=== PATIENT | female | born 1930 | race Hispanic/Latino ===

== ENCOUNTER 2017-04-24 22:47 | Inpatient (IN) | payer MEDICARE, MEDICAID ==
[2017-04-24 22:48] VITALS: BMI 14.1
--- NOTE | 2017-04-24 23:14 | ED PDOC ---
Arrival/HPI - General Chief Complaint: Abnormal Labs Time Seen by Provider: 04/24/17 23:08 Historian: Jail - History of Present Illness Narrative History of Present Illness (Text): 04/24/17 23:14 Mary Beth Hu is an 87 year old female, whose past medical history includes influenza, hypertension, COPD, C.diff, colitis, atrial fibrillation, hypothyroidism, and atrial fibrillation, who presents to the Emergency department [facility]work today. Patient noted to have a low hemoglobin of 7.8 and hematocrit of 24. Limited HPI and ROS secondary to patient's acuity of condition. Symptom Onset: Gradual Symptom Course: Unchanged Activities at Onset: Light Context: Home (penitentiary) Past Medical History - Provider Review Nursing Documentation Reviewed: Yes - Infectious Disease Hx of Infectious Diseases: C.diff - Tetanus Immunization Tetanus Immunization: Unknown - Cardiac Hx Cardiac Disorders: (hx c dif) Hx Hypertension: Yes - Pulmonary Hx Chronic Obstructive Pulmonary Disease (COPD): Yes Hx Pneumonia: Yes (bacterial tx in [facility] over 10 yrs ago) Other/Comment: lung infection - Neurological HX Cerebrovascular Accident: Yes Hx Dementia: Yes Hx Parkinson's Disease: Yes - Endocrine/Metabolic Hx Hypothyroidism: Yes - Musculoskeletal/Rheumatological Hx Falls: No - Genitourinary/Gynecological Hx Incontinence: Yes - Psychiatric Hx Depression: No Hx Emotional Abuse: No Hx Physical Abuse: No Hx Schizophrenia: (hears voices) Hx Substance Use: No - Past Surgical History Past Surgical History: Unable to Obtain - Surgical History Hx Hysterectomy: Yes - Suicidal Assessment Feels Threatened In Home Enviroment: No Family/Social History - Physician Review Nursing Documentation Reviewed: Yes Family/Social History: Unknown Family HX Smoking Status: Former Smoker Hx Alcohol Use: No Hx Substance Use: No Hx Substance Use Treatment: No Allergies/Home Meds Allergies/Adverse Reactions: Allergies No Known Allergies Allergy (Verified 10/24/12 08:19) Home Medications: Home Meds Medication Instructions Recorded Confirmed Acetaminophen [Tylenol] 650 mg PO PRN 10/24/12 10/24/12 Carbidopa/Levodopa [Carbidopa and 1 tab PO TID 10/24/12 10/24/12 Levodopa 25 mg-100 mg] Milk Of Mag 30 Ml PRN 10/24/12 10/24/12 Mirtazapine [Remeron] 15 mg PO HS 10/24/12 10/24/12 Omeprazole [Omeprazole D/R] 20 mg PO DAILY 10/24/12 10/24/12 Risperidone 0.25 mg PO HS 10/24/12 10/24/12 Simvastatin 20 mg PO DAILY 10/24/12 10/24/12 Review of Systems - Review of Systems Systems not reviewed;Unavailable: Acuity of Condition Hemo/Lymphatic: Other (+abnormal labs) Physical Exam Vital Signs Reviewed: Yes Vital Signs Temp Pulse Resp BP Pulse Ox 04/25/17 02:11 64 18 110/66 95 04/25/17 01:36 63 20 100/52 L 100 04/25/17 01:15 67 18 101/29 L 100 04/25/17 01:00 64 18 82/41 L 100 04/25/17 00:40 65 20 87/36 L 100 04/25/17 00:06 65 18 95/31 L 99 04/24/17 23:30 98.0 F 63 18 95/32 L 98 Temperature: Afebrile Blood Pressure: Normal Pulse: Regular Respiratory Rate: Normal Appearance: Positive for: Well-Appearing, Non-Toxic, Comfortable Pain Distress: None Mental Status: Positive for: other (Awake, alert, non-communicative) - Systems Exam Head: Present: Atraumatic, Normocephalic Pupils: Present: PERRL Extroacular Muscles: Present: EOMI Conjunctiva: Present: Other (Pale conjunctiva) Mouth: Present: Moist Mucous Membranes Neck: Present: Normal Range of Motion Respiratory/Chest: Present: Clear to Auscultation Cardiovascular: Present: Regular Rate and Rhythm, Normal S1, S2. No: Murmurs Abdomen: Present: Normal Bowel Sounds. No: Tenderness, Distention, Peritoneal Signs Rectal: Present: Other (Guaiac negative) Upper Extremity: Present: Normal Inspection. No: Cyanosis, Edema Lower Extremity: Present: Normal Inspection. No: Edema Neurological: Present: CN II-XII Intact, Motor Func Grossly Intact, Normal Sensory Function, Normal Cerebellar Funct, Other (Awake, non-communicative) Skin: Present: Warm, Dry, Normal Color. No: Rashes Psychiatric: Present: Alert Medical Decision Making ED Course and Treatment: 04/24/17 23:14 Impression: 87 year old female [facility] for [facility] hemoglobin/hematocrit. Plan: -- EKG -- Chest X-ray -- Labs, blood type and screen -- IV fluids -- Protonix -- Reassess and disposition Progress Notes: Reviewed EKG, NSR at [address]-segment elevations or depressions, no T- wave inversions, normal intervals. 04/25/17 01:40 Chest X-ray reviewed, shows no acute processes. 04/25/17 02:[address] Vazquez, who is aware and agrees with plan. Accepts pt in to her service. Pt will go to [facility] observation for anemia. Requests pt be transfused 2 units of blood. Also requests Dr. Berry on consult. - Lab Interpretations Lab Results: 04/25/17 00:25 04/25/17 00:25 Lab Results 04/25/17 00:25: Blood Type Pending, Antibody Screen Pending, BBK History Checked Patient has bt 04/25/17 00:25: WBC 5.3, RBC 2.72 L, Hgb 8.0 L, Hct 25.5 L, MCV 93.8, MCH 29.4, MCHC 31.4, RDW 14.7 H, Plt Count 227, MPV 10.4 04/25/17 00:25: Sodium 141, Potassium 4.1, Chloride 109 H, Carbon Dioxide 28, Anion Gap 8 L, BUN 20, Creatinine 0.8, Est GFR ( Amer) > 60, Est GFR (Non -Af Amer) > 60, Random Glucose 88, Calcium 8.5, Total Bilirubin 0.4, AST 16, ALT 13, Alkaline Phosphatase 55, Total Protein 6.2, Albumin 2.7 L, Globulin 3.5 , Albumin/Globulin Ratio 0.8 L 04/25/17 00:25: PT 13.7 H, INR 1.20 H, APTT 31.1 I have reviewed the lab results: Yes - RAD Interpretation Radiology Orders: 04/24/17 23:59 CHEST PORTABLE [RAD] Stat Vehicle Detailer: ED Physician - EKG Interpretation Interpreted by ED Physician: Yes Type: 12 lead EKG - Medication Orders Current Medication Orders: Sodium Chloride (Sodium Chloride 0.9%) 1,000 mls @ 100 mls/hr IV .Q10H DIANE Last Admin: 04/25/17 00:29 Dose: Discontinued Medications Sodium Chloride (Sodium Chloride 0.9%) 500 mls @ 500 mls/hr IV .Q1H STA Stop: 04/25/17 01:24 Last Admin: 04/25/17 00:30 Dose: 500 mls/hr eMAR Start Stop Document 04/25/17 00:30 YP (Rec: 04/25/17 00:30 YP [id number]) Intravenous Solution Start Date 04/25/17 Start Time 00:30 End Date 04/25/17 End time 01:00 Total Infusion Time 30 Pantoprazole Sodium (Protonix Inj) 40 mg IVP ONCE STA Stop: 04/25/17 00:01 Last Admin: 04/25/17 00:29 Dose: 40 mg IVP Administration Document 04/25/17 00:29 YP (Rec: 04/25/17 00:29 YP [id number]) Charges for Administration # of IVP Administrations 1 - Scribe Statement The provider has reviewed the documentation as recorded by the Amada Coleman Provider Scribe Attestation: All medical record entries made by the Scribmackenzie were at my direction and personally dictated by me. I have reviewed the chart and agree that the record accurately reflects my personal performance of the history, physical exam, medical decision making, and the department course for this patient. I have also personally directed, reviewed, and agree with the discharge instructions and disposition. Disposition/Present on Arrival - Present on Arrival Any Indicators Present on Arrival: No History of DVT/PE: No History of Uncontrolled Diabetes: No Urinary Catheter: No History of Decub. Ulcer: No History Surgical Site Infection Following: None - Disposition Have Diagnosis and Disposition been Completed?: Yes Diagnosis: Anemia Disposition: HOSPITALIZED Disposition Time: 02:37 Patient Problems: Current Active Problems Problem Status Onset Anemia Acute Condition: STABLE
[2017-04-25] MEDS ORDERED: Sodium Chloride 0.9% 1,000 ML IV SCH
[2017-04-25] MEDS ORDERED: Sodium Chloride 0.9% 500 ML IV STA (00:25)
[2017-04-25 00:52] LABS: ALBUMIN 2.7 g/dL (3.0-4.8); ALT/SGPT 13 U/L (7-56); AST/SGOT 16 U/L (14-36); BLOOD UREA NITROGEN 20 mg/dL (7-21); CALCIUM 8.5 mg/dL (8.4-10.5); GFR AFRICAN-AMERICAN > 60; GFR NON-AFRICAN AMERICAN > 60
[2017-04-25 00:53] LABS: ALB/GLOB RATIO 0.8 (1.1-1.8); MEAN CELL VOLUME 93.8 fl (80.0-105.0); MEAN CORPUSCULAR HEMOGLOBIN 29.4 pg (25.0-35.0); MEAN CORPUSCULAR HGB CONC 31.4 g/dl (31.0-37.0); MEAN PLATELET VOLUME 10.4 fl (7.0-11.0); RBC 2.72 10^6/uL (3.5-6.1); RED CELL DISTRIBUTION WIDTH 14.7 % (11.5-14.5); WHITE BLOOD COUNT 5.3 10^3/ul (4.5-11.0)
[2017-04-25 01:03] LABS: INR 1.2 (0.93-1.08); PARTIAL THROMBOPLASTIN TIME 31.1 Seconds (25.1-36.5); PROTHROMBIN TIME 13.7 SECONDS (9.4-12.5)
[2017-04-25] MEDS ORDERED: Albuterol-Ipratrop 3 mg / 0.5 (3 ml) UD IH PRN (08:32)
[2017-04-25] MEDS ORDERED: Magnesium Hydroxide Susp 30 ml UD PO PRN (08:32)
--- NOTE | 2017-04-25 08:50 | RAD ---
HISTORY: medical clearance COMPARISON: 11/02/2012 FINDINGS: LUNGS: There is a minimal density in the right lung which follows the contour of the major fissure. This could represent pleural scarring. There is no focal consolidation PLEURA: No significant pleural effusion identified, no pneumothorax apparent. CARDIOVASCULAR: Normal. OSSEOUS STRUCTURES: No significant abnormalities. VISUALIZED UPPER ABDOMEN: Normal. OTHER FINDINGS: None. IMPRESSION: There is a minimal density in the right lung which follows the contour of the major fissure. This could represent pleural scarring. There is no focal consolidation
[2017-04-25] MEDS ORDERED: Fluticasone-Salmeterol 500-50mcg Diskus IH SCH (10:00)
[2017-04-25] MEDS ORDERED: Albuterol HFA 90 mcg/actuation (8 g) IH SCH (10:00)
[2017-04-25 10:16] LABS: ALT/SGPT 15 U/L (7-56); AST/SGOT 20 U/L (14-36); BILIRUBIN,DIRECT 0.4 mg/dL (0.0-0.4); HDL CHOLESTEROL 29 mg/dL (29-60)
[2017-04-25 10:20] LABS: LDL CHOLESTEROL 31 mg/dL (0-129)
[2017-04-25 10:28] LABS: IRON 26 ug/dL (45-180)
[2017-04-25 10:38] LABS: TOTAL IRON BINDING CAPACITY 189 ug/dL (265-497)
[2017-04-25 10:41] LABS: % IRON SATURATION 14 % (20-55)
[2017-04-25 11:09] LABS: ALBUMIN 2.7 g/dL (3.0-4.8)
[2017-04-25 11:11] LABS: ALB/GLOB RATIO 0.8 (1.1-1.8)
[2017-04-25] MEDS: Divalproex 125 mg EC Sprinkle Cap PO SCH ×2 (12:23→18:07)
[2017-04-25] MEDS: Calcium-Vit D 250 mg-125 Units Tab UD PO SCH (12:24)
[2017-04-25] MEDS: Digoxin 125 mcg (0.125 mg) Tab PO SCH (12:27)
[2017-04-25] MEDS: Multivitamin With Minerals Tab PO SCH (12:28)
[2017-04-25] MEDS: Carbidopa/Levodopa 25/100 CR PO SCH ×3 (12:28→18:08)
[2017-04-25] MEDS: Potassium Chloride 20 mEq ER Tab PO SCH (12:28)
[2017-04-25] MEDS: Arformoterol 15 mcg/2 ml Inh Sol IH SCH ×2 (14:37→19:51)
[2017-04-25] MEDS: Budesonide 0.5 mg/2 ml Inhal Susp UD IH SCH ×2 (14:37→19:52)
[2017-04-25 17:32] LABS: FOLATE > 20.0 ng/mL
--- NOTE | 2017-04-25 20:15 | CON ---
DATE: REQUESTING PHYSICIAN: Emily Vazqeuz MD This consult is for Dr. Berry, Dr. Carlisle is covering. REASON FOR CONSULTATION: I have been asked to see this 87-year-old female who is transferred from the [facility] for routine blood work which showed the patient to be anemic with a hemoglobin of 7.8. The patient is a poor historian. She denies any abdominal pain, rectal bleeding, melena, nausea, vomiting, or hematemesis. She has a history of hypertension, influenza, COPD, atrial fibrillation, hypothyroidism, and pseudomembranous colitis. PAST MEDICAL HISTORY: Again is as above. She has a history of COPD, influenza, hypertension, atrial fibrillation, hypothyroidism, pseudomembranous colitis, CVA, dementia, Parkinson's disease. SOCIAL HISTORY: She is domiciled at a [facility]. She denies cigarette smoking or alcohol use. FAMILY HISTORY: Noncontributory. REVIEW OF SYSTEMS: A 14-point review of systems is notable for weakness. She denies rectal bleeding, melena, abdominal pain, nausea, vomiting, hematemesis. MEDICATIONS AT HOME: Include Brovana, Claritin, Depakote Sprinkles 125 mg b.i.d., DuoNeb 3 mL inhaled every 6 hours as needed, potassium chloride, Lanoxin 0.125 mg daily, Lipitor 10 mg daily, Lopressor 12.5 mg p.o. b.i.d., Os-Anil D, pantoprazole 40 mg once a day, budesonide 1 mg q.12 hours, Remeron 15 mg at bedtime, Risperdal 0.5 mg p.o. b.i.d., Sinemet one t.i.d., Singulair 10 mg p.o. at bedtime, multivitamins. PHYSICAL EXAMINATION: GENERAL: Elderly, cachectic female lying in bed, appearing comfortable. VITAL SIGNS: Reveal temperature of 98, blood pressure 92/29, heart rate 58. HEENT: Reveals bilateral temporal wasting. Conjunctivae are pale. Sclerae are white. NECK: Supple. CHEST: Reveals lungs to be clear. HEART: Reveals an irregular rate. ABDOMEN: Soft, nontender. EXTREMITIES: Show no edema. LABORATORY DATA: Reveals hemoglobin , white blood cell count 5.3. Coags reveal PT 13.7, INR 1.2. Laboratory data reveals BUN 20, creatinine 0.8. IMPRESSION: An 87-year-old female with anemia, this is probably chronic. There is no evidence of overt gastrointestinal bleeding. RECOMMENDATIONS: 1. Check iron studies. 2. Check stool guaiacs. 3. The patient is to be transfused 2 units of packed red blood cells. 4. Consider endoscopy if the patient is agreeable. Mati Carlisle MD
[2017-04-25] MEDS: Insulin Reg-LOW-Coverage SC SCH (22:43)
[2017-04-25] MEDS: MethylPREDNISolone 40 mg Vial IVP SCH (22:45)
--- NOTE | 2017-04-26 03:40 | HP ---
CHIEF COMPLAINT: Coughing, shortness of breath, wheezing, and low hemoglobin. HISTORY OF PRESENT ILLNESS: Ms. Mary Beth Hu is an 87-year-old female with past medical history of hypertension, COPD, clostridium difficile toxin colitis, atrial fibrillation, hypothyroidism and asthma, came to the Emergency Room from [facility] for low hemoglobin, coughing, shortness of breath, and wheezing. The patient noted to have a low hemoglobin of 7.8, and hematocrit of 24. The patient has advanced dementia, is not giving any history or review of system, but I know this patient from [facility]. No fever and no chills. The patient is very poor historian. PAST MEDICAL HISTORY: Clostridium difficile toxin colitis, history of congestive heart failure, hypertension, COPD, history of pneumonia, CVA, dementia, Parkinson's disease, hypothyroidism, urinary incontinence, and hysterectomy. FAMILY HISTORY: Father and mother noncontributory. HABITS: No smoking, no drugs, and no ethanol. ALLERGIES: THE PATIENT IS NOT ALLERGIC WITH ANY MEDICATIONS. HOME MEDICATIONS: Tylenol, carbidopa/levodopa, Remeron, omeprazole, risperidone, and simvastatin. REVIEW OF SYSTEMS: The patient seen and examined at the bedside in her room. She is having her lunch, but still coughing, shortness of breath, and wheezing. No fever and no chills. No headache or dizziness. No swelling of the leg. She is not able to give review of system. PHYSICAL EXAMINATION: VITAL SIGNS: Temperature of 98.0, pulse of 63, respiratory rate of 18, and blood pressure of 35/32. HEENT: Head normocephalic and atraumatic. Eyes: PERRLA. Extraocular muscles are intact. Conjunctivae are clear. Nose is patent. Mucous membranes are moist. NECK: Supple. No carotid bruits. No JVD or thyromegaly. CHEST: Bilaterally symmetrical. HEART: S1 and S2 positive. LUNGS: Positive wheezing bilaterally. ABDOMEN: Soft. Bowel sounds present. No organomegaly. EXTREMITIES: No edema. No cyanosis. NEUROLOGIC: The patient is awake and alert. Moving all 4 extremities. Following simple commands. Cranial nerves II through XII are grossly intact. LABORATORY DATA: White blood cell count is 5.3, hemoglobin is 8.0, hematocrit is 25.5, and platelets are 27. Sodium is 141, potassium is 4.1, BUN is 20, creatinine is 0.8, and glucose is 88. ASSESSMENT AND PLAN: Ms. Mary Beth Hu is an 87-year-old lady with anemia, hyperchloremia, anemia is acute on chronic, exacerbation of chronic obstructive pulmonary disease, history of hypertension, history of clostridium difficile toxin colitis, atrial fibrillation, and hypothyroidism. Readmitted the patient, doing a 2 units of packed red blood cells. Gastrointestinal consult called to rule out gastrointestinal cause of anemia. Hematology consult called. Pulmonary consult call. Put the patient on DuoNeb. Continue home medications. Repeat laboratories. We will follow up. Emily Vazquez MD
[2017-04-26 07:45] LABS: MEAN CELL VOLUME 91.5 fl (80.0-105.0); MEAN CORPUSCULAR HEMOGLOBIN 29.5 pg (25.0-35.0); MEAN CORPUSCULAR HGB CONC 32.2 g/dl (31.0-37.0); RBC 3.9 10^6/uL (3.5-6.1); WHITE BLOOD COUNT 7.7 10^3/ul (4.5-11.0)
[2017-04-26 07:47] LABS: HEMOGLOBIN 11.5 g/dL (12.0-16.0)
[2017-04-26] MEDS: Arformoterol 15 mcg/2 ml Inh Sol IH SCH ×2 (07:50→20:05)
[2017-04-26] MEDS: Budesonide 0.5 mg/2 ml Inhal Susp UD IH SCH ×2 (07:50→20:05)
[2017-04-26 08:02] LABS: BLOOD UREA NITROGEN 25 mg/dL (7-21); CALCIUM 8.6 mg/dL (8.4-10.5); GFR AFRICAN-AMERICAN > 60; GFR NON-AFRICAN AMERICAN 53
[2017-04-26] MEDS: Insulin Reg-LOW-Coverage SC SCH ×4 (08:04→21:53)
--- NOTE | 2017-04-26 10:06 | CON ---
DATE: 04/26/2017 REQUESTING PHYSICIAN: Emily Vazquez MD REASON FOR CONSULTATION: Severe anemia. HISTORY OF PRESENT ILLNESS: The patient is an 87-year-old female [facility] who was transferred to the hospital because of the low hemoglobin of 7.8. She has history of atrial fibrillation, hypothyroidism, and COPD. Denies any chest pain. No shortness of breath. She could not tell about the bleeding per rectum or dark colored stools. PAST MEDICAL HISTORY: Hypertension, atrial fibrillation, recurrent pneumonia, and advanced dementia. PAST SURGICAL HISTORY: Hysterectomy. FAMILY HISTORY: Noncontributory. PERSONAL HISTORY: Former smoker. No history of alcohol abuse. SOCIAL HISTORY: Res[facility]. ALLERGIES: NO KNOWN DRUG ALLERGIES. MEDICATIONS: Home medication Tylenol 650 mg p.r.n., levodopa and carbidopa, omeprazole 20 mg daily, Remeron 50 mg p.o. at bedtime, and simvastatin 20 mg daily. REVIEW OF SYSTEMS: As per HPI. A 12-point review of systems reviewed and negative. PHYSICAL EXAMINATION GENERAL: Comfortable in bed, in no acute distress. VITAL SIGNS: Temperature 98, heart rate 63 per minute, respiratory rate 18 per minute, blood pressure 110/60, and pulse oxygen 95% on room air. HEENT: Pallor positive. NECK: No lymphadenopathy. CHEST: Air entry present equal and bilateral. No added sounds. CARDIOVASCULAR: S1 and S2 normal. No murmur. No gallop. ABDOMEN: Soft and nontender. No hepatosplenomegaly. EXTREMITIES: No edema. LAN ADMINISTRATOR: Alert and oriented x3. No sensory motor deficits. LABORATORY DATA: Chest x-ray no infiltrate. Labs white count 5.3, hemoglobin 8, hematocrit 25.5, and platelet 227. Sodium 141, potassium 4.1, BUN 20, creatinine 0.8, glucose 88, INR 1.2. Iron 26, iron saturation 14%, B12 580, folate more than 20, and TSH 0.122. ASSESSMENT: 1. Severe anemia. 2. Possibility of occult gastrointestinal bleed. 3. Severe iron deficiency. 4. History of chronic obstructive pulmonary disease. 5. History of Clostridium difficile colitis. 6. History of atrial fibrillation. 7. Hypothyroidism. PLAN: She received 2 units of blood transfusion. We will order the stool occult blood. She has severe iron deficiency. B12 folate levels are normal. We will consider IV iron during hospitalization. She can resume oral iron back in [facility]. GI consultation requested, input awaited. Hemoglobin has improved to 11.5 after blood transfusion. We will continue to follow during hospitalization. Thank you Dr. Vazquez for allowing us to participate in Ms. Hu's care. Joyce Kahn MD
--- NOTE | 2017-04-26 10:16 | CARD ---
APPROVED REPORT EKG Measurement Heart [id number] <Conclusion> Normal sinus rhythm Normal ECG
[2017-04-26] MEDS: MethylPREDNISolone 40 mg Vial IVP SCH ×2 (10:37→21:56)
[2017-04-26] MEDS: Pantoprazole 40 mg EC Tab PO SCH (10:38)
[2017-04-26] MEDS: Calcium-Vit D 250 mg-125 Units Tab UD PO SCH (10:38)
[2017-04-26] MEDS: Potassium Chloride 20 mEq ER Tab PO SCH (10:38)
[2017-04-26] MEDS: Digoxin 125 mcg (0.125 mg) Tab PO SCH (10:38)
[2017-04-26] MEDS: Multivitamin With Minerals Tab PO SCH (10:41)
[2017-04-26] MEDS: Carbidopa/Levodopa 25/100 CR PO SCH ×3 (10:41→18:17)
[2017-04-26] MEDS: Divalproex 125 mg EC Sprinkle Cap PO SCH ×2 (10:41→18:16)
--- NOTE | 2017-04-26 16:58 | CP.PCM.PN ---
Subjective - Date & Time of Evaluation Date of Evaluation: 04/26/17 Time of Evaluation: 10:00 - Subjective Subjective: Seen and examined at the bedside earlier today, chart reviewed. H&H status post 2 units of packed RBC. Denies nausea, vomiting or abdominal pain no acute overnight events reported or overt GI bleed. Objective - Vital Signs/Intake and Output Vital Signs (last 24 hours): Temp Pulse Resp BP Pulse Ox 97.5 F L 54 L 20 105/51 L 98 04/26/17 08:00 04/26/17 08:00 04/26/17 08:00 04/26/17 08:00 04/26/17 08:00 Intake and Output: 04/26/17 04/26/17 06:59 18:59 Intake Total 855 Balance 855 - Medications Medications: Current Medications Acetaminophen (Tylenol 325mg Tab) 650 mg PO Q4H PRN PRN Reason: Pain, Mild (1-3) Albuterol/Ipratropium (Duoneb 3 Mg/0.5 Mg (3 Ml) Ud) 3 ml IH Q6H PRN PRN Reason: Shortness of Breath Arformoterol Tartrate (Brovana) 15 mcg IH [id number] [facility] Last Admin: 04/26/17 07:50 Dose: 15 mcg Atorvastatin Calcium (Lipitor) 10 mg PO DAILY [facility] Last Admin: 04/26/17 10:38 Dose: 10 mg Budesonide (Pulmicort Respules) 1 mg IH [id number] [facility] Last Admin: 04/26/17 07:50 Dose: 1 mg Calcium/Vitamin D (Oscal-D 250 Mg-125 Units Tab) 1 tab PO DAILY [facility] Last Admin: 04/26/17 10:38 Dose: 1 tab Carbidopa/Levodopa (Sinemet Cr) 1 tab PO TID [facility] Last Admin: 04/26/17 14:59 Dose: 1 tab Digoxin (Lanoxin) 0.125 mg PO DAILY [facility] Last Admin: 04/26/17 10:38 Dose: 0.125 mg Divalproex Sodium (Depakote Sprinkles) 125 mg PO BID [facility] Last Admin: 04/26/17 10:41 Dose: 125 mg Sodium Chloride (Sodium Chloride 0.9%) 1,000 mls @ 100 mls/hr IV .Q10H [facility] Last Admin: 04/25/17 00:29 Dose: Not Given Iron Sucrose 200 mg/ Sodium (Chloride) 110 mls @ 110 mls/hr IVPB ONCE ONE Stop: 04/27/17 10:16 Insulin Human Regular (Humulin R Low) 0 units SC ACHS [facility] PRN Reason: Protocol Last Admin: 04/26/17 16:22 Dose: Not Given Loratadine (Claritin) 10 mg PO DAILY [facility] Last Admin: 04/26/17 10:39 Dose: 10 mg Magnesium Hydroxide (Milk Of Magnesia) 30 ml PO HS PRN PRN Reason: Constipation Methylprednisolone (Solu-Medrol) 40 mg IVP Q12 [facility] Last Admin: 04/26/17 10:37 Dose: 40 mg Metoprolol Tartrate (Lopressor) 12.5 mg PO BID [facility] Last Admin: 04/26/17 10:39 Dose: 12.5 mg Mirtazapine (Remeron) 15 mg PO HS [facility] Last Admin: 04/25/17 22:46 Dose: 15 mg Montelukast Sodium (Singulair) 10 mg PO HS [facility] Last Admin: 04/25/17 22:46 Dose: 10 mg Multivitamins/Minerals (Therapeutic-M Tab) 1 tab PO DAILY [facility] Last Admin: 04/26/17 10:41 Dose: 1 tab Pantoprazole Sodium (Protonix Ec Tab) 40 mg PO DAILY [facility] Last Admin: 04/26/17 10:38 Dose: 40 mg Potassium Chloride (K-Dur 20 Meq Er Tab) 20 meq PO DAILY [facility] Last Admin: 04/26/17 10:38 Dose: 20 meq Risperidone (Risperdal Tab) 0.5 mg PO BID [facility] PRN Reason: Protocol Last Admin: 04/26/17 10:38 Dose: 0.5 mg - Labs Labs: 04/26/17 06:45 04/26/17 06:45 PT 13.7 SECONDS (9.4-12.5) H 04/25/17 00:25 INR 1.20 (0.93-1.08) H 04/25/17 00:25 APTT 31.1 Seconds (25.1-36.5) 04/25/17 00:25 - Constitutional Appears: No Acute Distress - Head Exam Head Exam: NORMOCEPHALIC - Eye Exam Eye Exam: Normal appearance. absent: Scleral icterus - ENT Exam ENT Exam: Mucous Membranes Moist - Neck Exam Neck Exam: Normal Inspection - Respiratory Exam Respiratory Exam: NORMAL BREATHING PATTERN. absent: Respiratory Distress - Cardiovascular Exam Cardiovascular Exam: +S1, +S2 - GI/Abdominal Exam GI & Abdominal Exam: Soft, Normal Bowel Sounds. absent: Guarding, Tenderness, Organomegaly, Rebound - Extremities Exam Extremities Exam: absent: Calf Tenderness, Pedal Edema - Neurological Exam Neurological Exam: Alert, Awake, Oriented x3 - Skin Skin Exam: Dry, Warm Assessment and Plan - Assessment and Plan (Free Text) Assessment: Assessment: anemia status post 2 units of packed RBC History of COPD Hypertension Atrial fibrillation History of Parkinson's disease Plan: Diet as tolerated Asael H&H Nothing by mouth post midnight for EGD on 04/27/27 Continue GI prophylaxis Spoke to patient's daughter who is her POA, Khadijah Hu,number obtained from chart , consents obtained for procedure and anesthesia, risk and benefits explained, agree for procedure, all questions answered. Case discussed w/ Dr. Carlisle covering Dr. Berry.
--- NOTE | 2017-04-27 06:09 | PN ---
DATE: 04/26/2017 SUBJECTIVE: The patient is 87-year-old female. The patient was seen and examined on 04/26/2017, looking comfortable. Still coughing with wheezing. No nausea, vomiting or diarrhea. No hematuria or hematochezia. No swelling of the leg. Patient is a very poor historian. No evidence of rectal bleeding or dark colored stool. PHYSICAL EXAMINATION: VITAL SIGNS: Temperature 98, heart rate 93, respiratory rate 18, blood pressure 110/60, pulse oximetry 95% on room air. HEENT: Head normocephalic, atraumatic. Eyes: PERRLA. Extraocular muscles are intact. Conjunctivae clear. Nose patent. Mucous membranes are moist. NECK: Supple. No carotid bruits, JVD or thyromegaly. CHEST: Bilaterally symmetrical. HEART: S1 and S2 positive. LUNGS: Wheezing especially at the bases, expiratory. ABDOMEN: Soft. Bowel sounds present. No organomegaly. EXTREMITIES: No edema. No cyanosis. NEUROLOGIC: The patient is awake and alert. Follows simple commands. LABORATORY DATA: White blood cell is 5.3, hemoglobin 8, hematocrit 25.5, platelets 227. Sodium 141, potassium 4.1, BUN 20, creatinine 0.8, glucose 88. INR 1.2, iron 2.6, and B12 of 580. ASSESSMENT AND PLAN: Ms. Mary Beth Hu came with severe symptomatic anemia, possibility of occult gastrointestinal bleeding, GI is on the case, severe iron deficiency, history of chronic obstructive pulmonary disease, history of Clostridium difficile colitis, history of atrial fibrillation and hypothyroidism. Reviewed Dr. Kahn, small brake form operator's note. Patient received 2 units of packed red blood cells. Stool guaiac test ordered iron deficiency. B12 and folic acid levels are normal. Will get IV iron infusion during hospitalization. She can resume oral iron back in the retirement. GI consultation requested, input is awaiting. Hemoglobin improved to 11.5 after transfusion. Continue present treatment, repeat labs, gastrointestinal and deep venous thrombosis prophylaxis. We will follow. Emily Vazquez MD [place]
--- NOTE | 2017-04-27 07:01 | CON ---
DATE: 04/26/2017 PULMONARY CONSULTATION REFERRING PHYSICIAN: Emily Vazquez MD REASON FOR CONSULTATION: Cough and shortness of breath. HISTORY OF PRESENT ILLNESS: This is an 87-year-old female with past medical history significant for heart failure, hypertension, chronic lung disease, history of pneumonia, dementia, history of stroke, hypothyroid, and recurrent UTI, brought in because of cough and shortness of breath. She is a resident of [facility] [place] because of cough and shortness of breath and found to have anemia. Apparently, her hemoglobin was 7.8. Presently, lying in the bed, feels better, still has cough and shortness of breath. No nausea. No vomiting. No diarrhea. No leg pain. No leg swelling. PAST MEDICAL HISTORY: As per history of present illness. ALLERGIES: NONE KNOWN. SOCIAL HISTORY: Stop smoking many years ago. Denied any alcohol use. FAMILY HISTORY: No significant cardiopulmonary disease reported. MEDICATIONS: She is on Brovana inhale twice a day, Claritin 10 mg daily, Depakote 125 mg twice a day, DuoNeb q.6 hours p.r.n., insulin coverage, iron sucrose 200 mg daily, potassium 20 mEq daily, digoxin 0.125 mg daily, Lipitor 10 mg daily, metoprolol tartrate 12.5 mg twice a day, milk of magnesia 30 mL at bedtime, calcium/vitamin D one tab daily, Protonix 40 mg daily, Pulmicort inhale twice a day, Remeron 15 mg at bedtime, Risperdal 0.5 mg twice a day, Sinemet (carbidopa/levodopa) 1 tab three times a day, Singulair 10 mg daily, IV fluid normal saline 100 mL per hour, Solu-Medrol 40 mg q.12 hours, multivitamins daily, and Tylenol p.r.n. basis. REVIEW OF SYSTEMS: No headache. No rhinitis. Has cough. No sputum production. No nausea. No dysuria. No leg pain or leg swelling. PHYSICAL EXAMINATION: VITAL SIGNS: Temperature is 98, heart rate is 63, respiratory rate is 20, blood pressure is 102/87, and pulse ox is 97% on nasal cannula. HEENT: Moist mucous membrane. Small oral cavity. NECK: Supple. No JVD. LUNGS: Reveal mild cough and shortness of breath. Has scattered rhonchi. HEART: S1, S2. ABDOMEN: Soft and nontender. No organomegaly. EXTREMITIES: No edema. NEUROLOGIC: Awake, alert, and follows simple commands. LABORATORY DATA: Shows hemoglobin 11.5, hematocrit is 35.7, WBC 7.7, and platelet is 244. INR 1.20 and PTT is 31. Sodium 141,potassium 4.7, chloride 111, bicarbonate 23, BUN 25, creatinine 1.0, and glucose 138. Calcium is 8.6. Iron is 26. TSH is 1.2. Hemoglobin A1c 5.5. Vitamin B12 is 580. Folate is greater than 20. Digoxin level 1.3, is 22. Had a chest x-ray done on admission shows minimal density in the right lung, which follows contour of the major fissure. This could be representing pleural scarring or fluid. IMPRESSION AND PLAN: Chronic obstructive lung disease, history of heart failure, anemia, hypertension, history of Clostridium difficile colitis, atrial fibrillation, hypothyroid, status post blood transfusion. The patient was seen by Hematology, also seen by GI. Pulmonary point of view, continue to inhale bronchodilator, keep head at 45 degree. We will need followup x-rays, ProBNP, and procalcitonin in the morning. Gastric prophylaxis and sequential compression devices to lower extremities. Erika Reed MD
[2017-04-27] MEDS: Budesonide 0.5 mg/2 ml Inhal Susp UD IH SCH ×2 (07:46→21:38)
[2017-04-27] MEDS: Arformoterol 15 mcg/2 ml Inh Sol IH SCH ×2 (07:46→21:36)
[2017-04-27] MEDS: Insulin Reg-LOW-Coverage SC SCH ×4 (08:17→21:59)
--- NOTE | 2017-04-27 09:03 | PN ---
ADDENDUM DATE: 04/26/2017 I have personally examined this patient. I have reviewed her laboratory data. I agree with Vanita hill' assessment and recommendations. The patient's hemoglobin has increased to 11.5 g after blood transfusion. She will undergo an upper endoscopy in the morning for an evaluation of anemia. Mati Carlisle MD
[2017-04-27] MEDS: Potassium Chloride 20 mEq ER Tab PO SCH (09:39)
[2017-04-27] MEDS: Divalproex 125 mg EC Sprinkle Cap PO SCH ×2 (09:39→17:20)
[2017-04-27] MEDS: MethylPREDNISolone 40 mg Vial IVP SCH ×2 (09:39→22:25)
[2017-04-27] MEDS: Calcium-Vit D 250 mg-125 Units Tab UD PO SCH (09:39)
[2017-04-27] MEDS: Pantoprazole 40 mg EC Tab PO SCH (09:39)
[2017-04-27] MEDS: Multivitamin With Minerals Tab PO SCH (09:40)
[2017-04-27] MEDS: Carbidopa/Levodopa 25/100 CR PO SCH ×3 (09:40→17:20)
[2017-04-27] MEDS ORDERED: Propofol 10 mg/ml Inj (20 ML) ONE (11:40)
[2017-04-27] MEDS: Digoxin 125 mcg (0.125 mg) Tab PO SCH (13:30)
[2017-04-27] MEDS: Sodium Chloride 0.9% 1,000 ML IV SCH ×2 (17:28→22:25)
--- NOTE | 2017-04-27 20:45 | PN ---
DATE: 04/27/2017 PULMONARY PROGRESS NOTE REFERRING PHYSICIAN: Emily Vazquez MD SUBJECTIVE: She is lying in the bed, comfortable, mild cough. No nausea. No vomiting. No diarrhea. No leg pain. No leg swelling. OBJECTIVE: GENERAL: In no acute distress. VITAL SIGNS: Temperature is 98, heart rate is 69, respiratory rate is 18, blood pressure is 124/52, pulse oximetry is 100% on 3 L nasal cannula. HEENT: Small oral cavity. Crowded airway. NECK: Supple. No JVD. LUNGS: Have a scattered rhonchi, fair airflow. HEART: S1 and S2. ABDOMEN: Soft, nontender. No organomegaly. EXTREMITIES: No edema. NEUROLOGIC: Awake, alert, follows simple commands. MEDICATIONS: She is on Brovana inhale twice a day, Claritin 10 mg daily, Depakote 125 mg twice a day, DuoNeb q.6 hours, insulin coverage, potassium 20 mEq daily, digoxin 0.125 mg daily, Lipitor 10 mg daily, metoprolol tartrate 12.5 mg twice a day, milk of magnesia p.r.n. basis, vitamin D one tab daily, Protonix 40 mg daily, Pulmicort inhale twice a day, Remeron 15 mg at bedtime, Risperdal 0.5 mg twice a day, Sinemet CR 1 tablet three times a day, Singulair 10 mg daily, IV fluids normal saline at 100 mL per hour, Solu-Medrol 40 mg q.12 hours, multivitamins daily, and Tylenol on a p.r.n. basis. LABORATORY DATA: Shows blood sugar 171. Endoscopy done which shows hiatal hernia, that was unremarkable. IMPRESSION AND PLAN: Chronic obstructive lung disease, heart failure, anemia, hypertension, history of Clostridium difficile colitis, atrial fibrillation, hypothyroid, status post blood transfusion. Pulmonary point of view, she is doing okay, keep head at 45 degrees, bronchodilator, aspiration precaution, gastric prophylaxis and sequential compression devices to lower extremities. Gastrointestinal followup for blood loss. Thank you and we will follow with you. Erika Reed MD
--- NOTE | 2017-04-27 23:03 | CP.PCM.PN ---
<Kasia Bell - Last Filed: 04/28/17 00:44> Subjective - Date & Time of Evaluation Date of Evaluation: 04/27/17 Time of Evaluation: 18:00 - Subjective Subjective: 87 yr female from [facility] w/ history of influenza, hypertension, COPD, C.diff, colitis, atrial fibrillation, seizure disorder, advanced dementia, parkinsons, schizophrenia and hypothyroidism. Pt found to have anemia in routine bloodwork. Anemia improved. Hemoglobin from 8 now 11.5. Baseline is confused. Pt is a poor historian. Objective - Vital Signs/Intake and Output Vital Signs (last 24 hours): Temp Pulse Resp BP Pulse Ox 97.7 F 69 17 93/48 L 100 04/27/17 12:29 04/27/17 12:29 04/27/17 12:29 04/27/17 17:20 04/27/17 12:29 Intake and Output: 04/27/17 04/28/17 18:59 06:59 Intake Total 360 Balance 360 - Medications Medications: Current Medications Acetaminophen (Tylenol 325mg Tab) 650 mg PO Q4H PRN PRN Reason: Pain, Mild (1-3) Albuterol/Ipratropium (Duoneb 3 Mg/0.5 Mg (3 Ml) Ud) 3 ml IH Q6H PRN PRN Reason: Shortness of Breath Arformoterol Tartrate (Brovana) 15 mcg IH [id number] [facility] Last Admin: 04/27/17 21:36 Dose: 15 mcg Atorvastatin Calcium (Lipitor) 10 mg PO DAILY [facility] Last Admin: 04/27/17 09:39 Dose: Not Given Budesonide (Pulmicort Respules) 1 mg IH [id number] [facility] Last Admin: 04/27/17 21:38 Dose: 1 mg Calcium/Vitamin D (Oscal-D 250 Mg-125 Units Tab) 1 tab PO DAILY [facility] Last Admin: 04/27/17 09:39 Dose: Not Given Carbidopa/Levodopa (Sinemet Cr) 1 tab PO TID [facility] Last Admin: 04/27/17 17:20 Dose: 1 tab Digoxin (Lanoxin) 0.125 mg PO DAILY [facility] Last Admin: 04/27/17 13:30 Dose: 0.125 mg Divalproex Sodium (Depakote Sprinkles) 125 mg PO BID [facility] Last Admin: 04/27/17 17:20 Dose: 125 mg Sodium Chloride (Sodium Chloride 0.9%) 1,000 mls @ 100 mls/hr IV .Q10H [facility] Last Admin: 04/27/17 22:25 Dose: Not Given Insulin Human Regular (Humulin R Low) 0 units SC ACHS [facility] PRN Reason: Protocol Last Admin: 04/27/17 21:59 Dose: Not Given Loratadine (Claritin) 10 mg PO DAILY [facility] Last Admin: 04/27/17 09:39 Dose: Not Given Magnesium Hydroxide (Milk Of Magnesia) 30 ml PO HS PRN PRN Reason: Constipation Methylprednisolone (Solu-Medrol) 40 mg IVP Q12 [facility] Last Admin: 04/27/17 22:25 Dose: 40 mg Metoprolol Tartrate (Lopressor) 12.5 mg PO BID [facility] Last Admin: 04/27/17 17:20 Dose: Not Given Mirtazapine (Remeron) 15 mg PO HS [facility] Last Admin: 04/27/17 22:25 Dose: 15 mg Montelukast Sodium (Singulair) 10 mg PO HS [facility] Last Admin: 04/27/17 22:25 Dose: 10 mg Multivitamins/Minerals (Therapeutic-M Tab) 1 tab PO DAILY [facility] Last Admin: 04/27/17 09:40 Dose: Not Given Pantoprazole Sodium (Protonix Ec Tab) 40 mg PO DAILY [facility] Last Admin: 04/27/17 09:39 Dose: Not Given Potassium Chloride (K-Dur 20 Meq Er Tab) 20 meq PO DAILY [facility] Last Admin: 04/27/17 09:39 Dose: Not Given Risperidone (Risperdal Tab) 0.5 mg PO BID [facility] PRN Reason: Protocol Last Admin: 04/27/17 17:20 Dose: 0.5 mg - Labs Labs: 04/26/17 06:45 04/26/17 06:45 PT 13.7 SECONDS (9.4-12.5) H 04/25/17 00:25 INR 1.20 (0.93-1.08) H 04/25/17 00:25 APTT 31.1 Seconds (25.1-36.5) 04/25/17 00:25 - Constitutional Appears: Confused, Chronically Ill - Head Exam Head Exam: ATRAUMATIC, NORMAL INSPECTION, NORMOCEPHALIC - Eye Exam Eye Exam: EOMI, Normal appearance, PERRL Pupil Exam: NORMAL ACCOMODATION, PERRL - ENT Exam ENT Exam: Mucous Membranes Moist, Normal Exam - Neck Exam Neck Exam: Full ROM, Normal Inspection. absent: Lymphadenopathy - Respiratory Exam Respiratory Exam: Clear to Ausculation Bilateral, Wheezes, NORMAL BREATHING PATTERN - Cardiovascular Exam Cardiovascular Exam: REGULAR RHYTHM, +S1, +S2. absent: Murmur - GI/Abdominal Exam GI & Abdominal Exam: Soft, Normal Bowel Sounds. absent: Tenderness - Extremities Exam Extremities Exam: Full ROM, Normal Capillary Refill, Normal Inspection. absent : Joint Swelling, Pedal Edema - Back Exam Back Exam: NORMAL INSPECTION - Neurological Exam Neurological Exam: Alert, Awake - Psychiatric Exam Psychiatric exam: Normal Affect, Normal Mood - Skin Skin Exam: Dry, Intact, Pallor, Warm Assessment and Plan (1) Iron deficiency Status: Acute (2) COPD (chronic obstructive pulmonary disease) Status: Acute (3) Hyperglycemia Status: Acute (4) Anemia Status: Acute - Assessment and Plan (Free Text) Plan: s/p 2 units of PRBC. IV venofer. Labs ordered. VTE/GI prophlyaxis. Consults: GI - Dr. Carlisle - upper endoscopy to evaluate anemia [employer] - Dr. Reed - continue bronchodilator [employer] - Dr. Kahn - can resume oral iron back in long term Reviewed: CXR = minimal density in the R lung, could represent pleural scarring, no focal consolidation ECG = NSR <Emily Vazquez - Last Filed: 04/28/17 13:09> Objective - Vital Signs/Intake and Output Vital Signs (last 24 hours): Temp Pulse Resp BP Pulse Ox 97.9 F 74 18 95/43 L 98 04/28/17 07:00 04/28/17 09:46 04/28/17 07:00 04/28/17 09:46 04/28/17 07:00 Intake and Output: 04/28/17 04/28/17 06:59 18:59 Intake Total 360 Balance 360 - Medications Medications: Current Medications Acetaminophen (Tylenol 325mg Tab) 650 mg PO Q4H PRN PRN Reason: Pain, Mild (1-3) Albuterol/Ipratropium (Duoneb 3 Mg/0.5 Mg (3 Ml) Ud) 3 ml IH Q6H PRN PRN Reason: Shortness of Breath Arformoterol Tartrate (Brovana) 15 mcg IH [id number] [facility] Last Admin: 04/28/17 07:57 Dose: 15 mcg Atorvastatin Calcium (Lipitor) 10 mg PO DAILY [facility] Last Admin: 04/28/17 09:46 Dose: 10 mg Budesonide (Pulmicort Respules) 1 mg IH [id number] [facility] Last Admin: 04/28/17 07:57 Dose: 1 mg Calcium/Vitamin D (Oscal-D 250 Mg-125 Units Tab) 1 tab PO DAILY [facility] Last Admin: 04/28/17 09:45 Dose: 1 tab Carbidopa/Levodopa (Sinemet Cr) 1 tab PO TID [facility] Last Admin: 04/28/17 09:45 Dose: 1 tab Digoxin (Lanoxin) 0.125 mg PO DAILY [facility] Last Admin: 04/28/17 09:46 Dose: 0.125 mg Divalproex Sodium (Depakote Sprinkles) 125 mg PO BID [facility] Last Admin: 04/28/17 09:45 Dose: 125 mg Sodium Chloride (Sodium Chloride 0.9%) 1,000 mls @ 100 mls/hr IV .Q10H [facility] Last Admin: 04/27/17 22:25 Dose: Not Given Insulin Human Regular (Humulin R Low) 0 units SC ACHS [facility] PRN Reason: Protocol Last Admin: 04/28/17 12:30 Dose: Not Given Loratadine (Claritin) 10 mg PO DAILY [facility] Last Admin: 04/28/17 09:46 Dose: 10 mg Magnesium Hydroxide (Milk Of Magnesia) 30 ml PO HS PRN PRN Reason: Constipation Methylprednisolone (Solu-Medrol) 40 mg IVP Q12 [facility] Last Admin: 04/28/17 09:46 Dose: 40 mg Metoprolol Tartrate (Lopressor) 12.5 mg PO BID [facility] Last Admin: 04/28/17 09:46 Dose: Not Given Mirtazapine (Remeron) 15 mg PO HS [facility] Last Admin: 04/27/17 22:25 Dose: 15 mg Montelukast Sodium (Singulair) 10 mg PO HS [facility] Last Admin: 04/27/17 22:25 Dose: 10 mg Multivitamins/Minerals (Therapeutic-M Tab) 1 tab PO DAILY [facility] Last Admin: 04/28/17 09:45 Dose: 1 tab Pantoprazole Sodium (Protonix Ec Tab) 40 mg PO DAILY [facility] Last Admin: 04/28/17 09:45 Dose: 40 mg Potassium Chloride (K-Dur 20 Meq Er Tab) 20 meq PO DAILY [facility] Last Admin: 04/28/17 09:44 Dose: 20 meq Risperidone (Risperdal Tab) 0.5 mg PO BID [facility] PRN Reason: Protocol Last Admin: 04/28/17 09:45 Dose: 0.5 mg - Labs Labs: 04/28/17 07:00 04/28/17 07:00 PT 13.7 SECONDS (9.4-12.5) H 04/25/17 00:25 INR 1.20 (0.93-1.08) H 04/25/17 00:25 APTT 31.1 Seconds (25.1-36.5) 04/25/17 00:25 Assessment and Plan - Assessment and Plan (Free Text) Plan: 87 yr female from [facility] w/ history of influenza, hypertension, COPD, C.diff, colitis, atrial fibrillation, seizure disorder, advanced dementia, parkinsons, schizophrenia and hypothyroidism. Pt found to have anemia in routine bloodwork. Anemia improved. Hemoglobin from 8 now 11.5. Baseline is confused. Pt is a poor historian. agreed all above , chart , labs and meds noted , fe is low , will cont. fe .will f/u
[2017-04-28 07:53] LABS: HEMOGLOBIN 11.3 g/dL (12.0-16.0); MEAN CELL VOLUME 91.9 fl (80.0-105.0); MEAN CORPUSCULAR HEMOGLOBIN 29.4 pg (25.0-35.0); RBC 3.84 10^6/uL (3.5-6.1); RED CELL DISTRIBUTION WIDTH 15.6 % (11.5-14.5); WHITE BLOOD COUNT 10.9 10^3/ul (4.5-11.0)
[2017-04-28] MEDS: Arformoterol 15 mcg/2 ml Inh Sol IH SCH (07:57)
[2017-04-28] MEDS: Budesonide 0.5 mg/2 ml Inhal Susp UD IH SCH (07:57)
[2017-04-28] MEDS: Insulin Reg-LOW-Coverage SC SCH ×4 (08:12→22:09)
[2017-04-28 08:16] LABS: ALB/GLOB RATIO 0.8 (1.1-1.8); ALBUMIN 2.6 g/dL (3.0-4.8); ALT/SGPT 11 U/L (7-56); AST/SGOT 15 U/L (14-36); BLOOD UREA NITROGEN 25 mg/dL (7-21); CALCIUM 8.2 mg/dL (8.4-10.5); GFR AFRICAN-AMERICAN > 60; GFR NON-AFRICAN AMERICAN 59
[2017-04-28] MEDS: Potassium Chloride 20 mEq ER Tab PO SCH (09:44)
[2017-04-28] MEDS: Divalproex 125 mg EC Sprinkle Cap PO SCH ×2 (09:45→17:42)
[2017-04-28] MEDS: Calcium-Vit D 250 mg-125 Units Tab UD PO SCH (09:45)
[2017-04-28] MEDS: Carbidopa/Levodopa 25/100 CR PO SCH ×3 (09:45→17:44)
[2017-04-28] MEDS: Multivitamin With Minerals Tab PO SCH (09:45)
[2017-04-28] MEDS: Pantoprazole 40 mg EC Tab PO SCH (09:45)
[2017-04-28] MEDS: Digoxin 125 mcg (0.125 mg) Tab PO SCH (09:46)
[2017-04-28] MEDS: MethylPREDNISolone 40 mg Vial IVP SCH ×2 (09:46→21:51)
[2017-04-28] MEDS ORDERED: Barium Sulfate Susp 2.1% w/v, 2.0% w/w 450 mL Bottle PO ONE (11:54)
[2017-04-28] MEDS: Sodium Chloride 0.9% 1,000 ML IV SCH (13:20)
--- NOTE | 2017-04-28 13:26 | CP.PCM.PN ---
Subjective - Date & Time of Evaluation Date of Evaluation: 04/28/17 Time of Evaluation: 11:00 - Subjective Subjective: Seen and examined at the bedside earlier today, chart reviewed. Patient had endoscopy yesterday found to have gastric polyp and moderate hiatal hernia. No acute overnight events reported. Patient denies nausea, vomiting, tolerating oral intake. No new complaints. Objective - Vital Signs/Intake and Output Vital Signs (last 24 hours): Temp Pulse Resp BP Pulse Ox 97.9 F 74 18 95/43 L 98 04/28/17 07:00 04/28/17 09:46 04/28/17 07:00 04/28/17 09:46 04/28/17 07:00 Intake and Output: 04/28/17 04/28/17 06:59 18:59 Intake Total 360 Balance 360 - Medications Medications: Current Medications Acetaminophen (Tylenol 325mg Tab) 650 mg PO Q4H PRN PRN Reason: Pain, Mild (1-3) Albuterol/Ipratropium (Duoneb 3 Mg/0.5 Mg (3 Ml) Ud) 3 ml IH Q6H PRN PRN Reason: Shortness of Breath Arformoterol Tartrate (Brovana) 15 mcg IH [id number] [facility] Last Admin: 04/28/17 07:57 Dose: 15 mcg Atorvastatin Calcium (Lipitor) 10 mg PO DAILY [facility] Last Admin: 04/28/17 09:46 Dose: 10 mg Budesonide (Pulmicort Respules) 1 mg IH [id number] [facility] Last Admin: 04/28/17 07:57 Dose: 1 mg Calcium/Vitamin D (Oscal-D 250 Mg-125 Units Tab) 1 tab PO DAILY [facility] Last Admin: 04/28/17 09:45 Dose: 1 tab Carbidopa/Levodopa (Sinemet Cr) 1 tab PO TID [facility] Last Admin: 04/28/17 09:45 Dose: 1 tab Digoxin (Lanoxin) 0.125 mg PO DAILY [facility] Last Admin: 04/28/17 09:46 Dose: 0.125 mg Divalproex Sodium (Depakote Sprinkles) 125 mg PO BID [facility] Last Admin: 04/28/17 09:45 Dose: 125 mg Sodium Chloride (Sodium Chloride 0.9%) 1,000 mls @ 100 mls/hr IV .Q10H [facility] Last Admin: 04/27/17 22:25 Dose: Not Given Insulin Human Regular (Humulin R Low) 0 units SC ACHS [facility] PRN Reason: Protocol Last Admin: 04/28/17 12:30 Dose: Not Given Loratadine (Claritin) 10 mg PO DAILY [facility] Last Admin: 04/28/17 09:46 Dose: 10 mg Magnesium Hydroxide (Milk Of Magnesia) 30 ml PO HS PRN PRN Reason: Constipation Methylprednisolone (Solu-Medrol) 40 mg IVP Q12 [facility] Last Admin: 04/28/17 09:46 Dose: 40 mg Metoprolol Tartrate (Lopressor) 12.5 mg PO BID [facility] Last Admin: 04/28/17 09:46 Dose: Not Given Mirtazapine (Remeron) 15 mg PO HS [facility] Last Admin: 04/27/17 22:25 Dose: 15 mg Montelukast Sodium (Singulair) 10 mg PO HS [facility] Last Admin: 04/27/17 22:25 Dose: 10 mg Multivitamins/Minerals (Therapeutic-M Tab) 1 tab PO DAILY [facility] Last Admin: 04/28/17 09:45 Dose: 1 tab Pantoprazole Sodium (Protonix Ec Tab) 40 mg PO DAILY [facility] Last Admin: 04/28/17 09:45 Dose: 40 mg Potassium Chloride (K-Dur 20 Meq Er Tab) 20 meq PO DAILY [facility] Last Admin: 04/28/17 09:44 Dose: 20 meq Risperidone (Risperdal Tab) 0.5 mg PO BID [facility] PRN Reason: Protocol Last Admin: 04/28/17 09:45 Dose: 0.5 mg - Labs Labs: 04/28/17 07:00 04/28/17 07:00 PT 13.7 SECONDS (9.4-12.5) H 04/25/17 00:25 INR 1.20 (0.93-1.08) H 04/25/17 00:25 APTT 31.1 Seconds (25.1-36.5) 04/25/17 00:25 - Constitutional Appears: No Acute Distress - Eye Exam Eye Exam: Normal appearance. absent: Scleral icterus - ENT Exam ENT Exam: Mucous Membranes Moist - Respiratory Exam Respiratory Exam: NORMAL BREATHING PATTERN. absent: Respiratory Distress - Cardiovascular Exam Cardiovascular Exam: +S1, +S2 - Extremities Exam Extremities Exam: absent: Calf Tenderness, Pedal Edema - Neurological Exam Neurological Exam: Alert, Awake, Oriented x3 - Skin Skin Exam: Dry, Warm Assessment and Plan - Assessment and Plan (Free Text) Assessment: Assessment: Status post EGD found to have gastric polyp and moderate hiatal hernia Anemia status post 2 units of packed RBC History of CBD stone with biliary stent History of COPD Hypertension Atrial fibrillation History of Parkinson's disease Plan: Diet as tolerated Follow-up biopsies Asael H&H diet as tolerated Request for CT scan of abdomen and pelvis with only oral contrast for anemia Continue GI prophylaxis Case discussed w/ Dr. Carlisle covering Dr. Berry.
--- NOTE | 2017-04-28 19:07 | CT ---
PROCEDURE: CT Abdomen and Pelvis without intravenous contrast HISTORY: anemia COMPARISON: None. TECHNIQUE: Without contrast.. Contrast Dose: 0 Radiation dose: Total exam DLP = 245.68 mGy-cm. This CT exam was performed using one or more of the following dose reduction techniques: Automated exposure control, adjustment of the mA and/or kV according to patient size, and/or use of iterative reconstruction technique. FINDINGS: LOWER THORAX: Right lower lobe subsegmental atelectasis. Small bilateral pleural effusion, right greater than left. Trace pericardial effusion. Coronary arterial calcification. Mild cardiomegaly. LIVER: Normal size and contour. No mass. Intrahepatic biliary gas in the left lobe and common hepatic duct. No intrahepatic biliary dilatation seen. GALLBLADDER AND BILE DUCTS: Gallbladder not identified. Common bile duct distended to approximately 13 mm diameter. Biliary stent seen within the common bile duct extending through intrapancreatic portion of the common duct into the 2nd duodenum. PANCREAS: Unremarkable. No gross lesion or ductal dilatation. SPLEEN: Unremarkable. ADRENALS: Unremarkable. No mass. KIDNEYS AND URETERS: Moderate renal atrophy bilaterally. No mass, calculus or hydronephrosis. VASCULATURE: Inferior vena caval filter. No evidence of abdominal aortic aneurysm. BOWEL: Extensive retained feces. Possible fecal impaction in the rectum. No evidence of bowel obstruction. APPENDIX: Not identified PERITONEUM: Trace ascites LYMPH NODES: Unremarkable. No enlarged lymph nodes. BLADDER: Nondistended REPRODUCTIVE: Uterus not identified. Possible prior hysterectomy. BONES: Thoracolumbar levoscoliosis. OTHER FINDINGS: Generalized anasarca IMPRESSION: Retained feces. Possible rectal fecal impaction. Right lower lobe subsegmental atelectasis and small bilateral pleural effusion. Cardiomegaly. Trace pericardial effusion. Biliary stent with intrahepatic biliary gas. Renal atrophy. Inferior vena caval filter. Generalized anasarca. Trace ascites.
--- NOTE | 2017-04-28 19:43 | PN ---
DATE: 04/28/2017 PULMONARY PROGRESS NOTE REFERRING PHYSICIAN: Emily Vazquez MD SUBJECTIVE: She is lying in the bed, head at 45 degrees, feels better, still has some cough. No nausea. No vomiting. No diarrhea. No leg pain. No leg swelling. OBJECTIVE: GENERAL: In no acute distress. VITAL SIGNS: Temperature is 98, heart rate is 71, respiratory rate is 18, blood pressure is 105/46, pulse oximetry is 98% on nasal cannula. HEENT: Moist mucous membrane. Small oral cavity. NECK: Supple. No JVD. LUNGS: Have a scattered rhonchi. HEART: S1 and S2. ABDOMEN: Soft, nontender. No organomegaly. EXTREMITIES: There is no edema. NEUROLOGIC: Awake, alert, follows simple commands. MEDICATIONS: She is on Brovana 50 mcg inhale twice a day, Claritin 10 mg daily, Depakote 125 mg twice a day, DuoNeb q. 6 hours p.r.n., insulin coverage, potassium 20 mEq daily, digoxin 0.125 mg daily, Lipitor 10 mg daily, metoprolol tartrate 12.5 mg twice a day, milk of magnesia 30 mL p.o. at bedtime p.r.n., vitamin D one tab daily, Protonix 40 mg daily, Pulmicort inhale twice a day, Remeron 15 mg at bedtime, Risperdal 0.5 mg twice a day, Sinemet 1 tablet three times a day, Singulair 10 mg daily, IV fluids normal saline 100 mL per hour, Solu-Medrol 40 mg q. 12 hours, multivitamins daily, and Tylenol on a p.r.n. basis. LABORATORY DATA: Shows hemoglobin 11.3, hematocrit 35.3, WBC 10.9, platelet is 221. Sodium 138, potassium 4.3, chloride 110, bicarbonate 22, BUN 25, creatinine 0.9, glucose 116, calcium is 8.2, total bili 0.4, AST 15, ALT 11, alk phos is 59, albumin is 2.6. IMPRESSION AND PLAN: Chronic obstructive lung disease, heart failure, anemia, hypertension, history of Clostridium difficile colitis in the past, atrial fibrillation, hypothyroid, status post blood transfusion. Pulmonary point of view, doing okay, keep head at 45 degrees, IV and inhaled bronchodilator, aspiration precaution, gastric prophylaxis and sequential compression devices to lower extremities. Follow up labs in the morning. Discontinue IV fluids. Thank you and we will follow with you. Erika Reed MD
--- NOTE | 2017-04-28 20:40 | PN ---
DATE: This is an addendum to a progress note performed by Vanita Washington APN. I have personally examined this patient and reviewed her laboratory data. Patient's hemoglobin remained stable 11.3. She denies any overt GI bleeding. She is to have a CT scan of the abdomen and pelvis to complete the workup for anemia. Her long-term prognosis is guarded. Mati Carlisle MD
[2017-04-29 00:27] VITALS: RESP 18
--- NOTE | 2017-04-29 04:43 | PN ---
DATE: SUBJECTIVE: The patient is an 87-year-old female. The patient was seen and examined on the bedside, looking comfortable, complaining about lower abdominal pain. No nausea or vomiting. No swelling of the leg. No chest pain. No palpitation. No fever. No chills. PHYSICAL EXAMINATION: VITAL SIGNS: Temperature 98, heart rate 71, respiratory rate 18, blood pressure 105/46, and pulse oximetry 98% on nasal cannula. HEENT: Head is normocephalic, atraumatic. Eyes: PERRLA. Extraocular muscles are intact. Conjunctivae clear. Nose patent. Mucous membranes are moist. NECK: Supple. No carotid bruits, JVD, or thyromegaly. CHEST: Bilaterally symmetrical. HEART: S1 and S2 positive. LUNGS: Clear to auscultation. ABDOMEN: Soft. Bowel sounds present. No organomegaly. EXTREMITIES: No edema. No cyanosis. NEUROLOGIC: The patient is awake and alert. Moving all 4 extremities. No focal deficits. MEDICATIONS: Brovana, Claritin, Depakote,DuoNeb, insulin, potassium,digoxin, Lipitor, metoprolol, milk of magnesium, vitamin D, Protonix, Pulmicort, Remeron, risperidone, Sinemet, Singulair, Solu-Medrol, multivitamin, and Tylenol. LABORATORY DATA: Hemoglobin 11.3, hematocrit 35.3, white blood count 10.9, and platelets 221. Sodium 138, potassium 4.3, BUN 25, creatinine 0.9, calcium 8.2, AST 15, and ALT 11. ASSESSMENT AND PLAN: Ms. Mary Beth Hu has chronic obstructive lung disease, congestive heart failure, anemia, hypertension, history of Clostridium difficile colitis in the past, atrial fibrillation, hypothyroidism, and status post blood transfusion. Aspiration precautions. Gastric prophylaxis. Partial compression device with the lower extremities. Dr. Reed already discontinued the IV fluid. The patient went for a CAT scan of abdomen and pelvis, has routine deficit of possible rectal fecal impaction, right lower lobe subsequently atelectasis, small bilateral pleural effusion, cardiomegaly, trace pericardial effusion, and biliary stent with intrahepatic biliary gas, renal atrophy, inferior vena cava filter, generalized anasarca, trace ascites. GI is on the case. Pulmonary is on the case. Meanwhile continue present treatment. Repeat labs. We will follow up. Emily Vazquez MD
[2017-04-29] MEDS: Budesonide 0.5 mg/2 ml Inhal Susp UD IH SCH (07:34)
[2017-04-29] MEDS: Arformoterol 15 mcg/2 ml Inh Sol IH SCH (07:34)
[2017-04-29 08:15] VITALS: TEMP 97.6; O2SAT 96
[2017-04-29] MEDS: Insulin Reg-LOW-Coverage SC SCH ×2 (08:30→12:27)
[2017-04-29] MEDS: Calcium-Vit D 250 mg-125 Units Tab UD PO SCH (10:01)
[2017-04-29] MEDS: Multivitamin With Minerals Tab PO SCH (10:01)
[2017-04-29] MEDS: MethylPREDNISolone 40 mg Vial IVP SCH (10:01)
[2017-04-29] MEDS: Divalproex 125 mg EC Sprinkle Cap PO SCH ×2 (10:02→17:30)
[2017-04-29] MEDS: Carbidopa/Levodopa 25/100 CR PO SCH ×3 (10:02→17:28)
[2017-04-29] MEDS: Pantoprazole 40 mg EC Tab PO SCH (10:02)
[2017-04-29] MEDS: Potassium Chloride 20 mEq ER Tab PO SCH (10:02)
[2017-04-29] MEDS: Digoxin 125 mcg (0.125 mg) Tab PO SCH (10:03)
[2017-04-29 10:10] VITALS: PULSE 65
--- NOTE | 2017-04-29 11:09 | CP.PCM.PN ---
Subjective - Date & Time of Evaluation Date of Evaluation: 04/29/17 Time of Evaluation: 10:30 - Subjective Subjective: Seen and examined at the bedside this morning, chart reviewed. Patient went for endoscopy yesterday found to have gastric polyp with hiatal hernia. Patient has history of ERCP in the past for CBD stone, CPD stent noted. Patient sent for CT scan of abdomen and pelvis for anemia and is noted to have severe constipation, trace ascites and the CBD stent is noted, CBD measuring 13 mm. See [facility] for full report. Patient is tolerating oral intake, denies nausea or vomiting or abdominal pain. Spoke to nursing staff and patient is reported to be having BMs. Objective - Vital Signs/Intake and Output Vital Signs (last 24 hours): Temp Pulse Resp BP Pulse Ox 97.6 F 65 18 98/55 L 96 04/29/17 08:14 04/29/17 08:14 04/29/17 08:14 04/29/17 10:03 04/29/17 08:14 Intake and Output: 04/29/17 04/29/17 06:59 18:59 Intake Total 300 240 Output Total 2 Balance 298 240 - Medications Medications: Current Medications Acetaminophen (Tylenol 325mg Tab) 650 mg PO Q4H PRN PRN Reason: Pain, Mild (1-3) Albuterol/Ipratropium (Duoneb 3 Mg/0.5 Mg (3 Ml) Ud) 3 ml IH Q6H PRN PRN Reason: Shortness of Breath Arformoterol Tartrate (Brovana) 15 mcg IH [id number] COUNTS INCLUDE 234 BEDS AT THE [facility] Last Admin: 04/29/17 07:34 Dose: 15 mcg Atorvastatin Calcium (Lipitor) 10 mg PO DAILY COUNTS INCLUDE 234 BEDS AT THE [facility] Last Admin: 04/29/17 10:01 Dose: 10 mg Budesonide (Pulmicort Respules) 1 mg IH [id number] COUNTS INCLUDE 234 BEDS AT THE [facility] Last Admin: 04/29/17 07:34 Dose: 1 mg Calcium/Vitamin D (Oscal-D 250 Mg-125 Units Tab) 1 tab PO DAILY COUNTS INCLUDE 234 BEDS AT THE [facility] Last Admin: 04/29/17 10:01 Dose: 1 tab Carbidopa/Levodopa (Sinemet Cr) 1 tab PO TID COUNTS INCLUDE 234 BEDS AT THE [facility] Last Admin: 04/29/17 10:02 Dose: 1 tab Digoxin (Lanoxin) 0.125 mg PO DAILY COUNTS INCLUDE 234 BEDS AT THE [facility] Last Admin: 04/29/17 10:03 Dose: 0.125 mg Divalproex Sodium (Depakote Sprinkles) 125 mg PO BID COUNTS INCLUDE 234 BEDS AT THE [facility] Last Admin: 04/29/17 10:02 Dose: 125 mg Insulin Human Regular (Humulin R Low) 0 units SC ACHS COUNTS INCLUDE 234 BEDS AT THE [facility] PRN Reason: Protocol Last Admin: 04/29/17 08:30 Dose: Not Given Loratadine (Claritin) 10 mg PO DAILY COUNTS INCLUDE 234 BEDS AT THE [facility] Last Admin: 04/29/17 10:04 Dose: 10 mg Magnesium Hydroxide (Milk Of Magnesia) 30 ml PO HS PRN PRN Reason: Constipation Methylprednisolone (Solu-Medrol) 40 mg IVP Q12 COUNTS INCLUDE 234 BEDS AT THE [facility] Last Admin: 04/29/17 10:01 Dose: 40 mg Metoprolol Tartrate (Lopressor) 12.5 mg PO BID COUNTS INCLUDE 234 BEDS AT THE [facility] Last Admin: 04/29/17 10:03 Dose: Not Given Mirtazapine (Remeron) 15 mg PO HS COUNTS INCLUDE 234 BEDS AT THE [facility] Last Admin: 04/28/17 21:51 Dose: 15 mg Montelukast Sodium (Singulair) 10 mg PO [facility] Last Admin: 04/28/17 21:51 Dose: 10 mg Multivitamins/Minerals (Therapeutic-M Tab) 1 tab PO DAILY COUNTS INCLUDE 234 BEDS AT THE [facility] Last Admin: 04/29/17 10:01 Dose: 1 tab Pantoprazole Sodium (Protonix Ec Tab) 40 mg PO DAILY COUNTS INCLUDE 234 BEDS AT THE [facility] Last Admin: 04/29/17 10:02 Dose: 40 mg Potassium Chloride (K-Dur 20 Meq Er Tab) 20 meq PO DAILY COUNTS INCLUDE 234 BEDS AT THE [facility] Last Admin: 04/29/17 10:02 Dose: 20 meq Risperidone (Risperdal Tab) 0.5 mg PO BID COUNTS INCLUDE 234 BEDS AT THE [facility] PRN Reason: Protocol Last Admin: 04/29/17 10:01 Dose: 0.5 mg - Labs Labs: 04/28/17 07:00 04/28/17 07:00 PT 13.7 SECONDS (9.4-12.5) H 04/25/17 00:25 INR 1.20 (0.93-1.08) H 04/25/17 00:25 APTT 31.1 Seconds (25.1-36.5) 04/25/17 00:25 - Constitutional Appears: No Acute Distress - Eye Exam Eye Exam: Normal appearance. absent: Scleral icterus - ENT Exam ENT Exam: Mucous Membranes Moist - Respiratory Exam Respiratory Exam: NORMAL BREATHING PATTERN. absent: Respiratory Distress - Cardiovascular Exam Cardiovascular Exam: +S1, +S2 - GI/Abdominal Exam GI & Abdominal Exam: Soft, Normal Bowel Sounds. absent: Guarding, Tenderness, Organomegaly, Rebound - Extremities Exam Extremities Exam: absent: Calf Tenderness, Pedal Edema - Neurological Exam Neurological Exam: Alert, Awake - Skin Skin Exam: Dry, Warm Assessment and Plan - Assessment and Plan (Free Text) Assessment: Assessment: Consitpation Status post EGD found to have gastric polyp and moderate hiatal hernia Anemia status post 2 units of packed RBC History of CBD stone with biliary stent History of COPD Hypertension Atrial fibrillation History of Parkinson's disease Plan: Diet as tolerated Follow-up biopsies Asael H&H give 1/2 bottle of magnesium citrate and start Miralax Continue GI prophylaxis Spoke to patient's daughter Khadijah Hu [phone], discuss results of endoscopy and CAT scan, daughter does not recall patient having ERCP with stone removal and stent, discuss in detail the patient will need a reevaluation of biliary stent either for removal/replacement. Consider tertiary facility if family agree. LFT stable. Case discussed w/ Dr. Carlisle covering Dr. Berry.
[2017-04-29] MEDS ORDERED: Magnesium Citrate Oral SOL (300 ml) PO ONE (11:10)
[2017-04-29 17:32] VITALS: BP 132/67; PULSE 73
[2017-04-29] MEDS ORDERED: POLYETHYLENE GLYCOL 3350 17 GM/Dose PACKET PO SCH (18:00)
--- NOTE | 2017-04-30 01:51 | PN ---
PULMONARY PROGRESS NOTE DATE: 04/29/2017 REFERRING PHYSICIAN: Emily Vazquez MD. SUBJECTIVE: She is lying in the bed and feels better. Decreased cough. No nausea. No vomiting, diarrhea, leg pain, or leg swelling. OBJECTIVE: GENERAL: In no acute distress. VITAL SIGNS: Temperature is 98, heart rate is 65, respiratory rate is 18, blood pressure is 132/67, and pulse ox is 96% on room air. HEENT: Moist mucous membranes. Small oral cavity. NECK: Supple. No JVD. LUNGS: Has a scattered rhonchi. HEART: S1 and S2. ABDOMEN: Soft and nontender. No organomegaly. EXTREMITIES: No edema. NEUROLOGIC: Awake, alert, and follows simple commands. MEDICATIONS: Reviewed and noted. No new change in medications since yesterday. LABORATORY DATA: Reviewed. Blood sugar this morning was 127. Microbiology; no data is available. IMPRESSION AND PLAN: Chronic obstructive lung disease, heart failure, anemia, hypertension, history of Clostridium difficile colitis in the past, atrial fibrillation, hypothyroid, and had a blood transfusion. CT of the abdomen and pelvis was done, which shows some constipation, atelectasis of the right lower lobe area with a small pleural effusion, and has inferior vena cava filter. Pulmonary point of view, she is doing okay, keep head at 45 degrees, incentive spirometry, aspiration precaution, and she is being follow by Gastroenterology. Erika Reed MD
--- NOTE | 2017-04-30 01:54 | PN ---
DATE: This is an addendum to a progress note performed by Vanita Washington APN. I have personally examined this patient and reviewed her laboratory data. Patient denies any abdominal pain, rectal bleeding or melena. Her CBC is stable in the 9 g range. She is to be discharged home today with outpatient follow up. Mati Carlisle MD
== END 2017-04-29 20:17 | DRG 812 ==
LOC: ED 22:47 → ERH 04-25 02:34 → 5RSO 04-25 06:29 → OBSVTOIN 04-25 17:06
PROVIDERS: ADMIT Internal Medicine; ATTEND Internal Medicine
PROC: 30233N1 Transfusion of Nonautologous Red Blood Cells into Peripheral Vein, Percutaneous Approach (ICD-10-PCS; 2017-04-25)
PROC: 0DB68ZZ Excision of Stomach, Via Natural or Artificial Opening Endoscopic (ICD-10-PCS; principal; 2017-04-27 11:30)
DX: D64.9 Anemia, unspecified (principal); J90 Pleural effusion, not elsewhere classified; E87.8 Other disorders of electrolyte and fluid balance, not elsewhere classified; F20.9 Schizophrenia, unspecified; G20 Parkinson's disease; I11.0 Hypertensive heart disease with heart failure; I48.91 Unspecified atrial fibrillation; G40.909 Epilepsy, unspecified, not intractable, without status epilepticus; I50.9 Heart failure, unspecified; J44.1 Chronic obstructive pulmonary disease with (acute) exacerbation; E03.9 Hypothyroidism, unspecified; J98.11 Atelectasis; E61.1 Iron deficiency; F03.90 Unspecified dementia, unspecified severity, without behavioral disturbance, psychotic disturbance, mood disturbance, and anxiety; K31.7 Polyp of stomach and duodenum; K44.9 Diaphragmatic hernia without obstruction or gangrene; K59.00 Constipation, unspecified; Z79.899 Other long term (current) drug therapy; Z86.19 Personal history of other infectious and parasitic diseases; Z86.73 Personal history of transient ischemic attack (TIA), and cerebral infarction without residual deficits; Z87.01 Personal history of pneumonia (recurrent); Z87.440 Personal history of urinary (tract) infections; Z87.891 Personal history of nicotine dependence; Z90.710 Acquired absence of both cervix and uterus; R73.9 Hyperglycemia, unspecified; I51.7 Cardiomegaly; N26.1 Atrophy of kidney (terminal)

== ENCOUNTER 2017-05-02 08:52 | Inpatient (IN) | payer MEDICAID, MEDICARE ==
--- NOTE | 2017-05-02 08:58 | ED PDOC ---
Arrival/HPI - General Time Seen by Provider: 05/02/17 08:54 Historian: EMS - History of Present Illness Narrative History of Present Illness (Text): 87 y/o F NHR c PMHx HTN, dementia, COPD BIBEMS unresponsive. This morning at 8am , patient was noticed by custodial staff to be unresponsive. EMS found patient at SpO2 70s on NRB, intubated en route with ketamine/[place]. Full HPI/ROS unobtainable due to patient's clinical condition. Time/Duration: Prior to Arrival Symptom Onset: Sudden Symptom Course: Unchanged Activities at Onset: Rest Past Medical History - Provider Review Nursing Documentation Reviewed: Yes - Infectious Disease Hx of Infectious Diseases: C.diff - Tetanus Immunization Tetanus Immunization: Unknown - Cardiac Hx Cardiac Disorders: Yes Hx Angina: No Hx Cardiac Arrhythmia: Yes Hx Circulatory Problems: No Hx Congestive Heart Failure: No Hx Heart Murmur: No Hx Heart Transplant: No Hx Hypertension: Yes Hx Internal Defibrillator: No Hx Mitral Valve Prolapse: No Hx Pacemaker: No Hx Peripheral Edema: No Hx Peripheral Vascular Disease: No - Pulmonary Hx Respiratory Disorders: Yes Hx Chronic Obstructive Pulmonary Disease (COPD): Yes Hx Emphysema: No Hx Pneumonia: Yes Hx Respiratory Aspiration: No Hx Respiratory Tract Infection: No Hx Sleep Apnea: No Hx Tuberculosis: No - Neurological Hx Neurological Disorder: Yes Hx Alzheimer's Disease: No HX Cerebrovascular Accident: Yes Hx Dementia: Yes Hx Dizziness: No Hx Meningitis: No Hx Migraine: No Hx Parkinson's Disease: No Hx Seizures: No Hx Transient Ischemic Attacks (TIA): No - HEENT Hx HEENT Disorder: No Hx Blind: No Hx Cataracts: No Hx Deafness: No Hx Difficulty Chewing: No Hx Epistaxis: No Hx Glaucoma: No Hx Macular Degeneration: No - Renal Hx Renal Disorder: No Hx Dialysis: No Hx Kidney Stones: No Hx Neurogenic Bladder: No Hx Pyelonephritis: No Hx Renal Cancer: No Hx Renal Failure: No - Endocrine/Metabolic Hx Endocrine Disorders: Yes Hx Adrenal Cancer: No Hx Diabetes Insipidus: No Hx Diabetes Mellitus Type 1: No Hx Diabetes Mellitus Type 2: No Hx Hyperthyroidism: No Hx Hypothyroidism: No Hx Systemic Lupus Erythematosus: No - Hematological/Oncological Hx Blood Transfusions: Yes Hx Blood Transfusion Reaction: No - Integumentary Hx Dermatological Disorder: No Hx Basal Cell Carcinoma: No Hx Eczema: No Hx Melanoma: No Hx Psoriasis: No Hx Squamous Cell Carcinoma: No - Musculoskeletal/Rheumatological Hx Musculoskeletal Disorders: Yes Hx Arthritis: Yes Hx Back Pain: Yes Hx Degenerative Joint Disease: No Hx Falls: No Hx Fractures: No Hx Gout: No Hx Herniated Disk: No Hx Myasthenia Gravis: No Hx Osteoarthritis: No Hx Osteomyelitis: No Hx Osteoporosis: No Hx Rhabdomyolysis: No Hx Spinal Stenosis: No Hx Unsteady Gait: No - Gastrointestinal Hx Gastrointestinal Disorders: No Hx Colostomy: No Hx Crohn's Disease: No Hx Diverticulitis: No Hx Gall Bladder Disease: No Hx Gastroesophageal Reflux: No Hx Gastrointestinal Ulcer: No Hx Ileostomy: No Hx Liver Failure: No Hx Pancreatitis: No HX Swallowing Problems: No - Genitourinary/Gynecological Hx Genitourinary Disorders: Yes Hx Incontinence: Yes Hx Prostate Problems: No Hx Sexually Transmitted Diseases: No Hx Urinary Tract Infection: No - Psychiatric Hx Psychophysiologic Disorder: Yes Hx Anxiety: No Hx Bipolar Disorder: No Hx Depression: No Hx Emotional Abuse: No Hx Hallucinations: Yes Hx Panic Disorder: No Hx Paranoia: No Hx Post Traumatic Stress Disorder: No Hx Psychosis: No Hx Physical Abuse: No Hx Schizophrenia: No Hx Sexual Abuse: No Hx Substance Use: No - Past Surgical History Past Surgical History: Unable to Obtain - Surgical History Hx Amputation: No Hx Appendectomy: No Hx Cardiac Catheterization: No Hx Cholecystectomy: No Hx Coronary Stent: No Hx Gastric Bypass Surgery: No Hx Hysterectomy: Yes Hx Inguinal Hernia Repair: No Hx Joint Replacement: No Hx Kidney Transplant: No Hx Liver Transplant: No Hx Mastectomy: No Hx Musculoskeletal Surgery: No Hx Open Heart Surgery: No Hx Orthopedic Surgery: No Hx Splenectomy: No Hx Valve Replacement: No - Anesthesia Hx Anesthesia Reactions: No Hx Malignant Hyperthermia: No - Suicidal Assessment Feels Threatened In Home Enviroment: No Family/Social History - Physician Review Nursing Documentation Reviewed: Yes Family/Social History: Unknown Family HX Smoking Status: Former Smoker Hx Alcohol Use: No Hx Substance Use: No Hx Substance Use Treatment: No Allergies/Home Meds Allergies/Adverse Reactions: Allergies No Known Allergies Allergy (Verified 10/24/12 08:19) Home Medications: Home Meds Medication Instructions Recorded Confirmed Acetaminophen [Tylenol 325mg tab] 650 mg PO Q4H PRN 04/25/17 05/02/17 Albuterol/Ipratropium [Duoneb 3 1 ea IH Q6H PRN 04/25/17 05/02/17 MG/3 Ml-0.5 MG/3 Ml 3 Ml] Atorvastatin [Lipitor] 10 mg PO DAILY 04/25/17 05/02/17 Carbidopa/Levodopa [Sinemet Cr 1 each PO TID 04/25/17 05/02/17 25-100 Tablet] Cetirizine HCl [Zyrtec Allergy] 10 mg PO DAILY 04/25/17 05/02/17 Digoxin [Lanoxin] 0.125 mg PO DAILY 04/25/17 05/02/17 Divalproex [Depakote DR TAB] 125 mg PO BID 04/25/17 05/02/17 Metoprolol Tartrate [Lopressor] 12.5 mg PO BID 04/25/17 05/02/17 Mirtazapine [Remeron] 15 mg PO HS 04/25/17 05/02/17 Montelukast [Singulair] 10 mg PO HS 04/25/17 05/02/17 Multivitamin/Ferrous Sulfate 1 tab PO DAILY 04/25/17 05/02/17 [One-Daily [id number] Tab] Risperidone [Risperdal] 0.5 mg PO BID 04/25/17 05/02/17 Arformoterol [Brovana] 1 irma IH Q12 05/02/17 05/02/17 Budesonide [Pulmicort Respules] 1 mg IH Q12 05/02/17 05/02/17 Calcium/ Vit D 1 tab PO DAILY 05/02/17 05/02/17 Pantoprazole Sodium [Protonix] 40 mg PO DAILY 05/02/17 05/02/17 Prednisone [Deltasone] 10 mg PO BID 05/02/17 05/02/17 Review of Systems - Review of Systems Systems not reviewed;Unavailable: Intubated Physical Exam - Physical Exam Narrative Physical Exam (Text): Gen: Thin, elderly female, intubated. Head: Atraumatic Eyes: Constricted pupils ENT: Intubated Neck: No stepoff Chest: No pacemaker CV: Femoral pulse palpable Resp: Bilateral breath sounds with bagging Abd: Soft Extremities: No swelling. Skin: No rash Neuro: Intubated, unresponsive. Vital Signs Temp Pulse Resp BP Pulse Ox 05/02/17 11:01 112 H 16 92/54 L 100 05/02/17 10:02 123 H 16 104/45 L 100 05/02/17 09:00 99.8 F H 98 H 16 81/45 L 100 Medical Decision Making ED Course and Treatment: 05/02/17 09:34 Progress Notes: EKG EKG Afib, rate 126 bpm, Diffuse ST depressions, no ST elevations. IMPRESSION: Endotracheal tube resides within the right mainstem bronchus and should be withdrawn approximately 5 cm. Multifocal patchy and nodular opacities bilaterally, right greater than left. Prominent interstitial markings may be chronic. Right hilar prominence. Line placement discussed with Dr. Chery on 05/02/17 at 929 a.m. ET tube withdrawn 5 cm. Repeat CXR shows ETT in satisfactory position. Trop 0.09. Dr. Vazquez accepts admission to her service. Dr. Gilman accepts patient to ICU. - Lab Interpretations Lab Results: 05/02/17 09:00 05/02/17 09:00 Lab Results 05/02/17 09:30: Influenza Typ A,B (EIA) Negative for flu a/b 05/02/17 09:25: pCO2 53 H, pO2 68.0 L, HCO3 21.2, ABG pH 7.21 L, ABG Total CO2 22.8, ABG O2 Saturation 92.4 L, ABG Base Excess -7.1 L, ABG Potassium 2.5 L*, Glucose 116 H, Lactate 1.1, Mechanical Rate 16, FiO2 100.0, Tidal Volume 400, Sodium 143.0, Chloride 118.0 H, Arterial Blood Potassium 2.5 L* 05/02/17 09:20: Urine Color Yellow, Urine Appearance Clear, Urine pH 6.0, Ur Specific [place] 1.025, Urine Protein 100 H, Urine Glucose (UA) Negative, Urine Ketones Trace H, Urine Blood Trace-lysed H, Urine Nitrate Negative, Urine Bilirubin Small H, Urine Urobilinogen 4.0 H, Ur Leukocyte Esterase Negative, Urine RBC 5 - 10, Urine WBC 1 - 3, Ur Epithelial Cells 4 - 5, Amorphous Sediment Moderate, Urine Bacteria Many, Urine Other Uyeast 05/02/17 09:00: Sodium 145, Potassium 3.2 L, Chloride 112 H, Carbon Dioxide 21, Anion Gap 15, BUN 27 H, Creatinine 0.7, Est GFR ( Amer) > 60, Est GFR ( Non-Af Amer) > 60, Random Glucose 131 H, Calcium 8.0 L, Total Bilirubin 1.9 H, AST 22, ALT 19, Alkaline Phosphatase 63, Total Creatine Kinase < 20 L, Troponin I 0.09, NT-Pro-B Natriuret Pep 5280 H, Total Protein 5.7 L, Albumin 2.5 L, Globulin 3.2, Albumin/Globulin Ratio 0.8 L, Lipase < 10 L 05/02/17 09:00: PT 15.9 H, INR 1.37 H, APTT 30.1 05/02/17 09:00: WBC 10.1, RBC 3.58, Hgb 10.5 L, Hct 33.9 L, MCV 94.7, MCH 29.3, MCHC 31.0, RDW 16.0 H, Plt Count 168, MPV 11.9 H, Gran % 88.2 H, Lymph % (Auto) 3.0 L, [place] % (Auto) 8.7 H, Eos % (Auto) 0.0 L, Baso % (Auto) 0.1, Gran # 8.92 H , Lymph # 0.3 L, [place] # 0.9 H, Eos # 0.0, Baso # 0.01, Neutrophils % (Manual) 90 H, Lymphocytes % (Manual) 6 L, Monocytes % (Manual) 4, Platelet Evaluation Normal, Hypochromasia 1+, Anisocytosis (manual) 1+ - RAD Interpretation Radiology Orders: 05/02/17 09:00 CHEST PORTABLE [RAD] Stat 05/02/17 09:52 CHEST PORTABLE [RAD] Stat 05/02/17 11:04 HEAD W/O CONTRAST [CT] Stat - Medication Orders Current Medication Orders: Vancomycin HCl (Vancomycin 1gm) 1 gm in 250 mls @ 167 mls/hr IVPB STAT STA PRN Reason: Protocol Stop: 05/02/17 11:45 Discontinued Medications Sodium Chloride (Sodium Chloride 0.9%) 1,000 mls @ 999 mls/hr IV .Q1H1M STA Stop: 05/02/17 10:27 Last Admin: 05/02/17 09:41 Dose: 999 mls/hr eMAR Start Stop Document 05/02/17 09:41 EWO (Rec: 05/02/17 09:41 EWO [id number]) Intravenous Solution Start Date 05/02/17 Start Time 09:00 End Date 05/02/17 End time 10:00 Total Infusion Time 60 Cefepime HCl (Maxipime 1gm) 1 gm in 100 mls @ 100 mls/hr IVPB STAT STA PRN Reason: Protocol Stop: 05/02/17 11:15 Last Admin: 05/02/17 10:48 Dose: 100 mls/hr eMAR Start Stop Document 05/02/17 10:48 EWO (Rec: 05/02/17 10:49 EWO [id number]) Intravenous Solution Start Date 05/02/17 Start Time 10:48 End Date 05/02/17 End time 11:48 Total Infusion Time 60 - Scribe Statement The provider has reviewed the documentation as recorded by the Amada Sykes Provider Scribe Attestation: All medical record entries made by the Scribe were at my direction and personally dictated by me. I have reviewed the chart and agree that the record accurately reflects my personal performance of the history, physical exam, medical decision making, and the department course for this patient. I have also personally directed, reviewed, and agree with the discharge instructions and disposition. Disposition/Present on Arrival - Present on Arrival Any Indicators Present on Arrival: No History of DVT/PE: No History of Uncontrolled Diabetes: No Urinary Catheter: No History Surgical Site Infection Following: None - Disposition Have Diagnosis and Disposition been Completed?: Yes Diagnosis: Acute respiratory failure with hypoxia, Pneumonia, Acute electrocardiogram changes Disposition: HOSPITALIZED Disposition Time: 11:28 Patient Plan: ICU Condition: CRITICAL
[2017-05-02] MEDS ORDERED: Sodium Chloride 0.9% 1,000 ML IV STA (09:27)
[2017-05-02 09:29] LABS: ARTERIAL BLOOD GAS HCO3 21.2 mmol/L (21-28); ARTERIAL BLOOD GAS O2 SAT 92.4 % (95-98); ARTERIAL BLOOD GAS PCO2 53 mm/Hg (35-45); ARTERIAL BLOOD GAS TCO2 22.8 mmol.L (22-28)
[2017-05-02 09:31] LABS: ALB/GLOB RATIO 0.8 (1.1-1.8); ALBUMIN 2.5 g/dL (3.0-4.8); ALT/SGPT 19 U/L (7-56); AST/SGOT 22 U/L (14-36); BLOOD UREA NITROGEN 27 mg/dL (7-21); GFR AFRICAN-AMERICAN > 60; GFR NON-AFRICAN AMERICAN > 60; LIPASE < 10 U/L (23-300)
--- NOTE | 2017-05-02 09:31 | RAD ---
HISTORY: intubated COMPARISON: Chest x-ray performed 04/25/17 TECHNIQUE: Chest, one view. FINDINGS: Endotracheal tube resides within the right mainstem bronchus and should be withdrawn approximately 5 cm. LUNGS: Multifocal patchy and nodular opacities bilaterally, right greater than left. Prominent interstitial markings may be chronic. Right hilar prominence. PLEURA: No significant pleural effusion identified. No definite pneumothorax . CARDIOVASCULAR: Borderline cardiomegaly. OSSEOUS STRUCTURES: Degenerative changes. Osseous demineralization. VISUALIZED UPPER ABDOMEN: Unremarkable. OTHER FINDINGS: None. IMPRESSION: Endotracheal tube resides within the right mainstem bronchus and should be withdrawn approximately 5 cm. Multifocal patchy and nodular opacities bilaterally, right greater than left. Prominent interstitial markings may be chronic. Right hilar prominence. Line placement discussed with Dr. Chery on 05/02/17 at 929 a.m.
[2017-05-02 09:32] LABS: ARTERIAL BLOOD GAS PH 7.21 (7.35-7.45)
[2017-05-02 09:34] LABS: BASO # 0.01 K/mm3 (0.0-2.0); BASO % 0.1 % (0.0-3.0); GRAN # 8.92 (1.4-6.5); GRAN % 88.2 % (50.0-68.0); HEMOGLOBIN 10.5 g/dL (12.0-16.0); LYMPH # 0.3 (1.2-3.4); MEAN CELL VOLUME 94.7 fl (80.0-105.0); MEAN CORPUSCULAR HEMOGLOBIN 29.3 pg (25.0-35.0); MEAN PLATELET VOLUME 11.9 fl (7.0-11.0); MONO # 0.9 (0.1-0.6); MONO % 8.7 % (1.0-6.0); PLATELET COUNT 168 10^3/uL (120.0-450.0); RBC 3.58 10^6/uL (3.5-6.1); WHITE BLOOD COUNT 10.1 10^3/ul (4.5-11.0)
[2017-05-02 09:35] LABS: URINE BILIRUBIN SMALL (NEGATIVE); URINE BLOOD TRACE-LYSED (NEGATIVE); URINE GLUCOSE (UA) NEGATIVE (NEGATIVE); URINE LEUKOCYTE ESTERASE NEGATIVE Leu/uL (NEGATIVE); URINE NITRATE NEGATIVE (NEGATIVE); URINE PROTEIN 100 mg/dL (<30 mg/dL)
[2017-05-02 09:36] LABS: URINE COLOR YELLOW (YELLOW)
[2017-05-02 09:36] LABS: B-TYPE NATRIURETIC PEPTIDE 5280 pg/mL (0-450); TROPONIN I 0.09 ng/mL
[2017-05-02 09:37] LABS: URINE APPEARANCE CLEAR (CLEAR)
[2017-05-02] MEDS ORDERED: Cefepime 1gm in NS 100ml 1 GM/100 ML BAG IVPB STA (10:16)
[2017-05-02] MEDS ORDERED: Vancomycin 1gm in NS 250ml 1 GM/250 ML BAG IVPB STA (10:16)
[2017-05-02 10:19] LABS: INR 1.37 (0.93-1.08); PROTHROMBIN TIME 15.9 SECONDS (9.4-12.5)
[2017-05-02 10:20] LABS: PARTIAL THROMBOPLASTIN TIME 30.1 Seconds (25.1-36.5)
--- NOTE | 2017-05-02 10:37 | RAD ---
HISTORY: ETT adjustment COMPARISON: Chest x-ray performed 05/02/17 at 9:06 a.m.. TECHNIQUE: Chest, one view. FINDINGS: Examination limited by patient obliquity. Endotracheal tube terminates approximately 1.6 cm above the bentley. LUNGS: Multifocal patchy and nodular opacities bilaterally, right greater than left. Prominent interstitial markings may be chronic. Right hilar prominence. PLEURA: No significant pleural effusion identified. No definite pneumothorax . CARDIOVASCULAR: Borderline cardiomegaly. OSSEOUS STRUCTURES: Degenerative changes. VISUALIZED UPPER ABDOMEN: Unremarkable. OTHER FINDINGS: Stent noted in the right upper quadrant. IMPRESSION: Endotracheal tube terminates approximately 1.6 cm above the bentley. Remainder of findings as above.
[2017-05-02 10:38] LABS: URINE AMORPHOUS SEDIMENT MODERATE; URINE BACTERIA MANY (NEG)
[2017-05-02 11:09] LABS: NEUTROPHIL 90 % (50.0-70.0)
[2017-05-02 11:10] LABS: ANISOCYTOSIS 1+; HYPOCHROMIA 1+; LYMPHOCYTE 6 % (22.0-35.0); MONOCYTE 4 % (1.0-6.0); PLATELET ESTIMATE NORMAL (NORMAL)
[2017-05-02 11:34] LABS: BARBITURATES, UR NEGATIVE (NEGATIVE); BENZODIAZEPINES, UR NEGATIVE (NEGATIVE); OPIATES, UR NEGATIVE (NEGATIVE); PHENCYCLIDINE, UR NEGATIVE (NEGATIVE)
--- NOTE | 2017-05-02 12:30 | CT ---
PROCEDURE: CT HEAD WITHOUT CONTRAST. HISTORY: unresponsive COMPARISON: None available. TECHNIQUE: Axial computed tomography images were obtained through the head/brain without intravenous contrast. Radiation dose: Total exam DLP = 615.65 mGy-cm. This CT exam was performed using one or more of the following dose reduction techniques: Automated exposure control, adjustment of the mA and/or kV according to patient size, and/or use of iterative reconstruction technique. FINDINGS: HEMORRHAGE: No intracranial hemorrhage. BRAIN: No mass effect or edema. Intracranial atherosclerosis. Scattered periventricular and subcortical white matter hypodensities, which are nonspecific, but often seen with chronic microvascular ischemic disease. Please note that MRI with diffusion imaging is more sensitive in the detection of acute ischemic event. VENTRICLES: No hydrocephalus. CALVARIUM: Unremarkable. PARANASAL SINUSES: Unremarkable as visualized. No significant inflammatory changes. MASTOID AIR CELLS: Unremarkable as visualized. No inflammatory changes. OTHER FINDINGS: Partial opacification bilateral external auditory canals, likely cerumen. IMPRESSION: Generalized atrophy. Moderate nonspecific white matter changes. Please note that MRI with diffusion imaging is more sensitive in the detection of acute ischemic event.
[2017-05-02] MEDS ORDERED: Propofol 10 mg/ml 500 MG/50 ML VIAL IV PRN (13:26)
[2017-05-02] MEDS: Sodium Chloride 0.9% 100 ML IV SCH ×2 (13:42→17:54)
[2017-05-02] MEDS: Azithromycin 250 MG in Sodium Chloride 0.9% 250 ML IVPB SCH (13:44)
[2017-05-02] MEDS: Propofol 10 mg/ml 1,000 MG/100 ML VIAL IV PRN (13:48)
[2017-05-02] MEDS ORDERED: Carbidopa/Levodopa 25/100 CR PO SCH (14:00)
--- NOTE | 2017-05-02 14:56 | CP.PCM.CON ---
History of Present Illness - History of Present Illness History of Present Illness: CRITICAL CARE CONSULT NOTE HPI Patient is 87yo female with PMHx of parkinsons, Dementia, COPD, ASthma, HTN, brought in by EMS for hypoxia. As per the ER staff patient was noted to be altered in resp distress, hypoxic O2 sat 70% on room air, intubated in the field , brought to the ER. In the ER intubated, off sedation,, no response to verbal painful stimuli, CT head negative. Currently intubated, off sedation. History limited to the ER staff and family. PMHx as above PSHx as above Allergies NKDA Meds as per EMR ROS as above FHx NC Review of Systems - Review of Systems Review of Systems: as per HPI Past Patient History - Infectious Disease Hx of Infectious Diseases: C.diff - Tetanus Immunizations Tetanus Immunization: Unknown - Past Social History Smoking Status: Former Smoker - CARDIAC Hx Cardiac Disorders: Yes Hx Angina: No Hx Cardia Arrhythmia: Yes Hx Circulatory Problems: No Hx Congestive Heart Failure: No Hx Heart Murmur: No Hx Heart Transplant: No Hx Hypertension: Yes Hx Internal Defibrillator: No Hx Mitral Valve Prolapse: No Hx Pacemaker: No Hx Peripheral Edema: No Hx Peripheral Vascular Disease: No - PULMONARY Hx Respiratory Disorders: Yes Hx Chronic Obstructive Pulmonary Disease (COPD): Yes Hx Emphysema: No Hx Pneumonia: Yes Hx Respiratory Aspiration: No Hx Respiratory Tract Infection: No Hx Sleep Apnea: No Hx Tuberculosis: No - NEUROLOGICAL Hx Neurological Disorder: Yes Hx Alzheimer's Disease: No HX Cerebrovascular Accident: Yes Hx Dementia: Yes Hx Dizziness: No Hx Meningitis: No Hx Migraine: No Hx Parkinson's Disease: No Hx Seizures: No Hx Transient Ischemic Attacks (TIA): No - HEENT Hx HEENT Problems: No Hx Blind: No Hx Cataracts: No Hx Deafness: No Hx Difficulty Chewing: No Hx Epistaxis: No Hx Glaucoma: No Hx Macular Degeneration: No - RENAL Hx Chronic Kidney Disease: No Hx Dialysis: No Hx Kidney Stones: No Hx Neurogenic Bladder: No Hx Pyelonephritis: No Hx Renal (Kidney) Cancer: No Hx Renal Failure: No - ENDOCRINE/METABOLIC Hx Endocrine Disorders: Yes Hx Adrenal Cancer: No Hx Diabetes Insipidus: No Hx Diabetes Mellitus Type 1: No Hx Diabetes Mellitus Type 2: No Hx Hyperthyroidism: No Hx Hypothyroidism: No Hx Systemic Lupus Erythematosus: No - HEMATOLOGICAL/ONCOLOGICAL Hx Blood Transfusions: Yes Hx Blood Transfusion Reaction: No - INTEGUMENTARY Hx Dermatological Problems: No Hx Basil Cell: No Hx Eczema: No Hx Melanoma: No Hx Psoriasis: No Hx Squamous Cell: No - MUSCULOSKELETAL/RHEUMATOLOGICAL Hx Musculoskeletal Disorders: Yes Hx Arthritis: Yes Hx Back Pain: Yes Hx Degenerative Joint Disease: No Hx Falls: No Hx Fractures: No Hx Gout: No Hx Herniated Disk: No Hx Myasthenia Gravis: No Hx Osteoarthritis: No Hx Osteomyelitis: No Hx Osteoporosis: No Hx Rhabdomyolysis: No Hx Spinal Stenosis: No Hx Unsteady Gait: No - GASTROINTESTINAL Hx Gastrointestinal Disorders: No Hx Colostomy: No Hx Crohn's Disease: No Hx Diverticulitis: No Hx Gall Bladder Disease: No Hx Gastroesophageal Reflux: No Hx Ileostomy: No Hx Liver Failure: No Hx Pancreatitis: No HX Swallowing Problems: No - GENITOURINARY/GYNECOLOGICAL Hx Genitourinary Disorders: Yes Hx Incontinence: Yes Hx Sexually Transmitted Disorders: No Hx Urinary Tract Infection: No - PSYCHIATRIC Hx Psychophysiologic Disorder: Yes Hx Anxiety: No Hx Bipolar Disorder: No Hx Depression: No Hx Emotional Abuse: No Hx Hallucinations: Yes Hx Panic Symptoms: No Hx Paranoia: No Hx Post Traumatic Stress Disorder: No Hx Psychosis: No Hx Physical Abuse: No Hx Schizophrenia: No Hx Sexual Abuse: No Hx Substance Use: No - SURGICAL HISTORY Hx Amputation: No Hx Appendectomy: No Hx Cardiac Catheterization: No Hx Cholecystectomy: No Hx Coronary Stent: No Hx Gastric Bypass Surgery: No Hx Hysterectomy: Yes Hx Joint Replacement: No Hx Kidney Transplant: No Hx Liver Transplant: No Hx Mastectomy: No Hx Musculoskeletal Surgery: No Hx Open Heart Surgery: No Hx Orthopedic Surgery: No Hx Splenectomy: No Hx Valve Replacement: No - ANESTHESIA Hx Anesthesia Reactions: No Hx Malignant Hyperthermia: No Meds Allergies/Adverse Reactions: Allergies Allergy/AdvReac Type Severity Reaction Status Date / Time No Known Allergies Allergy Verified 10/24/12 08:19 - Medications Medications: Current Medications Carbidopa/Levodopa (Sinemet Cr) 1 tab PO TID [facility] Digoxin (Lanoxin) 0.125 mg PO DAILY [facility] Divalproex Sodium (Depakote Sprinkles) 125 mg PO BID [facility] PRN Reason: Protocol Cefepime HCl (Maxipime 1gm) 1 gm in 100 mls @ 100 mls/hr IVPB Q12 [facility] PRN Reason: Protocol Vancomycin HCl (Vancomycin 1gm) 1 gm in 250 mls @ 167 mls/hr IVPB DAILY [facility] PRN Reason: Protocol Azithromycin 250 mg/ Sodium (Chloride) 250 mls @ 167 mls/hr IVPB DAILY [facility] PRN Reason: Protocol Last Admin: 05/02/17 13:44 Dose: 167 mls/hr Famotidine (Pepcid 20mg/50ml Premix) 20 mg in 50 mls @ 100 mls/hr IV Q12 [facility] Sodium Chloride (Sodium Chloride 0.9%) 100 mls @ 75 mls/hr IV .Q1H20M [facility] Last Admin: 05/02/17 13:42 Dose: 75 mls/hr Propofol (Diprivan) 1,000 mg in 100 mls @ 1.2 mls/hr IV .Q24H PRN; Protocol; 5 MCG/KG/MIN PRN Reason: TITRATE PER MD ORDER Last Admin: 05/02/17 13:48 Dose: 5 mcg/kg/min, 1.2 mls/hr Methylprednisolone (Solu-Medrol) 40 mg IVP Q8 [facility] Risperidone (Risperdal Tab) 0.5 mg PO BID [facility] PRN Reason: Protocol Physical Exam - Constitutional Appears: No Acute Distress, Cachectic, Chronically Ill - ENT Exam ENT Exam: Mucous Membranes Moist - Neck Exam Neck exam: Positive for: Full Rom - Respiratory Exam Respiratory Exam: NORMAL BREATHING PATTERN Additional comments: decreased breath sounds at the bases - Cardiovascular Exam Cardiovascular Exam: REGULAR RHYTHM, +S1, +S2 - GI/Abdominal Exam GI & Abdominal Exam: Normal Bowel Sounds, Soft - Extremities Exam Extremities exam: Positive for: normal inspection Results - Vital Signs Recent Vital Signs: Last Vital Signs Temp 99.8 F H 05/02/17 09:00 Pulse 106 H 05/02/17 13:20 Resp 16 05/02/17 11:27 BP 87/41 L 05/02/17 13:00 Pulse Ox 95 05/02/17 13:20 - Labs Result Diagrams: 05/02/17 09:00 05/02/17 09:00 - Imaging and Cardiology Chest x-ray Status: Image reviewed by me, Report reviewed by me Assessment & Plan - Assessment and Plan (Free Text) Assessment: 87yo female a/w hypoxic resp failure, PNA Hypoxic Resp Failure PNA AMS Dementia Parkinsons COPD Recomend: - cont with ventilatory support, low tidal vol ventilation, goal Plateau<30, daily CPAP trials - obtain repeat ABG - cont with SoluMedrol 40mg Q8h IV - broad spectrum antibitiocs, Cefepime, Vanco, Azithro - freeman culture, sputum culture, check Urine Legionella, Strep - flu negative - obtain ID eval - check procal - IVF hydration, lactate 1.1 - hold BP meds - cont with Sienemet - cont with Digoxin - ECHO - FS control - GI ppx -DVT ppx Patient daughter/HCP, states that the patient would not have wanted respiratory or CPR, patient to be DNR, palliative care consult placed, will discuss further treatment and goals of care with pallaitive care present tomorrow. DNR Poor Prognosis
[2017-05-02 16:13] VITALS: BMI 17.2
--- NOTE | 2017-05-02 17:28 | RAD ---
Portable chest x-ray Indication: NG tube placement Comparison: Chest x-ray performed earlier the same day. Findings: Nasogastric tube extends expected location of the stomach. Endotracheal tube terminates approximately 4.2 cm above the bentley. Right upper quadrant stent. Cardiomegaly. Multifocal patchy and nodular opacities bilaterally, right greater than left. Prominent interstitial markings may be chronic. Right hilar prominence. Degenerative changes of the spine. Osseous demineralization. Impression: Nasogastric tube extends expected location of the stomach. Additional findings as above.
[2017-05-02] MEDS: Divalproex 125 mg EC Sprinkle Cap PO SCH (17:37)
[2017-05-02] MEDS: Digoxin 125 mcg (0.125 mg) Tab PO SCH (17:38)
[2017-05-02] MEDS: Carbidopa/Levodopa 25/100 CR PO SCH ×2 (17:39)
[2017-05-02] MEDS: MethylPREDNISolone 40 mg Vial IVP SCH ×2 (17:40→22:01)
[2017-05-02] MEDS ORDERED: DIVALPROEX 125 MG PO SCH ×3 (18:00)
[2017-05-02] MEDS: Cefepime 1gm in NS 100ml 1 GM/100 ML BAG IVPB SCH (21:25)
[2017-05-02] MEDS: Famotidine 20mg/50ml 20 MG/50 ML BAG IV SCH (22:00)
[2017-05-02] MEDS ORDERED: Famotidine 20mg/50ml 50 ML IV SCH (22:00)
[2017-05-03] MEDS: MethylPREDNISolone 40 mg Vial IVP SCH ×3 (05:35→21:31)
[2017-05-03 06:39] LABS: ARTERIAL BLOOD GAS HEMOGLOBIN 10.1 g/dL (11.7-17.4); ARTERIAL BLOOD GAS O2 CAPACITY 14.3 mL/dl (16-24); ARTERIAL BLOOD GAS O2 CONTENT 14.3 ML/dl (15-23); ARTERIAL BLOOD GAS O2 SAT 100.1 % (95-98); ARTERIAL BLOOD GAS PCO2 21 mm/Hg (35-45); ARTERIAL BLOOD GAS PH 7.27 (7.35-7.45); ARTERIAL BLOOD GAS TCO2 10.2 mmol.L (22-28)
[2017-05-03 07:04] LABS: ARTERIAL BLOOD GAS HCO3 9.6 mmol/L (21-28)
[2017-05-03] MEDS: Propofol 10 mg/ml 1,000 MG/100 ML VIAL IV PRN (07:07)
[2017-05-03 07:43] LABS: BASO # 0.01 K/mm3 (0.0-2.0); BASO % 0.1 % (0.0-3.0); GRAN # 10.93 (1.4-6.5); GRAN % 92.1 % (50.0-68.0); HEMOGLOBIN 10.5 g/dL (12.0-16.0); LYMPH # 0.2 (1.2-3.4); LYMPH % 1.7 % (22.0-35.0); MEAN CELL VOLUME 94.5 fl (80.0-105.0); MEAN CORPUSCULAR HEMOGLOBIN 28.8 pg (25.0-35.0); MEAN CORPUSCULAR HGB CONC 30.4 g/dl (31.0-37.0); MEAN PLATELET VOLUME 11.3 fl (7.0-11.0); MONO # 0.7 (0.1-0.6); MONO % 6.1 % (1.0-6.0); PLATELET COUNT 130 10^3/uL (120.0-450.0); RBC 3.65 10^6/uL (3.5-6.1); RED CELL DISTRIBUTION WIDTH 16.5 % (11.5-14.5); WHITE BLOOD COUNT 11.9 10^3/ul (4.5-11.0)
[2017-05-03 08:21] LABS: ALB/GLOB RATIO 0.8 (1.1-1.8); ALBUMIN 2.5 g/dL (3.0-4.8); ALT/SGPT 28 U/L (7-56); AST/SGOT 24 U/L (14-36); BLOOD UREA NITROGEN 28 mg/dL (7-21); CALCIUM 8.3 mg/dL (8.4-10.5); GFR AFRICAN-AMERICAN > 60; GFR NON-AFRICAN AMERICAN 59
[2017-05-03] MEDS ORDERED: Dextrose 50% SYRINGE Inj (50 ml) ONE (08:25)
[2017-05-03] MEDS ORDERED: Dextrose 50% SYRINGE Inj (50 ml) IVP ONE (08:34)
[2017-05-03 08:54] LABS: LYMPHOCYTE 4 % (22.0-35.0); MONOCYTE 1 % (1.0-6.0); NEUTROPHIL 56 % (50.0-70.0); PLATELET ESTIMATE NORMAL (NORMAL)
[2017-05-03 09:12] LABS: BAND 39 % (0-2)
--- NOTE | 2017-05-03 09:13 | CARD ---
APPROVED REPORT EKG Measurement Heart [id number] <Conclusion> Atrial fibrillation with rapid ventricular response Marked ST abnormality, possible anteroseptal subendocardial injury These findings are new since ECG 04/24/17
[2017-05-03] MEDS: Divalproex 125 mg EC Sprinkle Cap PO SCH ×2 (09:31→18:22)
[2017-05-03] MEDS: Cefepime 1gm in NS 100ml 1 GM/100 ML BAG IVPB SCH ×2 (09:32→22:32)
[2017-05-03] MEDS: Azithromycin 250 MG in Sodium Chloride 0.9% 250 ML IVPB SCH (09:33)
[2017-05-03] MEDS: Vancomycin 1gm in NS 250ml 1 GM/250 ML BAG IVPB SCH (09:36)
[2017-05-03] MEDS: Digoxin 125 mcg (0.125 mg) Tab PO SCH (09:37)
[2017-05-03] MEDS: Famotidine 20mg/50ml 20 MG/50 ML BAG IV SCH ×2 (09:46→21:31)
--- NOTE | 2017-05-03 09:51 | CP.PCM.CON ---
History of Present Illness - History of Present Illness History of Present Illness: Consult requested by Reason: Goals of care 87 year old female with history of who was was found unresponsive at [place]. EMS called, SPO2 70%> intubated in field. Chest x ray showed multi focal nodular opacities R>L, prominent interstitial markings, right hilar prominence.Incidental degenerative changes of spine. Head CT showed non specific white matter changes. [id number]. EKG shows new anterior septal wall changes. PMHx: Dementia, schizophrenia, COPD, C Diff, pneumonia, constipation, cardiomegaly, biliary stent, hypothyroidism, anemia,DVT,multiple decubitis ulcers. Social History: Former smoker, no alcohol or drug misuse. Resident of [facility]. Advance Care Planning: Her daughter Khadijah ([phone]) is health care surrogate Review of Systems: As per HPI, intubated/sedated unable to obtain Past Patient History - Infectious Disease Hx of Infectious Diseases: C.diff - Tetanus Immunizations Tetanus Immunization: Unknown - Past Social History Smoking Status: Former Smoker - CARDIAC Hx Cardiac Disorders: Yes Hx Angina: No Hx Cardia Arrhythmia: Yes Hx Circulatory Problems: No Hx Congestive Heart Failure: No Hx Heart Murmur: No Hx Heart Transplant: No Hx Hypertension: Yes Hx Internal Defibrillator: No Hx Mitral Valve Prolapse: No Hx Pacemaker: No Hx Peripheral Edema: No Hx Peripheral Vascular Disease: No - PULMONARY Hx Respiratory Disorders: Yes Hx Chronic Obstructive Pulmonary Disease (COPD): Yes Hx Emphysema: No Hx Pneumonia: Yes Hx Respiratory Aspiration: No Hx Respiratory Tract Infection: No Hx Sleep Apnea: No Hx Tuberculosis: No - NEUROLOGICAL Hx Neurological Disorder: Yes Hx Alzheimer's Disease: No HX Cerebrovascular Accident: Yes Hx Dementia: Yes Hx Dizziness: No Hx Meningitis: No Hx Migraine: No Hx Parkinson's Disease: No Hx Seizures: No Hx Transient Ischemic Attacks (TIA): No - HEENT Hx HEENT Problems: No Hx Blind: No Hx Cataracts: No Hx Deafness: No Hx Difficulty Chewing: No Hx Epistaxis: No Hx Glaucoma: No Hx Macular Degeneration: No - RENAL Hx Chronic Kidney Disease: No Hx Dialysis: No Hx Kidney Stones: No Hx Neurogenic Bladder: No Hx Pyelonephritis: No Hx Renal (Kidney) Cancer: No Hx Renal Failure: No - ENDOCRINE/METABOLIC Hx Endocrine Disorders: Yes Hx Adrenal Cancer: No Hx Diabetes Insipidus: No Hx Diabetes Mellitus Type 1: No Hx Diabetes Mellitus Type 2: No Hx Hyperthyroidism: No Hx Hypothyroidism: No Hx Systemic Lupus Erythematosus: No - HEMATOLOGICAL/ONCOLOGICAL Hx Blood Disorders: No Hx AIDS: No Hx Anemia: Yes Hx Cancer: No Hx Chemotherapy: No Hx Cirrhosis: No Hx Hepatitis A: No Hx Hepatitis B: No Hx Hepatitis C: No Hx Human Immunodeficiency Virus (HIV): No Hx Metastesis: No Hx Shingles: No Hx Unexplained Bleeding: No - INTEGUMENTARY Hx Dermatological Problems: No Hx Basil Cell: No Hx Eczema: No Hx Melanoma: No Hx Psoriasis: No Hx Squamous Cell: No - MUSCULOSKELETAL/RHEUMATOLOGICAL Hx Falls: No - GASTROINTESTINAL Hx Gastrointestinal Disorders: No Hx Colostomy: No Hx Crohn's Disease: No Hx Diverticulitis: No Hx Gall Bladder Disease: No Hx Gastroesophageal Reflux: No Hx Ileostomy: No Hx Liver Failure: No Hx Pancreatitis: No HX Swallowing Problems: No - GENITOURINARY/GYNECOLOGICAL Hx Genitourinary Disorders: Yes Hx Incontinence: Yes Hx Sexually Transmitted Disorders: No Hx Urinary Tract Infection: No - PSYCHIATRIC Hx Psychophysiologic Disorder: Yes Hx Anxiety: No Hx Bipolar Disorder: No Hx Depression: No Hx Emotional Abuse: No Hx Hallucinations: Yes Hx Panic Symptoms: No Hx Paranoia: No Hx Post Traumatic Stress Disorder: No Hx Psychosis: No Hx Physical Abuse: No Hx Schizophrenia: No Hx Sexual Abuse: No - SURGICAL HISTORY Hx Amputation: No Hx Appendectomy: No Hx Cardiac Catheterization: No Hx Cholecystectomy: No Hx Coronary Stent: No Hx Gastric Bypass Surgery: No Hx Hysterectomy: Yes Hx Joint Replacement: No Hx Kidney Transplant: No Hx Liver Transplant: No Hx Mastectomy: No Hx Musculoskeletal Surgery: No Hx Open Heart Surgery: No Hx Orthopedic Surgery: No Hx Splenectomy: No Hx Valve Replacement: No - ANESTHESIA Hx Anesthesia Reactions: No Hx Malignant Hyperthermia: No Meds Allergies/Adverse Reactions: Allergies Allergy/AdvReac Type Severity Reaction Status Date / Time No Known Allergies Allergy Verified 10/24/12 08:19 - Medications Medications: Current Medications Carbidopa/Levodopa (Sinemet Cr) 1 tab PO TID [facility] Last Admin: 05/02/17 17:39 Dose: 1 tab Digoxin (Lanoxin) 0.125 mg PO DAILY [facility] Last Admin: 05/03/17 09:37 Dose: 0.125 mg Divalproex Sodium (Depakote Sprinkles) 125 mg PO BID [facility] PRN Reason: Protocol Last Admin: 05/03/17 09:31 Dose: Not Given Cefepime HCl (Maxipime 1gm) 1 gm in 100 mls @ 100 mls/hr IVPB Q12 [facility] PRN Reason: Protocol Last Admin: 05/03/17 09:32 Dose: 100 mls/hr Vancomycin HCl (Vancomycin 1gm) 1 gm in 250 mls @ 167 mls/hr IVPB DAILY [facility] PRN Reason: Protocol Last Admin: 05/03/17 09:36 Dose: 167 mls/hr Azithromycin 250 mg/ Sodium (Chloride) 250 mls @ 167 mls/hr IVPB DAILY [facility] PRN Reason: Protocol Last Admin: 05/03/17 09:33 Dose: 167 mls/hr Famotidine (Pepcid 20mg/50ml Premix) 20 mg in 50 mls @ 100 mls/hr IV Q12 [facility] Last Admin: 05/02/17 22:00 Dose: 100 mls/hr Propofol (Diprivan) 1,000 mg in 100 mls @ 1.2 mls/hr IV .Q24H PRN; Protocol; 5 MCG/KG/MIN PRN Reason: TITRATE PER MD ORDER Last Admin: 05/03/17 07:07 Dose: 5 mcg/kg/min, 1.2 mls/hr Sodium Bicarbonate 75 meq/ (Sodium Chloride) 1,075 mls @ 75 mls/hr IV .[id number] [facility] Last Admin: 05/03/17 09:38 Dose: 75 mls/hr Methylprednisolone (Solu-Medrol) 40 mg IVP Q8 [facility] Last Admin: 05/03/17 05:35 Dose: 40 mg Risperidone (Risperdal Tab) 0.5 mg PO BID [facility] PRN Reason: Protocol Last Admin: 05/02/17 17:38 Dose: 0.5 mg Physical Exam - Constitutional Appears: Cachectic, Chronically Ill - Head Exam Head Exam: NORMOCEPHALIC - Eye Exam Eye Exam: Normal appearance - ENT Exam ENT Exam: Mucous Membranes Moist - Neck Exam Neck exam: Positive for: Normal Inspection - Respiratory Exam Respiratory Exam: Decreased Breath Sounds, Rhonchi - Cardiovascular Exam Cardiovascular Exam: Tachycardia, +S1, +S2 - GI/Abdominal Exam GI & Abdominal Exam: Diminished Bowel Sounds, Soft - Extremities Exam Extremities exam: Positive for: pedal edema - Back Exam Back exam: NORMAL INSPECTION - Neurological Exam Neurological exam: Alert - Skin Skin Exam: Dry, Pallor Additional comments: decubiti of sacrum, both heels and shins - Additional Findings Additional findings: Palliative performance scale rating 20% Results - Vital Signs Recent Vital Signs: Last Vital Signs Temp 100.3 F H 05/03/17 00:00 Pulse 105 H 05/03/17 06:00 Resp 34 H 05/03/17 03:40 BP 91/40 L 05/03/17 03:00 Pulse Ox 95 05/03/17 03:50 - Labs Result Diagrams: 05/03/17 07:00 05/03/17 07:00 Labs: Laboratory Results - last 24 hr 05/03/17 05/03/17 05/03/17 06:30 07:00 07:00 WBC 11.9 H RBC 3.65 Hgb 10.5 L Hct 34.5 L MCV 94.5 MCH 28.8 MCHC 30.4 L RDW 16.5 H Plt Count 130 MPV 11.3 H Gran % 92.1 H Lymph % (Auto) 1.7 L Knox % (Auto) 6.1 H Eos % (Auto) 0.0 L Baso % (Auto) 0.1 Gran # 10.93 H Lymph # 0.2 L Knox # 0.7 H Eos # 0.0 Baso # 0.01 Neutrophils % (Manual) 56 Band Neutrophils % 39 H* Lymphocytes % (Manual) 4 L Monocytes % (Manual) 1 Platelet Evaluation Normal pCO2 21 L pO2 175.0 H HCO3 9.6 L* ABG pH 7.27 L ABG Total CO2 10.2 L ABG O2 Saturation 100.1 H ABG O2 Content 14.3 L ABG Base Excess -15.5 L ABG Hemoglobin 10.1 L ABG Carboxyhemoglobin 1.5 POC ABG HHb (Measured) -0.1 L ABG Methemoglobin 1.0 ABG O2 Capacity 14.3 L Hgb O2 Saturation 97.6 FiO2 100.0 Sodium 148 Potassium 3.2 L Chloride 119 H Carbon Dioxide 11 L Anion Gap 21 H BUN 28 H Creatinine 0.9 Est GFR ( Amer) > 60 Est GFR (Non-Af Amer) 59 Random Glucose 48 L* D Calcium 8.3 L Total Bilirubin 1.6 H AST 24 ALT 28 Alkaline Phosphatase 68 Total Protein 5.8 Albumin 2.5 L Globulin 3.3 Albumin/Globulin Ratio 0.8 L Assessment & Plan - Assessment and Plan (Free Text) Assessment: 87 year old female with history of Parkinson's disease,DVT,dementia, schizophrenia, anemia, CKD who is admitted with sepsis,respiratory failure anterior septal wall changes on EKG. Patient opens eyes when spoke to Does not appear to be in distress I met with patients daughter and sons. Per family,the patient has 8 children. Her daughter Khadijah Hu is her health care surrogate. Khadijah states her mother has been ill for may years and has auditory hallucinations in the form of voices. Goals of care discussed. Khadijah affirms that he mother is DNR. Explained that her progress will be closely monitored with goal being to extubate in the near future. Family made aware that if progress changes another discussion will ensue regarding options for care. Khadijah states that her mother would not want to be kept alive on machines nor would she want feeding tube. Reassured that other options would be discussed if necessary in the future.Family is appreciative of palliative input. Time spent with family providing palliative support in establishing goals of care, 40 minutes Plan: Palliative support in establishing goals of care
--- NOTE | 2017-05-03 09:54 | RAD ---
HISTORY: intubated COMPARISON: 05/02/2017 FINDINGS: LUNGS: No significant change in perihilar infiltrates and vascular congestion. Endotracheal and nasogastric tubes unchanged PLEURA: No significant pleural effusion identified, no pneumothorax apparent. CARDIOVASCULAR: Normal. OSSEOUS STRUCTURES: No significant abnormalities. VISUALIZED UPPER ABDOMEN: Normal. OTHER FINDINGS: None. IMPRESSION: No significant change in perihilar infiltrates and vascular congestion. Endotracheal and nasogastric tubes unchanged
[2017-05-03] MEDS: Carbidopa/Levodopa 25/100 CR PO SCH ×3 (10:00→18:23)
--- NOTE | 2017-05-03 10:31 | CP.CCUPN ---
<Gonsalo Molina - Last Filed: 05/03/17 10:32> CCU Subjective - Physician Review Subjective (Free Text): Patient seen and examined at bedside. Intubated PRVC- 60 5 16 400. on propofol drip. opens eyes spontaneously, follows simple verbal commands. unable to obtain complete ROS due to pt being intubated. CCU Objective - Vital Signs / Intake & Output Intake and Output (Last 8hrs): Intake & Output 05/02/17 05/03/17 05/03/17 22:59 06:59 14:59 Intake Total 929 Output Total 225 Balance 704 Weight 88 lb Intake: IV 929 Left Forearm 825 Right Forearm 4 Output: Urine 225 Urethral (Guaman) 225 Other: Voiding Method Indwelling Catheter # Bowel Movements 0 - Physical Exam Physical Exam Limitations: Positive for: Other (night time hallucination) Head: Positive for: Atraumatic, Normocephalic Neck: Negative for: JVD Respiratory/Chest: Positive for: Clear to Auscultation, Good Air Exchange, Other (intubated PRVC 60 5 16 400). Negative for: Accessory Muscle Use Cardiovascular: Positive for: Normal S1, S2. Negative for: Tachycardic, Bradycardic Abdomen: Negative for: Tenderness, Distention, Peritoneal Signs Lower Extremity: Positive for: Other (multiple pressure ulcers) Psychiatric: Positive for: Alert, Agitated - Medications Active Medications: Active Medications Generic Name Dose Route Start Last Admin Trade Name Freq PRN Reason Stop Dose Admin Carbidopa/Levodopa 1 tab 05/02/17 14:00 05/02/17 17:39 Sinemet Cr PO 1 tab TID DIANE Administration Digoxin 0.125 mg 05/02/17 13:45 05/03/17 09:37 Lanoxin PO 0.125 mg DAILY DIANE Administration Divalproex Sodium 125 mg 05/02/17 18:00 05/03/17 09:31 Depakote Sprinkles PO Not Given BID DIANE Protocol Cefepime HCl 1 gm in 100 mls @ 100 mls/hr 05/02/17 22:00 05/03/17 09:32 Maxipime 1gm IVPB 100 mls/hr Q12 DIANE Administration Protocol Vancomycin HCl 1 gm in 250 mls @ 167 mls/hr 05/03/17 10:00 05/03/17 09:36 Vancomycin 1gm IVPB 167 mls/hr DAILY DIANE Administration Protocol Azithromycin 250 mg/ Sodium 250 mls @ 167 mls/hr 05/02/17 12:30 05/03/17 09: 33 Chloride IVPB 167 mls/hr DAILY DIANE Administration Protocol Famotidine 20 mg in 50 mls @ 100 mls/hr 05/02/17 22:00 05/03/17 09:46 Pepcid 20mg/50ml Premix IV 100 mls/hr Q12 DIANE Administration Propofol 1,000 mg in 100 mls @ 1.2 mls/hr 05/02/17 13:39 05/03/17 07:07 Diprivan IV 5 mcg/kg/min .Q24H PRN 1.2 mls/hr TITRATE PER MD ORDER Administration Protocol 5 MCG/KG/MIN Sodium Bicarbonate 75 meq/ 1,075 mls @ 75 mls/hr 05/03/17 08:36 05/03/17 09: 38 Sodium Chloride IV 75 mls/hr .[id number] DIANE Administration Methylprednisolone 40 mg 05/02/17 14:00 05/03/17 05:35 Solu-Medrol IVP 40 mg Q8 DIANE Administration Risperidone 0.5 mg 05/02/17 18:00 05/03/17 09:45 Risperdal Tab PO 0.5 mg BID DIANE Administration Protocol - Patient Studies Lab Studies: Microbiology Studies 05/02/17 17:30 Gram Stain - Final Trachasp Lab Studies 05/03/17 05/03/17 05/03/17 Range/Units 07:00 07:00 06:30 WBC 11.9 H (4.5-11.0) 10^3/ul RBC 3.65 (3.5-6.1) 10^6/uL Hgb 10.5 L (12.0-16.0) g/dL Hct 34.5 L (36.0-48.0) % MCV 94.5 (80.0-105.0) fl MCH 28.8 (25.0-35.0) pg MCHC 30.4 L (31.0-37.0) g/dl RDW 16.5 H (11.5-14.5) % Plt Count 130 (120.0-450.0) 10^3/uL MPV 11.3 H (7.0-11.0) fl Gran % 92.1 H (50.0-68.0) % Lymph % (Auto) 1.7 L (22.0-35.0) % [place] % (Auto) 6.1 H (1.0-6.0) % Eos % (Auto) 0.0 L (1.5-5.0) % Baso % (Auto) 0.1 (0.0-3.0) % Gran # 10.93 H (1.4-6.5) Lymph # 0.2 L (1.2-3.4) [place] # 0.7 H (0.1-0.6) Eos # 0.0 (0.0-0.7) Baso # 0.01 (0.0-2.0) K/mm3 Neutrophils % (Manual) 56 (50.0-70.0) % Band Neutrophils % 39 H* (0-2) % Lymphocytes % (Manual) 4 L (22.0-35.0) % Monocytes % (Manual) 1 (1.0-6.0) % Platelet Evaluation Normal (NORMAL) pCO2 21 L (35-45) mm/Hg pO2 175.0 H (80-100) mm/Hg HCO3 9.6 L* (21-28) mmol/L ABG pH 7.27 L (7.35-7.45) ABG Total CO2 10.2 L (22-28) mmol.L ABG O2 Saturation 100.1 H (95-98) % ABG O2 Content 14.3 L (15-23) ML/dl ABG Base Excess -15.5 L (-2.0-3.0) mmol/L ABG Hemoglobin 10.1 L (11.7-17.4) g/dL ABG Carboxyhemoglobin 1.5 (0.5-1.5) % POC ABG HHb (Measured) -0.1 L (0-5) % ABG Methemoglobin 1.0 (0.0-3.0) % ABG O2 Capacity 14.3 L (16-24) mL/dl Hgb O2 Saturation 97.6 (95.0-98.0) % FiO2 100.0 % Sodium 148 (132-148) mmol/L Potassium 3.2 L (3.6-5.0) mmol/L Chloride 119 H (98-107) mmol/L Carbon Dioxide 11 L (21-33) mmol/L Anion Gap 21 H (10-20) BUN 28 H (7-21) mg/dL Creatinine 0.9 (0.7-1.2) mg/dl Est GFR ( Amer) > 60 Est GFR (Non-Af Amer) 59 Random Glucose 48 L* D (70-110) mg/dL Calcium 8.3 L (8.4-10.5) mg/dL Total Bilirubin 1.6 H (0.2-1.3) mg/dL AST 24 (14-36) U/L ALT 28 (7-56) U/L Alkaline Phosphatase 68 (38-126) U/L Total Protein 5.8 (5.8-8.3) g/dL Albumin 2.5 L (3.0-4.8) g/dL Globulin 3.3 gm/dL Albumin/Globulin Ratio 0.8 L (1.1-1.8) Laboratory Results - last 24 hr 05/03/17 05/03/17 05/03/17 06:30 07:00 07:00 WBC 11.9 H RBC 3.65 Hgb 10.5 L Hct 34.5 L MCV 94.5 MCH 28.8 MCHC 30.4 L RDW 16.5 H Plt Count 130 MPV 11.3 H Gran % 92.1 H Lymph % (Auto) 1.7 L [place] % (Auto) 6.1 H Eos % (Auto) 0.0 L Baso % (Auto) 0.1 Gran # 10.93 H Lymph # 0.2 L [place] # 0.7 H Eos # 0.0 Baso # 0.01 Neutrophils % (Manual) 56 Band Neutrophils % 39 H* Lymphocytes % (Manual) 4 L Monocytes % (Manual) 1 Platelet Evaluation Normal pCO2 21 L pO2 175.0 H HCO3 9.6 L* ABG pH 7.27 L ABG Total CO2 10.2 L ABG O2 Saturation 100.1 H ABG O2 Content 14.3 L ABG Base Excess -15.5 L ABG Hemoglobin 10.1 L ABG Carboxyhemoglobin 1.5 POC ABG HHb (Measured) -0.1 L ABG Methemoglobin 1.0 ABG O2 Capacity 14.3 L Hgb O2 Saturation 97.6 FiO2 100.0 Sodium 148 Potassium 3.2 L Chloride 119 H Carbon Dioxide 11 L Anion Gap 21 H BUN 28 H Creatinine 0.9 Est GFR ( Amer) > 60 Est GFR (Non-Af Amer) 59 Random Glucose 48 L* D Calcium 8.3 L Total Bilirubin 1.6 H AST 24 ALT 28 Alkaline Phosphatase 68 Total Protein 5.8 Albumin 2.5 L Globulin 3.3 Albumin/Globulin Ratio 0.8 L Assessment/Plan - Assessment and Plan (Free Text) Assessment: 87F hx of psycosis and schizophrenia, parkinsons, COPD w/ hypoxic resp failure, PNA, AMS, intubated on sedation PRVC 60 5 16 400 Daughter HCP states DNR. Palliative care consulted and will discuss treatment goals Plan: Neuro: awake and opens eyes. On propofol Cardio: Continue to monitor vitals MAP > 65 Pul: intuabted PRVC keep SaO2 > 92% Solu-medrol ABG in AM GI: ppx- pepcid NPO Renal/electrolytes: replete bicarb in fluid- 75meq replete K and lytes PRN Endo: 1amp Dextrose given in AM keep pt euglycemic, euvolemic ID: c/s ID- Dr. Elizabeth; all recs appreciated currently on Zithromax and Vanc Discussed w/ Dr. Harley critical care attending Gonsalo Molina PGY1 <Ki Harley - Last Filed: 05/03/17 11:13> CCU Objective - Vital Signs / Intake & Output Intake and Output (Last 8hrs): Intake & Output 05/02/17 05/03/17 05/03/17 22:59 06:59 14:59 Intake Total 929 Output Total 225 Balance 704 Weight 88 lb Intake: IV 929 Left Forearm 825 Right Forearm 4 Output: Urine 225 Urethral ([place]aman) 225 Other: Voiding Method Indwelling Catheter # Bowel Movements 0 - Medications Active Medications: Active Medications Generic Name Dose Route Start Last Admin Trade Name Freq PRN Reason Stop Dose Admin Carbidopa/Levodopa 1 tab 05/02/17 14:00 05/02/17 17:39 Sinemet Cr PO 1 tab TID DIANE Administration Digoxin 0.125 mg 05/02/17 13:45 05/03/17 09:37 Lanoxin PO 0.125 mg DAILY DIANE Administration Divalproex Sodium 125 mg 05/02/17 18:00 05/03/17 09:31 Depakote Sprinkles PO Not Given BID DIANE Protocol Cefepime HCl 1 gm in 100 mls @ 100 mls/hr 05/02/17 22:00 05/03/17 09:32 Maxipime 1gm IVPB 100 mls/hr Q12 DIANE Administration Protocol Vancomycin HCl 1 gm in 250 mls @ 167 mls/hr 05/03/17 10:00 05/03/17 09:36 Vancomycin 1gm IVPB 167 mls/hr DAILY DIANE Administration Protocol Azithromycin 250 mg/ Sodium 250 mls @ 167 mls/hr 05/02/17 12:30 05/03/17 09: 33 Chloride IVPB 167 mls/hr DAILY DIANE Administration Protocol Famotidine 20 mg in 50 mls @ 100 mls/hr 05/02/17 22:00 05/03/17 09:46 Pepcid 20mg/50ml Premix IV 100 mls/hr Q12 DIANE Administration Propofol 1,000 mg in 100 mls @ 1.2 mls/hr 05/02/17 13:39 05/03/17 07:07 Diprivan IV 5 mcg/kg/min .Q24H PRN 1.2 mls/hr TITRATE PER MD ORDER Administration Protocol 5 MCG/KG/MIN Sodium Bicarbonate 75 meq/ 1,075 mls @ 75 mls/hr 05/03/17 08:36 05/03/17 09: 38 Sodium Chloride IV 75 mls/hr .[id number] DIANE Administration Methylprednisolone 40 mg 05/02/17 14:00 05/03/17 05:35 Solu-Medrol IVP 40 mg Q8 DIANE Administration Risperidone 0.5 mg 05/02/17 18:00 05/03/17 09:45 Risperdal Tab PO 0.5 mg BID DIANE Administration Protocol - Patient Studies Lab Studies: Microbiology Studies 05/02/17 17:30 Gram Stain - Final Trachasp Lab Studies 05/03/17 05/03/17 05/03/17 Range/Units 07:00 07:00 06:30 WBC 11.9 H (4.5-11.0) 10^3/ul RBC 3.65 (3.5-6.1) 10^6/uL Hgb 10.5 L (12.0-16.0) g/dL Hct 34.5 L (36.0-48.0) % MCV 94.5 (80.0-105.0) fl MCH 28.8 (25.0-35.0) pg MCHC 30.4 L (31.0-37.0) g/dl RDW 16.5 H (11.5-14.5) % Plt Count 130 (120.0-450.0) 10^3/uL MPV 11.3 H (7.0-11.0) fl Gran % 92.1 H (50.0-68.0) % Lymph % (Auto) 1.7 L (22.0-35.0) % [place] % (Auto) 6.1 H (1.0-6.0) % Eos % (Auto) 0.0 L (1.5-5.0) % Baso % (Auto) 0.1 (0.0-3.0) % Gran # 10.93 H (1.4-6.5) Lymph # 0.2 L (1.2-3.4) [place] # 0.7 H (0.1-0.6) Eos # 0.0 (0.0-0.7) Baso # 0.01 (0.0-2.0) K/mm3 Neutrophils % (Manual) 56 (50.0-70.0) % Band Neutrophils % 39 H* (0-2) % Lymphocytes % (Manual) 4 L (22.0-35.0) % Monocytes % (Manual) 1 (1.0-6.0) % Platelet Evaluation Normal (NORMAL) pCO2 21 L (35-45) mm/Hg pO2 175.0 H (80-100) mm/Hg HCO3 9.6 L* (21-28) mmol/L ABG pH 7.27 L (7.35-7.45) ABG Total CO2 10.2 L (22-28) mmol.L ABG O2 Saturation 100.1 H (95-98) % ABG O2 Content 14.3 L (15-23) ML/dl ABG Base Excess -15.5 L (-2.0-3.0) mmol/L ABG Hemoglobin 10.1 L (11.7-17.4) g/dL ABG Carboxyhemoglobin 1.5 (0.5-1.5) % POC ABG HHb (Measured) -0.1 L (0-5) % ABG Methemoglobin 1.0 (0.0-3.0) % ABG O2 Capacity 14.3 L (16-24) mL/dl Hgb O2 Saturation 97.6 (95.0-98.0) % FiO2 100.0 % Sodium 148 (132-148) mmol/L Potassium 3.2 L (3.6-5.0) mmol/L Chloride 119 H (98-107) mmol/L Carbon Dioxide 11 L (21-33) mmol/L Anion Gap 21 H (10-20) BUN 28 H (7-21) mg/dL Creatinine 0.9 (0.7-1.2) mg/dl Est GFR ( Amer) > 60 Est GFR (Non-Af Amer) 59 Random Glucose 48 L* D (70-110) mg/dL Calcium 8.3 L (8.4-10.5) mg/dL Total Bilirubin 1.6 H (0.2-1.3) mg/dL AST 24 (14-36) U/L ALT 28 (7-56) U/L Alkaline Phosphatase 68 (38-126) U/L Total Protein 5.8 (5.8-8.3) g/dL Albumin 2.5 L (3.0-4.8) g/dL Globulin 3.3 gm/dL Albumin/Globulin Ratio 0.8 L (1.1-1.8) Laboratory Results - last 24 hr 05/03/17 05/03/17 05/03/17 06:30 07:00 07:00 WBC 11.9 H RBC 3.65 Hgb 10.5 L Hct 34.5 L MCV 94.5 MCH 28.8 MCHC 30.4 L RDW 16.5 H Plt Count 130 MPV 11.3 H Gran % 92.1 H Lymph % (Auto) 1.7 L [place] % (Auto) 6.1 H Eos % (Auto) 0.0 L Baso % (Auto) 0.1 Gran # 10.93 H Lymph # 0.2 L [place] # 0.7 H Eos # 0.0 Baso # 0.01 Neutrophils % (Manual) 56 Band Neutrophils % 39 H* Lymphocytes % (Manual) 4 L Monocytes % (Manual) 1 Platelet Evaluation Normal pCO2 21 L pO2 175.0 H HCO3 9.6 L* ABG pH 7.27 L ABG Total CO2 10.2 L ABG O2 Saturation 100.1 H ABG O2 Content 14.3 L ABG Base Excess -15.5 L ABG Hemoglobin 10.1 L ABG Carboxyhemoglobin 1.5 POC ABG HHb (Measured) -0.1 L ABG Methemoglobin 1.0 ABG O2 Capacity 14.3 L Hgb O2 Saturation 97.6 FiO2 100.0 Sodium 148 Potassium 3.2 L Chloride 119 H Carbon Dioxide 11 L Anion Gap 21 H BUN 28 H Creatinine 0.9 Est GFR ( Amer) > 60 Est GFR (Non-Af Amer) 59 Random Glucose 48 L* D Calcium 8.3 L Total Bilirubin 1.6 H AST 24 ALT 28 Alkaline Phosphatase 68 Total Protein 5.8 Albumin 2.5 L Globulin 3.3 Albumin/Globulin Ratio 0.8 L Assessment/Plan - Assessment and Plan (Free Text) Plan: Pt seen and examined, on rounds with resident, agree with note, with following additions/exceptions: 87yo female a/w hypoxic resp failure, PNA. Currently intubated, sedated, coming down FiO2. Afebrile, HD stable, comfortable in NAD. Hypoxic Resp Failure PNA AMS Dementia Parkinsons COPD Recomend: - cont with ventilatory support, low tidal vol ventilation, goal Plateau<30, daily CPAP trials - SoluMedrol 40mg Q8h IV - Antibitiocs, Cefepime, Vanco, Azithro - freeman culture, sputum culture, check Urine Legionella, Strep - obtain ID eval - check procal - IVF hydration, switch to 1/2NS with 75meq Bicarb - hold BP meds - Sienemet - check Digoxin level - ECHO - FS control - GI ppx - DVT ppx - Palliative care consult DNR Poor Prognosis
--- NOTE | 2017-05-03 10:44 | HP ---
CHIEF COMPLAINT: Respiratory failure. HISTORY OF PRESENT ILLNESS: Ms. Mayte Clinton is an 87-year-old female with past medical history of hypertension, dementia, COPD, history of asthma, last found unresponsive at a.m. The patient was noticed by the group home staff to be unresponsive. EMS found the patient had SpO2 in 70s, NRB intubated in routine with Ketamine - JOSE LUIS full. Actually, the patient was admitted a couple of days ago in the hospital, but discharged back to group home with antibiotics and was feeling fine. Even in the group home, was getting antibiotics. Now this happened that the patient became unresponsive, we do not have any witness of what happened at that moment. PAST MEDICAL HISTORY: Hypertension, dementia, COPD, history of C. difficile toxin colitis, history of cardiac arrhythmias, hypertension, COPD, pneumonia, cerebrovascular accident, arthritis, back pain, history of incontinence, schizophrenia, history of hallucination, and bipolar. FAMILY HISTORY: Father and mother noncontributory. HABITS: Former smoker. Now not smoking. No drugs. No ethanol. ALLERGIES: THE PATIENT IS NOT ALLERGIC WITH ANY MEDICATIONS. HOME MEDICATIONS: Tylenol, DuoNeb, Lipitor, Sinemet, Zyrtec, digoxin, Depakote, Lopressor, Remeron, Singulair, Risperdal, Brovana, Pulmicort, vitamin D, Protonix, and prednisone. REVIEW OF SYSTEMS: The patient was seen and examined in the unit, intubated. Opening eyes on command, is not able to give review of systems. No fever. No chills. No nausea, vomiting, or diarrhea. No hematuria or hematochezia. No swelling of the leg. PHYSICAL EXAMINATION: VITAL SIGNS: Temperature 99.8, pulse 98, respiratory rate 16, blood pressure 81/45, and pulse oximetry of 100%. HEENT: Head is normocephalic and atraumatic. Eyes: PERRLA. Extraocular muscles are intact. Conjunctivae are clear. Nose is patent. Mucous membranes are moist. The patient is intubated. NECK: Supple. No carotid bruits. No thyromegaly. CHEST: Bilaterally symmetrical. HEART: S1 and S2 positive. LUNGS: Positive wheezing bilaterally. ABDOMEN: Soft. Bowel sound present. No organomegaly. EXTREMITIES: No edema. No cyanosis. NEUROLOGICAL: The patient is intubated. Cannot do complete neurological examination. LABORATORY DATA: White blood cell 10.1, hemoglobin 10.5, hematocrit is 33.9, and platelets 168,000. Sodium 145, potassium 3.2, BUN 27, creatinine 0.7, and glucose 131. ASSESSMENT AND PLAN: Ms. Mayte Clinton is an 87-year-old lady with anemia, hypokalemia, hyperglycemia, has a history of asthma, chronic obstructive pulmonary disease, hypercholesteremia, Parkinson's disease, seasonal allergy, coronary artery disease, schizophrenia, osteoporosis, has respiratory failure, intubated, getting vancomycin and cefepime, has pneumonia. Admitted in the Intensive Care Unit with acute respiratory failure with hypoxia, acute electrocardiogram changes. Discussion done with the patient's nursing staff, gastrointestinal and deep vein thrombosis prophylaxes, repeat labs. We will follow. Emily Vazquez MD
--- NOTE | 2017-05-03 12:34 | CP.PCM.PN ---
<Kasia Bell - Last Filed: 05/03/17 14:35> Subjective - Date & Time of Evaluation Date of Evaluation: 05/03/17 Time of Evaluation: 11:00 - Subjective Subjective: 87 yr female from [facility] w/ history of influenza, severe anemia, hypertension, COPD, C.diff, colitis, atrial fibrillation, seizure disorder, advanced dementia, parkinsons, CVA, bipolar, schizophrenia and hypothyroidism. Pt found unresponsive in nursin home and intubated on the field. Pt surrounded by family in CCU. Of her 8 children: 2 sons, 1 daughter, and gandson at bedside. Pt is alert and able to follow simple commands. Baseline is confused. Pt is a poor historian. Objective - Vital Signs/Intake and Output Vital Signs (last 24 hours): Temp Pulse Resp BP Pulse Ox 100.3 F H 105 H 34 H 91/40 L 95 05/03/17 00:00 05/03/17 06:00 05/03/17 03:40 05/03/17 03:00 05/03/17 03:50 Intake and Output: 05/03/17 05/03/17 06:59 18:59 Intake Total 929 Output Total 225 Balance 704 - Medications Medications: Current Medications Carbidopa/Levodopa (Sinemet Cr) 1 tab PO TID [facility] Last Admin: 05/02/17 17:39 Dose: 1 tab Digoxin (Lanoxin) 0.125 mg PO DAILY DIANE Last Admin: 05/03/17 09:37 Dose: 0.125 mg Divalproex Sodium (Depakote Sprinkles) 125 mg PO BID DIANE PRN Reason: Protocol Last Admin: 05/03/17 09:31 Dose: Not Given Cefepime HCl (Maxipime 1gm) 1 gm in 100 mls @ 100 mls/hr IVPB Q12 DIANE PRN Reason: Protocol Last Admin: 05/03/17 09:32 Dose: 100 mls/hr Vancomycin HCl (Vancomycin 1gm) 1 gm in 250 mls @ 167 mls/hr IVPB DAILY DIANE PRN Reason: Protocol Last Admin: 05/03/17 09:36 Dose: 167 mls/hr Azithromycin 250 mg/ Sodium (Chloride) 250 mls @ 167 mls/hr IVPB DAILY DIANE PRN Reason: Protocol Last Admin: 05/03/17 09:33 Dose: 167 mls/hr Famotidine (Pepcid 20mg/50ml Premix) 20 mg in 50 mls @ 100 mls/hr IV Q12 [facility] Last Admin: 05/03/17 09:46 Dose: 100 mls/hr Propofol (Diprivan) 1,000 mg in 100 mls @ 1.2 mls/hr IV .Q24H PRN; Protocol; 5 MCG/KG/MIN PRN Reason: TITRATE PER MD ORDER Last Admin: 05/03/17 07:07 Dose: 5 mcg/kg/min, 1.2 mls/hr Sodium Bicarbonate 75 meq/ (Sodium Chloride) 1,075 mls @ 75 mls/hr IV .[id number] [facility] Last Admin: 05/03/17 09:38 Dose: 75 mls/hr Methylprednisolone (Solu-Medrol) 40 mg IVP Q8 [facility] Last Admin: 05/03/17 05:35 Dose: 40 mg Risperidone (Risperdal Tab) 0.5 mg PO BID [facility] PRN Reason: Protocol Last Admin: 05/03/17 09:45 Dose: 0.5 mg - Labs Labs: 05/03/17 07:00 05/03/17 07:00 PT 15.9 SECONDS (9.4-12.5) H 05/02/17 09:00 INR 1.37 (0.93-1.08) H 05/02/17 09:00 APTT 30.1 Seconds (25.1-36.5) 05/02/17 09:00 - Constitutional Appears: Confused, Chronically Ill - Head Exam Head Exam: ATRAUMATIC, NORMAL INSPECTION, NORMOCEPHALIC - Eye Exam Eye Exam: EOMI, Normal appearance, PERRL Pupil Exam: NORMAL ACCOMODATION, PERRL - ENT Exam ENT Exam: Mucous Membranes Moist, Normal Exam - Neck Exam Neck Exam: Full ROM, Normal Inspection. absent: Lymphadenopathy - Respiratory Exam Respiratory Exam: Clear to Ausculation Bilateral, NORMAL BREATHING PATTERN - Cardiovascular Exam Cardiovascular Exam: Tachycardia, +S1, +S2. absent: Murmur - GI/Abdominal Exam GI & Abdominal Exam: Soft, Normal Bowel Sounds. absent: Tenderness - Exam Additional comments: braxton catheter, clear yellow urine. - Neurological Exam Neurological Exam: Alert, Awake - Psychiatric Exam Psychiatric exam: Normal Affect, Normal Mood - Skin Skin Exam: Dry, Intact, Normal Color, Warm Assessment and Plan (1) Acute electrocardiogram changes Status: Acute (2) Acute respiratory failure with hypoxia Status: Acute (3) Pneumonia Status: Acute (4) Anemia Status: Acute (5) COPD (chronic obstructive pulmonary disease) Status: Acute (6) Iron deficiency Status: Acute (7) Hypokalemia Status: Acute - Assessment and Plan (Free Text) Plan: IV Potassium. Labs ordered. IV cefepime, vanco, & azithromycin. IV solumedryl. Suptum & blood culture pending. Intubation/extubation orders per CCU team. Labs ordered. VTE/GI prophylaxis. Consults: Screen And Cyclone Repairer - Dr. Reed Palliative Care - INDIVIDUAL PENSION ADVISER. [place] ID - Dr. Elizabeth Reviewed: CT head = generalized atrophy, nonspecific white matter changes CXR = no significant chage in perihilar infiltarate and vascular congestion, ET and NG tubes unchanged ECG = Afib w/ RVR, ST abn, possible anteroseptal subandocardial injury, new since 04/24/17 ECG <Emily Vazquez - Last Filed: 05/03/17 20:19> Objective - Vital Signs/Intake and Output Vital Signs (last 24 hours): Temp Pulse Resp BP Pulse Ox 99.0 F 102 H 30 H 105/51 L 96 05/03/17 14:50 05/03/17 18:00 05/03/17 14:50 05/03/17 14:00 05/03/17 14:50 Intake and Output: 05/03/17 05/04/17 18:59 06:59 Intake Total 2489 Output Total 505 Balance 1984 - Medications Medications: Current Medications Carbidopa/Levodopa (Sinemet Cr) 1 tab PO TID [facility] Last Admin: 05/03/17 18:23 Dose: 1 tab Digoxin (Lanoxin) 0.125 mg PO DAILY [facility] Last Admin: 05/03/17 09:37 Dose: 0.125 mg Divalproex Sodium (Depakote Sprinkles) 125 mg PO BID DIANE PRN Reason: Protocol Last Admin: 05/03/17 18:22 Dose: 125 mg Cefepime HCl (Maxipime 1gm) 1 gm in 100 mls @ 100 mls/hr IVPB Q12 [facility]ANE PRN Reason: Protocol Last Admin: 05/03/17 09:32 Dose: 100 mls/hr Vancomycin HCl (Vancomycin 1gm) 1 gm in 250 mls @ 167 mls/hr IVPB DAILY [facility]ANE PRN Reason: Protocol Last Admin: 05/03/17 09:36 Dose: 167 mls/hr Azithromycin 250 mg/ Sodium (Chloride) 250 mls @ 167 mls/hr IVPB DAILY DIANE PRN Reason: Protocol Last Admin: 05/03/17 09:33 Dose: 167 mls/hr Famotidine (Pepcid 20mg/50ml Premix) 20 mg in 50 mls @ 100 mls/hr IV Q12 [facility] Last Admin: 05/03/17 09:46 Dose: 100 mls/hr Propofol (Diprivan) 1,000 mg in 100 mls @ 1.2 mls/hr IV .Q24H PRN; Protocol; 5 MCG/KG/MIN PRN Reason: TITRATE PER MD ORDER Last Admin: 05/03/17 07:07 Dose: 5 mcg/kg/min, 1.2 mls/hr Sodium Bicarbonate 75 meq/ (Sodium Chloride) 1,075 mls @ 75 mls/hr IV .[id number] [facility] Last Admin: 05/03/17 09:38 Dose: 75 mls/hr Methylprednisolone (Solu-Medrol) 40 mg IVP Q8 [facility] Last Admin: 05/03/17 14:40 Dose: 40 mg Risperidone (Risperdal Tab) 0.5 mg PO BID [facility] PRN Reason: Protocol Last Admin: 05/03/17 18:23 Dose: 0.5 mg - Labs Labs: 05/03/17 07:00 05/03/17 07:00 PT 15.9 SECONDS (9.4-12.5) H 05/02/17 09:00 INR 1.37 (0.93-1.08) H 05/02/17 09:00 APTT 30.1 Seconds (25.1-36.5) 05/02/17 09:00 Assessment and Plan - Assessment and Plan (Free Text) Plan: 87 yr female from [facility] w/ history of influenza, severe anemia, hypertension, COPD, C.diff, colitis, atrial fibrillation, seizure disorder, advanced dementia, parkinsons, CVA, bipolar, schizophrenia and hypothyroidism. Pt found unresponsive in [facility] and intubated on the field. Pt surrounded by family in CCU. Of her 8 children: 2 sons, 1 daughter, and gandson at bedside. Pt is alert and able to follow simple commands. Baseline is confused. Pt is a poor historian.agreed all above , chart ,labs and meds noted ,seen and examined at bed side , will cont, same treatment
--- NOTE | 2017-05-03 17:18 | CP.PCM.PCO ---
Physician Communication Note - Physician Communication Note Physician Communication Note: chart reviewed. full consult to follow.
--- NOTE | 2017-05-03 20:11 | CP.PCM.CON ---
History of Present Illness - History of Present Illness History of Present Illness: Infectious Disease Consultation: May 03, 2017 87 yo female found in the field in respiratory distress and required intubation in the field. She was desaturating to 70% on room air in the field. She remains poorly responsive and remains intubated and ventilated. Unable to gain more history other than information in the chart. She was recently [place] [facility] [place] for anemia and gastric polyps. PMHx: Hypertension, Gastric Polyps, Cholelithiasis, Atrial Fibrillation, Advanced Dementia, History of Pneumonia, Psychosis, Schizophrenia, Parkinson's, COPD PSHx: Hysterectomy Allergies: NKDA Social Hx: Resident of senior living Former tobacco use NO EtOH or illicit drug use Active Medications Carbidopa/Levodopa (Sinemet Cr) 1 tab PO TID [facility] Last Admin: 05/03/17 18:23 Dose: 1 tab Digoxin (Lanoxin) 0.125 mg PO DAILY [facility] Last Admin: 05/03/17 09:37 Dose: 0.125 mg Divalproex Sodium (Depakote Sprinkles) 125 mg PO BID [facility] PRN Reason: Protocol Last Admin: 05/03/17 18:22 Dose: 125 mg Cefepime HCl (Maxipime 1gm) 1 gm in 100 mls @ 100 mls/hr IVPB Q12 [facility] PRN Reason: Protocol Last Admin: 05/03/17 09:32 Dose: 100 mls/hr Vancomycin HCl (Vancomycin 1gm) 1 gm in 250 mls @ 167 mls/hr IVPB DAILY [facility] PRN Reason: Protocol Last Admin: 05/03/17 09:36 Dose: 167 mls/hr Azithromycin 250 mg/ Sodium (Chloride) 250 mls @ 167 mls/hr IVPB DAILY [facility] PRN Reason: Protocol Last Admin: 05/03/17 09:33 Dose: 167 mls/hr Famotidine (Pepcid 20mg/50ml Premix) 20 mg in 50 mls @ 100 mls/hr IV Q12 [facility] Last Admin: 05/03/17 09:46 Dose: 100 mls/hr Propofol (Diprivan) 1,000 mg in 100 mls @ 1.2 mls/hr IV .Q24H PRN; Protocol; 5 MCG/KG/MIN PRN Reason: TITRATE PER MD ORDER Last Admin: 05/03/17 07:07 Dose: 5 mcg/kg/min, 1.2 mls/hr Sodium Bicarbonate 75 meq/ (Sodium Chloride) 1,075 mls @ 75 mls/hr IV .[id number] [facility] Last Admin: 05/03/17 09:38 Dose: 75 mls/hr Methylprednisolone (Solu-Medrol) 40 mg IVP Q8 [facility] Last Admin: 05/03/17 14:40 Dose: 40 mg Risperidone (Risperdal Tab) 0.5 mg PO BID [facility] PRN Reason: Protocol Last Admin: 05/03/17 18:23 Dose: 0.5 mg Family Hx: Unable to obtain. ROS: Unable to obtain Past Patient History - Infectious Disease Hx of Infectious Diseases: C.diff - Tetanus Immunizations Tetanus Immunization: Unknown - Past Social History Smoking Status: Former Smoker - CARDIAC Hx Cardiac Disorders: Yes Hx Angina: No Hx Cardia Arrhythmia: Yes Hx Circulatory Problems: No Hx Congestive Heart Failure: No Hx Heart Murmur: No Hx Heart Transplant: No Hx Hypertension: Yes Hx Internal Defibrillator: No Hx Mitral Valve Prolapse: No Hx Pacemaker: No Hx Peripheral Edema: No Hx Peripheral Vascular Disease: No - PULMONARY Hx Respiratory Disorders: Yes Hx Chronic Obstructive Pulmonary Disease (COPD): Yes Hx Emphysema: No Hx Pneumonia: Yes Hx Respiratory Aspiration: No Hx Respiratory Tract Infection: No Hx Sleep Apnea: No Hx Tuberculosis: No - NEUROLOGICAL Hx Neurological Disorder: Yes Hx Alzheimer's Disease: No HX Cerebrovascular Accident: Yes Hx Dementia: Yes Hx Dizziness: No Hx Meningitis: No Hx Migraine: No Hx Parkinson's Disease: No Hx Seizures: No Hx Transient Ischemic Attacks (TIA): No - HEENT Hx HEENT Problems: No Hx Blind: No Hx Cataracts: No Hx Deafness: No Hx Difficulty Chewing: No Hx Epistaxis: No Hx Glaucoma: No Hx Macular Degeneration: No - RENAL Hx Chronic Kidney Disease: No Hx Dialysis: No Hx Kidney Stones: No Hx Neurogenic Bladder: No Hx Pyelonephritis: No Hx Renal (Kidney) Cancer: No Hx Renal Failure: No - ENDOCRINE/METABOLIC Hx Endocrine Disorders: Yes Hx Adrenal Cancer: No Hx Diabetes Insipidus: No Hx Diabetes Mellitus Type 1: No Hx Diabetes Mellitus Type 2: No Hx Hyperthyroidism: No Hx Hypothyroidism: No Hx Systemic Lupus Erythematosus: No - HEMATOLOGICAL/ONCOLOGICAL Hx Blood Disorders: No Hx AIDS: No Hx Anemia: Yes Hx Cancer: No Hx Chemotherapy: No Hx Cirrhosis: No Hx Hepatitis A: No Hx Hepatitis B: No Hx Hepatitis C: No Hx Human Immunodeficiency Virus (HIV): No Hx Metastesis: No Hx Shingles: No Hx Unexplained Bleeding: No - INTEGUMENTARY Hx Dermatological Problems: No Hx Basil Cell: No Hx Eczema: No Hx Melanoma: No Hx Psoriasis: No Hx Squamous Cell: No - MUSCULOSKELETAL/RHEUMATOLOGICAL Hx Falls: No - GASTROINTESTINAL Hx Gastrointestinal Disorders: No Hx Colostomy: No Hx Crohn's Disease: No Hx Diverticulitis: No Hx Gall Bladder Disease: No Hx Gastroesophageal Reflux: No Hx Ileostomy: No Hx Liver Failure: No Hx Pancreatitis: No HX Swallowing Problems: No - GENITOURINARY/GYNECOLOGICAL Hx Genitourinary Disorders: Yes Hx Incontinence: Yes Hx Sexually Transmitted Disorders: No Hx Urinary Tract Infection: No - PSYCHIATRIC Hx Psychophysiologic Disorder: Yes Hx Anxiety: No Hx Bipolar Disorder: No Hx Depression: No Hx Emotional Abuse: No Hx Hallucinations: Yes Hx Panic Symptoms: No Hx Paranoia: No Hx Post Traumatic Stress Disorder: No Hx Psychosis: No Hx Physical Abuse: No Hx Schizophrenia: No Hx Sexual Abuse: No - SURGICAL HISTORY Hx Amputation: No Hx Appendectomy: No Hx Cardiac Catheterization: No Hx Cholecystectomy: No Hx Coronary Stent: No Hx Gastric Bypass Surgery: No Hx Hysterectomy: Yes Hx Joint Replacement: No Hx Kidney Transplant: No Hx Liver Transplant: No Hx Mastectomy: No Hx Musculoskeletal Surgery: No Hx Open Heart Surgery: No Hx Orthopedic Surgery: No Hx Splenectomy: No Hx Valve Replacement: No - ANESTHESIA Hx Anesthesia Reactions: No Hx Malignant Hyperthermia: No Meds Allergies/Adverse Reactions: Allergies Allergy/AdvReac Type Severity Reaction Status Date / Time No Known Allergies Allergy Verified 10/24/12 08:19 - Medications Medications: Current Medications Carbidopa/Levodopa (Sinemet Cr) 1 tab PO TID [facility] Last Admin: 05/03/17 18:23 Dose: 1 tab Digoxin (Lanoxin) 0.125 mg PO DAILY [facility] Last Admin: 05/03/17 09:37 Dose: 0.125 mg Divalproex Sodium (Depakote Sprinkles) 125 mg PO BID [facility] PRN Reason: Protocol Last Admin: 05/03/17 18:22 Dose: 125 mg Cefepime HCl (Maxipime 1gm) 1 gm in 100 mls @ 100 mls/hr IVPB Q12 [facility] PRN Reason: Protocol Last Admin: 05/03/17 09:32 Dose: 100 mls/hr Vancomycin HCl (Vancomycin 1gm) 1 gm in 250 mls @ 167 mls/hr IVPB DAILY [facility] PRN Reason: Protocol Last Admin: 05/03/17 09:36 Dose: 167 mls/hr Azithromycin 250 mg/ Sodium (Chloride) 250 mls @ 167 mls/hr IVPB DAILY [facility] PRN Reason: Protocol Last Admin: 05/03/17 09:33 Dose: 167 mls/hr Famotidine (Pepcid 20mg/50ml Premix) 20 mg in 50 mls @ 100 mls/hr IV Q12 [facility] Last Admin: 05/03/17 09:46 Dose: 100 mls/hr Propofol (Diprivan) 1,000 mg in 100 mls @ 1.2 mls/hr IV .Q24H PRN; Protocol; 5 MCG/KG/MIN PRN Reason: TITRATE PER MD ORDER Last Admin: 05/03/17 07:07 Dose: 5 mcg/kg/min, 1.2 mls/hr Sodium Bicarbonate 75 meq/ (Sodium Chloride) 1,075 mls @ 75 mls/hr IV .[id number] [facility] Last Admin: 05/03/17 09:38 Dose: 75 mls/hr Methylprednisolone (Solu-Medrol) 40 mg IVP Q8 [facility] Last Admin: 05/03/17 14:40 Dose: 40 mg Risperidone (Risperdal Tab) 0.5 mg PO BID [facility] PRN Reason: Protocol Last Admin: 05/03/17 18:23 Dose: 0.5 mg Physical Exam - Constitutional Appears: Toxic, Chronically Ill - Head Exam Additional comments: Intubated and Ventilated. - Eye Exam Eye Exam: EOMI, PERRL Pupil Exam: NORMAL ACCOMODATION, PERRL - ENT Exam ENT Exam: Mucous Membranes Moist, Normal External Ear Exam, TM's Normal Bilaterally - Neck Exam Additional comments: Intubated and ventilated. - Respiratory Exam Respiratory Exam: Decreased Breath Sounds. absent: Rales, Rhonchi, Wheezes - Cardiovascular Exam Cardiovascular Exam: REGULAR RHYTHM, RRR, +S1, +S2 Additional comments: periods of tachycardia. - GI/Abdominal Exam GI & Abdominal Exam: Normal Bowel Sounds, Soft. absent: Distended, Tenderness - Extremities Exam Extremities exam: Negative for: joint swelling, pedal edema Additional comments: multiple pressure ulcers on legs. - Neurological Exam Neurological exam: Alert Additional comments: can follow some simple commands. - Skin Additional comments: Pressure ulcers in lower extremities bilaterally. Results - Vital Signs Recent Vital Signs: Last Vital Signs Temp 99.0 F 05/03/17 14:50 Pulse 102 H 05/03/17 18:00 Resp 30 H 05/03/17 14:50 BP 105/51 L 05/03/17 14:00 Pulse Ox 96 05/03/17 14:50 - Labs Result Diagrams: 05/03/17 07:00 05/03/17 07:00 Labs: Laboratory Results - last 24 hr 05/03/17 05/03/17 05/03/17 06:30 07:00 07:00 WBC 11.9 H RBC 3.65 Hgb 10.5 L Hct 34.5 L MCV 94.5 MCH 28.8 MCHC 30.4 L RDW 16.5 H Plt Count 130 MPV 11.3 H Gran % 92.1 H Lymph % (Auto) 1.7 L Towns % (Auto) 6.1 H Eos % (Auto) 0.0 L Baso % (Auto) 0.1 Gran # 10.93 H Lymph # 0.2 L Towns # 0.7 H Eos # 0.0 Baso # 0.01 Neutrophils % (Manual) 56 Band Neutrophils % 39 H* Lymphocytes % (Manual) 4 L Monocytes % (Manual) 1 Platelet Evaluation Normal pCO2 21 L pO2 175.0 H HCO3 9.6 L* ABG pH 7.27 L ABG Total CO2 10.2 L ABG O2 Saturation 100.1 H ABG O2 Content 14.3 L ABG Base Excess -15.5 L ABG Hemoglobin 10.1 L ABG Carboxyhemoglobin 1.5 POC ABG HHb (Measured) -0.1 L ABG Methemoglobin 1.0 ABG O2 Capacity 14.3 L Hgb O2 Saturation 97.6 FiO2 100.0 Sodium 148 Potassium 3.2 L Chloride 119 H Carbon Dioxide 11 L Anion Gap 21 H BUN 28 H Creatinine 0.9 Est GFR ( Amer) > 60 Est GFR (Non-Af Amer) 59 POC Glucose (mg/dL) Random Glucose 48 L* D Calcium 8.3 L Total Bilirubin 1.6 H AST 24 ALT 28 Alkaline Phosphatase 68 Total Protein 5.8 Albumin 2.5 L Globulin 3.3 Albumin/Globulin Ratio 0.8 L 05/03/17 05/03/17 09:12 11:29 WBC RBC Hgb Hct MCV MCH MCHC RDW Plt Count MPV Gran % Lymph % (Auto) Towns % (Auto) Eos % (Auto) Baso % (Auto) Gran # Lymph # Towns # Eos # Baso # Neutrophils % (Manual) Band Neutrophils % Lymphocytes % (Manual) Monocytes % (Manual) Platelet Evaluation pCO2 pO2 HCO3 ABG pH ABG Total CO2 ABG O2 Saturation ABG O2 Content ABG Base Excess ABG Hemoglobin ABG Carboxyhemoglobin POC ABG HHb (Measured) ABG Methemoglobin ABG O2 Capacity Hgb O2 Saturation FiO2 Sodium Potassium Chloride Carbon Dioxide Anion Gap BUN Creatinine Est GFR ( Amer) Est GFR (Non-Af Amer) POC Glucose (mg/dL) 208 H 100 Random Glucose Calcium Total Bilirubin AST ALT Alkaline Phosphatase Total Protein Albumin Globulin Albumin/Globulin Ratio Assessment & Plan - Assessment and Plan (Free Text) Assessment: 87 yo female with multiple comorbidities presented with severe SOB requiring intubation in the field. The patient is arousable now even with propofol on board. The patient remains intubated and ventilated at this time. Started on Vancomycin IV, Cefepime, and Azithromycin. Obtain procalcitonin value. Negative Influenza. Negative drug screen. Chest X-ray showing multifocal patchy and nodular opacities bilaterally, right greater than left. These finding were not seen in an Chest X-ray done on 04/25/2017 on the last hospitalization. Brown cultures and sputum cultures sent. Supportive care. The patient has an extensive and exhaustive medical history. Thank you for allowing me to participate in the care of the patient, we will follow with you.
[2017-05-04] MEDS: MethylPREDNISolone 40 mg Vial IVP SCH ×3 (06:17→21:29)
[2017-05-04] MEDS: Propofol 10 mg/ml 1,000 MG/100 ML VIAL IV PRN (06:17)
[2017-05-04 07:18] LABS: ARTERIAL BLOOD GAS HCO3 14.9 mmol/L (21-28); ARTERIAL BLOOD GAS HEMOGLOBIN 11.9 g/dL (11.7-17.4); ARTERIAL BLOOD GAS O2 CAPACITY 16.5 mL/dl (16-24); ARTERIAL BLOOD GAS O2 CONTENT 16.4 ML/dl (15-23); ARTERIAL BLOOD GAS O2 SAT 99.1 % (95-98); ARTERIAL BLOOD GAS PCO2 22 mm/Hg (35-45); ARTERIAL BLOOD GAS PH 7.44 (7.35-7.45); ARTERIAL BLOOD GAS TCO2 15.6 mmol.L (22-28)
[2017-05-04 07:40] LABS: BASO # 0.01 K/mm3 (0.0-2.0); BASO % 0.1 % (0.0-3.0); GRAN # 9.06 (1.4-6.5); GRAN % 89.4 % (50.0-68.0); LYMPH # 0.4 (1.2-3.4); LYMPH % 3.9 % (22.0-35.0); MEAN CELL VOLUME 91.8 fl (80.0-105.0); MEAN CORPUSCULAR HGB CONC 31.6 g/dl (31.0-37.0); MEAN PLATELET VOLUME 12.7 fl (7.0-11.0); MONO # 0.7 (0.1-0.6); MONO % 6.6 % (1.0-6.0); RBC 3.79 10^6/uL (3.5-6.1); RED CELL DISTRIBUTION WIDTH 16.6 % (11.5-14.5); WHITE BLOOD COUNT 10.1 10^3/ul (4.5-11.0)
[2017-05-04 08:02] LABS: ALB/GLOB RATIO 0.8 (1.1-1.8); ALBUMIN 2.4 g/dL (3.0-4.8); ALT/SGPT 12 U/L (7-56); AST/SGOT 23 U/L (14-36); BLOOD UREA NITROGEN 32 mg/dL (7-21); CALCIUM 7.7 mg/dL (8.4-10.5); GFR AFRICAN-AMERICAN > 60; GFR NON-AFRICAN AMERICAN > 60
[2017-05-04] MEDS: Azithromycin 250 MG in Sodium Chloride 0.9% 250 ML IVPB SCH ×2 (08:57→13:04)
[2017-05-04] MEDS: Digoxin 125 mcg (0.125 mg) Tab PO SCH (09:08)
[2017-05-04] MEDS: Divalproex 125 mg EC Sprinkle Cap PO SCH ×2 (09:08→17:04)
[2017-05-04] MEDS: Famotidine 20mg/50ml 20 MG/50 ML BAG IV SCH ×2 (09:09→21:28)
[2017-05-04] MEDS: Carbidopa/Levodopa 25/100 CR PO SCH ×3 (09:09→18:19)
--- NOTE | 2017-05-04 09:30 | RAD ---
HISTORY: intubated COMPARISON: 05/03/2017 FINDINGS: LUNGS: Patchy opacities at both lung bases. Grossly unchanged. Possible pneumonia. PLEURA: No significant pleural effusion identified, no pneumothorax apparent. CARDIOVASCULAR: ETT and NG tube unchanged. OSSEOUS STRUCTURES: No significant abnormalities. VISUALIZED UPPER ABDOMEN: Normal. OTHER FINDINGS: None. IMPRESSION: Bibasilar opacities. Possible pneumonia.
--- NOTE | 2017-05-04 10:19 | CON ---
DATE: 05/03/2017 REFERRING PHYSICIAN: REASON FOR CONSULTATION: Respiratory failure, chronic lung disease. HISTORY OF PRESENT ILLNESS: This is an 87-year-old female with multiple medical issues including dementia, chronic lung disease, hypertension, history of cardiac arrhythmia, old CVA, arthritis, history of schizophrenia, who was found unresponsive the day of admission in the morning, found by nursing staff. She was resuscitated, placed on ventilator, brought into [facility], was admitted to intensive care unit, was placed on ventilator, started on antibiotics, presently arousable. Family is at bedside, not much ET tube secretion. No hemoptysis or hematemesis. No hematuria or diarrhea reported. PAST MEDICAL HISTORY: As per history of present illness. ALLERGIES: NONE KNOWN. SOCIAL HISTORY: [facility] resident. No history of smoking or alcohol abuse reported. FAMILY HISTORY: No significant cardiopulmonary disease reported. MEDICATIONS: She is on Zithromax 250 mg daily, been on Depakote 125 mg twice a day, Diprivan IV, digoxin 0.125 mg daily, cefepime 1 g IV q.12h., Pepcid 20 mg IV daily, Risperdal 0.5 mg twice a day, Sinemet one tablet three times a day, IV fluids with bicarbonate 75 mL/hour, Solu-Medrol 40 mg q.8h., vancomycin 1 g IV daily. REVIEW OF SYSTEMS: She was found unresponsive. Presently, she is awake, opens eyes, tracking the room, not much ET tube secretion. No hemoptysis or hematemesis. No hematuria or diarrhea. No leg swelling reported. PHYSICAL EXAMINATION: GENERAL: Intubated and mildly sedated. VITAL SIGNS: Temperature 99, heart rate 92, respiratory rate 22, blood pressure 105/51, pulse ox 100% on ventilator. HEENT: Moist mucous membrane. ET tube with not much secretion. NECK: Supple. No JVD. LUNGS: Scattered rhonchi. HEART: S1 and S2. ABDOMEN: Soft, nontender. No hepatomegaly. EXTREMITIES: No edema. NEUROLOGIC: Awake, alert, nonverbal, on ventilator. LABORATORY DATA: Shows hemoglobin 10.5, hematocrit 34.5, WBC 11.9, platelet is 130,000. INR 1.37. PTT is 30. Blood gases today show pH 7.27, pCO2 21, O2 175. This is on 100% oxygen ventilator. Sodium 148, potassium 3.2, chloride 119, bicarbonate 11, BUN 28, creatinine 0.9, glucose 102, calcium 8.3, total bili 1.6, AST 24, ALT 28, alk phos is 68. Albumin is 2.5. Urine culture has wbc's 1-3. Toxicology was unremarkable. Influenza A and B are negative. Microbiology; tracheal secretion, Gram-positive cocci. Urine cultures also has Gram-positive cocci. Blood culture is negative. DIAGNOSTIC DATA: Chest x-ray done this morning shows perihilar infiltrate and vascular congestion. Endotracheal and nasogastric tube in place. CAT scan of the head was done on admission, which shows generalized atrophy, moderate non-specified matter changes. EKG done shows heart rate is 126, atrial fibrillation with rapid ventricular response. IMPRESSION AND PLAN: Respiratory failure, found unresponsive, atrial fibrillation, anemia, chronic obstructive lung disease, has a pulmonary infiltrate, history of Parkinson disease, seasonal allergies, coronary artery disease, schizophrenia, being treated for healthcare-associated sepsis. Pulmonary point of view, keep present vent setting. Gastric prophylaxis, DVT prophylaxis. Spoke to the patient's son at bedside. All the questions answered. Critical care time was more than 35 minutes. Thank you and we will follow with you. Erika Reed MD
[2017-05-04] MEDS: Cefepime 1gm in NS 100ml 1 GM/100 ML BAG IVPB SCH (10:41)
--- NOTE | 2017-05-04 10:42 | CP.PCM.PN ---
Subjective - Date & Time of Evaluation Date of Evaluation: 05/04/17 Time of Evaluation: 07:40 - Subjective Subjective: Pt seen and examined, remains intubated, lightly sedated, opens eyes to verbal stimuli. Objective - Vital Signs/Intake and Output Vital Signs (last 24 hours): Temp Pulse Resp BP Pulse Ox 98.2 F 96 H 31 H 101/49 L 100 05/04/17 08:00 05/04/17 08:50 05/04/17 08:40 05/04/17 08:00 05/04/17 08:40 Intake and Output: 05/04/17 05/04/17 06:59 18:59 Intake Total 1386 Output Total 250 Balance 1136 - Medications Medications: Current Medications Apixaban (Eliquis) 2.5 mg PO BID [facility] PRN Reason: Protocol Last Admin: 05/04/17 09:09 Dose: 2.5 mg Carbidopa/Levodopa (Sinemet Cr) 1 tab PO TID [facility] Last Admin: 05/04/17 09:09 Dose: 1 tab Digoxin (Lanoxin) 0.125 mg PO DAILY [facility] Last Admin: 05/04/17 09:08 Dose: 0.125 mg Divalproex Sodium (Depakote Sprinkles) 125 mg PO BID [facility] PRN Reason: Protocol Last Admin: 05/04/17 09:08 Dose: 125 mg Vancomycin HCl (Vancomycin 1gm) 1 gm in 250 mls @ 167 mls/hr IVPB DAILY [facility] PRN Reason: Protocol Last Admin: 05/03/17 09:36 Dose: 167 mls/hr Azithromycin 250 mg/ Sodium (Chloride) 250 mls @ 167 mls/hr IVPB DAILY [facility] PRN Reason: Protocol Last Admin: 05/04/17 08:57 Dose: 167 mls/hr Famotidine (Pepcid 20mg/50ml Premix) 20 mg in 50 mls @ 100 mls/hr IV Q12 [facility] Last Admin: 05/04/17 09:09 Dose: 100 mls/hr Propofol (Diprivan) 1,000 mg in 100 mls @ 1.2 mls/hr IV .Q24H PRN; Protocol; 5 MCG/KG/MIN PRN Reason: TITRATE PER MD ORDER Last Admin: 05/04/17 06:17 Dose: 5 mcg/kg/min, 1.2 mls/hr Cefepime HCl (Maxipime 1gm) 1 gm in 100 mls @ 100 mls/hr IVPB DAILY [facility] PRN Reason: Protocol Potassium Chloride (Potassium Chloride 10 Meq/100 Ml) 10 meq in 100 mls @ 50 mls/hr IVPB ONCE ONE Stop: 05/04/17 10:55 Potassium Chloride (Potassium Chloride 10 Meq/100 Ml) 10 meq in 100 mls @ 50 mls/hr IVPB ONCE ONE Stop: 05/04/17 12:55 Methylprednisolone (Solu-Medrol) 40 mg IVP Q12 [facility] Risperidone (Risperdal Tab) 0.5 mg PO BID [facility] PRN Reason: Protocol Last Admin: 05/04/17 09:09 Dose: 0.5 mg - Labs Labs: 05/04/17 06:00 05/04/17 06:00 PT 15.9 SECONDS (9.4-12.5) H 05/02/17 09:00 INR 1.37 (0.93-1.08) H 05/02/17 09:00 APTT 30.1 Seconds (25.1-36.5) 05/02/17 09:00 - Constitutional Appears: No Acute Distress, Cachectic - Eye Exam Eye Exam: Normal appearance - ENT Exam ENT Exam: Mucous Membranes Moist - Respiratory Exam Respiratory Exam: NORMAL BREATHING PATTERN Additional comments: bibasilar rhonchi - Cardiovascular Exam Cardiovascular Exam: REGULAR RHYTHM, +S1, +S2 - GI/Abdominal Exam GI & Abdominal Exam: Soft, Normal Bowel Sounds - Extremities Exam Extremities Exam: Normal Inspection - Neurological Exam Neurological Exam: Awake Assessment and Plan - Assessment and Plan (Free Text) Assessment: 87yo female a/w hypoxic resp failure, PNA. - Currently intubated, lightly sedated, awake, - Afebrile, HD stable, comfortable in NAD. - CXR with bibasilar opacitie Hypoxic Resp Failure PNA AMS Dementia Parkinsons COPD Recomend: - cont with ventilatory support, low tidal vol ventilation, goal Plateau<30, daily CPAP trials - SoluMedrol 40mg Q8h IV - Antibitiocs, Cefepime, Vanco, Azithro - freeman culture, sputum culture, check Urine Legionella, Strep - follow up ID, Pulmonary - would DC IVF - BP control - Sienemet - Digoxin - ECHO - FS control - GI ppx - DVT ppx - Palliative care follow up DNR Poor Prognosis Critical care time 40 minutes
[2017-05-04] MEDS: Vancomycin 1gm in NS 250ml 1 GM/250 ML BAG IVPB SCH (12:51)
--- NOTE | 2017-05-04 17:49 | CP.PCM.PN ---
Subjective - Date & Time of Evaluation Date of Evaluation: 05/04/17 Time of Evaluation: 17:00 - Subjective Subjective: Infectious Disease Follow Up: May 04, 2017 87 yo female found in the field in respiratory distress and required intubation in the field. She was desaturating to 70% on room air in the field. She remains poorly responsive and remains intubated and ventilated. Unable to gain more history other than information in the chart. She was recently discharged from [facility] after evaluation for anemia and gastric polyps. She remains in the MICU intubated and ventilated. She is awake and appears alert. She can follow simple commands to the extent she is able while ventilated. Vital chart does not show fever episodes however the nursing notes overnight show low grade fevers up to 100.6F. Chest X-ray showing bilateral opacities. Procalcitonin was 11.91. Objective - Vital Signs/Intake and Output Vital Signs (last 24 hours): Temp Pulse Resp BP Pulse Ox 98.2 F 75 31 H 101/49 L 100 05/04/17 08:00 05/04/17 14:00 05/04/17 08:40 05/04/17 08:00 05/04/17 08:40 Intake and Output: 05/04/17 05/04/17 06:59 18:59 Intake Total 1386 Output Total 250 Balance 1136 - Medications Medications: Current Medications Apixaban (Eliquis) 2.5 mg PO BID [facility] PRN Reason: Protocol Last Admin: 05/04/17 17:05 Dose: 2.5 mg Carbidopa/Levodopa (Sinemet Cr) 1 tab PO TID [facility] Last Admin: 05/04/17 13:19 Dose: 1 tab Digoxin (Lanoxin) 0.125 mg PO DAILY [facility] Last Admin: 05/04/17 09:08 Dose: 0.125 mg Divalproex Sodium (Depakote Sprinkles) 125 mg PO BID [facility] PRN Reason: Protocol Last Admin: 05/04/17 17:04 Dose: 125 mg Vancomycin HCl (Vancomycin 1gm) 1 gm in 250 mls @ 167 mls/hr IVPB DAILY [facility] PRN Reason: Protocol Last Admin: 05/04/17 12:51 Dose: 167 mls/hr Azithromycin 250 mg/ Sodium (Chloride) 250 mls @ 167 mls/hr IVPB DAILY [facility] PRN Reason: Protocol Last Admin: 05/04/17 13:04 Dose: Not Given Famotidine (Pepcid 20mg/50ml Premix) 20 mg in 50 mls @ 100 mls/hr IV Q12 [facility] Last Admin: 05/04/17 09:09 Dose: 100 mls/hr Propofol (Diprivan) 1,000 mg in 100 mls @ 1.2 mls/hr IV .Q24H PRN; Protocol; 5 MCG/KG/MIN PRN Reason: TITRATE PER MD ORDER Last Admin: 05/04/17 06:17 Dose: 5 mcg/kg/min, 1.2 mls/hr Cefepime HCl (Maxipime 1gm) 1 gm in 100 mls @ 100 mls/hr IVPB DAILY [facility] PRN Reason: Protocol Last Admin: 05/04/17 10:41 Dose: 100 mls/hr Methylprednisolone (Solu-Medrol) 40 mg IVP Q12 [facility] Last Admin: 05/04/17 10:38 Dose: 40 mg Risperidone (Risperdal Tab) 0.5 mg PO BID [facility] PRN Reason: Protocol Last Admin: 05/04/17 17:05 Dose: 0.5 mg - Labs Labs: 05/04/17 06:00 05/04/17 06:00 PT 15.9 SECONDS (9.4-12.5) H 05/02/17 09:00 INR 1.37 (0.93-1.08) H 05/02/17 09:00 APTT 30.1 Seconds (25.1-36.5) 05/02/17 09:00 - Constitutional Appears: Toxic, Chronically Ill - Head Exam Additional comments: intubated and ventilated. - Eye Exam Eye Exam: EOMI, PERRL Pupil Exam: NORMAL ACCOMODATION, PERRL - ENT Exam ENT Exam: Mucous Membranes Moist, Normal External Ear Exam, TM's Normal Bilaterally - Neck Exam Additional comments: intubated and ventilated. - Respiratory Exam Respiratory Exam: Decreased Breath Sounds. absent: Rales, Rhonchi, Wheezes - Cardiovascular Exam Cardiovascular Exam: REGULAR RHYTHM, RRR, +S1, +S2 Additional comments: still periods of tachycardia - GI/Abdominal Exam GI & Abdominal Exam: Soft, Normal Bowel Sounds. absent: Distended, Tenderness - Extremities Exam Extremities Exam: absent: Joint Swelling, Pedal Edema Additional comments: multiple pressure ulcers on legs. - Neurological Exam Neurological Exam: Alert Additional comments: can follow some simple commands. - Skin Additional comments: Pressure ulcers in lower extremities bilaterally. Assessment and Plan - Assessment and Plan (Free Text) Assessment: 87 yo female with multiple comorbidities presented with severe SOB requiring intubation in the field. The patient is arousable now even with propofol on board. The patient remains intubated and ventilated at this time. Started on Vancomycin IV, Cefepime, and Azithromycin. Obtain procalcitonin value. Negative Influenza. Negative drug screen. Chest X-ray showing multifocal patchy and nodular opacities bilaterally, right greater than left. These finding were not seen in an Chest X-ray done on 04/25/2017 on the last hospitalization. Brown cultures and sputum cultures sent. Procalcitonin was 11.91 and with the Chest X-ray findings and intubation, severe pneumonia is part of the patient's medical issues. Continue on IV Vancomycin, Cefepime, and Azithromycin. Supportive care. The patient has an extensive and exhaustive medical history. Thank you for allowing me to participate in the care of the patient, we will follow with you.
[2017-05-04] MEDS ORDERED: POLYETHYLENE GLYCOL 3350 17 GM/Dose PACKET PO ONE (22:53)
--- NOTE | 2017-05-05 01:11 | PN ---
DATE: 05/04/2017 PULMONARY PROGRESS NOTE REFERRING PHYSICIAN: Emily Vazquez MD SUBJECTIVE: She is intubated, mildly sedated, and ET tube with not much secretions. No hemoptysis. No hematuria. No diarrhea reported. Failed extubation this morning. OBJECTIVE: GENERAL: In no acute distress. VITAL SIGNS: Temperature is 98, heart rate is 96, respiratory rate is 26, blood pressure is 98/53, and pulse oximetry is 93% on ventilator. HEENT: Moist mucous membranes. Small oral cavity. Crowded airway. NECK: Supple. No JVD. LUNGS: Has a scattered rhonchi. Few crackles. HEART: S1 and S2. ABDOMEN: Soft and nontender. Nondistended. EXTREMITIES: No edema. NEUROLOGIC: Awake, alert, and does follow simple command. MEDICATIONS: She is on Zithromax 250 mg daily, also Depakote 125 mg twice a day, Diprivan IV drip, Eliquis 2.5 mg twice a day, digoxin 0.125 mg daily, cefepime 1 gram daily, MiraLax 17 grams daily, Pepcid 20 mg q. 12 hours, Risperdal 0.5 mg twice a day, carbidopa and levodopa one tablet 3 times a day, Solu-Medrol 40 mg q. 12 hours. and vancomycin 1 g IV daily. LABORATORY DATA: Shows hemoglobin of 11.0, hematocrit of 34.8, WBC of 10.1, and platelet count is 136. ABG shows pH of 7.44, pCO2 of 22, and O2 of 137. Sodium of 146, potassium of 3.2, chloride of 115, bicarbonate of 18, BUN of 32, and creatinine of 0.8. Glucose of 139, calcium of 7.7, AST of 23, ALT of 12, alkaline phosphatase is 122, albumin is 2.4, and procalcitonin is 11.9. Urine strep pneumoniae antigen is detected. Influenza is negative. Trach secretion has Staphylococcus. DIAGNOSTIC DATA: Chest x-ray done this morning shows bibasilar opacity probably pneumonia. IMPRESSION AND PLAN: Respiratory failure on ventilator. She was found unresponsive in long-term and has atrial fibrillation, anemia, chronic obstructive lung disease, bilateral pulmonary infiltrate, probably has pneumonia, history of Parkinson's disease, seasonal allergies, coronary artery disease, and schizophrenia. Pulmonary point of view, doing okay. I spoke to nursing staff and treated for healthcare associated pneumonia and sepsis. Keep present vent setting. Gastric prophylaxis and deep venous thrombosis prophylaxis. Continue anticoagulation. Followup ABG, chest x-ray, CBC and CMP in the morning. We will try again, weaning vent tomorrow. Critical care time spent 35 minutes. Thank you and we will follow with you. Erika Reed MD
--- NOTE | 2017-05-05 02:04 | PN ---
DATE: SUBJECTIVE: The patient is seen and examined at the bedside, looking comfortable, still intubated, likely sedated, just opens eyes on command and painful stimuli. No fever. No chills. Cannot do review of system. PHYSICAL EXAMINATION: VITAL SIGNS: Pulse 92, respiratory rate 22, blood pressure 102/51, temperature 98.6. HEENT: Head normocephalic and atraumatic. Eyes: Closed. Nose patent. Mucous membranes moist. NECK: Supple. No carotid bruits, JVD, or thyromegaly. CHEST: Bilaterally symmetrical. HEART: S1 and S2 positive. LUNGS: Clear to auscultation. ABDOMEN: Soft. Bowel sounds present. No organomegaly. EXTREMITIES: No edema. No cyanosis. NEUROLOGIC: The patient is sleepy, arousable. Cannot do complete neurological examination. MEDICATIONS: Azithromycin, Depakote, propofol, Eliquis, Lanoxin, Maxipime, Pepcid, Risperdal, carbidopa/levodopa, Solu-Medrol, and vancomycin. LABORATORY DATA: White blood cell is 10.1, hemoglobin 11.0, hematocrit 34.8, platelets 136. Sodium 143, potassium 3.2, BUN 32, creatinine 0.6, glucose 187, prolactin 11.91. ASSESSMENT AND PLAN: Ms. Mary Beth Hu is an 87-year-old lady with history of leukocytosis; anemia; hypokalemia, replaced; hyperchloremia; hyperglycemia; hypocalcemia; proteinuria; ketonuria; hematuria; drug screen negative, influenza type A and B is negative, seen by Dr. Mo Elizabeth, Infectious Disease, multiple comorbidities, respiratory failure, intubated, getting vancomycin, cefepime, azithromycin, negative influenza screening. Chest x-ray shows multifocal patchy and nodular opacities bilaterally, right greater than the left. Brown-cultures and sputum cultures sent. Supportive care. Plan is to continue IV vancomycin, cefepime, and azithromycin. Seen by the oven heater, Dr. Reed. The patient has a history of chronic obstructive lung disease, hypertension, cardiac arrhythmia, old cerebrovascular accident, history of schizophrenia, bipolar, Parkinson disease, healthcare-associated pneumonia. Gastrointestinal and deep venous thrombosis prophylaxis, out of the bed. Spoke to the patient's son at the bedside. We will follow. Emily Vazquez MD
[2017-05-05 05:45] LABS: ARTERIAL BLOOD GAS HCO3 15.3 mmol/L (21-28); ARTERIAL BLOOD GAS HEMOGLOBIN 9.4 g/dL (11.7-17.4); ARTERIAL BLOOD GAS O2 CONTENT 12.9 ML/dl (15-23); ARTERIAL BLOOD GAS O2 SAT 99.3 % (95-98); ARTERIAL BLOOD GAS PCO2 22 mm/Hg (35-45); ARTERIAL BLOOD GAS PH 7.45 (7.35-7.45)
[2017-05-05 07:11] LABS: BASO # 0.01 K/mm3 (0.0-2.0); BASO % 0.1 % (0.0-3.0); GRAN # 8.47 (1.4-6.5); GRAN % 90.9 % (50.0-68.0); HEMOGLOBIN 10.3 g/dL (12.0-16.0); LYMPH # 0.5 (1.2-3.4); LYMPH % 5.3 % (22.0-35.0); MEAN CORPUSCULAR HEMOGLOBIN 28.5 pg (25.0-35.0); MEAN PLATELET VOLUME 11.7 fl (7.0-11.0); MONO # 0.3 (0.1-0.6); MONO % 3.7 % (1.0-6.0); RBC 3.62 10^6/uL (3.5-6.1); RED CELL DISTRIBUTION WIDTH 16.4 % (11.5-14.5); WHITE BLOOD COUNT 9.3 10^3/ul (4.5-11.0)
[2017-05-05 07:31] LABS: ALB/GLOB RATIO 0.8 (1.1-1.8); ALBUMIN 2.3 g/dL (3.0-4.8); ALT/SGPT 21 U/L (7-56); AST/SGOT 13 U/L (14-36); BLOOD UREA NITROGEN 39 mg/dL (7-21); CALCIUM 8.3 mg/dL (8.4-10.5); GFR AFRICAN-AMERICAN > 60; GFR NON-AFRICAN AMERICAN > 60
--- NOTE | 2017-05-05 08:55 | CP.PCM.PN ---
<Tennille Guzman - Last Filed: 05/05/17 10:47> Subjective - Date & Time of Evaluation Date of Evaluation: 05/05/17 Time of Evaluation: 08:52 - Subjective Subjective: ICU Progress Note for Minh Greene PGY2 Patient seen and examined at bedside. As per nursing staff, patient was fecally impacted and was found to have a large amount of stool after manual disimpaction. Patient is intubated and sedation, but awake and following commands. ROS was limited. Patient denies pain, chest pain, or shortness of breath. Objective - Vital Signs/Intake and Output Vital Signs (last 24 hours): Temp Pulse Resp BP Pulse Ox 98 F 62 19 107/52 L 100 05/05/17 04:00 05/05/17 06:00 05/05/17 06:00 05/05/17 06:00 05/05/17 06:00 Intake and Output: 05/05/17 05/05/17 06:59 18:59 Intake Total 456 Output Total 250 Balance 206 - Medications Medications: Current Medications Apixaban (Eliquis) 2.5 mg PO BID [facility] PRN Reason: Protocol Last Admin: 05/04/17 17:05 Dose: 2.5 mg Carbidopa/Levodopa (Sinemet Cr) 1 tab PO TID [facility] Last Admin: 05/04/17 18:19 Dose: 1 tab Digoxin (Lanoxin) 0.125 mg PO DAILY [facility] Last Admin: 05/04/17 09:08 Dose: 0.125 mg Divalproex Sodium (Depakote Sprinkles) 125 mg PO BID [facility] PRN Reason: Protocol Last Admin: 05/04/17 17:04 Dose: 125 mg Vancomycin HCl (Vancomycin 1gm) 1 gm in 250 mls @ 167 mls/hr IVPB DAILY [facility] PRN Reason: Protocol Last Admin: 05/04/17 12:51 Dose: 167 mls/hr Azithromycin 250 mg/ Sodium (Chloride) 250 mls @ 167 mls/hr IVPB DAILY [facility] PRN Reason: Protocol Last Admin: 05/04/17 13:04 Dose: Not Given Famotidine (Pepcid 20mg/50ml Premix) 20 mg in 50 mls @ 100 mls/hr IV Q12 [facility] Last Admin: 05/04/17 21:28 Dose: 100 mls/hr Propofol (Diprivan) 1,000 mg in 100 mls @ 1.2 mls/hr IV .Q24H PRN; Protocol; 5 MCG/KG/MIN PRN Reason: TITRATE PER MD ORDER Last Admin: 05/04/17 06:17 Dose: 5 mcg/kg/min, 1.2 mls/hr Cefepime HCl (Maxipime 1gm) 1 gm in 100 mls @ 100 mls/hr IVPB DAILY [facility] PRN Reason: Protocol Last Admin: 05/04/17 10:41 Dose: 100 mls/hr Methylprednisolone (Solu-Medrol) 40 mg IVP Q12 [facility] Last Admin: 05/04/17 21:29 Dose: 40 mg Polyethylene Glycol (Miralax) 17 gm PO DAILY [facility] Risperidone (Risperdal Tab) 0.5 mg PO BID [facility] PRN Reason: Protocol Last Admin: 05/04/17 17:05 Dose: 0.5 mg - Labs Labs: 05/05/17 06:30 05/05/17 06:30 PT 15.9 SECONDS (9.4-12.5) H 05/02/17 09:00 INR 1.37 (0.93-1.08) H 05/02/17 09:00 APTT 30.1 Seconds (25.1-36.5) 05/02/17 09:00 - Constitutional Appears: No Acute Distress, Chronically Ill - Head Exam Head Exam: ATRAUMATIC, NORMAL INSPECTION, NORMOCEPHALIC - Eye Exam Eye Exam: PERRL Pupil Exam: NORMAL ACCOMODATION, PERRL - ENT Exam ENT Exam: Mucous Membranes Moist - Neck Exam Neck Exam: Full ROM - Respiratory Exam Respiratory Exam: Rhonchi, NORMAL BREATHING PATTERN. absent: Rales, Wheezes - Cardiovascular Exam Cardiovascular Exam: REGULAR RHYTHM, +S1, +S2 - GI/Abdominal Exam GI & Abdominal Exam: Soft, Normal Bowel Sounds. absent: Tenderness, Mass, Rebound - Extremities Exam Extremities Exam: Normal Inspection. absent: Calf Tenderness, Pedal Edema - Neurological Exam Neurological Exam: Alert, Awake, CN II-XII Intact - Skin Skin Exam: Dry, Warm Assessment and Plan - Assessment and Plan (Free Text) Assessment: This is an 87yo F with PMH of COPD, psychosis, schizophrenia, parkinsons a.fib, hypothyroidism, CHF and dementia who was admitted for AMS and hypoxic respiratory failure secondary to HCAP. Plan: Neuro: Hx of Parkinsons Intubated and on Light sedation Awake and following commands Continue neuro checks seizure precaution Continue Sinemet CV: hx of A.fib Rate controlled on Digoxin Pt placed on eliquis by Pulm Maintain MAP >65 Last echo in 2012. EF was 66% with mild pulm HTN- consider repeat Pulm: Pt intubated on PRVC- will extubate today Continue Solumedrol- will titrate down as tolerated Maintain SpO2>92% Protective ventilation strategy Pulm consulted- recs appreciated GI: Pt on tube feeds Will get swallow eval once extubated Continue GI ppx Heme: Mild thrombocytopenia- can be secondary to medication Hgb stable- no overt signs of bleeding Continue to monitor Nephro: Continue to monitor I&O Will continue to monitor electrolytes and replace as needed Guaman in place ID: Sepsis secondary to HCAP and found to have UTI Continue Cefepime, Zithromax and Vanc Sputum cx showed S. aureus Urine cx showed Strep gallotycus ID consulted- recs appreciated + for S.pneumo, influenza negative Legionella pending Endo: Maintain euglycemia, maintain euvolemia Psych: Hx of schizophrenia and psychosis Continue Depakote and Respirodone GI ppx: Pepcid DVT ppx: Eliquis, SCDs Dispo: Palliative on consult. Patient is DNR/DNI as per daughter who is health proxy. Prognosis is guarded Case seen, discussed and reviewed with attending. Minh Guzman PGY2 <Mykel Lagos - Last Filed: 05/05/17 12:14> Objective - Vital Signs/Intake and Output Vital Signs (last 24 hours): Temp Pulse Resp BP Pulse Ox 98 F 62 19 110/52 L 100 05/05/17 04:00 05/05/17 06:00 05/05/17 06:00 05/05/17 10:29 05/05/17 06:00 Intake and Output: 05/05/17 05/05/17 06:59 18:59 Intake Total 456 60 Output Total 250 Balance 206 60 - Medications Medications: Current Medications Apixaban (Eliquis) 2.5 mg PO BID [facility] PRN Reason: Protocol Last Admin: 05/05/17 09:30 Dose: 2.5 mg Carbidopa/Levodopa (Sinemet Cr) 1 tab PO TID [facility] Last Admin: 05/05/17 09:30 Dose: 1 tab Digoxin (Lanoxin) 0.125 mg PO DAILY [facility] Last Admin: 05/05/17 09:30 Dose: 0.125 mg Divalproex Sodium (Depakote Sprinkles) 125 mg PO BID [facility] PRN Reason: Protocol Last Admin: 05/05/17 09:30 Dose: 125 mg Famotidine (Pepcid) 20 mg IVP DAILY [facility] Last Admin: 05/05/17 09:38 Dose: 20 mg Vancomycin HCl (Vancomycin 1gm) 1 gm in 250 mls @ 167 mls/hr IVPB DAILY [facility] PRN Reason: Protocol Last Admin: 05/05/17 09:28 Dose: 167 mls/hr Azithromycin 250 mg/ Sodium (Chloride) 250 mls @ 167 mls/hr IVPB DAILY [facility] PRN Reason: Protocol Last Admin: 05/05/17 09:27 Dose: 167 mls/hr Cefepime HCl (Maxipime 1gm) 1 gm in 100 mls @ 100 mls/hr IVPB DAILY [facility] PRN Reason: Protocol Last Admin: 05/05/17 10:28 Dose: 100 mls/hr Methylprednisolone (Solu-Medrol) 40 mg IVP Q12 [facility] Last Admin: 05/05/17 09:29 Dose: 40 mg Polyethylene Glycol (Miralax) 17 gm PO DAILY [facility] Last Admin: 05/05/17 09:31 Dose: 17 gm Risperidone (Risperdal Tab) 0.5 mg PO BID [facility] PRN Reason: Protocol Last Admin: 05/05/17 09:30 Dose: 0.5 mg - Labs Labs: 05/05/17 06:30 05/05/17 06:30 PT 15.9 SECONDS (9.4-12.5) H 05/02/17 09:00 INR 1.37 (0.93-1.08) H 05/02/17 09:00 APTT 30.1 Seconds (25.1-36.5) 05/02/17 09:00 Attending/Attestation - Attestation I have personally seen and examined this patient.: Yes I have fully participated in the care of the patient.: Yes I have reviewed all pertinent clinical information, including history, physical exam and plan: Yes Notes (Text): 05/05/17 12:11 The patient was seen and examined at the bedside. Patient care was discussed with resident Medical records, lab studies, and imaging were reviewed and management issues were discussed and formulated. Last 24H events reviewed. Agree with above treatment plans as outlined in 's note with addition of the following: -hemodynamic monitoring to maintain MAP>65 -mechanical ventilation and o2 supplementation to maintain Spo2 >90 Pao2>60 -monitor for TV 6ml\kg IBW and plateau pressure <30 -ABG in AM reviewed and CXR reviewed -PS trial tolerated well; we will proceed with extubation -continue nebs and taper steroids -continue broad spectrum Abx as per ID team ; f\u cultures -f\u Bun\Cr and U\o; replace e-lites -NPO pending dysphagia eval ; continue aspiration precautions -continue eliquis and monitor for bleed -DVT \ PUD prophylaxis CCM time 35mins
[2017-05-05] MEDS: Azithromycin 250 MG in Sodium Chloride 0.9% 250 ML IVPB SCH (09:27)
[2017-05-05] MEDS: Vancomycin 1gm in NS 250ml 1 GM/250 ML BAG IVPB SCH (09:28)
[2017-05-05] MEDS: MethylPREDNISolone 40 mg Vial IVP SCH ×2 (09:29→21:27)
[2017-05-05] MEDS: Carbidopa/Levodopa 25/100 CR PO SCH ×3 (09:30→19:55)
[2017-05-05] MEDS: Digoxin 125 mcg (0.125 mg) Tab PO SCH (09:30)
[2017-05-05] MEDS: Divalproex 125 mg EC Sprinkle Cap PO SCH ×2 (09:30→20:20)
[2017-05-05] MEDS: POLYETHYLENE GLYCOL 3350 17 GM/Dose PACKET PO SCH (09:31)
[2017-05-05] MEDS: Cefepime 1gm in NS 100ml 1 GM/100 ML BAG IVPB SCH (10:28)
--- NOTE | 2017-05-05 11:41 | CP.PCM.PN ---
Subjective - Date & Time of Evaluation Date of Evaluation: 05/05/17 Time of Evaluation: 10:00 - Subjective Subjective: Alert, following command. Objective - Vital Signs/Intake and Output Vital Signs (last 24 hours): Temp Pulse Resp BP Pulse Ox 98 F 62 19 110/52 L 100 05/05/17 04:00 05/05/17 06:00 05/05/17 06:00 05/05/17 10:29 05/05/17 06:00 Intake and Output: 05/05/17 05/05/17 06:59 18:59 Intake Total 456 60 Output Total 250 Balance 206 60 - Medications Medications: Current Medications Apixaban (Eliquis) 2.5 mg PO BID [facility] PRN Reason: Protocol Last Admin: 05/05/17 09:30 Dose: 2.5 mg Carbidopa/Levodopa (Sinemet Cr) 1 tab PO TID [facility] Last Admin: 05/05/17 09:30 Dose: 1 tab Digoxin (Lanoxin) 0.125 mg PO DAILY [facility] Last Admin: 05/05/17 09:30 Dose: 0.125 mg Divalproex Sodium (Depakote Sprinkles) 125 mg PO BID [facility] PRN Reason: Protocol Last Admin: 05/05/17 09:30 Dose: 125 mg Famotidine (Pepcid) 20 mg IVP DAILY [facility] Last Admin: 05/05/17 09:38 Dose: 20 mg Vancomycin HCl (Vancomycin 1gm) 1 gm in 250 mls @ 167 mls/hr IVPB DAILY [facility] PRN Reason: Protocol Last Admin: 05/05/17 09:28 Dose: 167 mls/hr Azithromycin 250 mg/ Sodium (Chloride) 250 mls @ 167 mls/hr IVPB DAILY [facility] PRN Reason: Protocol Last Admin: 05/05/17 09:27 Dose: 167 mls/hr Cefepime HCl (Maxipime 1gm) 1 gm in 100 mls @ 100 mls/hr IVPB DAILY [facility] PRN Reason: Protocol Last Admin: 05/05/17 10:28 Dose: 100 mls/hr Methylprednisolone (Solu-Medrol) 40 mg IVP Q12 [facility] Last Admin: 05/05/17 09:29 Dose: 40 mg Polyethylene Glycol (Miralax) 17 gm PO DAILY [facility] Last Admin: 05/05/17 09:31 Dose: 17 gm Risperidone (Risperdal Tab) 0.5 mg PO BID [facility] PRN Reason: Protocol Last Admin: 05/05/17 09:30 Dose: 0.5 mg - Labs Labs: 05/05/17 06:30 05/05/17 06:30 PT 15.9 SECONDS (9.4-12.5) H 05/02/17 09:00 INR 1.37 (0.93-1.08) H 05/02/17 09:00 APTT 30.1 Seconds (25.1-36.5) 05/02/17 09:00 - Constitutional Appears: Cachectic, Chronically Ill - Eye Exam Eye Exam: Normal appearance, PERRL - ENT Exam ENT Exam: Mucous Membranes Moist - Neck Exam Neck Exam: Normal Inspection - Respiratory Exam Respiratory Exam: Decreased Breath Sounds, Rhonchi - Cardiovascular Exam Cardiovascular Exam: Irregular Rhythm, +S1, +S2 - GI/Abdominal Exam GI & Abdominal Exam: Soft, Normal Bowel Sounds - Extremities Exam Extremities Exam: Normal Capillary Refill, Normal Inspection - Neurological Exam Neurological Exam: Alert - Skin Skin Exam: Dry, Warm Assessment and Plan - Assessment and Plan (Free Text) Assessment: 87 year old female with history of Parkinson's disease, COPD, schizophrenia who was admitted with viral syndrome, respiratory failure and elevated troponin. Patient is alert and following command.Weaning trail, likely to be extubated today. Dr Guzman and I both spoke with patient's daughter/ POA ,Khadijah Mayte via phone. Daughter aware that patient will likely be extubated today. Daughter does not want patient to be intubated in the future. Daughter affirms that patient is to be DNR/DNI. Patients son also at bedside and is in agreement with DNR/DNI status. Psychosocial support given. Times spent in discussion with family regarding advance care planning and goals of care, 30 minutes Plan: Goals of care Advance care planning Psychosocial support
--- NOTE | 2017-05-05 15:12 | CP.PCM.PN ---
<Kasia Bell - Last Filed: 05/05/17 22:16> Subjective - Date & Time of Evaluation Date of Evaluation: 05/05/17 Time of Evaluation: 11:45 - Subjective Subjective: 87 yr female from [facility] w/ history of influenza, severe anemia, hypertension, COPD, C.diff, colitis, atrial fibrillation, seizure disorder, advanced dementia, parkinsons, CVA, bipolar, schizophrenia and hypothyroidism. Pt found unresponsive in custodial and intubated on the field. Pt surrounded by family in CCU. Of her 8 children: 1 sons and gandson at bedside. Pt is extubated. Alert, awake, able to appropriately answer questions and able to follow simple commands. Baseline is confused. Pt is a poor historian. Objective - Vital Signs/Intake and Output Vital Signs (last 24 hours): Temp Pulse Resp BP Pulse Ox 98 F 77 24 101/59 L 99 05/05/17 04:00 05/05/17 14:20 05/05/17 14:20 05/05/17 14:00 05/05/17 14:20 Intake and Output: 05/05/17 05/05/17 06:59 18:59 Intake Total 456 60 Output Total 250 Balance 206 60 - Medications Medications: Current Medications Apixaban (Eliquis) 2.5 mg PO BID [facility] PRN Reason: Protocol Last Admin: 05/05/17 09:30 Dose: 2.5 mg Carbidopa/Levodopa (Sinemet Cr) 1 tab PO TID [facility] Last Admin: 05/05/17 09:30 Dose: 1 tab Digoxin (Lanoxin) 0.125 mg PO DAILY [facility] Last Admin: 05/05/17 09:30 Dose: 0.125 mg Divalproex Sodium (Depakote Sprinkles) 125 mg PO BID [facility] PRN Reason: Protocol Last Admin: 05/05/17 09:30 Dose: 125 mg Famotidine (Pepcid) 20 mg IVP DAILY [facility] Last Admin: 05/05/17 09:38 Dose: 20 mg Vancomycin HCl (Vancomycin 1gm) 1 gm in 250 mls @ 167 mls/hr IVPB DAILY [facility] PRN Reason: Protocol Last Admin: 05/05/17 09:28 Dose: 167 mls/hr Azithromycin 250 mg/ Sodium (Chloride) 250 mls @ 167 mls/hr IVPB DAILY [facility] PRN Reason: Protocol Last Admin: 05/05/17 09:27 Dose: 167 mls/hr Cefepime HCl (Maxipime 1gm) 1 gm in 100 mls @ 100 mls/hr IVPB DAILY [facility] PRN Reason: Protocol Last Admin: 05/05/17 10:28 Dose: 100 mls/hr Methylprednisolone (Solu-Medrol) 40 mg IVP Q12 [facility] Last Admin: 05/05/17 09:29 Dose: 40 mg Polyethylene Glycol (Miralax) 17 gm PO DAILY [facility] Last Admin: 05/05/17 09:31 Dose: 17 gm Risperidone (Risperdal Tab) 0.5 mg PO BID [facility] PRN Reason: Protocol Last Admin: 05/05/17 09:30 Dose: 0.5 mg - Labs Labs: 05/05/17 06:30 05/05/17 06:30 PT 15.9 SECONDS (9.4-12.5) H 05/02/17 09:00 INR 1.37 (0.93-1.08) H 05/02/17 09:00 APTT 30.1 Seconds (25.1-36.5) 05/02/17 09:00 - Constitutional Appears: Confused, Chronically Ill - Head Exam Head Exam: ATRAUMATIC, NORMAL INSPECTION, NORMOCEPHALIC - Eye Exam Eye Exam: EOMI, Normal appearance, PERRL Pupil Exam: NORMAL ACCOMODATION, PERRL - ENT Exam ENT Exam: Mucous Membranes Moist, Normal Exam - Neck Exam Neck Exam: Full ROM, Normal Inspection. absent: Lymphadenopathy - Respiratory Exam Respiratory Exam: Decreased Breath Sounds, Rhonchi - Cardiovascular Exam Cardiovascular Exam: REGULAR RHYTHM, +S1, +S2. absent: Murmur - GI/Abdominal Exam GI & Abdominal Exam: Distended, Soft - Extremities Exam Extremities Exam: Full ROM, Normal Capillary Refill, Normal Inspection. absent : Joint Swelling, Pedal Edema - Neurological Exam Neurological Exam: Alert, Awake - Psychiatric Exam Psychiatric exam: Normal Affect, Normal Mood - Skin Skin Exam: Dry, Intact, Normal Color, Warm Assessment and Plan (1) Acute electrocardiogram changes Status: Acute (2) Acute respiratory failure with hypoxia Status: Acute (3) Pneumonia Status: Acute (4) Anemia Status: Acute (5) COPD (chronic obstructive pulmonary disease) Status: Acute (6) Iron deficiency Status: Acute (7) Hypokalemia Status: Acute (8) Dysphagia Status: Acute (9) UTI (urinary tract infection) Status: Acute (10) Staph aureus infection Status: Acute (11) Infection due to Streptococcus gallolyticus Status: Acute - Assessment and Plan (Free Text) Plan: Labs ordered. IV cefepime, vanco, & azithromycin. IV solumedryl. Suptum culture (+) staph aureus. Urine culture (+) str. gallolyticus ss pasteurian. Extubated. Further orders per CCU team, swallow eval? Labs ordered. VTE/GI prophylaxis. Consults: Straightening Machine Feeder - Dr. Reed Palliative Care - [facility] S[facility]ER. [place] ID - Dr. Elizabeth Reviewed: CT head = generalized atrophy, nonspecific white matter changes CXR = no significant chage in perihilar infiltarate and vascular congestion, ET and NG tubes unchanged ECG = Afib w/ RVR, ST abn, possible anteroseptal subandocardial injury, new since 04/24/17 ECG <Emily Vazquez - Last Filed: 05/06/17 08:41> Objective - Vital Signs/Intake and Output Vital Signs (last 24 hours): Temp Pulse Resp BP Pulse Ox 97.5 F L 71 20 161/119 H 100 05/06/17 04:00 05/06/17 05:40 05/06/17 05:40 05/06/17 05:00 05/06/17 05:40 Intake and Output: 05/06/17 05/06/17 06:59 18:59 Intake Total 500 Output Total 675 Balance -175 - Medications Medications: Current Medications Apixaban (Eliquis) 2.5 mg PO BID [facility] PRN Reason: Protocol Last Admin: 05/05/17 19:55 Dose: Not Given Carbidopa/Levodopa (Sinemet Cr) 1 tab PO TID [facility] Last Admin: 05/05/17 19:55 Dose: Not Given Digoxin (Lanoxin) 0.125 mg PO DAILY [facility] Last Admin: 05/05/17 09:30 Dose: 0.125 mg Divalproex Sodium (Depakote Sprinkles) 125 mg PO BID [facility] PRN Reason: Protocol Last Admin: 05/05/17 20:20 Dose: 125 mg Docusate Sodium (Colace) 100 mg PO BID [facility] Famotidine (Pepcid) 20 mg IVP DAILY [facility] Last Admin: 05/05/17 09:38 Dose: 20 mg Vancomycin HCl (Vancomycin 1gm) 1 gm in 250 mls @ 167 mls/hr IVPB DAILY [facility] PRN Reason: Protocol Last Admin: 05/05/17 09:28 Dose: 167 mls/hr Azithromycin 250 mg/ Sodium (Chloride) 250 mls @ 167 mls/hr IVPB DAILY [facility] PRN Reason: Protocol Last Admin: 05/05/17 09:27 Dose: 167 mls/hr Cefepime HCl (Maxipime 1gm) 1 gm in 100 mls @ 100 mls/hr IVPB DAILY [facility] PRN Reason: Protocol Last Admin: 05/05/17 10:28 Dose: 100 mls/hr Potassium Chloride (Potassium Chloride 10 Meq/100 Ml) 10 meq in 100 mls @ 50 mls/hr IVPB ONCE ONE Stop: 05/06/17 08:52 Last Admin: 05/06/17 07:05 Dose: 50 mls/hr Methylprednisolone (Solu-Medrol) 40 mg IVP Q12 [facility] Last Admin: 05/05/17 21:27 Dose: 40 mg Polyethylene Glycol (Miralax) 17 gm PO DAILY [facility] Last Admin: 05/05/17 09:31 Dose: 17 gm Potassium Chloride (Potassium Chloride Oral Soln) 40 meq PO ONCE ONE Stop: 05/06/17 13:01 Risperidone (Risperdal Tab) 0.25 mg PO BID [facility] PRN Reason: Protocol - Labs Labs: 05/06/17 05:20 05/06/17 05:20 PT 15.9 SECONDS (9.4-12.5) H 05/02/17 09:00 INR 1.37 (0.93-1.08) H 05/02/17 09:00 APTT 30.1 Seconds (25.1-36.5) 05/02/17 09:00 Assessment and Plan - Assessment and Plan (Free Text) Plan: 87 yr female from [facility] w/ history of influenza, severe anemia, hypertension, COPD, C.diff, colitis, atrial fibrillation, seizure disorder, advanced dementia, parkinsons, CVA, bipolar, schizophrenia and hypothyroidism. Pt found unresponsive in custodial and intubated on the field. Pt surrounded by family in CCU. Of her 8 children: 1 sons and gandson at bedside. Pt is extubated. Alert, awake, able to appropriately answer questions and able to follow simple commands. Baseline is confused. Pt is a poor historian. pt is seen and examined at bed side , back to base line , d/d with icu stff , chart , notes and meds noted , agreed all above , kina .same treatment will f/ u
--- NOTE | 2017-05-05 20:07 | CP.PCM.PN ---
Subjective - Date & Time of Evaluation Date of Evaluation: 05/05/17 Time of Evaluation: 15:00 - Subjective Subjective: Infectious Disease Follow Up: May 05, 2017 87 yo female found in the field in respiratory distress and required intubation in the field. She was desaturating to 70% on room air in the field. She remains poorly responsive and remains intubated and ventilated. Unable to gain more history other than information in the chart. She was recently discharged from [facility] after evaluation for anemia and gastric polyps. She remains in the MICU intubated and ventilated. She is awake and appears alert. She can follow simple commands to the extent she is able while ventilated. Vital chart does not show fever episodes however the nursing notes overnight show low grade fevers up to 100.6F. Chest X-ray showing bilateral opacities. Procalcitonin was 11.91. Extubated today in the afternoon. Currently no leukocytosis. Trend procalcitonin levels. Objective - Vital Signs/Intake and Output Vital Signs (last 24 hours): Temp Pulse Resp BP Pulse Ox 98 F 74 19 104/59 L 70 L 05/05/17 04:00 05/05/17 18:01 05/05/17 18:01 05/05/17 18:01 05/05/17 17:10 Intake and Output: 05/05/17 05/06/17 18:59 06:59 Intake Total 880 Output Total 2500 Balance -1620 - Medications Medications: Current Medications Apixaban (Eliquis) 2.5 mg PO BID [facility] PRN Reason: Protocol Last Admin: 05/05/17 09:30 Dose: 2.5 mg Carbidopa/Levodopa (Sinemet Cr) 1 tab PO TID [facility] Last Admin: 05/05/17 16:04 Dose: Not Given Digoxin (Lanoxin) 0.125 mg PO DAILY [facility] Last Admin: 05/05/17 09:30 Dose: 0.125 mg Divalproex Sodium (Depakote Sprinkles) 125 mg PO BID [facility] PRN Reason: Protocol Last Admin: 05/05/17 09:30 Dose: 125 mg Famotidine (Pepcid) 20 mg IVP DAILY [facility] Last Admin: 05/05/17 09:38 Dose: 20 mg Vancomycin HCl (Vancomycin 1gm) 1 gm in 250 mls @ 167 mls/hr IVPB DAILY [facility] PRN Reason: Protocol Last Admin: 05/05/17 09:28 Dose: 167 mls/hr Azithromycin 250 mg/ Sodium (Chloride) 250 mls @ 167 mls/hr IVPB DAILY [facility] PRN Reason: Protocol Last Admin: 05/05/17 09:27 Dose: 167 mls/hr Cefepime HCl (Maxipime 1gm) 1 gm in 100 mls @ 100 mls/hr IVPB DAILY [facility] PRN Reason: Protocol Last Admin: 05/05/17 10:28 Dose: 100 mls/hr Methylprednisolone (Solu-Medrol) 40 mg IVP Q12 [facility] Last Admin: 05/05/17 09:29 Dose: 40 mg Polyethylene Glycol (Miralax) 17 gm PO DAILY [facility] Last Admin: 05/05/17 09:31 Dose: 17 gm Risperidone (Risperdal Tab) 0.5 mg PO BID [facility] PRN Reason: Protocol Last Admin: 05/05/17 09:30 Dose: 0.5 mg - Labs Labs: 05/05/17 06:30 05/05/17 06:30 PT 15.9 SECONDS (9.4-12.5) H 05/02/17 09:00 INR 1.37 (0.93-1.08) H 05/02/17 09:00 APTT 30.1 Seconds (25.1-36.5) 05/02/17 09:00 - Constitutional Appears: Toxic, Chronically Ill - Head Exam Head Exam: ATRAUMATIC, NORMOCEPHALIC Additional comments: extubated. - Eye Exam Eye Exam: EOMI, PERRL Pupil Exam: NORMAL ACCOMODATION, PERRL - ENT Exam ENT Exam: Mucous Membranes Moist, Normal External Ear Exam, TM's Normal Bilaterally - Neck Exam Neck Exam: Full ROM, Normal Inspection - Respiratory Exam Respiratory Exam: Decreased Breath Sounds, Rales, Wheezes. absent: Rhonchi - Cardiovascular Exam Cardiovascular Exam: REGULAR RHYTHM, RRR, +S1, +S2 - GI/Abdominal Exam GI & Abdominal Exam: Soft, Normal Bowel Sounds. absent: Distended, Tenderness - Extremities Exam Extremities Exam: Joint Swelling, Pedal Edema Additional comments: multiple pressure ulcers on legs. - Neurological Exam Neurological Exam: Alert, Awake, Oriented x3 - Skin Additional comments: Pressure ulcers in lower extremities bilaterally. Assessment and Plan - Assessment and Plan (Free Text) Assessment: 87 yo female with multiple comorbidities presented with severe SOB requiring intubation in the field. The patient is arousable now even with propofol on board. The patient remains intubated and ventilated at this time. Started on Vancomycin IV, Cefepime, and Azithromycin. Obtain procalcitonin value. Negative Influenza. Negative drug screen. Chest X-ray showing multifocal patchy and nodular opacities bilaterally, right greater than left. These finding were not seen in an Chest X-ray done on 04/25/2017 on the last hospitalization. Brown cultures and sputum cultures sent. Procalcitonin was 11.91 and with the Chest X-ray findings and intubation, severe pneumonia is part of the patient's medical issues. Continue on IV Vancomycin, Cefepime, and Azithromycin. Extubated today. Supportive care. The patient has an extensive and exhaustive medical history. Thank you for allowing me to participate in the care of the patient, we will follow with you.
--- NOTE | 2017-05-06 01:50 | PN ---
PULMONARY PROGRESS NOTE DATE: 05/05/2017 REFERRING PHYSICIAN: Emily Vazquez MD SUBJECTIVE: She is extubated on supplemental oxygen. Son is at bedside. More awake and alert. Still has some cough with pulmonary secretion, n.p.o.. No hemoptysis. No hematemesis. No hematuria. No diarrhea or leg swelling reported. OBJECTIVE: GENERAL: In no acute distress. VITAL SIGNS: Temperature is 98, heart rate is 74, respiratory rate is 18, blood pressure is 104/51, and pulse ox is 97% on nasal cannula. HEENT: Small oral cavity. Crowded airway. NECK: Supple. No JVD. LUNGS: Has a scattered rhonchi. HEART: S1 and S2. ABDOMEN: Soft and nontender. No organomegaly. EXTREMITIES: Not much edema. NEUROLOGICAL: Awake, alert, and does follows simple commands. MEDICATIONS: She is on Zithromax 250 mg daily, Depakote 125 mg twice a day, Eliquis 2.5 mg twice a day, digoxin 0.125 mg daily, cefepime 1 g daily, MiraLax 17 g daily, Pepcid 20 mg daily, Risperdal 0.5 mg twice a day, Sinemet 1 mg three times a day, Solu-Medrol 40 mg q.12 hours. and vancomycin 1 g IV daily. LABORATORY DATA: Shows hemoglobin 10.3, hematocrit 32.2, WBC 9.3, and platelet count 111. Blood gases show pH of 7.45, pCO2 of 22, and O2 of 95 that is on nasal cannula. Sodium 143, potassium 3.6, chloride , bicarbonate 19, BUN 39, creatinine 0.8, glucose 195, and calcium 8.3. AST 13, ALT 21, alk phos is 82, and albumin is 2.3. Staphylococcus pneumonia antigen is detected. Trach secretion has Staphylococcus. IMPRESSION AND PLAN: Respiratory failure, on ventilator, was found unresponsive at [facility]; atrial fibrillation; anemia; chronic obstructive lung disease; bilateral pulmonary infiltrate, probably pneumonia; Parkinson's disease; seasonal allergies; coronary artery disease; schizophrenia; extubated; liberated from ventilator; and oropharyngeal dysphagia. Son is at bedside. Continue bronchodilator. Keep head at 45 degrees. Continue antibiotics. Gastric prophylaxis. SCD to lower extremity. Follow up ABG, chest x-ray, CBC, and CMP in the morning. We will suggest decreasing Risperdal dose. Thank you and we will follow with you. Erika Reed MD
[2017-05-06 06:29] LABS: GRAN # 6.58 (1.4-6.5); GRAN % 89.4 % (50.0-68.0); HEMOGLOBIN 11.2 g/dL (12.0-16.0); LYMPH # 0.4 (1.2-3.4); LYMPH % 5.4 % (22.0-35.0); MEAN CORPUSCULAR HEMOGLOBIN 28.7 pg (25.0-35.0); MEAN CORPUSCULAR HGB CONC 31.5 g/dl (31.0-37.0); MEAN PLATELET VOLUME 12.5 fl (7.0-11.0); MONO # 0.4 (0.1-0.6); MONO % 5.2 % (1.0-6.0); RBC 3.9 10^6/uL (3.5-6.1); RED CELL DISTRIBUTION WIDTH 16.2 % (11.5-14.5); WHITE BLOOD COUNT 7.4 10^3/ul (4.5-11.0)
[2017-05-06 06:52] LABS: ALB/GLOB RATIO 0.8 (1.1-1.8); ALBUMIN 2.3 g/dL (3.0-4.8); ALT/SGPT 30 U/L (7-56); AST/SGOT 16 U/L (14-36); BLOOD UREA NITROGEN 40 mg/dL (7-21); CALCIUM 8.3 mg/dL (8.4-10.5); GFR AFRICAN-AMERICAN > 60; GFR NON-AFRICAN AMERICAN > 60
[2017-05-06] MEDS ORDERED: Potassium Chloride 40 mEq/30 ml LIQ UD PO STA (06:53)
--- NOTE | 2017-05-06 07:48 | CP.PCM.PN ---
<Tennille Guzman - Last Filed: 05/06/17 10:11> Subjective - Date & Time of Evaluation Date of Evaluation: 05/06/17 Time of Evaluation: 07:42 - Subjective Subjective: ICU Progress Note for Minh Moreno PGY2 Patient seen and examined at bedside. As per nursing staff, there were no acute overnight events. Patient was extubated yesterday and passed her swallow eval. Today, she reports feeling well. She denies chest pain, shortness of breath, nausea/vomiting/diarrhea, fever/chills, dysuria, hematuria, numbness/tingling. Objective - Vital Signs/Intake and Output Vital Signs (last 24 hours): Temp Pulse Resp BP Pulse Ox 97.5 F L 71 20 161/119 H 100 05/06/17 04:00 05/06/17 05:40 05/06/17 05:40 05/06/17 05:00 05/06/17 05:40 Intake and Output: 05/06/17 05/06/17 06:59 18:59 Intake Total 500 Output Total 675 Balance -175 - Medications Medications: Current Medications Apixaban (Eliquis) 2.5 mg PO BID [facility] PRN Reason: Protocol Last Admin: 05/05/17 19:55 Dose: Not Given Carbidopa/Levodopa (Sinemet Cr) 1 tab PO TID [facility] Last Admin: 05/05/17 19:55 Dose: Not Given Digoxin (Lanoxin) 0.125 mg PO DAILY [facility] Last Admin: 05/05/17 09:30 Dose: 0.125 mg Divalproex Sodium (Depakote Sprinkles) 125 mg PO BID [facility] PRN Reason: Protocol Last Admin: 05/05/17 20:20 Dose: 125 mg Famotidine (Pepcid) 20 mg IVP DAILY [facility] Last Admin: 05/05/17 09:38 Dose: 20 mg Vancomycin HCl (Vancomycin 1gm) 1 gm in 250 mls @ 167 mls/hr IVPB DAILY [facility] PRN Reason: Protocol Last Admin: 05/05/17 09:28 Dose: 167 mls/hr Azithromycin 250 mg/ Sodium (Chloride) 250 mls @ 167 mls/hr IVPB DAILY [facility] PRN Reason: Protocol Last Admin: 05/05/17 09:27 Dose: 167 mls/hr Cefepime HCl (Maxipime 1gm) 1 gm in 100 mls @ 100 mls/hr IVPB DAILY [facility] PRN Reason: Protocol Last Admin: 05/05/17 10:28 Dose: 100 mls/hr Potassium Chloride (Potassium Chloride 10 Meq/100 Ml) 10 meq in 100 mls @ 50 mls/hr IVPB ONCE ONE Stop: 05/06/17 08:52 Last Admin: 05/06/17 07:05 Dose: 50 mls/hr Methylprednisolone (Solu-Medrol) 40 mg IVP Q12 [facility] Last Admin: 05/05/17 21:27 Dose: 40 mg Polyethylene Glycol (Miralax) 17 gm PO DAILY [facility] Last Admin: 05/05/17 09:31 Dose: 17 gm Potassium Chloride (Potassium Chloride Oral Soln) 40 meq PO ONCE ONE Stop: 05/06/17 13:01 Risperidone (Risperdal Tab) 0.25 mg PO BID [facility] PRN Reason: Protocol - Labs Labs: 05/06/17 05:20 05/06/17 05:20 PT 15.9 SECONDS (9.4-12.5) H 05/02/17 09:00 INR 1.37 (0.93-1.08) H 05/02/17 09:00 APTT 30.1 Seconds (25.1-36.5) 05/02/17 09:00 - Constitutional Appears: No Acute Distress - Head Exam Head Exam: ATRAUMATIC, NORMAL INSPECTION, NORMOCEPHALIC - Eye Exam Eye Exam: Normal appearance, PERRL Pupil Exam: NORMAL ACCOMODATION, PERRL - ENT Exam ENT Exam: Mucous Membranes Moist - Neck Exam Neck Exam: Full ROM - Respiratory Exam Respiratory Exam: Clear to Ausculation Bilateral, NORMAL BREATHING PATTERN. absent: Rales, Rhonchi, Wheezes - Cardiovascular Exam Cardiovascular Exam: REGULAR RHYTHM, +S1, +S2. absent: Gallop, Rubs, Murmur - GI/Abdominal Exam GI & Abdominal Exam: Distended, Soft, Normal Bowel Sounds. absent: Tenderness, Mass, Rebound - Extremities Exam Extremities Exam: Normal Inspection. absent: Calf Tenderness, Pedal Edema - Neurological Exam Neurological Exam: Alert, Awake, CN II-XII Intact Neuro motor strength exam: Left Upper Extremity: 5, Right Upper Extremity: 5, Left Lower Extremity: 5, Right Lower Extremity: 5 - Psychiatric Exam Psychiatric exam: Normal Affect, Normal Mood - Skin Skin Exam: Dry, Warm Assessment and Plan - Assessment and Plan (Free Text) Assessment: This is an 87yo F with PMH of COPD, psychosis, schizophrenia, parkinsons a.fib, hypothyroidism, CHF and dementia who was admitted for AMS and hypoxic respiratory failure secondary to HCAP. Plan: Neuro: Hx of Parkinsons Awake and alert Avoid sedatives Seizure precaution Continue Sinemet CV: Hx of A.fib Rate controlled on Digoxin Pt on Eliquis Maintain MAP >65 Last echo in 2012. EF was 66% with mild pulm HTN Pulm: Extubated- comfortable on nasal cannula Maintain SpO2>92% Continue Solumedrol- will titrate down as tolerated Protective ventilation strategy Pulm consulted- recs appreciated GI: Pt passed swallow eval Will start HHD puree with nectar thick liquids Pt constipated- continue Miralax, Colace added Heme: Thrombocytopenia- can be secondary to medication Hgb stable- no overt signs of bleeding Continue to monitor Heme consulted as per PMD Nephro: Hypokalemia- 2.9 Will replace K with both PO and IV Will continue to monitor electrolytes and replace as needed Will monitor I&O [place] in place ID: Sepsis secondary to HCAP and found to have UTI ID consulted- recs appreciated Afebrile, no leukoctosis Continue Cefepime, Zithromax and Vanc Sputum cx showed S. aureus Urine cx showed Strep gallotycus + for S.pneumo, influenza negative Legionella pending Endo: Maintain euglycemia, maintain euvolemia Psych: Hx of schizophrenia and psychosis Depakote and Respirodone (home meds) GI ppx: Pepcid DVT ppx: Eliquis, SCDs Dispo: Patient is DNR/DNI as per daughter who is her health proxy. She is hemodynamically stable at this time and will be transferred to med/surg. Plan discussed with PMD. Case seen, discussed and reviewed with attending. Minh Guzman PGY2 <Hugh Mcneil - Last Filed: 05/06/17 16:02> Objective - Vital Signs/Intake and Output Vital Signs (last 24 hours): Temp Pulse Resp BP Pulse Ox 97.5 F L 71 20 161/119 H 100 05/06/17 04:00 05/06/17 05:40 05/06/17 05:40 05/06/17 05:00 05/06/17 05:40 Intake and Output: 05/06/17 05/06/17 06:59 18:59 Intake Total 500 Output Total 675 Balance -175 - Medications Medications: Current Medications Apixaban (Eliquis) 2.5 mg PO BID [facility] PRN Reason: Protocol Last Admin: 05/06/17 09:11 Dose: 2.5 mg Azithromycin (Zithromax) 250 mg PO DAILY [facility] Stop: 05/07/17 12:31 Carbidopa/Levodopa (Sinemet Cr) 1 tab PO TID [facility] Last Admin: 05/06/17 14:12 Dose: 1 tab Digoxin (Lanoxin) 0.125 mg PO DAILY [facility] Last Admin: 05/06/17 09:11 Dose: 0.125 mg Divalproex Sodium (Depakote Sprinkles) 125 mg PO BID [facility] PRN Reason: Protocol Last Admin: 05/06/17 09:15 Dose: 125 mg Docusate Sodium (Colace) 100 mg PO BID [facility] Last Admin: 05/06/17 09:13 Dose: 100 mg Famotidine (Pepcid) 20 mg PO DAILY [facility] Vancomycin HCl (Vancomycin 1gm) 1 gm in 250 mls @ 167 mls/hr IVPB DAILY [facility] PRN Reason: Protocol Last Admin: 05/06/17 09:14 Dose: 167 mls/hr Cefepime HCl (Maxipime 1gm) 1 gm in 100 mls @ 100 mls/hr IVPB DAILY [facility] PRN Reason: Protocol Last Admin: 05/06/17 09:14 Dose: 100 mls/hr Methylprednisolone (Solu-Medrol) 40 mg IVP DAILY [facility] Polyethylene Glycol (Miralax) 17 gm PO DAILY [facility] Last Admin: 05/06/17 09:14 Dose: 17 gm Risperidone (Risperdal Tab) 0.25 mg PO BID [facility] PRN Reason: Protocol Last Admin: 05/06/17 09:13 Dose: 0.25 mg - Labs Labs: 05/06/17 05:20 05/06/17 05:20 PT 15.9 SECONDS (9.4-12.5) H 05/02/17 09:00 INR 1.37 (0.93-1.08) H 05/02/17 09:00 APTT 30.1 Seconds (25.1-36.5) 05/02/17 09:00 Attending/Attestation - Attestation I have personally seen and examined this patient.: Yes I have fully participated in the care of the patient.: Yes I have reviewed all pertinent clinical information, including history, physical exam and plan: Yes Notes (Text): 05/06/17 16:01 87 yo female with now improved severe sepsis complicated by MODS, including hypoxemic respiratory failrue, requiring intubation. Now successfully extubated. Conservatvie fluid and 02 management, pulmonary toilet, bronchodilators, steroid taper, complete course of abx, IS, chest PT, OOB to chair, TAC for stroke prophylaxis in the setting of afib. GI prophylaxis and aspiration precaution ccm time 40 min
--- NOTE | 2017-05-06 09:09 | RAD ---
HISTORY: intubated COMPARISON: 05/04/2017 FINDINGS: The endotracheal tube terminates 2.9 cm proximal to the bentley. The nasogastric tube terminates the stomach. The right PICC line terminates in the SVC. LUNGS: There is redemonstration of consolidation in the right lower lobe. There are diffuse increased interstitial markings both lungs. PLEURA: Persistent small pleural effusions, no pneumothorax apparent. CARDIOVASCULAR: Normal. OSSEOUS STRUCTURES: No significant abnormalities. VISUALIZED UPPER ABDOMEN: Normal. OTHER FINDINGS: None. IMPRESSION: No change in presumable right lower lobe pneumonia and small right pleural effusion. Suspect background of interstitial lung disease. Stable position of endotracheal and nasogastric tubes.
[2017-05-06] MEDS: Digoxin 125 mcg (0.125 mg) Tab PO SCH (09:11)
[2017-05-06] MEDS: Carbidopa/Levodopa 25/100 CR PO SCH ×3 (09:12→18:17)
[2017-05-06] MEDS: MethylPREDNISolone 40 mg Vial IVP SCH (09:13)
[2017-05-06] MEDS: Cefepime 1gm in NS 100ml 1 GM/100 ML BAG IVPB SCH (09:14)
[2017-05-06] MEDS: POLYETHYLENE GLYCOL 3350 17 GM/Dose PACKET PO SCH (09:14)
[2017-05-06] MEDS: Vancomycin 1gm in NS 250ml 1 GM/250 ML BAG IVPB SCH (09:14)
[2017-05-06] MEDS: Divalproex 125 mg EC Sprinkle Cap PO SCH ×2 (09:15→18:17)
[2017-05-06] MEDS: Azithromycin 250 MG in Sodium Chloride 0.9% 250 ML IVPB SCH (11:05)
[2017-05-06] MEDS ORDERED: Potassium Chloride 40 mEq/30 ml LIQ UD PO ONE (13:00)
--- NOTE | 2017-05-06 14:15 | CP.PCM.CON ---
History of Present Illness - History of Present Illness History of Present Illness: 87 y/o F with PMH of Hypertension, Gastric Polyps, Cholelithiasis, Atrial Fibrillation, Advanced Dementia, History of Pneumonia, Psychosis, Schizophrenia , Parkinson's, and COPD initially presented to the ED for hypoxemic respiratory failure requiring intubation in the field. Patient remained in the ICU receiving broad spectrum antibiotics for HCAP in the setting of AMS. Patient now found to have progressively worsening thrombocytopenia. Patient seen and examined at bedside in the ICU. Patient does have advanced dementia and unable to effectively communicate at times. History obtained from prior medical records. Patient does deny pain or trouble breathing at this time. PMH: Hypertension, Gastric Polyps, Cholelithiasis, Atrial Fibrillation, Advanced Dementia, History of Pneumonia, Psychosis, Schizophrenia, Parkinson's, COPD Surgical Hx: Hysterectomy Family Hx: Noncontributory Social Hx: Denies alcohol, tobacco, or illicit drug use Allergies: NKDA Medication: Reviewed, as per MAR Review of Systems - Review of Systems Systems not reviewed;Unavailable: Dementia Past Patient History - Infectious Disease Hx of Infectious Diseases: C.diff - Tetanus Immunizations Tetanus Immunization: Unknown - Past Social History Smoking Status: Former Smoker - CARDIAC Hx Cardiac Disorders: Yes Hx Angina: No Hx Cardia Arrhythmia: Yes Hx Circulatory Problems: No Hx Congestive Heart Failure: No Hx Heart Murmur: No Hx Heart Transplant: No Hx Hypertension: Yes Hx Internal Defibrillator: No Hx Mitral Valve Prolapse: No Hx Pacemaker: No Hx Peripheral Edema: No Hx Peripheral Vascular Disease: No - PULMONARY Hx Respiratory Disorders: Yes Hx Chronic Obstructive Pulmonary Disease (COPD): Yes Hx Emphysema: No Hx Pneumonia: Yes Hx Respiratory Aspiration: No Hx Respiratory Tract Infection: No Hx Sleep Apnea: No Hx Tuberculosis: No - NEUROLOGICAL Hx Neurological Disorder: Yes Hx Alzheimer's Disease: No HX Cerebrovascular Accident: Yes Hx Dementia: Yes Hx Dizziness: No Hx Meningitis: No Hx Migraine: No Hx Parkinson's Disease: No Hx Seizures: No Hx Transient Ischemic Attacks (TIA): No - HEENT Hx HEENT Problems: No Hx Blind: No Hx Cataracts: No Hx Deafness: No Hx Difficulty Chewing: No Hx Epistaxis: No Hx Glaucoma: No Hx Macular Degeneration: No - RENAL Hx Chronic Kidney Disease: No Hx Dialysis: No Hx Kidney Stones: No Hx Neurogenic Bladder: No Hx Pyelonephritis: No Hx Renal (Kidney) Cancer: No Hx Renal Failure: No - ENDOCRINE/METABOLIC Hx Endocrine Disorders: Yes Hx Adrenal Cancer: No Hx Diabetes Insipidus: No Hx Diabetes Mellitus Type 1: No Hx Diabetes Mellitus Type 2: No Hx Hyperthyroidism: No Hx Hypothyroidism: No Hx Systemic Lupus Erythematosus: No - HEMATOLOGICAL/ONCOLOGICAL Hx Blood Disorders: No Hx AIDS: No Hx Anemia: Yes Hx Cancer: No Hx Chemotherapy: No Hx Cirrhosis: No Hx Hepatitis A: No Hx Hepatitis B: No Hx Hepatitis C: No Hx Human Immunodeficiency Virus (HIV): No Hx Metastesis: No Hx Shingles: No Hx Unexplained Bleeding: No - INTEGUMENTARY Hx Dermatological Problems: No Hx Basil Cell: No Hx Eczema: No Hx Melanoma: No Hx Psoriasis: No Hx Squamous Cell: No - MUSCULOSKELETAL/RHEUMATOLOGICAL Hx Falls: No - GASTROINTESTINAL Hx Gastrointestinal Disorders: No Hx Colostomy: No Hx Crohn's Disease: No Hx Diverticulitis: No Hx Gall Bladder Disease: No Hx Gastroesophageal Reflux: No Hx Ileostomy: No Hx Liver Failure: No Hx Pancreatitis: No HX Swallowing Problems: No - GENITOURINARY/GYNECOLOGICAL Hx Genitourinary Disorders: Yes Hx Incontinence: Yes Hx Sexually Transmitted Disorders: No Hx Urinary Tract Infection: No - PSYCHIATRIC Hx Psychophysiologic Disorder: Yes Hx Anxiety: No Hx Bipolar Disorder: No Hx Depression: No Hx Emotional Abuse: No Hx Hallucinations: Yes Hx Panic Symptoms: No Hx Paranoia: No Hx Post Traumatic Stress Disorder: No Hx Psychosis: No Hx Physical Abuse: No Hx Schizophrenia: No Hx Sexual Abuse: No - SURGICAL HISTORY Hx Amputation: No Hx Appendectomy: No Hx Cardiac Catheterization: No Hx Cholecystectomy: No Hx Coronary Stent: No Hx Gastric Bypass Surgery: No Hx Hysterectomy: Yes Hx Joint Replacement: No Hx Kidney Transplant: No Hx Liver Transplant: No Hx Mastectomy: No Hx Musculoskeletal Surgery: No Hx Open Heart Surgery: No Hx Orthopedic Surgery: No Hx Splenectomy: No Hx Valve Replacement: No - ANESTHESIA Hx Anesthesia Reactions: No Hx Malignant Hyperthermia: No Meds Allergies/Adverse Reactions: Allergies Allergy/AdvReac Type Severity Reaction Status Date / Time No Known Allergies Allergy Verified 10/24/12 08:19 - Medications Medications: Current Medications Apixaban (Eliquis) 2.5 mg PO BID [facility] PRN Reason: Protocol Last Admin: 05/06/17 09:11 Dose: 2.5 mg Azithromycin (Zithromax) 250 mg PO DAILY [facility] Stop: 05/07/17 12:31 Carbidopa/Levodopa (Sinemet Cr) 1 tab PO TID [facility] Last Admin: 05/06/17 09:12 Dose: 1 tab Digoxin (Lanoxin) 0.125 mg PO DAILY [facility] Last Admin: 05/06/17 09:11 Dose: 0.125 mg Divalproex Sodium (Depakote Sprinkles) 125 mg PO BID [facility] PRN Reason: Protocol Last Admin: 05/06/17 09:15 Dose: 125 mg Docusate Sodium (Colace) 100 mg PO BID [facility] Last Admin: 05/06/17 09:13 Dose: 100 mg Famotidine (Pepcid) 20 mg PO DAILY [facility] Vancomycin HCl (Vancomycin 1gm) 1 gm in 250 mls @ 167 mls/hr IVPB DAILY [facility] PRN Reason: Protocol Last Admin: 05/06/17 09:14 Dose: 167 mls/hr Cefepime HCl (Maxipime 1gm) 1 gm in 100 mls @ 100 mls/hr IVPB DAILY [facility] PRN Reason: Protocol Last Admin: 05/06/17 09:14 Dose: 100 mls/hr Methylprednisolone (Solu-Medrol) 40 mg IVP DAILY [facility] Polyethylene Glycol (Miralax) 17 gm PO DAILY [facility] Last Admin: 05/06/17 09:14 Dose: 17 gm Risperidone (Risperdal Tab) 0.25 mg PO BID [facility] PRN Reason: Protocol Last Admin: 05/06/17 09:13 Dose: 0.25 mg Physical Exam - Constitutional Appears: Non-toxic, No Acute Distress, Cachectic - Head Exam Head Exam: ATRAUMATIC, NORMAL INSPECTION, NORMOCEPHALIC - ENT Exam ENT Exam: Mucous Membranes Moist, Normal Exam - Neck Exam Neck exam: Positive for: Normal Inspection. Negative for: Lymphadenopathy - Respiratory Exam Respiratory Exam: Decreased Breath Sounds, Rhonchi (Mild scattered b/l), NORMAL BREATHING PATTERN - Cardiovascular Exam Cardiovascular Exam: RRR, +S1, +S2 - GI/Abdominal Exam GI & Abdominal Exam: Normal Bowel Sounds, Soft. absent: Tenderness - Extremities Exam Extremities exam: Negative for: calf tenderness, pedal edema Additional comments: Wounds on lower extremities b/l bandaged - Neurological Exam Neurological exam: Alert - Skin Skin Exam: Dry, Warm Additional comments: Bruising along arms b/l Results - Vital Signs Recent Vital Signs: Last Vital Signs Temp 97.5 F L 05/06/17 04:00 Pulse 71 05/06/17 05:40 Resp 20 05/06/17 05:40 BP 161/119 H 05/06/17 05:00 Pulse Ox 100 05/06/17 05:40 - Labs Result Diagrams: 05/06/17 05:20 05/06/17 05:20 Labs: Laboratory Results - last 24 hr 05/05/17 05/05/17 05/05/17 16:39 17:00 21:32 WBC RBC Hgb Hct MCV MCH MCHC RDW Plt Count MPV Gran % Lymph % (Auto) [place] % (Auto) Eos % (Auto) Baso % (Auto) Gran # Lymph # [place] # Eos # Baso # Fibrinogen Fibrin Degrad Products Sodium Potassium Chloride Carbon Dioxide Anion Gap BUN Creatinine Est GFR ( Amer) Est GFR (Non-Af Amer) POC Glucose (mg/dL) 207 H 173 H Random Glucose Calcium Total Bilirubin AST ALT Alkaline Phosphatase Total Protein Albumin Globulin Albumin/Globulin Ratio Ur L.pneumophila Ag Negative 05/06/17 05/06/17 05/06/17 05:20 05:20 07:41 WBC 7.4 D RBC 3.90 Hgb 11.2 L Hct 35.5 L MCV 91.0 MCH 28.7 MCHC 31.5 RDW 16.2 H Plt Count 99 L MPV 12.5 H Gran % 89.4 H Lymph % (Auto) 5.4 L [place] % (Auto) 5.2 Eos % (Auto) 0.0 L Baso % (Auto) 0.0 Gran # 6.58 H Lymph # 0.4 L [place] # 0.4 Eos # 0.0 Baso # 0.00 Fibrinogen Fibrin Degrad Products Sodium 145 Potassium 2.9 L* Chloride 114 H Carbon Dioxide 22 Anion Gap 11 BUN 40 H Creatinine 0.7 Est GFR ( Amer) > 60 Est GFR (Non-Af Amer) > 60 POC Glucose (mg/dL) 142 H Random Glucose 175 H Calcium 8.3 L Total Bilirubin 0.7 AST 16 ALT 30 Alkaline Phosphatase 62 Total Protein 5.2 L Albumin 2.3 L Globulin 2.9 Albumin/Globulin Ratio 0.8 L Ur L.pneumophila Ag 05/06/17 05/06/17 05/06/17 11:30 11:30 11:45 WBC RBC Hgb Hct MCV MCH MCHC RDW Plt Count MPV Gran % Lymph % (Auto) [place] % (Auto) Eos % (Auto) Baso % (Auto) Gran # Lymph # [place] # Eos # Baso # Fibrinogen 295 Fibrin Degrad Products >10 <40 ug/ml Sodium Potassium Chloride Carbon Dioxide Anion Gap BUN Creatinine Est GFR ( Amer) Est GFR (Non-Af Amer) POC Glucose (mg/dL) 143 H Random Glucose Calcium Total Bilirubin AST ALT Alkaline Phosphatase Total Protein Albumin Globulin Albumin/Globulin Ratio Ur L.pneumophila Ag Assessment & Plan - Assessment and Plan (Free Text) Plan: 87 y/o F with PMH of Hypertension, Gastric Polyps, Cholelithiasis, Atrial Fibrillation, Advanced Dementia, History of Pneumonia, Psychosis, Schizophrenia , Parkinson's, COPD presents with resolving HCAP and thrombocytopenia likely secondary to sepsis. Patient overall respiratory status improved at this time. However, progressive thrombocytopenia likely due to sepsis, but will undergo full workup with HIT, sertonin release assay, DIC panel, and peripheral smear. Patient does not require platelet transfusion as she does not show any active signs of bleeding and hemoglobin is stable. Continue current medical regimen. Will continue to monitor closely. Plan discussed with Dr. Magana. Queenie, PGY-2
--- NOTE | 2017-05-06 19:03 | CP.PCM.PN ---
Subjective - Date & Time of Evaluation Date of Evaluation: 05/06/17 Time of Evaluation: 17:30 - Subjective Subjective: Infectious Disease Follow Up: May 06, 2017 87 yo female found in the field in respiratory distress and required intubation in the field. She was desaturating to 70% on room air in the field. She remains poorly responsive and remains intubated and ventilated. Unable to gain more history other than information in the chart. She was recently discharged from [facility] [place] evaluation for anemia and gastric polyps. She remains in the MICU intubated and ventilated. She is awake and appears alert. She can follow simple commands to the extent she is able while ventilated. Vital chart does not show fever episodes however the nursing notes overnight show low grade fevers up to 100.6F. Chest X-ray showing bilateral opacities. Procalcitonin was 11.91. Extubated yesterday in the afternoon. Currently no leukocytosis. Trend procalcitonin levels. Patient improving. Objective - Vital Signs/Intake and Output Vital Signs (last 24 hours): Temp Pulse Resp BP Pulse Ox 97.5 F L 75 20 161/119 H 100 05/06/17 04:00 05/06/17 18:00 05/06/17 05:40 05/06/17 05:00 05/06/17 05:40 Intake and Output: 05/06/17 05/06/17 06:59 18:59 Intake Total 500 550 Output Total 675 500 Balance -175 50 - Medications Medications: Current Medications Apixaban (Eliquis) 2.5 mg PO BID [facility] PRN Reason: Protocol Last Admin: 05/06/17 18:17 Dose: 2.5 mg Azithromycin (Zithromax) 250 mg PO DAILY [facility] Stop: 05/07/17 12:31 Carbidopa/Levodopa (Sinemet Cr) 1 tab PO TID [facility] Last Admin: 05/06/17 18:17 Dose: 1 tab Digoxin (Lanoxin) 0.125 mg PO DAILY [facility] Last Admin: 05/06/17 09:11 Dose: 0.125 mg Divalproex Sodium (Depakote Sprinkles) 125 mg PO BID [facility] PRN Reason: Protocol Last Admin: 05/06/17 18:17 Dose: 125 mg Docusate Sodium (Colace) 100 mg PO BID [facility] Last Admin: 05/06/17 18:17 Dose: 100 mg Famotidine (Pepcid) 20 mg PO DAILY [facility] Vancomycin HCl (Vancomycin 1gm) 1 gm in 250 mls @ 167 mls/hr IVPB DAILY [facility] PRN Reason: Protocol Last Admin: 05/06/17 09:14 Dose: 167 mls/hr Cefepime HCl (Maxipime 1gm) 1 gm in 100 mls @ 100 mls/hr IVPB DAILY [facility] PRN Reason: Protocol Last Admin: 05/06/17 09:14 Dose: 100 mls/hr Methylprednisolone (Solu-Medrol) 40 mg IVP DAILY [facility] Polyethylene Glycol (Miralax) 17 gm PO DAILY [facility] Last Admin: 05/06/17 09:14 Dose: 17 gm Risperidone (Risperdal Tab) 0.25 mg PO BID [facility] PRN Reason: Protocol Last Admin: 05/06/17 18:18 Dose: 0.25 mg - Labs Labs: 05/06/17 05:20 05/06/17 05:20 PT 15.9 SECONDS (9.4-12.5) H 05/02/17 09:00 INR 1.37 (0.93-1.08) H 05/02/17 09:00 APTT 30.1 Seconds (25.1-36.5) 05/02/17 09:00 - Constitutional Appears: Non-toxic, No Acute Distress, Chronically Ill - Head Exam Head Exam: ATRAUMATIC, NORMOCEPHALIC - Eye Exam Eye Exam: EOMI, PERRL Pupil Exam: NORMAL ACCOMODATION, PERRL - ENT Exam ENT Exam: Mucous Membranes Moist, Normal External Ear Exam, TM's Normal Bilaterally - Neck Exam Neck Exam: Full ROM, Normal Inspection - Respiratory Exam Respiratory Exam: Decreased Breath Sounds, Rales, NORMAL BREATHING PATTERN. absent: Rhonchi, Wheezes - Cardiovascular Exam Cardiovascular Exam: REGULAR RHYTHM, RRR, +S1, +S2 - GI/Abdominal Exam GI & Abdominal Exam: Soft, Normal Bowel Sounds. absent: Distended, Tenderness - Extremities Exam Extremities Exam: Joint Swelling, Pedal Edema Additional comments: multiple pressure ulcers on legs. - Neurological Exam Neurological Exam: Alert, Awake, CN II-XII Intact, Oriented x3 - Skin Additional comments: Pressure ulcers in lower extremities bilaterally. Assessment and Plan - Assessment and Plan (Free Text) Assessment: 87 yo female with multiple comorbidities presented with severe SOB requiring intubation in the field. The patient is arousable now even with propofol on board. The patient remains intubated and ventilated at this time. Started on Vancomycin IV, Cefepime, and Azithromycin. Obtain procalcitonin value. Negative Influenza. Negative drug screen. Chest X-ray showing multifocal patchy and nodular opacities bilaterally, right greater than left. These finding were not seen in an Chest X-ray done on 04/25/2017 on the last hospitalization. Brown cultures and sputum cultures sent. Procalcitonin was 11.91 and with the Chest X-ray findings and intubation, severe pneumonia is part of the patient's medical issues. Continue on IV Vancomycin, Cefepime, and Azithromycin. Extubated yesterday. Patient improving. Passed swallow study. Supportive care. The patient has an extensive and exhaustive medical history. Thank you for allowing me to participate in the care of the patient, we will follow with you.
--- NOTE | 2017-05-07 04:06 | PN ---
DATE: 05/06/2017 REFERRING PHYSICIAN: Emily Vazquez MD. SUBJECTIVE: She is lying in the bed at 45 degree, did well with her dinner, still has come cough unable to clear pulmonary secretions. No hemoptysis, no hematochezia, no hematuria, no diarrhea reported. OBJECTIVE: GENERAL: In no acute distress. VITAL SIGNS: Temperature is 98, heart rate is 69, respiratory rate is 26, pulse oximetry is 97% on nasal cannula, blood pressure is 125/40. HEENT: Moist mucous membrane. Crowded airway. NECK: Supple. No JVD. LUNGS: Have a few scattered rhonchi and crackles. HEART: S1 and S2. ABDOMEN: Soft and nontender. No organomegaly. EXTREMITIES: No edema. NEUROLOGIC: Awake, alert, and follows simple commands. MEDICATIONS: She is on Colace 100 mg twice a day, Depakote 125 mg twice a day, Eliquis 2.5 mg twice a day, digoxin 0.125 mg daily, cefepime 1 g daily, MiraLax 17 g daily, Pepcid 20 mg daily, Risperdal 0.25 mg twice a day, carbidopa levodopa one tab three times a day, Solu-Medrol 40 mg IV daily, vancomycin 1 g IV daily, and Zithromax 250 mg daily. LABORATORY DATA: Shows hemoglobin 11.2, hematocrit 35.5, WBC 7.4, and platelet is 99,000. Sodium 145, potassium 2.9, chloride 114, bicarbonate 22, BUN 40, creatinine 0.7, glucose 175, and calcium 8.3. AST 16, ALT 30, alkaline phosphatase is 62, and albumin is 2.3. Tracheal secretions has Staphylococcus aureus and urine has STR-gallolyticus. IMPRESSION AND PLAN: Respiratory failure, status post extubation, atrial fibrillation, chronic obstructive lung disease, bilateral pulmonary infiltrate, probably pneumonia, Parkinson disease, seasonal allergies, coronary artery disease, schizophrenia, oropharyngeal dysphagia, modified diet. From a Pulmonary point of view doing okay. Continue IV inhaled bronchodilators. Continue antibiotics. P.r.n. mouth and nasal suction. Out of bed to chair if possible. SCD to lower extremity. Followup labs in the morning. Thank you and we will follow with you. Erika Reed MD [facility] # [id number]
[2017-05-07 07:05] LABS: ALB/GLOB RATIO 0.8 (1.1-1.8); ALBUMIN 2.3 g/dL (3.0-4.8); ALT/SGPT 15 U/L (7-56); AST/SGOT 16 U/L (14-36); BLOOD UREA NITROGEN 31 mg/dL (7-21); GFR AFRICAN-AMERICAN > 60; GFR NON-AFRICAN AMERICAN > 60
[2017-05-07 07:12] LABS: GRAN # 6.04 (1.4-6.5); HEMOGLOBIN 10.9 g/dL (12.0-16.0); LYMPH # 0.9 (1.2-3.4); LYMPH % 11.6 % (22.0-35.0); MEAN CELL VOLUME 94.4 fl (80.0-105.0); MEAN CORPUSCULAR HEMOGLOBIN 29.1 pg (25.0-35.0); MEAN CORPUSCULAR HGB CONC 30.9 g/dl (31.0-37.0); MEAN PLATELET VOLUME 11.3 fl (7.0-11.0); MONO # 0.7 (0.1-0.6); MONO % 9.4 % (1.0-6.0); RBC 3.74 10^6/uL (3.5-6.1); RED CELL DISTRIBUTION WIDTH 16.4 % (11.5-14.5); WHITE BLOOD COUNT 7.7 10^3/ul (4.5-11.0)
--- NOTE | 2017-05-07 09:06 | PN ---
DATE: 05/06/2017 SUBJECTIVE: The patient was seen and examined at the bedside, looking comfortable. The patient is extubated, is still in the unit. No fever. No chills. No nausea, vomiting, or diarrhea. No hematuria. No hematochezia. The patient follows simple commands, shows low-grade fever of 100.[address] Elizabeth. Chest x-ray shows bilateral opacities. The prolactin level improved. PHYSICAL EXAMINATION: VITAL SIGNS: Temperature is 97.5, pulse 75, respiratory rate 20, blood pressure 160/119. Pulse oximetry 100. HEENT: Head; normocephalic and atraumatic. Eyes; PERRLA. Extraocular muscles are intact. Conjunctivae are clear. Nose patent. Mucous membranes moist. NECK: Supple. No carotid bruits, JVD, or thyromegaly. CHEST: Bilaterally symmetrical. HEART: S1 and S2 positive. LUNGS: Clear to auscultation. ABDOMEN: Soft. Bowel sounds positive. No organomegaly. EXTREMITIES: No edema. No cyanosis. NEUROLOGICAL: The patient is awake and alert. Moving all 4 extremities. No focal deficit. MEDICATIONS: Eliquis , Zithromax, Sinemet, Lanoxin, Depakote, Colace, vancomycin, Maxipime, Solu-Medrol, MiraLax, and Risperdal. LABORATORY DATA: White blood cell 7.4, hemoglobin 11.2, hematocrit 35.5, and platelets 99. Sodium 145, potassium 2.9, BUN 40, creatinine noted and glucose 175. ASSESSMENT AND PLAN: The patient with history of anemia; hypokalemia, replaced; renal insufficiency; hyperglycemia; has multiple comorbidities, came with shortness of breath requiring intubation in the field. Today, the patient is extubated. getting vancomycin, cefepime, and azithromycin. Obtain prolactin values. Negative for influenza, negative for drug screening. Chest scan shows multifocal opacity and nodular densities bilaterally, right greater than the left. Brown culture and sputum cultures are sent, getting supportive care. The patient has history of chronic obstructive pulmonary disease, degenerative joint disease, anorexia. Online Editor is on the case. Seasonal allergies, coronary artery disease, schizophrenia, history of oropharyngeal dysphagia. Continue bronchodilator. Continue antibiotics. Continue gastric and DVT prophylaxis. Dr. Reed suggested to decrease the Risperdal dose. We will follow up. Emily Vazquez MD [facility] # [id number] [place]
--- NOTE | 2017-05-07 10:18 | CP.PCM.PN ---
<Kasia Bell - Last Filed: 05/07/17 21:36> Subjective - Date & Time of Evaluation Date of Evaluation: 05/07/17 Time of Evaluation: 09:45 - Subjective Subjective: 87 yr female from [facility] w/ history of influenza, severe anemia, hypertension, COPD, C.diff, colitis, atrial fibrillation, seizure disorder, advanced dementia, parkinsons, CVA, bipolar, schizophrenia and hypothyroidism. Pt found unresponsive in residential and intubated on the field. Alert, awake, able to appropriately answer questions and able to follow simple commands. Pt is able to eat solid foods. Denies headache, fever, chills, chest pain, constipation, diarrhea, or urinary changes. Objective - Vital Signs/Intake and Output Vital Signs (last 24 hours): Temp Pulse Resp BP Pulse Ox 98 F 117 H 29 H 117/54 L 97 05/07/17 04:12 05/07/17 02:00 05/07/17 02:00 05/07/17 04:01 05/07/17 04:01 Intake and Output: 05/07/17 05/07/17 06:59 18:59 Intake Total 150 Output Total 450 Balance -300 - Medications Medications: Current Medications Apixaban (Eliquis) 2.5 mg PO BID [facility] PRN Reason: Protocol Last Admin: 05/06/17 18:17 Dose: 2.5 mg Azithromycin (Zithromax) 250 mg PO DAILY [facility] Stop: 05/07/17 12:31 Carbidopa/Levodopa (Sinemet Cr) 1 tab PO TID [facility] Last Admin: 05/06/17 18:17 Dose: 1 tab Digoxin (Lanoxin) 0.125 mg PO DAILY [facility] Last Admin: 05/06/17 09:11 Dose: 0.125 mg Divalproex Sodium (Depakote Sprinkles) 125 mg PO BID [facility] PRN Reason: Protocol Last Admin: 05/06/17 18:17 Dose: 125 mg Docusate Sodium (Colace) 100 mg PO BID [facility] Last Admin: 05/06/17 18:17 Dose: 100 mg Famotidine (Pepcid) 20 mg PO DAILY [facility] Vancomycin HCl (Vancomycin 1gm) 1 gm in 250 mls @ 167 mls/hr IVPB DAILY [facility] PRN Reason: Protocol Last Admin: 05/06/17 09:14 Dose: 167 mls/hr Cefepime HCl (Maxipime 1gm) 1 gm in 100 mls @ 100 mls/hr IVPB DAILY [facility] PRN Reason: Protocol Last Admin: 05/06/17 09:14 Dose: 100 mls/hr Methylprednisolone (Solu-Medrol) 40 mg IVP DAILY [facility] Polyethylene Glycol (Miralax) 17 gm PO DAILY [facility] Last Admin: 05/06/17 09:14 Dose: 17 gm Risperidone (Risperdal Tab) 0.25 mg PO BID [facility] PRN Reason: Protocol Last Admin: 05/06/17 18:18 Dose: 0.25 mg - Labs Labs: 05/07/17 05:30 05/07/17 05:30 PT 15.9 SECONDS (9.4-12.5) H 05/02/17 09:00 INR 1.37 (0.93-1.08) H 05/02/17 09:00 APTT 30.1 Seconds (25.1-36.5) 05/02/17 09:00 - Constitutional Appears: Chronically Ill - Head Exam Head Exam: ATRAUMATIC, NORMAL INSPECTION, NORMOCEPHALIC - Eye Exam Eye Exam: EOMI, Normal appearance, PERRL Pupil Exam: NORMAL ACCOMODATION, PERRL - ENT Exam ENT Exam: Mucous Membranes Moist, Normal Exam - Neck Exam Neck Exam: Full ROM, Normal Inspection. absent: Lymphadenopathy - Respiratory Exam Respiratory Exam: Clear to Ausculation Bilateral, NORMAL BREATHING PATTERN - Cardiovascular Exam Cardiovascular Exam: REGULAR RHYTHM, +S1, +S2. absent: Murmur - GI/Abdominal Exam GI & Abdominal Exam: Soft, Normal Bowel Sounds. absent: Tenderness - Extremities Exam Extremities Exam: Full ROM, Normal Capillary Refill, Normal Inspection. absent : Joint Swelling, Pedal Edema - Back Exam Back Exam: NORMAL INSPECTION - Neurological Exam Neurological Exam: Alert, Awake, Oriented x3 - Psychiatric Exam Psychiatric exam: Normal Affect, Normal Mood - Skin Skin Exam: Dry, Intact, Normal Color, Warm Assessment and Plan (1) Acute electrocardiogram changes Status: Acute (2) Acute respiratory failure with hypoxia Status: Acute (3) Pneumonia Status: Acute (4) Anemia Status: Acute (5) COPD (chronic obstructive pulmonary disease) Status: Acute (6) Iron deficiency Status: Acute (7) Hypokalemia Status: Acute (8) Dysphagia Status: Acute (9) UTI (urinary tract infection) Status: Acute (10) Staph aureus infection Status: Acute (11) Infection due to Streptococcus gallolyticus Status: Acute - Assessment and Plan (Free Text) Plan: Labs ordered. IV cefepime & vanco. IV solumedryl. Suptum culture (+) staph aureus. Urine culture (+) str. gallolyticus ss pasteurian. Labs ordered. VTE/GI prophylaxis. Consults: [employer] - Dr. Reed Palliative [facility] - [facility]. [place] ID - Dr. Elizabeth Reviewed: CT head = generalized atrophy, nonspecific white matter changes CXR = no significant chage in perihilar infiltarate and vascular congestion, ET and NG tubes unchanged ECG = Afib w/ RVR, ST abn, possible anteroseptal subandocardial injury, new since 04/24/17 ECG <Emily Vazquez - Last Filed: 05/08/17 00:24> Subjective - Subjective Subjective: 87 yr female from [facility] w/ history of influenza, severe anemia, hypertension, COPD, C.diff, colitis, atrial fibrillation, seizure disorder, advanced dementia, parkinsons, CVA, bipolar, schizophrenia and hypothyroidism. Pt found unresponsive in residential and intubated on the field. Alert, awake, able to appropriately answer questions and able to follow simple commands. Pt is able to eat solid foods. Denies headache, fever, chills, chest pain, constipation, diarrhea, or urinary changes. pt is seen and examined at bed side , agreed all above , no change control specialist neigh , kina, same treatment , will f/u Objective - Vital Signs/Intake and Output Vital Signs (last 24 hours): Temp Pulse Resp BP Pulse Ox 98 F 117 H 29 H 117/54 L 97 05/07/17 04:12 05/07/17 02:00 05/07/17 02:00 05/07/17 04:01 05/07/17 04:01 Intake and Output: 05/07/17 05/08/17 18:59 06:59 Intake Total 450 Output Total 700 Balance -250 - Medications Medications: Current Medications Apixaban (Eliquis) 2.5 mg PO BID [facility] PRN Reason: Protocol Last Admin: 05/07/17 17:36 Dose: 2.5 mg Carbidopa/Levodopa (Sinemet Cr) 1 tab PO TID [facility] Last Admin: 05/07/17 17:35 Dose: 1 tab Digoxin (Lanoxin) 0.125 mg PO DAILY [facility] Last Admin: 05/07/17 10:48 Dose: 0.125 mg Divalproex Sodium (Depakote Sprinkles) 125 mg PO BID [facility] PRN Reason: Protocol Last Admin: 05/07/17 17:35 Dose: 125 mg Docusate Sodium (Colace) 100 mg PO BID [facility] Last Admin: 05/07/17 17:36 Dose: 100 mg Famotidine (Pepcid) 20 mg PO DAILY [facility] Last Admin: 05/07/17 10:48 Dose: 20 mg Vancomycin HCl (Vancomycin 1gm) 1 gm in 250 mls @ 167 mls/hr IVPB DAILY [facility] PRN Reason: Protocol Last Admin: 05/07/17 10:50 Dose: 167 mls/hr Cefepime HCl (Maxipime 1gm) 1 gm in 100 mls @ 100 mls/hr IVPB DAILY [facility] PRN Reason: Protocol Last Admin: 05/07/17 10:51 Dose: 100 mls/hr Methylprednisolone (Solu-Medrol) 40 mg IVP DAILY [facility] Last Admin: 05/07/17 10:50 Dose: 40 mg Polyethylene Glycol (Miralax) 17 gm PO DAILY [facility] Last Admin: 05/07/17 10:47 Dose: 17 gm Risperidone (Risperdal Tab) 0.25 mg PO BID [facility] PRN Reason: Protocol Last Admin: 05/07/17 17:35 Dose: 0.25 mg - Labs Labs: 05/07/17 05:30 05/07/17 05:30 PT 15.9 SECONDS (9.4-12.5) H 05/02/17 09:00 INR 1.37 (0.93-1.08) H 05/02/17 09:00 APTT 30.1 Seconds (25.1-36.5) 05/02/17 09:00
[2017-05-07] MEDS: POLYETHYLENE GLYCOL 3350 17 GM/Dose PACKET PO SCH (10:47)
[2017-05-07] MEDS: Divalproex 125 mg EC Sprinkle Cap PO SCH ×2 (10:47→17:35)
[2017-05-07] MEDS: Digoxin 125 mcg (0.125 mg) Tab PO SCH (10:48)
[2017-05-07] MEDS: Carbidopa/Levodopa 25/100 CR PO SCH ×3 (10:49→17:35)
[2017-05-07] MEDS: MethylPREDNISolone 40 mg Vial IVP SCH (10:50)
[2017-05-07] MEDS: Vancomycin 1gm in NS 250ml 1 GM/250 ML BAG IVPB SCH (10:50)
[2017-05-07] MEDS: Cefepime 1gm in NS 100ml 1 GM/100 ML BAG IVPB SCH (10:51)
--- NOTE | 2017-05-07 14:44 | CP.PCM.PN ---
Subjective - Date & Time of Evaluation Date of Evaluation: 05/07/17 Time of Evaluation: 14:41 - Subjective Subjective: Patient seen and examined at bedside. Patient answering simple questions appropriately, but does not speak much. Patient mentions pain in the lower extremities. Denies chest pain, shortness of breath, nausea, vomiting, diarrhea , fever, chills. Objective - Vital Signs/Intake and Output Vital Signs (last 24 hours): Temp Pulse Resp BP Pulse Ox 98 F 117 H 29 H 117/54 L 97 05/07/17 04:12 05/07/17 02:00 05/07/17 02:00 05/07/17 04:01 05/07/17 04:01 Intake and Output: 05/07/17 05/07/17 06:59 18:59 Intake Total 150 Output Total 450 Balance -300 - Medications Medications: Current Medications Apixaban (Eliquis) 2.5 mg PO BID [facility] PRN Reason: Protocol Last Admin: 05/07/17 10:50 Dose: 2.5 mg Carbidopa/Levodopa (Sinemet Cr) 1 tab PO TID [facility] Last Admin: 05/07/17 10:49 Dose: 1 tab Digoxin (Lanoxin) 0.125 mg PO DAILY [facility] Last Admin: 05/07/17 10:48 Dose: 0.125 mg Divalproex Sodium (Depakote Sprinkles) 125 mg PO BID [facility] PRN Reason: Protocol Last Admin: 05/07/17 10:47 Dose: 125 mg Docusate Sodium (Colace) 100 mg PO BID [facility] Last Admin: 05/07/17 10:49 Dose: 100 mg Famotidine (Pepcid) 20 mg PO DAILY [facility] Last Admin: 05/07/17 10:48 Dose: 20 mg Vancomycin HCl (Vancomycin 1gm) 1 gm in 250 mls @ 167 mls/hr IVPB DAILY [facility] PRN Reason: Protocol Last Admin: 05/07/17 10:50 Dose: 167 mls/hr Cefepime HCl (Maxipime 1gm) 1 gm in 100 mls @ 100 mls/hr IVPB DAILY [facility] PRN Reason: Protocol Last Admin: 05/07/17 10:51 Dose: 100 mls/hr Methylprednisolone (Solu-Medrol) 40 mg IVP DAILY [facility] Last Admin: 05/07/17 10:50 Dose: 40 mg Polyethylene Glycol (Miralax) 17 gm PO DAILY [facility] Last Admin: 05/07/17 10:47 Dose: 17 gm Risperidone (Risperdal Tab) 0.25 mg PO BID [facility] PRN Reason: Protocol Last Admin: 05/07/17 10:48 Dose: 0.25 mg - Labs Labs: 05/07/17 05:30 05/07/17 05:30 PT 15.9 SECONDS (9.4-12.5) H 05/02/17 09:00 INR 1.37 (0.93-1.08) H 05/02/17 09:00 APTT 30.1 Seconds (25.1-36.5) 05/02/17 09:00 - Constitutional Appears: Non-toxic, No Acute Distress - Head Exam Head Exam: ATRAUMATIC, NORMAL INSPECTION, NORMOCEPHALIC - ENT Exam ENT Exam: Mucous Membranes Moist - Respiratory Exam Respiratory Exam: Decreased Breath Sounds, Rhonchi, NORMAL BREATHING PATTERN. absent: Rales, Wheezes - Cardiovascular Exam Cardiovascular Exam: RRR, +S1, +S2 - GI/Abdominal Exam GI & Abdominal Exam: Soft, Normal Bowel Sounds. absent: Tenderness - Extremities Exam Extremities Exam: Normal Inspection. absent: Calf Tenderness, Pedal Edema Additional comments: Bandaged lower extremities - Neurological Exam Neurological Exam: Alert, Awake - Psychiatric Exam Psychiatric exam: Normal Affect, Normal Mood - Skin Skin Exam: Intact, Normal Color, Warm Assessment and Plan - Assessment and Plan (Free Text) Plan: 87 y/o F with PMH of Hypertension, Gastric Polyps, Cholelithiasis, Atrial Fibrillation, Advanced Dementia, History of Pneumonia, Psychosis, Schizophrenia , Parkinson's, COPD presents with resolving HCAP and thrombocytopenia likely secondary to sepsis. Platelet count decreasing this morning. Fibrinogen and fibrinogen split products within normal ranges. Will await HIT and serotonin release assay. Peripheral smear also pending at this time. No transfusion indicated at this time. Hemoglobin is stable. Continue current medical regimen. Will continue to monitor closely. Plan discussed with Dr. Magana. Queenie, PGY-2
--- NOTE | 2017-05-07 17:15 | CP.PCM.PN ---
Subjective - Date & Time of Evaluation Date of Evaluation: 05/07/17 Time of Evaluation: 16:30 - Subjective Subjective: Infectious Disease Follow Up: May 07, 2017 87 yo female found in the field in respiratory distress and required intubation in the field. She was desaturating to 70% on room air in the field. She remains poorly responsive and remains intubated and ventilated. Unable to gain more history other than information in the chart. She was recently discharged from [facility] after evaluation for anemia and gastric polyps. She remains in the MICU intubated and ventilated. She is awake and appears alert. She can follow simple commands to the extent she is able while ventilated. Vital chart does not show fever episodes however the nursing notes overnight show low grade fevers up to 100.6F. Chest X-ray showing bilateral opacities. Procalcitonin was 11.91. Extubated yesterday in the afternoon. Currently no leukocytosis. Trend procalcitonin levels. Patient improving. Objective - Vital Signs/Intake and Output Vital Signs (last 24 hours): Temp Pulse Resp BP Pulse Ox 98 F 117 H 29 H 117/54 L 97 05/07/17 04:12 05/07/17 02:00 05/07/17 02:00 05/07/17 04:01 05/07/17 04:01 Intake and Output: 05/07/17 05/07/17 06:59 18:59 Intake Total 150 Output Total 450 Balance -300 - Medications Medications: Current Medications Apixaban (Eliquis) 2.5 mg PO BID [facility] PRN Reason: Protocol Last Admin: 05/07/17 10:50 Dose: 2.5 mg Carbidopa/Levodopa (Sinemet Cr) 1 tab PO TID [facility] Last Admin: 05/07/17 14:35 Dose: 1 tab Digoxin (Lanoxin) 0.125 mg PO DAILY [facility] Last Admin: 05/07/17 10:48 Dose: 0.125 mg Divalproex Sodium (Depakote Sprinkles) 125 mg PO BID [facility] PRN Reason: Protocol Last Admin: 05/07/17 10:47 Dose: 125 mg Docusate Sodium (Colace) 100 mg PO BID [facility] Last Admin: 05/07/17 10:49 Dose: 100 mg Famotidine (Pepcid) 20 mg PO DAILY [facility] Last Admin: 05/07/17 10:48 Dose: 20 mg Vancomycin HCl (Vancomycin 1gm) 1 gm in 250 mls @ 167 mls/hr IVPB DAILY [facility] PRN Reason: Protocol Last Admin: 05/07/17 10:50 Dose: 167 mls/hr Cefepime HCl (Maxipime 1gm) 1 gm in 100 mls @ 100 mls/hr IVPB DAILY [facility] PRN Reason: Protocol Last Admin: 05/07/17 10:51 Dose: 100 mls/hr Methylprednisolone (Solu-Medrol) 40 mg IVP DAILY [facility] Last Admin: 05/07/17 10:50 Dose: 40 mg Polyethylene Glycol (Miralax) 17 gm PO DAILY [facility] Last Admin: 05/07/17 10:47 Dose: 17 gm Risperidone (Risperdal Tab) 0.25 mg PO BID [facility] PRN Reason: Protocol Last Admin: 05/07/17 10:48 Dose: 0.25 mg - Labs Labs: 05/07/17 05:30 05/07/17 05:30 PT 15.9 SECONDS (9.4-12.5) H 05/02/17 09:00 INR 1.37 (0.93-1.08) H 05/02/17 09:00 APTT 30.1 Seconds (25.1-36.5) 05/02/17 09:00 - Constitutional Appears: Non-toxic, No Acute Distress, Chronically Ill - Head Exam Head Exam: ATRAUMATIC, NORMOCEPHALIC - Eye Exam Eye Exam: EOMI, PERRL Pupil Exam: NORMAL ACCOMODATION, PERRL - ENT Exam ENT Exam: Mucous Membranes Moist, Normal External Ear Exam, TM's Normal Bilaterally - Neck Exam Neck Exam: Full ROM, Normal Inspection - Respiratory Exam Respiratory Exam: Decreased Breath Sounds, NORMAL BREATHING PATTERN. absent: Rales, Rhonchi, Wheezes - Cardiovascular Exam Cardiovascular Exam: REGULAR RHYTHM, RRR, +S1, +S2 - GI/Abdominal Exam GI & Abdominal Exam: Soft, Normal Bowel Sounds. absent: Distended, Tenderness - Extremities Exam Extremities Exam: Joint Swelling, Pedal Edema Additional comments: multiple pressure ulcers on legs. - Neurological Exam Neurological Exam: Alert, Awake, CN II-XII Intact, Oriented x3 - Psychiatric Exam Psychiatric exam: Normal Affect, Normal Mood - Skin Additional comments: Pressure ulcers in lower extremities bilaterally. Assessment and Plan - Assessment and Plan (Free Text) Assessment: 87 yo female with multiple comorbidities presented with severe SOB requiring intubation in the field. The patient is arousable now even with propofol on board. The patient remains intubated and ventilated at this time. Started on Vancomycin IV, Cefepime, and Azithromycin. Obtain procalcitonin value. Negative Influenza. Negative drug screen. Chest X-ray showing multifocal patchy and nodular opacities bilaterally, right greater than left. These finding were not seen in an Chest X-ray done on 04/25/2017 on the last hospitalization. Brown cultures and sputum cultures sent. Procalcitonin was 11.91 and with the Chest X-ray findings and intubation, severe pneumonia is part of the patient's medical issues. Continue on IV Vancomycin, Cefepime, and Azithromycin. Extubated 05/05/2017. Patient improving. Passed swallow study. Recheck procalcitonin value. Supportive care. The patient has an extensive and exhaustive medical history. Thank you for allowing me to participate in the care of the patient, we will follow with you.
--- NOTE | 2017-05-07 21:10 | PN ---
DATE: 05/07/2017 PULMONARY CRITICAL CARE PROGRESS NOTE REFERRING PHYSICIAN: Emily Vazquez MD SUBJECTIVE: She is lying in the bed, head at 45 degree on supplemental oxygen. Has cough, unable to pulmonary secretions. No hemoptysis or hematemesis. No hematuria. No diarrhea reported. PHYSICAL EXAMINATION: GENERAL: In no acute distress. VITAL SIGNS: Temperature is 98, heart rate is 117, respiratory rate is 29, blood pressure 117/54, pulse oximetry is 97% on nasal cannula. HEENT: Moist mucous membrane. Small oral cavity. Crowded airway. NECK: Supple. No JVD. LUNGS: Has a scattered rhonchi. HEART: S1 and S2. ABDOMEN: Soft and nontender. No organomegaly. EXTREMITIES: No edema. NEUROLOGIC: Awake, alert, and follows simple commands. MEDICATIONS: She is on Colace 100 mg twice a day, Depakote 125 mg twice a day, Eliquis 2.5 mg twice a day, digoxin 0.125 mg daily, cefepime 1 g daily, MiraLax 17 g daily, Pepcid 20 mg daily, Risperdal 0.25 mg twice a day, Sinemet one tablet three times a day, Solu-Medrol 40 mg daily and vancomycin 1 g IV daily. LABORATORY DATA: Shows hemoglobin 10.9, hematocrit 35.3, WBC 7.7 and platelets 87. Sodium 147, potassium 4.1, chloride 118, bicarbonate 23, BUN 31, creatinine 0.6, glucose 85 and calcium is 9.0. AST 16, ALT 15, alk phos is 58, albumin is 2.3. IMPRESSION AND PLAN: Respiratory failure status post extubation, atrial fibrillation, chronic obstructive lung disease, bilateral pulmonary infiltrate, probably pneumonia, Parkinson disease, seasonal allergies, coronary artery disease, schizophrenia, oropharyngeal dysphagia, modified diet. Pulmonary point of view, she is doing okay. Continue bronchodilator. Keep head at 45 degrees. Antibiotics. P.r.n. mouth and nasal suction. Out of bed to chair if possible. Fall precautions. Followup labs in the morning. Thank you and we will follow with you. Erika Reed MD [facility] # [id number]
[2017-05-08 05:46] LABS: HEMOGLOBIN 10.6 g/dL (12.0-16.0); MEAN CELL VOLUME 92.6 fl (80.0-105.0); MEAN CORPUSCULAR HEMOGLOBIN 29.2 pg (25.0-35.0); MEAN CORPUSCULAR HGB CONC 31.5 g/dl (31.0-37.0); MEAN PLATELET VOLUME 11.5 fl (7.0-11.0); RBC 3.63 10^6/uL (3.5-6.1); RED CELL DISTRIBUTION WIDTH 15.7 % (11.5-14.5); WHITE BLOOD COUNT 5.1 10^3/ul (4.5-11.0)
[2017-05-08 06:02] LABS: ALB/GLOB RATIO 0.8 (1.1-1.8); ALBUMIN 2.3 g/dL (3.0-4.8); ALT/SGPT 21 U/L (7-56); AST/SGOT 13 U/L (14-36); BLOOD UREA NITROGEN 25 mg/dL (7-21); CALCIUM 8.7 mg/dL (8.4-10.5); GFR AFRICAN-AMERICAN > 60; GFR NON-AFRICAN AMERICAN > 60
[2017-05-08] MEDS: Digoxin 125 mcg (0.125 mg) Tab PO SCH (10:23)
[2017-05-08] MEDS: Divalproex 125 mg EC Sprinkle Cap PO SCH ×2 (10:23→19:13)
[2017-05-08] MEDS: POLYETHYLENE GLYCOL 3350 17 GM/Dose PACKET PO SCH (10:23)
[2017-05-08] MEDS: Carbidopa/Levodopa 25/100 CR PO SCH ×3 (10:24→19:14)
[2017-05-08] MEDS: MethylPREDNISolone 40 mg Vial IVP SCH (10:25)
[2017-05-08] MEDS: Vancomycin 1gm in NS 250ml 1 GM/250 ML BAG IVPB SCH (10:27)
[2017-05-08] MEDS: Cefepime 1gm in NS 100ml 1 GM/100 ML BAG IVPB SCH (10:27)
--- NOTE | 2017-05-08 19:15 | CP.PCM.PN ---
Subjective - Date & Time of Evaluation Date of Evaluation: 05/08/17 Time of Evaluation: 17:30 - Subjective Subjective: Infectious Disease Follow Up: May 08, 2017 87 yo female found in the field in respiratory distress and required intubation in the field. She was desaturating to 70% on room air in the field. She remains poorly responsive and remains intubated and ventilated. Unable to gain more history other than information in the chart. She was recently discharged [place] [facility] [place] evaluation for anemia and gastric polyps. She remains in the MICU intubated and ventilated. She is awake and appears alert. She can follow simple commands to the extent she is able while ventilated. Vital chart does not show fever episodes however the nursing notes overnight show low grade fevers up to 100.6F. Chest X-ray showing bilateral opacities. Procalcitonin was 11.91 but has improved to 1 now. Extubated and slowly improving. Currently no leukocytosis. Trend procalcitonin levels. Patient improving. Objective - Vital Signs/Intake and Output Vital Signs (last 24 hours): Temp Pulse Resp BP Pulse Ox 97.6 F 77 28 H 114/37 L 94 L 05/08/17 06:30 05/08/17 17:20 05/08/17 17:20 05/08/17 16:00 05/08/17 17:20 Intake and Output: 05/08/17 05/09/17 18:59 06:59 Intake Total 590 Output Total 550 Balance 40 - Medications Medications: Current Medications Acetaminophen (Tylenol 325mg Tab) 650 mg PO Q4H PRN PRN Reason: Pain, Mild (1-3) Apixaban (Eliquis) 2.5 mg PO BID [facility] PRN Reason: Protocol Last Admin: 05/08/17 10:24 Dose: 2.5 mg Carbidopa/Levodopa (Sinemet Cr) 1 tab PO TID [facility] Last Admin: 05/08/17 10:24 Dose: 1 tab Digoxin (Lanoxin) 0.125 mg PO DAILY [facility] Last Admin: 05/08/17 10:23 Dose: 0.125 mg Divalproex Sodium (Depakote Sprinkles) 125 mg PO BID [facility] PRN Reason: Protocol Last Admin: 05/08/17 10:23 Dose: 125 mg Docusate Sodium (Colace) 100 mg PO BID [facility] Last Admin: 05/08/17 10:23 Dose: 100 mg Famotidine (Pepcid) 20 mg PO DAILY [facility] Last Admin: 05/08/17 10:24 Dose: 20 mg Vancomycin HCl (Vancomycin 1gm) 1 gm in 250 mls @ 167 mls/hr IVPB DAILY [facility] PRN Reason: Protocol Last Admin: 05/08/17 10:27 Dose: 167 mls/hr Cefepime HCl (Maxipime 1gm) 1 gm in 100 mls @ 100 mls/hr IVPB DAILY [facility] PRN Reason: Protocol Last Admin: 05/08/17 10:27 Dose: 100 mls/hr Methylprednisolone (Solu-Medrol) 40 mg IVP DAILY [facility] Last Admin: 05/08/17 10:25 Dose: 40 mg Polyethylene Glycol (Miralax) 17 gm PO DAILY [facility] Last Admin: 05/08/17 10:23 Dose: 17 gm Risperidone (Risperdal Tab) 0.25 mg PO BID [facility] PRN Reason: Protocol Last Admin: 05/08/17 10:26 Dose: 0.25 mg - Labs Labs: 05/08/17 05:00 05/08/17 05:00 PT 15.9 SECONDS (9.4-12.5) H 05/02/17 09:00 INR 1.37 (0.93-1.08) H 05/02/17 09:00 APTT 30.1 Seconds (25.1-36.5) 05/02/17 09:00 - Constitutional Appears: Non-toxic, No Acute Distress, Chronically Ill - Head Exam Head Exam: ATRAUMATIC, NORMOCEPHALIC - Eye Exam Eye Exam: EOMI, PERRL Pupil Exam: NORMAL ACCOMODATION, PERRL - ENT Exam ENT Exam: Mucous Membranes Moist, Normal External Ear Exam, TM's Normal Bilaterally - Neck Exam Neck Exam: Full ROM, Normal Inspection - Respiratory Exam Respiratory Exam: Decreased Breath Sounds, NORMAL BREATHING PATTERN. absent: Rales, Rhonchi, Wheezes - Cardiovascular Exam Cardiovascular Exam: REGULAR RHYTHM, RRR, +S1, +S2 - GI/Abdominal Exam GI & Abdominal Exam: Soft, Normal Bowel Sounds. absent: Distended, Tenderness - Extremities Exam Extremities Exam: Joint Swelling, Pedal Edema Additional comments: multiple pressure ulcers on legs. - Neurological Exam Neurological Exam: Alert, Awake, CN II-XII Intact, Oriented x3 - Psychiatric Exam Psychiatric exam: Normal Affect, Normal Mood - Skin Additional comments: Pressure ulcers in lower extremities bilaterally. Assessment and Plan - Assessment and Plan (Free Text) Assessment: 87 yo female with multiple comorbidities presented with severe SOB requiring intubation in the field. The patient is arousable now even with propofol on board. The patient remains intubated and ventilated at this time. Started on Vancomycin IV, Cefepime, and Azithromycin. Obtain procalcitonin value. Negative Influenza. Negative drug screen. Chest X-ray showing multifocal patchy and nodular opacities bilaterally, right greater than left. These finding were not seen in an Chest X-ray done on 04/25/2017 on the last hospitalization. Brown cultures and sputum cultures sent. Procalcitonin was 11.91 and with the Chest X-ray findings and intubation, severe pneumonia is part of the patient's medical issues. Continue on IV Vancomycin, Cefepime, and Azithromycin. Extubated 05/05/2017. Patient improving. Passed swallow study. Recheck procalcitonin value... value was 1.0. Leukocytosis resolves and is 5.1 now. Supportive care. The patient has an extensive and exhaustive medical history. Thank you for allowing me to participate in the care of the patient, we will follow with you.
--- NOTE | 2017-05-08 20:56 | PN ---
DATE: 05/08/2017 This is [facility] visit Intensive Care Unit for Dr. Magana. SUBJECTIVE: The patient is an 87-year-old female seen lying awake in bed with her son at the bedside, known to suffered from schizophrenia, recently extubated with good affect with COPD secondary to sepsis. The patient's platelets are modestly improving possibly related to her acute event from a few days prior on her admission. She is otherwise, in no acute distress with Tylenol to be added for her mild pain as per the nurses request. PHYSICAL EXAMINATION: VITAL SIGNS: Temperature 97.6, pulse 52, respirations 20, blood pressure of 131/44 with a pulse ox of 100%. HEENT: Unremarkable. NECK: Supple. LUNGS: Scattered rhonchi. ABDOMEN: Soft and nontender. HEART: Regular rate. EXTREMITIES: No edema; however, early foot drop with the patient's toes pointing . NEUROLOGIC: Awake and alert; however, with history of dementia and schizophrenia. LABORATORY DATA: The patient's labs were done. White blood cell count of 5.1, hemoglobin of 10.6, hematocrit 33.6, platelet count of 93,000 up from 87,000 yesterday. Chem metabolic panel shows a BUN of 25, creatinine of 0.6 with a total protein of 5.1, otherwise, normal chem metabolic panel. Procalcitonin of 1.0. The patient's tracheal aspirate culture is positive for Staph aureus like growth with Dr. Mo Elizabeth, Infectious Disease email production consultant. Continue her IV antibiotics with vancomycin and Maxipime being given. ASSESSMENT: For this patient is that of respiratory failure, status post extubation; atrial fibrillation; chronic obstructive pulmonary disease; pneumonia; Parkinson's disease; schizophrenia; atherosclerotic cardiovascular disease; gastroesophageal reflux disease; thrombocytopenia. PLAN: Plan for this patient is to be out of bed to the chair with her feet flat on the floor with consideration of Multi Podus boot to prevent foot drop. The patient should be monitored clinically and to be transferred back to the intensive care unit when the bed is available. Primo Lopez MD
--- NOTE | 2017-05-09 00:39 | PN ---
DATE: 05/08/2017 REFERRING PHYSICIAN: Dr. Vazquez. SUBJECTIVE: She is lying in the bed, head at 45 degrees, on nasal cannula oxygen, son is bedside. Still has some cough and sputum production. No hemoptysis, no hematemesis, hematuria, no diarrhea. No leg swelling reported. OBJECTIVE: GENERAL: In no acute distress. VITAL SIGNS: Temperature is 98, heart rate 88, respiratory rate is 30, blood pressure is 114/37, pulse ox 95% on nasal cannula. HEENT: Moist mucous membranes. Small oral cavity, edentulous. NECK: Supple. LUNGS: Has scattered rhonchi. HEART: S1 and S2. ABDOMEN: Soft, nontender, no organomegaly. EXTREMITIES: There is no edema. NEUROLOGICAL: Awake and alert. Follows simple commands. MEDICATIONS: She is on Colace 100 mg twice a day, Depakote 125 mg twice a day, Eliquis 2.5 mg daily, digoxin 0.125 mg daily, cefepime 1 gm IV daily, MiraLax 17 gm daily, Pepcid 20 mg daily, Risperdal 0.25 mg twice a day, Sinemet CR 1 tab three times a day, Solu-Medrol 40 mg daily, Tylenol p.r.n. basis, vancomycin 1 gm IV daily. LABORATORY DATA: Shows hemoglobin 10.6, hematocrit 33.6, WBC 5.1, platelet is 93. Sodium 143, potassium 3.8, chloride 114, bicarbonate 23, BUN 25, creatinine 0.6, glucose is 125, calcium 8.7, AST 13, ALT 21, alk phos is 56. Albumin is 2.3, procalcitonin 1.0. IMPRESSION AND PLAN: Status post respiratory failure, presently extubated, chronic obstructive lung disease, atrial fibrillation, bilateral pulmonary infiltrate, probably have pneumonia, Parkinson's disease, high procalcitonin, seasonal allergies, coronary artery disease, schizophrenia, oropharyngeal dysphagia on modified diet. Case discussed with the patient's family at bedside. All the question answered. Spoke to Hematology/Oncology services. Would suggest getting her out of bed to chair if possible, physical therapy, pulmonary toilet, aspiration precaution, incentive spirometer. Thank you and we will follow with you. Erika Reed MD [facility] # [id number]
--- NOTE | 2017-05-09 03:02 | PN ---
DATE: SUBJECTIVE: Patient is examined on the bedside. Sleepy, arousable, looking comfortable. No fever, no chills. Cough is better, shortness of breath is better. Patient's son Cliff is on the bedside, discussion done, all questions answered. PHYSICAL EXAMINATION: VITAL SIGNS: Temperature is 97.6, pulse 52, respiratory 20, blood pressure is 131/44, pulse oximetry 100. HEENT: Head is normocephalic and atraumatic. Eyes, PERRLA. Extraocular muscles intact. Conjunctivae clear. Nose patent. Mucous membranes moist. NECK: Supple. No carotid bruits. No JVD or thyromegaly. CHEST: Bilaterally symmetrical. HEART: S1 and S2 positive. LUNGS: Clear to auscultation. ABDOMEN: Soft. Bowel sounds positive. No organomegaly. EXTREMITIES: No edema. No cyanosis. NEUROLOGIC: The patient is awake and alert. Moving all four extremities. No focal deficits. LABORATORY DATA: White blood cells is 5.1, hemoglobin 10.6, hematocrit 33.6, platelets are 93,000. BUN 25, creatinine 0.6. ASSESSMENT AND PLAN: Ms. Mary Beth Hu is an 87-year-old lady came with respiratory failure status post extubated, atrial fibrillation, chronic obstructive pulmonary disease, pneumonia, parkinsonism, schizophrenia, atherosclerotic disease, trach cultures positive for staphylococcus aureus like growth with Dr. Mo Elizabeth Infectious Disease solutions delivery consultant is giving IV antibiotics with vancomycin and Maxipime, gastroesophageal reflux disease, thrombocytopenia, dementia, noncompliant. Try to do physical therapy to the patient. Continue antibiotics, gastrointestinal and deep venous thrombosis prophylaxis. Seen by Hematology, Infectious Disease and fiscal accounting clerk. The patient has bilateral pulmonary infiltrates, Parkinson disease, seasonal allergies, schizophrenia, oropharyngeal dysphagia, is on modified diet. Continue present treatment. We will followup. Emily Vazquez MD MTDD
[2017-05-09 06:21] LABS: BASO # 0.01 K/mm3 (0.0-2.0); BASO % 0.1 % (0.0-3.0); EOS # 0.1 (0.0-0.7); GRAN # 7.61 (1.4-6.5); GRAN % 82.3 % (50.0-68.0); HEMOGLOBIN 12.1 g/dL (12.0-16.0); LYMPH # 0.9 (1.2-3.4); LYMPH % 9.5 % (22.0-35.0); MEAN CORPUSCULAR HEMOGLOBIN 29.1 pg (25.0-35.0); MEAN CORPUSCULAR HGB CONC 31.3 g/dl (31.0-37.0); MEAN PLATELET VOLUME 12.1 fl (7.0-11.0); MONO # 0.7 (0.1-0.6); MONO % 7.1 % (1.0-6.0); RBC 4.16 10^6/uL (3.5-6.1); RED CELL DISTRIBUTION WIDTH 15.4 % (11.5-14.5); WHITE BLOOD COUNT 9.3 10^3/ul (4.5-11.0)
[2017-05-09 06:34] LABS: ALB/GLOB RATIO 0.9 (1.1-1.8); ALBUMIN 2.9 g/dL (3.0-4.8); ALT/SGPT 13 U/L (7-56); AST/SGOT 21 U/L (14-36); BLOOD UREA NITROGEN 22 mg/dL (7-21); GFR AFRICAN-AMERICAN > 60; GFR NON-AFRICAN AMERICAN > 60
--- NOTE | 2017-05-09 10:04 | RAD ---
HISTORY: infiltrate COMPARISON: 05/05/2017. FINDINGS: There has been interval extubation and removal of the nasogastric tube. LUNGS: There is persistent dense consolidation in the right lower lobe. The left lung is clear. PLEURA: No significant pleural effusion identified, no pneumothorax apparent. CARDIOVASCULAR: Normal. OSSEOUS STRUCTURES: No significant abnormalities. VISUALIZED UPPER ABDOMEN: Normal. OTHER FINDINGS: None. IMPRESSION: Status post extubation, no significant interval change in right lower lobe consolidation and right pleural effusion.
[2017-05-09] MEDS: Cefepime 1gm in NS 100ml 1 GM/100 ML BAG IVPB SCH (10:42)
[2017-05-09] MEDS: Digoxin 125 mcg (0.125 mg) Tab PO SCH (10:43)
[2017-05-09] MEDS: Carbidopa/Levodopa 25/100 CR PO SCH ×3 (10:44→17:16)
[2017-05-09] MEDS: POLYETHYLENE GLYCOL 3350 17 GM/Dose PACKET PO SCH (10:45)
[2017-05-09] MEDS: Vancomycin 1gm in NS 250ml 1 GM/250 ML BAG IVPB SCH (10:46)
[2017-05-09] MEDS: Divalproex 125 mg EC Sprinkle Cap PO SCH ×2 (10:47→17:16)
[2017-05-09] MEDS: MethylPREDNISolone 40 mg Vial IVP SCH (10:48)
--- NOTE | 2017-05-09 17:59 | CP.PCM.PN ---
Subjective - Date & Time of Evaluation Date of Evaluation: 05/09/17 Time of Evaluation: 17:00 - Subjective Subjective: Infectious Disease Follow Up: May 09, 2017 87 yo female found in the field in respiratory distress and required intubation in the field. She was desaturating to 70% on room air in the field. She remains poorly responsive and remains intubated and ventilated. Unable to gain more history other than information in the chart. She was recently discharged from [facility] after evaluation for anemia and gastric polyps. She remains in the MICU intubated and ventilated. She is awake and appears alert. She can follow simple commands to the extent she is able while ventilated. Vital chart does not show fever episodes however the nursing notes overnight show low grade fevers up to 100.6F. Chest X-ray showing bilateral opacities. Procalcitonin was 11.91 but has improved to 1 now. Extubated and slowly improving. Currently no leukocytosis. Trend procalcitonin levels. Patient improving. Seen by speech therapy who deemed the patient to be very high risk for aspiration. Chest X-ray today showing right lober lobe pleural effusion and consolidation but unchanged from prior study. Objective - Vital Signs/Intake and Output Vital Signs (last 24 hours): Temp Pulse Resp BP Pulse Ox 98.1 F 78 26 H 109/57 L 43 L 05/09/17 04:59 05/09/17 15:20 05/09/17 15:20 05/09/17 12:00 05/09/17 10:20 Intake and Output: 05/09/17 05/09/17 06:59 18:59 Output Total 500 Balance -500 - Medications Medications: Current Medications Acetaminophen (Tylenol 325mg Tab) 650 mg PO Q4H PRN PRN Reason: Pain, Mild (1-3) Apixaban (Eliquis) 2.5 mg PO BID [facility] PRN Reason: Protocol Last Admin: 05/09/17 17:16 Dose: Not Given Carbidopa/Levodopa (Sinemet Cr) 1 tab PO TID [facility] Last Admin: 05/09/17 17:16 Dose: Not Given Digoxin (Lanoxin) 0.125 mg PO DAILY [facility] Last Admin: 05/09/17 10:43 Dose: 0.125 mg Divalproex Sodium (Depakote Sprinkles) 125 mg PO BID [facility] PRN Reason: Protocol Last Admin: 05/09/17 17:16 Dose: Not Given Docusate Sodium (Colace) 100 mg PO BID [facility] Last Admin: 05/09/17 17:15 Dose: Not Given Famotidine (Pepcid) 20 mg PO DAILY [facility] Last Admin: 05/09/17 10:45 Dose: 20 mg Cefepime HCl (Maxipime 1gm) 1 gm in 100 mls @ 100 mls/hr IVPB DAILY [facility] PRN Reason: Protocol Last Admin: 05/09/17 10:42 Dose: 100 mls/hr Methylprednisolone (Solu-Medrol) 40 mg IVP DAILY [facility] Last Admin: 05/09/17 10:48 Dose: 40 mg Polyethylene Glycol (Miralax) 17 gm PO DAILY [facility] Last Admin: 05/09/17 10:45 Dose: Not Given Risperidone (Risperdal Tab) 0.25 mg PO BID [facility] PRN Reason: Protocol Last Admin: 05/09/17 17:16 Dose: Not Given - Labs Labs: 05/09/17 05:00 05/09/17 05:00 PT 15.9 SECONDS (9.4-12.5) H 05/02/17 09:00 INR 1.37 (0.93-1.08) H 05/02/17 09:00 APTT 30.1 Seconds (25.1-36.5) 05/02/17 09:00 - Constitutional Appears: Non-toxic, No Acute Distress, Chronically Ill - Head Exam Head Exam: ATRAUMATIC, NORMOCEPHALIC - Eye Exam Eye Exam: EOMI, PERRL Pupil Exam: NORMAL ACCOMODATION, PERRL - ENT Exam ENT Exam: Mucous Membranes Moist, Normal External Ear Exam, TM's Normal Bilaterally - Neck Exam Neck Exam: Full ROM, Normal Inspection - Respiratory Exam Respiratory Exam: Decreased Breath Sounds, NORMAL BREATHING PATTERN. absent: Rales, Rhonchi, Wheezes - Cardiovascular Exam Cardiovascular Exam: REGULAR RHYTHM, RRR, +S1, +S2 - GI/Abdominal Exam GI & Abdominal Exam: Soft, Normal Bowel Sounds. absent: Distended, Tenderness - Extremities Exam Extremities Exam: Joint Swelling, Pedal Edema Additional comments: multiple pressure ulcers on legs. - Neurological Exam Neurological Exam: Alert, Awake, CN II-XII Intact, Oriented x3 - Psychiatric Exam Psychiatric exam: Normal Affect, Normal Mood - Skin Additional comments: Pressure ulcers in lower extremities bilaterally. Assessment and Plan - Assessment and Plan (Free Text) Assessment: 87 yo female with multiple comorbidities presented with severe SOB requiring intubation in the field. The patient is arousable now even with propofol on board. The patient remains intubated and ventilated at this time. Started on Vancomycin IV, Cefepime, and Azithromycin. Obtain procalcitonin value. Negative Influenza. Negative drug screen. Chest X-ray showing multifocal patchy and nodular opacities bilaterally, right greater than left. These finding were not seen in an Chest X-ray done on 04/25/2017 on the last hospitalization. Brown cultures and sputum cultures sent. Procalcitonin was 11.91 and with the Chest X-ray findings and intubation, severe pneumonia is part of the patient's medical issues. Continue on IV Vancomycin, Cefepime, and Azithromycin. Extubated 05/05/2017. Patient improving. Passed swallow study but deemed high risk for aspiration. Recheck procalcitonin value... value was 1.0. Leukocytosis resolves and is 5.1 now. Supportive care. The patient has an extensive and exhaustive medical history. Thank you for allowing me to participate in the care of the patient, we will follow with you.
--- NOTE | 2017-05-09 19:17 | PN ---
DATE: 05/09/2017 This is [facility] visit in the Intensive Care Unit for Dr. Magana. SUBJECTIVE: The patient is an 87-year-old female seen lying awake in bed with her son at the bedside, now discharged from the Intensive Care Unit; however, no beds are available. On the medical floor, the patient continue to occupy the ICU bed in the interim. She was admitted for COPD with sepsis and was noted to have respiratory failure, intubated and extubated. Dr. Magana was consulted due to a low platelet count which is now modestly improving possibly related to her acute disease process which has now modestly improved. Upon inspection of her physical exam, she appears to have beginnings of foot drop with recommendations for the patient's out of bed sitting with her feet flat on the floor in addition to physiotherapy at the bedside and Multi Podus boots to be made. She is otherwise, in no acute distress. OBJECTIVE/PHYSICAL EXAMINATION: VITAL SIGNS: Temperature 98.1, pulse 106, respirations 30, blood pressure of 111/42 with a pulse ox of 94%. GENERAL: She appears frail and cachectic with questions answered, yes or no. She has not suffered from schizophrenia. HEENT: Unremarkable. NECK: Supple. HEART: Regular rate. Occasional ectopic beats. LUNGS: Scattered rhonchi with decreased breath sounds at the right base. ABDOMEN: Scaphoid, soft. EXTREMITIES: No edema with what appears to be early foot drop with discomfort to pressure applied to the plantar surface. NEUROLOGIC: Awake and alert with decreased strength in the lower extremities. LABORATORY DATA: The patient's labs were done. White blood cell count of 9.3, hemoglobin 12.1, hematocrit of 38.0, platelet count of 115,000 up from a low of 87,000 two days prior. Her chem metabolic panel shows nonfasting glucose of 183 with a BUN of 22 and creatinine of 0.6 otherwise normal chem metabolic panel. The patient did have a chest x-ray done earlier today which was read as status post extubation change of the right lower lobe consolidation of right pleural effusion. ASSESSMENT AND PLAN: The assessment for this patient is that of chronic obstructive pulmonary disease, status post respiratory failure with intubation and extubation, pneumonia, Parkinson's disease, schizophrenia, atherosclerotic cardiovascular disease, gastroesophageal reflux disease, thrombocytopenia now improving, and early foot drop. PLAN: Plan for this patient is to have her out of bed with her feet flat on the floor with physiotherapy to begin range of motion. Multi Podus boots to be recommended and continuation of her present medical regimen. We will monitor clinically with labs. Primo Lopez MD
--- NOTE | 2017-05-10 00:36 | PN ---
DATE: 05/09/2017 Referring physician: Emily Vazquez MD SUBJECTIVE: She is lying in the bed at 45 degrees, son is at bedside, arousable. Follows simple commands. Has a cough, clearing secretion. Had two times dysphagia evaluation. On modified diet but according to nursing staff still choking after eating and suctioning a lot of food particle after eating from her pharynx and larynx. No hemoptysis, no hematemesis, hematuria, no diarrhea reported. OBJECTIVE: GENERAL: In no acute distress. VITAL SIGNS: Temperature is 98, heart rate 78, respiratory rate is 24, blood pressure 109/57, pulse ox is 92% on nasal cannula. HEENT: Small oral cavity. Crowded airway. NECK: Supple. No JVD. LUNGS: Has scattered rhonchi. HEART: S1 and S2. ABDOMEN: Soft, nontender. No organomegaly. EXTREMITIES: There is no edema. NEUROLOGIC: Awake and alert. Does follow simple commands. MEDICATIONS: Most of the p.o. medication is on hold. She received digoxin 0.125 mg, also on cefepime 1 g IV daily, Pepcid 20 mg daily, Solu-Medrol 40 mg daily, Tylenol p.r.n. basis. LABORATORY DATA: Shows hemoglobin 12.1, hematocrit 38.7, WBC 9.3, platelets is 115. Sodium 144, potassium 3.7, chloride 113, bicarbonate 20, BUN 22, creatinine 0.6, glucose 77, calcium 9.0, AST 21, ALT 13, alkaline phosphatase is 77. Albumin is 2.9. Chest x-ray done today shows no significant interval changes, bilateral infiltrate and left effusion. IMPRESSION AND PLAN: Status post respiratory failure, presently extubated on nasal cannula oxygen, obstructive lung disease, atrial fibrillation, bilateral pulmonary infiltrates, Parkinson disease, seasonal allergies, coronary artery disease, schizophrenia. Case discussed with nursing staff, also spoke to the patient's son. I also spoke to speech therapy recommended to repeat sleep study. I tend towards putting her n.p.o. high risk for respiratory failure, already have respiratory failure in the past. I believe she will benefit from a G-tube placement. Erika Reed MD
--- NOTE | 2017-05-10 01:09 | PN ---
DATE: SUBJECTIVE: The patient is seen and examined on the bedside. The patient's son Rayshawn was sitting on the bedside. The patient's cough is better, shortness of breath is better. No nausea or vomiting. No headache. No dizziness. The patient is poor historian. Does not look like in acute distress. The patient is transferred to the regular floor from ICU. No fever. No chills. No hematuria or hematochezia. PHYSICAL EXAMINATION: VITAL SIGNS: Temperature is 98.1, pulse 106, respiratory rate 30, blood pressure is 111/42 with pulse oximetry of 94%. HEENT: Head is normocephalic and atraumatic. Eyes, PERRLA. Extraocular muscles intact. Conjunctivae clear. Nose patent. Mucous membranes moist. NECK: Supple. No carotid bruits. No JVD or thyromegaly. CHEST: Bilaterally symmetrical. HEART: S1 and S2 positive. LUNGS: Clear to auscultation. ABDOMEN: Soft. Bowel sounds positive. No organomegaly. EXTREMITIES: No edema. No cyanosis. NEUROLOGIC: The patient is awake and alert. Moving all four extremities. No focal deficits. LABORATORY DATA: White blood cell is 9.3, hemoglobin 12.1, hematocrit 38.0, and platelets 115,000. BUN 22, creatinine 0.6, glucose 183. ASSESSMENT AND PLAN: Ms. Mary Beth Hu with chronic obstructive pulmonary disease, status post respiratory failure with intubation now extubated, pneumonia, Parkinson disease, schizophrenia, cardiovascular atherosclerotic disease, gastroesophageal reflux disease, thrombocytopenia, history of anemia, footdrop. Physical therapy. The patient seen by Dr. Elizabeth, Infectious Disease. Currently no leukocytosis. On admission, prolactin was very high, got vancomycin, cefepime and Azithromycin. The patient passed swallowing study, but deemed high risk for aspiration. Now, prolactin level dropped from 11.91 to 1. Supportive care. The patient went for chest x-ray today, according to Dr. Suh . Status post extubation, no significant interval change in the right lower lobe consolidation or right pleural effusion. We will continue present treatment, gastrointestinal prophylaxis. Repeat labs. We will follow up. Emily Vazquez MD [facility] # [id number] MTDDorian
[2017-05-10 07:41] LABS: EOS # 0.2 (0.0-0.7); EOS % 2.2 % (1.5-5.0); GRAN # 5.53 (1.4-6.5); HEMOGLOBIN 9.7 g/dL (12.0-16.0); LYMPH # 0.7 (1.2-3.4); LYMPH % 10.1 % (22.0-35.0); MEAN CORPUSCULAR HEMOGLOBIN 28.6 pg (25.0-35.0); MEAN CORPUSCULAR HGB CONC 31.1 g/dl (31.0-37.0); MEAN PLATELET VOLUME 11.8 fl (7.0-11.0); MONO # 0.5 (0.1-0.6); MONO % 6.7 % (1.0-6.0); RBC 3.39 10^6/uL (3.5-6.1); RED CELL DISTRIBUTION WIDTH 15.3 % (11.5-14.5); WHITE BLOOD COUNT 6.8 10^3/ul (4.5-11.0)
[2017-05-10 07:59] LABS: ALB/GLOB RATIO 0.9 (1.1-1.8); ALBUMIN 2.3 g/dL (3.0-4.8); ALT/SGPT 27 U/L (7-56); AST/SGOT 14 U/L (14-36); BLOOD UREA NITROGEN 19 mg/dL (7-21); CALCIUM 8.5 mg/dL (8.4-10.5); GFR AFRICAN-AMERICAN > 60; GFR NON-AFRICAN AMERICAN > 60
[2017-05-10] MEDS: MethylPREDNISolone 40 mg Vial IVP SCH (09:30)
[2017-05-10] MEDS: POLYETHYLENE GLYCOL 3350 17 GM/Dose PACKET PO SCH (09:30)
[2017-05-10] MEDS: Carbidopa/Levodopa 25/100 CR PO SCH ×3 (09:30→18:47)
[2017-05-10] MEDS: Divalproex 125 mg EC Sprinkle Cap PO SCH ×2 (09:30→18:46)
[2017-05-10] MEDS: Digoxin 125 mcg (0.125 mg) Tab PO SCH (09:33)
--- NOTE | 2017-05-10 12:15 | CP.PCM.PN ---
Subjective - Date & Time of Evaluation Date of Evaluation: 05/10/17 Time of Evaluation: 12:00 - Subjective Subjective: Alert, oriented to self and place Offers no complaints. Objective - Vital Signs/Intake and Output Vital Signs (last 24 hours): Temp Pulse Resp BP Pulse Ox 98.3 F 77 20 107/69 95 05/10/17 07:30 05/10/17 07:30 05/10/17 07:30 05/10/17 07:30 05/10/17 07:30 - Medications Medications: Current Medications Acetaminophen (Tylenol 325mg Tab) 650 mg PO Q4H PRN PRN Reason: Pain, Mild (1-3) Apixaban (Eliquis) 2.5 mg PO BID [facility] PRN Reason: Protocol Last Admin: 05/10/17 09:31 Dose: 2.5 mg Carbidopa/Levodopa (Sinemet Cr) 1 tab PO TID [facility] Last Admin: 05/10/17 09:30 Dose: 1 tab Digoxin (Lanoxin) 0.125 mg PO DAILY [facility] Last Admin: 05/10/17 09:33 Dose: 0.125 mg Divalproex Sodium (Depakote Sprinkles) 125 mg PO BID [facility] PRN Reason: Protocol Last Admin: 05/10/17 09:30 Dose: 125 mg Docusate Sodium (Colace) 100 mg PO BID [facility] Last Admin: 05/10/17 09:30 Dose: 100 mg Famotidine (Pepcid) 20 mg PO DAILY [facility] Last Admin: 05/10/17 09:30 Dose: 20 mg Methylprednisolone (Solu-Medrol) 40 mg IVP DAILY [facility] Last Admin: 05/10/17 09:30 Dose: 40 mg Polyethylene Glycol (Miralax) 17 gm PO DAILY [facility] Last Admin: 05/10/17 09:30 Dose: 17 gm Risperidone (Risperdal Tab) 0.25 mg PO BID [facility] PRN Reason: Protocol Last Admin: 05/10/17 09:30 Dose: 0.25 mg - Labs Labs: 05/10/17 07:00 05/10/17 07:00 PT 15.9 SECONDS (9.4-12.5) H 05/02/17 09:00 INR 1.37 (0.93-1.08) H 05/02/17 09:00 APTT 30.1 Seconds (25.1-36.5) 05/02/17 09:00 - Constitutional Appears: Cachectic, Chronically Ill - Head Exam Head Exam: NORMAL INSPECTION - Eye Exam Eye Exam: Normal appearance, PERRL - ENT Exam ENT Exam: Mucous Membranes Moist, Normal Oropharynx - Neck Exam Neck Exam: Normal Inspection - Respiratory Exam Respiratory Exam: Decreased Breath Sounds, Rhonchi, Wheezes - Cardiovascular Exam Cardiovascular Exam: Irregular Rhythm, +S1, +S2 - GI/Abdominal Exam GI & Abdominal Exam: Soft, Normal Bowel Sounds - Extremities Exam Extremities Exam: Normal Capillary Refill - Back Exam Back Exam: NORMAL INSPECTION - Skin Skin Exam: Dry, Warm Assessment and Plan - Assessment and Plan (Free Text) Assessment: 87 year old female with history of Parkinson disease,COPD, schizophrenia, CAD, HTN who was admitted with sepsis, pneumonia, [place], respiratory failure. She has since been extubated. The patient is alert, orient to self and place. She is resident of [facility]. She needs assist with al, ADL's. Primarily bed bound. Dysphagia, on aspiration precaution. Patients daughter/POA Khadijahhugh Hu at bedside. DNR/DNI status discussed with patient. She states I don't want "anything done". The patient states that her daughter Khadijah knows what she wants. POLST directive explained to daughter. POLST DNR/DNI directive completed, a copy is placed in the chart. Time spent with patient and family member in goals of care and advance car planning discussion, 20 minutes Plan: Goals of care Advance care Planning,POLST DNR/DNI
--- NOTE | 2017-05-10 17:54 | CP.PCM.PN ---
Subjective - Date & Time of Evaluation Date of Evaluation: 05/10/17 Time of Evaluation: 11:30 - Subjective Subjective: Chief complaint: Cough 87 yr female from [facility] w/ history of influenza, severe anemia, hypertension, COPD, C.diff, colitis, atrial fibrillation, seizure disorder, advanced dementia, parkinsons, CVA, bipolar, schizophrenia and hypothyroidism. Alert, awake, able to appropriately answer questions and able to follow simple commands. Pt's son at bedside. Encouraged to keep HOB 45 and use thickener with all fluids. Pt is able to eat solid foods. Denies headache, fever, chills, chest pain, constipation, diarrhea, or urinary changes. Objective - Vital Signs/Intake and Output Vital Signs (last 24 hours): Temp Pulse Resp BP Pulse Ox 97.9 F 80 20 99/53 L 96 05/10/17 16:08 05/10/17 16:08 05/10/17 16:08 05/10/17 16:08 05/10/17 16:08 Intake and Output: 05/10/17 05/10/17 06:59 18:59 Intake Total 240 Output Total 400 Balance -160 - Medications Medications: Current Medications Acetaminophen (Tylenol 325mg Tab) 650 mg PO Q4H PRN PRN Reason: Pain, Mild (1-3) Last Admin: 05/10/17 13:03 Dose: 650 mg Apixaban (Eliquis) 2.5 mg PO BID [facility] PRN Reason: Protocol Last Admin: 05/10/17 09:31 Dose: 2.5 mg Carbidopa/Levodopa (Sinemet Cr) 1 tab PO TID [facility] Last Admin: 05/10/17 14:30 Dose: 1 tab Digoxin (Lanoxin) 0.125 mg PO DAILY [facility] Last Admin: 05/10/17 09:33 Dose: 0.125 mg Divalproex Sodium (Depakote Sprinkles) 125 mg PO BID [facility] PRN Reason: Protocol Last Admin: 05/10/17 09:30 Dose: 125 mg Docusate Sodium (Colace) 100 mg PO BID [facility] Last Admin: 05/10/17 09:30 Dose: 100 mg Famotidine (Pepcid) 20 mg PO DAILY [facility] Last Admin: 05/10/17 09:30 Dose: 20 mg Methylprednisolone (Solu-Medrol) 40 mg IVP DAILY [facility] Last Admin: 05/10/17 09:30 Dose: 40 mg Polyethylene Glycol (Miralax) 17 gm PO DAILY [facility] Last Admin: 05/10/17 09:30 Dose: 17 gm Risperidone (Risperdal Tab) 0.25 mg PO BID [facility] PRN Reason: Protocol Last Admin: 05/10/17 09:30 Dose: 0.25 mg - Labs Labs: 05/10/17 07:00 05/10/17 07:00 PT 15.9 SECONDS (9.4-12.5) H 05/02/17 09:00 INR 1.37 (0.93-1.08) H 05/02/17 09:00 APTT 30.1 Seconds (25.1-36.5) 05/02/17 09:00 - Constitutional Appears: Chronically Ill - Head Exam Head Exam: ATRAUMATIC, NORMAL INSPECTION, NORMOCEPHALIC - Eye Exam Eye Exam: EOMI, Normal appearance, PERRL Pupil Exam: NORMAL ACCOMODATION, PERRL - ENT Exam ENT Exam: Mucous Membranes Moist, Normal Exam - Neck Exam Neck Exam: Full ROM, Normal Inspection. absent: Lymphadenopathy - Respiratory Exam Respiratory Exam: Decreased Breath Sounds, Rhonchi - Cardiovascular Exam Cardiovascular Exam: REGULAR RHYTHM, +S1, +S2. absent: Murmur - GI/Abdominal Exam GI & Abdominal Exam: Soft, Normal Bowel Sounds. absent: Tenderness - Exam Additional comments: Guaman catheter draining, clear yellow urine. - Extremities Exam Extremities Exam: Normal Capillary Refill, Normal Inspection - Neurological Exam Neurological Exam: Alert, Awake - Psychiatric Exam Psychiatric exam: Normal Affect, Normal Mood - Skin Skin Exam: Dry, Intact, Pallor, Warm Assessment and Plan (1) Acute electrocardiogram changes Status: Acute (2) Acute respiratory failure with hypoxia Status: Acute (3) Pneumonia Status: Acute (4) Anemia Status: Acute (5) COPD (chronic obstructive pulmonary disease) Status: Acute (6) Iron deficiency Status: Acute (7) Hypokalemia Status: Acute (8) Dysphagia Status: Acute (9) UTI (urinary tract infection) Status: Acute (10) Staph aureus infection Status: Acute (11) Infection due to Streptococcus gallolyticus Status: Acute - Assessment and Plan (Free Text) Plan: Aspiration precautions. IV solumedryl. VTE/GI prophlyaxis. s/p treatment for Suptum culture (+) staph aureus. Urine culture (+) str. gallolyticus ss pasteurian. Labs ordered. VTE/GI prophylaxis. PT, speech therapy on board. Possible G-tube placement per Dr. Reed recommendations. Consults: Motor And Controls Tester - Dr. Reed Palliative Care - LINE [employer]. Paramonte ID - Dr. Elizabeth Reviewed: CXR = 05/09 s/p extubation, R lower lobe consildation & R pleural effusion. CT head = generalized atrophy, nonspecific white matter changes CXR = no significant chage in perihilar infiltarate and vascular congestion, ET and NG tubes unchanged ECG = Afib w/ RVR, ST abn, possible anteroseptal subandocardial injury, new since 04/24/17 ECG
--- NOTE | 2017-05-10 19:22 | CP.PCM.PN ---
Subjective - Date & Time of Evaluation Date of Evaluation: 05/10/17 Time of Evaluation: 18:15 - Subjective Subjective: Infectious Disease Follow Up: May 10, 2017 87 yo female found in the field in respiratory distress and required intubation in the field. She was desaturating to 70% on room air in the field. She remains poorly responsive and remains intubated and ventilated. Unable to gain more history other than information in the chart. She was recently discharged from [facility] after evaluation for anemia and gastric polyps. She remains in the MICU intubated and ventilated. She is awake and appears alert. She can follow simple commands to the extent she is able while ventilated. Vital chart does not show fever episodes however the nursing notes overnight show low grade fevers up to 100.6F. Chest X-ray showing bilateral opacities. Procalcitonin was 11.91 but has improved to 1 now. Extubated and slowly improving. Currently no leukocytosis. Trend procalcitonin levels. Patient improving. Seen by speech therapy who deemed the patient to be very high risk for aspiration. Chest X-ray today showing right lober lobe pleural effusion and consolidation but unchanged from prior study. Supportive care. Objective - Vital Signs/Intake and Output Vital Signs (last 24 hours): Temp Pulse Resp BP Pulse Ox 97.9 F 80 20 99/53 L 96 05/10/17 16:08 05/10/17 16:08 05/10/17 16:08 05/10/17 16:08 05/10/17 16:08 Intake and Output: 05/10/17 05/11/17 18:59 06:59 Intake Total 240 Output Total 400 Balance -160 - Medications Medications: Current Medications Acetaminophen (Tylenol 325mg Tab) 650 mg PO Q4H PRN PRN Reason: Pain, Mild (1-3) Last Admin: 05/10/17 13:03 Dose: 650 mg Apixaban (Eliquis) 2.5 mg PO BID [facility] PRN Reason: Protocol Last Admin: 05/10/17 18:46 Dose: 2.5 mg Carbidopa/Levodopa (Sinemet Cr) 1 tab PO TID [facility] Last Admin: 05/10/17 18:47 Dose: 1 tab Digoxin (Lanoxin) 0.125 mg PO DAILY [facility] Last Admin: 05/10/17 09:33 Dose: 0.125 mg Divalproex Sodium (Depakote Sprinkles) 125 mg PO BID [facility] PRN Reason: Protocol Last Admin: 05/10/17 18:46 Dose: 125 mg Docusate Sodium (Colace) 100 mg PO BID [facility] Last Admin: 05/10/17 18:47 Dose: Not Given Famotidine (Pepcid) 20 mg PO DAILY [facility] Last Admin: 05/10/17 09:30 Dose: 20 mg Methylprednisolone (Solu-Medrol) 40 mg IVP DAILY [facility] Last Admin: 05/10/17 09:30 Dose: 40 mg Polyethylene Glycol (Miralax) 17 gm PO DAILY [facility] Last Admin: 05/10/17 09:30 Dose: 17 gm Risperidone (Risperdal Tab) 0.25 mg PO BID [facility] PRN Reason: Protocol Last Admin: 05/10/17 09:30 Dose: 0.25 mg - Labs Labs: 05/10/17 07:00 05/10/17 07:00 PT 15.9 SECONDS (9.4-12.5) H 05/02/17 09:00 INR 1.37 (0.93-1.08) H 05/02/17 09:00 APTT 30.1 Seconds (25.1-36.5) 05/02/17 09:00 - Constitutional Appears: Non-toxic, No Acute Distress, Chronically Ill - Head Exam Head Exam: ATRAUMATIC, NORMOCEPHALIC - Eye Exam Eye Exam: EOMI, PERRL Pupil Exam: NORMAL ACCOMODATION, PERRL - ENT Exam ENT Exam: Mucous Membranes Moist, Normal External Ear Exam, TM's Normal Bilaterally - Neck Exam Neck Exam: Full ROM, Normal Inspection - Respiratory Exam Respiratory Exam: Decreased Breath Sounds, NORMAL BREATHING PATTERN. absent: Rales, Rhonchi, Wheezes - Cardiovascular Exam Cardiovascular Exam: REGULAR RHYTHM, RRR, +S1, +S2 - GI/Abdominal Exam GI & Abdominal Exam: Soft, Normal Bowel Sounds. absent: Distended, Tenderness - Extremities Exam Extremities Exam: Joint Swelling, Pedal Edema Additional comments: multiple pressure ulcers on legs. - Neurological Exam Neurological Exam: Alert, Awake, CN II-XII Intact, Oriented x3 - Psychiatric Exam Psychiatric exam: Normal Affect, Normal Mood - Skin Additional comments: Pressure ulcers in lower extremities bilaterally. Assessment and Plan - Assessment and Plan (Free Text) Assessment: 87 yo female with multiple comorbidities presented with severe SOB requiring intubation in the field. The patient is arousable now even with propofol on board. The patient remains intubated and ventilated at this time. Started on Vancomycin IV, Cefepime, and Azithromycin. Obtain procalcitonin value. Negative Influenza. Negative drug screen. Chest X-ray showing multifocal patchy and nodular opacities bilaterally, right greater than left. These finding were not seen in an Chest X-ray done on 04/25/2017 on the last hospitalization. Brown cultures and sputum cultures sent. Procalcitonin was 11.91 and with the Chest X-ray findings and intubation, severe pneumonia is part of the patient's medical issues. Continue on IV Vancomycin, Cefepime, and Azithromycin. Extubated 05/05/2017. Patient improving. Passed swallow study but deemed high risk for aspiration. Recheck procalcitonin value... value was 1.0. Leukocytosis resolves and is 5.1 now. Supportive care. The patient has an extensive and exhaustive medical history. Thank you for allowing me to participate in the care of the patient, we will follow with you.
--- NOTE | 2017-05-11 00:01 | PN ---
DATE: 05/10/2017 PULMONARY PROGRESS NOTE REFERRING PHYSICIAN: Emily Vazquez MD SUBJECTIVE: The patient is lying in the bed, head at 45 degrees. Awake and alert. Has some cough. Unable to clear pulmonary secretion. No hemoptysis. No hematemesis. No hematuria. No diarrhea reported. OBJECTIVE: GENERAL: In no acute distress. VITAL SIGNS: Temperature is 98, heart rate is 80, respiratory rate is 20, blood pressure is 99/53, and pulse ox of 96% on 2 L nasal cannula. HEENT: Moist mucous membrane. Small oral cavity. Crowded airway. NECK: Supple. No JVD. LUNGS: Has a scattered rhonchi. HEART: S1 and S2. ABDOMEN: Soft and nontender. No organomegaly. EXTREMITIES: There is no edema. NEUROLOGICAL: Awake, alert, and follow simple commands. MEDICATIONS: She is on Colace 100 mg twice a day, Depakote 125 mg twice a day, Eliquis 2.5 mg twice a day, digoxin 0.125 mg daily, 17 g daily, Pepcid 20 mg daily, Risperdal 0.25 mg twice a day, Sinemet 1 tab three times a day, Solu-Medrol 40 mg daily, and Tylenol p.r.n. basis. LABORATORY DATA: Shows hemoglobin of 9.7, hematocrit of 31.2, WBC of 6.8, and platelet count is 126. Sodium is 144, potassium is 3.2, chloride is 112, bicarbonate is 26, BUN is 19, creatinine is 0.6, glucose is 68, and calcium is 8.5. AST is 14, ALT is 27, alkaline phosphatase is 57, and albumin is 2.3. DIAGNOSTIC DATA: Chest x-ray done yesterday shows right lower lobe consolidation and small effusion. IMPRESSION AND PLAN: Status post respiratory failure extubated on nasal cannula, obstructive lung disease; atrial fibrillation, bilateral pulmonary infiltrate, Parkinson's disease; seasonal allergies; coronary artery disease; schizophrenia; severe oropharyngeal dysphagia. Palliative care note reviewed. The patient became do not resuscitate and do not intubate. Very high risk for respiratory failure. Need the patient sitting up while feeding. Need close monitoring. Continue supportive care. Thank you and we will follow with you. Erika Reed MD [facility] # [id number]
[2017-05-11 08:30] LABS: HEMOGLOBIN 10.1 g/dL (12.0-16.0); MEAN CELL VOLUME 91.1 fl (80.0-105.0); MEAN CORPUSCULAR HGB CONC 31.9 g/dl (31.0-37.0); MEAN PLATELET VOLUME 11.4 fl (7.0-11.0); RBC 3.48 10^6/uL (3.5-6.1); RED CELL DISTRIBUTION WIDTH 15.3 % (11.5-14.5); WHITE BLOOD COUNT 7.5 10^3/ul (4.5-11.0)
[2017-05-11 08:42] LABS: ALB/GLOB RATIO 0.9 (1.1-1.8); ALBUMIN 2.3 g/dL (3.0-4.8); ALT/SGPT 28 U/L (7-56); AST/SGOT 13 U/L (14-36); BLOOD UREA NITROGEN 20 mg/dL (7-21); CALCIUM 8.4 mg/dL (8.4-10.5); GFR AFRICAN-AMERICAN > 60; GFR NON-AFRICAN AMERICAN > 60
[2017-05-11] MEDS: POLYETHYLENE GLYCOL 3350 17 GM/Dose PACKET PO SCH (10:48)
[2017-05-11] MEDS: Carbidopa/Levodopa 25/100 CR PO SCH ×3 (10:48→18:09)
[2017-05-11] MEDS: MethylPREDNISolone 40 mg Vial IVP SCH (10:48)
[2017-05-11] MEDS: Divalproex 125 mg EC Sprinkle Cap PO SCH ×2 (10:49→18:09)
[2017-05-11] MEDS: Digoxin 125 mcg (0.125 mg) Tab PO SCH (10:50)
--- NOTE | 2017-05-11 12:39 | CP.PCM.PN ---
Subjective - Date & Time of Evaluation Date of Evaluation: 05/11/17 (..) Time of Evaluation: 12:35 - Subjective Subjective: Patient seen and examined at bedside. Patient is alert this morning with no acute events overnight. Patient states she is hungry. Patient also admits to intermittent back pain, that is chronic for her. Denies chest pain, nausea, vomiting, diarrhea, shortness of breath, fever, chills. Objective - Vital Signs/Intake and Output Vital Signs (last 24 hours): Temp Pulse Resp BP Pulse Ox 97.9 F 69 20 100/51 L 99 05/11/17 07:30 05/11/17 07:30 05/11/17 07:30 05/11/17 07:30 05/11/17 07:30 Intake and Output: 05/11/17 05/11/17 06:59 18:59 Intake Total 720 Output Total 300 Balance 420 - Medications Medications: Current Medications Acetaminophen (Tylenol 325mg Tab) 650 mg PO Q4H PRN PRN Reason: Pain, Mild (1-3) Last Admin: 05/10/17 13:03 Dose: 650 mg Albuterol/Ipratropium (Duoneb 3 Mg/0.5 Mg (3 Ml) Ud) 3 ml I[facility] [id number] [facility] Apixaban (Eliquis) 2.5 mg PO BID [facility] PRN Reason: Protocol Last Admin: 05/11/17 10:49 Dose: 2.5 mg Carbidopa/Levodopa (Sinemet Cr) 1 tab PO TID [facility] Last Admin: 05/11/17 10:48 Dose: 1 tab Digoxin (Lanoxin) 0.125 mg PO DAILY [facility] Last Admin: 05/11/17 10:50 Dose: 0.125 mg Divalproex Sodium (Depakote Sprinkles) 125 mg PO BID [facility] PRN Reason: Protocol Last Admin: 05/11/17 10:49 Dose: 125 mg Docusate Sodium (Colace) 100 mg PO BID [facility] Last Admin: 05/11/17 10:50 Dose: Not Given Famotidine (Pepcid) 20 mg PO DAILY [facility] Last Admin: 05/11/17 10:49 Dose: 20 mg Potassium Chloride (Potassium Chloride 20 Meq/100 Ml) 20 meq in 100 mls @ 50 mls/hr IVPB Q2H [facility] Stop: 05/11/17 12:59 Last Admin: 05/11/17 10:48 Dose: 50 mls/hr Methylprednisolone (Solu-Medrol) 40 mg IVP DAILY [facility] Last Admin: 05/11/17 10:48 Dose: 40 mg Polyethylene Glycol (Miralax) 17 gm PO DAILY [facility] Last Admin: 05/11/17 10:48 Dose: 17 gm Risperidone (Risperdal Tab) 0.25 mg PO BID [facility] PRN Reason: Protocol Last Admin: 05/11/17 10:49 Dose: 0.25 mg - Labs Labs: 05/11/17 08:00 05/11/17 08:00 PT 15.9 SECONDS (9.4-12.5) H 05/02/17 09:00 INR 1.37 (0.93-1.08) H 05/02/17 09:00 APTT 30.1 Seconds (25.1-36.5) 05/02/17 09:00 - Constitutional Appears: Non-toxic, No Acute Distress - Head Exam Head Exam: ATRAUMATIC, NORMAL INSPECTION, NORMOCEPHALIC - ENT Exam ENT Exam: Mucous Membranes Moist, Normal Exam - Respiratory Exam Respiratory Exam: Decreased Breath Sounds, NORMAL BREATHING PATTERN - Cardiovascular Exam Cardiovascular Exam: RRR, +S1, +S2 - GI/Abdominal Exam GI & Abdominal Exam: Soft, Normal Bowel Sounds. absent: Tenderness - Extremities Exam Extremities Exam: Normal Inspection. absent: Calf Tenderness, Pedal Edema Additional comments: Wounds bandaged - Neurological Exam Neurological Exam: Alert, Awake, Oriented x3 - Psychiatric Exam Psychiatric exam: Normal Affect, Normal Mood - Skin Skin Exam: Intact, Normal Color, Warm Assessment and Plan - Assessment and Plan (Free Text) Plan: 87 y/o F with PMH of Hypertension, Gastric Polyps, Cholelithiasis, Atrial Fibrillation, Advanced Dementia, History of Pneumonia, Psychosis, Schizophrenia , Parkinson's, COPD presents with resolving HCAP and thrombocytopenia secondary to sepsis. Platelet count within normal limits at this time with resolving sepsis. Hemoglobin remains stable. Patient recently made DNR/DNI. Patient's prognosis is guarded. Continue current medical regimen. Will continue to monitor closely. Plan discussed with Dr. Magana. Queenie, PGY-2
[2017-05-11] MEDS: Albuterol-Ipratrop 3 mg / 0.5 (3 ml) UD IH SCH ×2 (13:33→21:00)
--- NOTE | 2017-05-11 18:58 | CP.PCM.PN ---
Subjective - Date & Time of Evaluation Date of Evaluation: 05/11/17 Time of Evaluation: 17:00 - Subjective Subjective: Infectious Disease Follow Up: May 11, 2017 87 yo female found in the field in respiratory distress and required intubation in the field. She was desaturating to 70% on room air in the field. She remains poorly responsive and remains intubated and ventilated. Unable to gain more history other than information in the chart. She was recently discharged from [facility] after evaluation for anemia and gastric polyps. She remains in the MICU intubated and ventilated. She is awake and appears alert. She can follow simple commands to the extent she is able while ventilated. Vital chart does not show fever episodes however the nursing notes overnight show low grade fevers up to 100.6F. Chest X-ray showing bilateral opacities. Procalcitonin was 11.91 but has improved to 1 now. Extubated and slowly improving. Currently no leukocytosis. Trend procalcitonin levels. Patient improving. Seen by speech therapy who deemed the patient to be very high risk for aspiration. Chest X-ray today showing right lober lobe pleural effusion and consolidation but unchanged from prior study. Supportive care. Objective - Vital Signs/Intake and Output Vital Signs (last 24 hours): Temp Pulse Resp BP Pulse Ox 97.9 F 69 20 100/51 L 99 05/11/17 07:30 05/11/17 07:30 05/11/17 07:30 05/11/17 07:30 05/11/17 07:30 Intake and Output: 05/11/17 05/11/17 06:59 18:59 Intake Total 720 Output Total 300 Balance 420 - Medications Medications: Current Medications Acetaminophen (Tylenol 325mg Tab) 650 mg PO Q4H PRN PRN Reason: Pain, Mild (1-3) Last Admin: 05/11/17 15:40 Dose: 650 mg Albuterol/Ipratropium (Duoneb 3 Mg/0.5 Mg (3 Ml) Ud) 3 ml IH [id number] [facility] Last Admin: 05/11/17 13:33 Dose: 3 ml Apixaban (Eliquis) 2.5 mg PO BID [facility] PRN Reason: Protocol Last Admin: 05/11/17 18:09 Dose: 2.5 mg Carbidopa/Levodopa (Sinemet Cr) 1 tab PO TID [facility] Last Admin: 05/11/17 18:09 Dose: 1 tab Digoxin (Lanoxin) 0.125 mg PO DAILY [facility] Last Admin: 05/11/17 10:50 Dose: 0.125 mg Divalproex Sodium (Depakote Sprinkles) 125 mg PO BID [facility] PRN Reason: Protocol Last Admin: 05/11/17 18:09 Dose: 125 mg Docusate Sodium (Colace) 100 mg PO BID [facility] Last Admin: 05/11/17 18:11 Dose: Not Given Famotidine (Pepcid) 20 mg PO DAILY [facility] Last Admin: 05/11/17 10:49 Dose: 20 mg Methylprednisolone (Solu-Medrol) 40 mg IVP DAILY [facility] Last Admin: 05/11/17 10:48 Dose: 40 mg Polyethylene Glycol (Miralax) 17 gm PO DAILY [facility] Last Admin: 05/11/17 10:48 Dose: 17 gm Risperidone (Risperdal Tab) 0.25 mg PO BID [facility] PRN Reason: Protocol Last Admin: 05/11/17 18:08 Dose: 0.25 mg - Labs Labs: 05/11/17 08:00 05/11/17 08:00 PT 15.9 SECONDS (9.4-12.5) H 05/02/17 09:00 INR 1.37 (0.93-1.08) H 05/02/17 09:00 APTT 30.1 Seconds (25.1-36.5) 05/02/17 09:00 - Constitutional Appears: Non-toxic, No Acute Distress, Chronically Ill - Head Exam Head Exam: ATRAUMATIC, NORMOCEPHALIC - Eye Exam Eye Exam: EOMI, PERRL Pupil Exam: NORMAL ACCOMODATION, PERRL - ENT Exam ENT Exam: Mucous Membranes Moist, Normal External Ear Exam, TM's Normal Bilaterally - Neck Exam Neck Exam: Full ROM, Normal Inspection - Respiratory Exam Respiratory Exam: Decreased Breath Sounds, NORMAL BREATHING PATTERN. absent: Rales, Rhonchi, Wheezes - Cardiovascular Exam Cardiovascular Exam: REGULAR RHYTHM, RRR, +S1, +S2 - GI/Abdominal Exam GI & Abdominal Exam: Soft, Normal Bowel Sounds. absent: Distended, Tenderness - Extremities Exam Extremities Exam: Joint Swelling, Pedal Edema Additional comments: multiple pressure ulcers on legs. - Neurological Exam Neurological Exam: Alert, Awake, CN II-XII Intact, Oriented x3 - Psychiatric Exam Psychiatric exam: Normal Affect, Normal Mood - Skin Additional comments: Pressure ulcers in lower extremities bilaterally. Assessment and Plan - Assessment and Plan (Free Text) Assessment: 87 yo female with multiple comorbidities presented with severe SOB requiring intubation in the field. The patient is arousable now even with propofol on board. The patient remains intubated and ventilated at this time. Started on Vancomycin IV, Cefepime, and Azithromycin. Obtain procalcitonin value. Negative Influenza. Negative drug screen. Chest X-ray showing multifocal patchy and nodular opacities bilaterally, right greater than left. These finding were not seen in an Chest X-ray done on 04/25/2017 on the last hospitalization. Brown cultures and sputum cultures sent. Procalcitonin was 11.91 and with the Chest X-ray findings and intubation, severe pneumonia is part of the patient's medical issues. Continue on IV Vancomycin, Cefepime, and Azithromycin. Extubated 05/05/2017. Patient improving. Passed swallow study but deemed high risk for aspiration. Last procalcitonin value was 1.0. Leukocytosis resolved and is 7.5 now. Supportive care. The patient has an extensive and exhaustive medical history. Questions on the patient ability to eat without aspiration. Thank you for allowing me to participate in the care of the patient, we will follow with you.
--- NOTE | 2017-05-12 01:29 | PN ---
DATE: The patient is 87 years old female. SUBJECTIVE: The patient was seen and examined at the bedside. Looking comfortable. Still coughing, having shortness of breath, and congested. No acute event overnight, tolerating food very well. No chest pain. No nausea, vomiting, or diarrhea. No hematuria or hematochezia. No fever. No chills. PHYSICAL EXAMINATION: VITAL SIGNS: Temperature is 97.9, pulse 69, respiratory rate 20, blood pressure is 100/51 with pulse oximetry of 99%. HEENT: Head is normocephalic and atraumatic. Eyes, PERRLA. Extraocular muscles intact. Conjunctivae clear. Nose patent. Mucous membranes moist. NECK: Supple. No carotid bruits. No JVD or thyromegaly. CHEST: Bilaterally symmetrical. HEART: S1 and S2 positive. LUNGS: Positive wheezing bilaterally. ABDOMEN: Soft. Bowel sounds positive. No organomegaly. EXTREMITIES: No edema. No cyanosis. NEUROLOGIC: The patient is awake and alert. Moving all four extremities. No focal deficits. MEDICATIONS: Tylenol, DuoNeb, Sinemet, Lanoxin, Depakote, Colace, Pepcid, potassium, Solu-Medrol, and MiraLAX. LABORATORY DATA: White blood cell 7.5, hemoglobin 10.1, hematocrit 31.7, and platelets 152. Sodium 145, potassium 2.9, BUN 20, creatinine 0.6, glucose 77. ASSESSMENT AND PLAN: Ms. Clinton with anemia, hyperchloremia, severe hyperkalemia replaced, history of hypertension, gastric polyps, cholelithiasis, atrial fibrillation, dementia, history of pneumonia, rule out aspiration pneumonia, psychosis, schizophrenia, Parkinson's disease, chronic obstructive pulmonary disease, has resolving HCAP, thrombocytopenia secondary to sepsis. Her platelet count is within normal limits. At this time, sepsis is resolving. The patient is do not resuscitate and do not intubate. The patient's prognosis is guaranteed. Continue present medical treatment and DuoNeb treatment, repeat labs. We will follow up. Emily Vazquez MD
--- NOTE | 2017-05-12 02:46 | PN ---
DATE: 05/11/2017 REFERRING PHYSICIAN: Emily Vazquez MD SUBJECTIVE: The patient is lying in the bed, head at 45 degrees status post DNI. Has some cough, unable to clear pulmonary secretions. No hemoptysis. No hematochezia. No hematuria. No diarrhea reported. PHYSICAL EXAMINATION: GENERAL: In no acute distress. VITAL SIGNS: Temperature is 98, heart rate is 83, respiratory rate is 20, blood pressure 117/46, and pulse oximetry 96% on 2 liters nasal cannula. HEENT: Moist mucous membrane. Small oral cavity. Crowded airway. NECK: Supple. No JVD. LUNGS: Have scattered rhonchi. Few crackles at the bases. HEART: S1 and S2. ABDOMEN: Soft and nontender. No organomegaly. EXTREMITIES: No edema. NEUROLOGIC: Awake and alert, follows simple commands. MEDICATIONS: She has Brovana 50 mcg inhaled twice a day, Claritin 10 mg daily, Colace 100 mg twice a day, Depakote 125 mg twice a day, DuoNeb q.6 hours, Eliquis 2.5 mg twice a day, digoxin 0.125 mg daily, MiraLAX 17 gm daily, Pepcid 20 mg daily, Pulmicort inhaled twice a day, Risperdal 0.25 mg twice a day, Sinemet one tablet three times a day, Singulair 10 mg daily, Solu-Medrol 40 mg daily, Tylenol p.r.n. basis. LABORATORY DATA: Hemoglobin 10.1, hematocrit 31.7, WBC 7.5, and platelet count is 152,000. Sodium 145, potassium 2.9, chloride 110, bicarbonate 28, BUN 20, creatinine 0.6, glucose 77, calcium 8.4, magnesium 2.2, AST 13, ALT 28, alkaline phosphatase 50, and albumin is 2.3. ASSESSMENT AND PLAN: Status post respiratory failure, presently extubated, multilobar pneumonia probably aspiration, chronic lung disease, atrial fibrillation, Parkinson's disease, seasonal allergies, coronary artery disease, history of schizophrenia, severe oropharyngeal dysphagia. Recommended a G-tube. Family wishes supportive care. High-risk for recurrent aspiration and respiratory failure. Continue bronchodilators, antibiotics p.r.n. bronch suction. Thank you and we will follow with you. Erika Reed MD
[2017-05-12] MEDS: Albuterol-Ipratrop 3 mg / 0.5 (3 ml) UD IH SCH ×4 (03:10→20:50)
[2017-05-12 07:13] LABS: HEMOGLOBIN 9.4 g/dL (12.0-16.0); MEAN CELL VOLUME 91.7 fl (80.0-105.0); MEAN CORPUSCULAR HEMOGLOBIN 28.7 pg (25.0-35.0); MEAN CORPUSCULAR HGB CONC 31.3 g/dl (31.0-37.0); MEAN PLATELET VOLUME 10.5 fl (7.0-11.0); RBC 3.27 10^6/uL (3.5-6.1); RED CELL DISTRIBUTION WIDTH 15.5 % (11.5-14.5); WHITE BLOOD COUNT 7.2 10^3/ul (4.5-11.0)
[2017-05-12] MEDS: Budesonide 0.5 mg/2 ml Inhal Susp UD IH SCH ×2 (07:27→20:50)
[2017-05-12] MEDS: Arformoterol 15 mcg/2 ml Inh Sol IH SCH ×2 (07:27→20:50)
[2017-05-12 07:47] LABS: ALB/GLOB RATIO 0.9 (1.1-1.8); ALBUMIN 2.4 g/dL (3.0-4.8); ALT/SGPT 23 U/L (7-56); AST/SGOT 15 U/L (14-36); BLOOD UREA NITROGEN 20 mg/dL (7-21); CALCIUM 8.4 mg/dL (8.4-10.5); GFR AFRICAN-AMERICAN > 60; GFR NON-AFRICAN AMERICAN > 60
[2017-05-12] MEDS: Digoxin 125 mcg (0.125 mg) Tab PO SCH (09:42)
[2017-05-12] MEDS: Carbidopa/Levodopa 25/100 CR PO SCH ×3 (09:49→18:28)
[2017-05-12] MEDS: Divalproex 125 mg EC Sprinkle Cap PO SCH ×2 (09:50→18:28)
[2017-05-12] MEDS: MethylPREDNISolone 40 mg Vial IVP SCH (09:51)
[2017-05-12] MEDS: POLYETHYLENE GLYCOL 3350 17 GM/Dose PACKET PO SCH (09:51)
--- NOTE | 2017-05-12 11:18 | CP.PCM.PN ---
Subjective - Date & Time of Evaluation Date of Evaluation: 05/12/17 Time of Evaluation: 11:16 - Subjective Subjective: Patient seen and examined at bedside. Patient with no acute events overnight. Patient with mild respiratory distress this morning, but resolved after breathing treatment. Patient states back pain is well controlled with medication. Denies chest pain, nausea, vomiting, diarrhea, fever, chills. Objective - Vital Signs/Intake and Output Vital Signs (last 24 hours): Temp Pulse Resp BP Pulse Ox 97.9 F 73 20 91/43 L 98 05/12/17 07:30 05/12/17 07:30 05/12/17 07:30 05/12/17 07:30 05/12/17 07:30 Intake and Output: 05/12/17 05/12/17 06:59 18:59 Intake Total 60 Output Total 100 Balance -40 - Medications Medications: Current Medications Acetaminophen (Tylenol 325mg Tab) 650 mg PO Q4H PRN PRN Reason: Pain, Mild (1-3) Last Admin: 05/11/17 15:40 Dose: 650 mg Albuterol/Ipratropium (Duoneb 3 Mg/0.5 Mg (3 Ml) Ud) 3 ml IH [id number] [facility] Last Admin: 05/12/17 07:27 Dose: 3 ml Apixaban (Eliquis) 2.5 mg PO BID [facility] PRN Reason: Protocol Last Admin: 05/12/17 09:48 Dose: 2.5 mg Arformoterol Tartrate (Brovana) 15 mcg IH [id number] [facility] Last Admin: 05/12/17 07:27 Dose: 15 mcg Budesonide (Pulmicort Respules) 1 mg IH [id number] [facility] Last Admin: 05/12/17 07:27 Dose: 1 mg Carbidopa/Levodopa (Sinemet Cr) 1 tab PO TID [facility] Last Admin: 05/11/17 18:09 Dose: 1 tab Digoxin (Lanoxin) 0.125 mg PO DAILY [facility] Last Admin: 05/12/17 09:42 Dose: 0.125 mg Divalproex Sodium (Depakote Sprinkles) 125 mg PO BID [facility] PRN Reason: Protocol Last Admin: 05/12/17 09:50 Dose: 125 mg Docusate Sodium (Colace) 100 mg PO BID [facility] Last Admin: 05/12/17 09:48 Dose: 100 mg Famotidine (Pepcid) 20 mg PO DAILY [facility] Last Admin: 05/12/17 09:48 Dose: 20 mg Loratadine (Claritin) 10 mg PO DAILY [facility] Last Admin: 05/12/17 09:47 Dose: 10 mg Methylprednisolone (Solu-Medrol) 40 mg IVP DAILY [facility] Last Admin: 05/12/17 09:51 Dose: 40 mg Montelukast Sodium (Singulair) 10 mg PO DAILY [facility] Last Admin: 05/12/17 09:42 Dose: 10 mg Polyethylene Glycol (Miralax) 17 gm PO DAILY [facility] Last Admin: 05/12/17 09:51 Dose: 17 gm Risperidone (Risperdal Tab) 0.25 mg PO BID [facility] PRN Reason: Protocol Last Admin: 05/12/17 09:49 Dose: 0.25 mg - Labs Labs: 05/12/17 06:30 05/12/17 06:30 PT 15.9 SECONDS (9.4-12.5) H 05/02/17 09:00 INR 1.37 (0.93-1.08) H 05/02/17 09:00 APTT 30.1 Seconds (25.1-36.5) 05/02/17 09:00 - Constitutional Appears: Non-toxic, No Acute Distress - Head Exam Head Exam: ATRAUMATIC, NORMAL INSPECTION, NORMOCEPHALIC - ENT Exam ENT Exam: Mucous Membranes Moist - Respiratory Exam Respiratory Exam: Decreased Breath Sounds, NORMAL BREATHING PATTERN. absent: Rhonchi, Wheezes - Cardiovascular Exam Cardiovascular Exam: Tachycardia, REGULAR RHYTHM, +S1, +S2 - GI/Abdominal Exam GI & Abdominal Exam: Soft, Normal Bowel Sounds. absent: Tenderness - Extremities Exam Extremities Exam: Normal Inspection. absent: Calf Tenderness, Pedal Edema Additional comments: Lower extremity wounds bandaged - Neurological Exam Neurological Exam: Alert, Awake, Oriented x3 - Psychiatric Exam Psychiatric exam: Normal Affect, Normal Mood - Skin Skin Exam: Intact, Normal Color, Warm Assessment and Plan - Assessment and Plan (Free Text) Plan: 87 y/o F with PMH of Hypertension, Gastric Polyps, Cholelithiasis, Atrial Fibrillation, Advanced Dementia, History of Pneumonia, Psychosis, Schizophrenia , Parkinson's, COPD presented with HCAP and thrombocytopenia secondary to sepsis , both which have now resolved. Platelet count within normal limits at this time. Hemoglobin remains stable. Patient recently made DNR/DNI. Patient's prognosis is guarded. Continue current medical regimen. Will continue to monitor closely. Plan discussed with Dr. Magana. Queenie, PGY-2
--- NOTE | 2017-05-12 13:22 | CP.PCM.PN ---
<Kasia Bell - Last Filed: 05/12/17 13:19> Subjective - Date & Time of Evaluation Date of Evaluation: 05/12/17 Time of Evaluation: 11:40 - Subjective Subjective: Chief complaint: Cough 87 yr female from [facility] w/ history of influenza, severe anemia, hypertension, COPD, C.diff, colitis, atrial fibrillation, seizure disorder, advanced dementia, parkinsons, CVA, bipolar, schizophrenia and hypothyroidism. Alert, awake, able to appropriately answer questions and able to follow simple commands. Pt's son, Rayshawn, at bedside. Encouraged to keep HOB 45 and use thickener with all fluids. Pt recently made DNR/DNI; prognosis is guarded. Pt is able to eat solid foods. Denies headache, fever, chills, chest pain, constipation, diarrhea, or urinary changes. Objective - Vital Signs/Intake and Output Vital Signs (last 24 hours): Temp Pulse Resp BP Pulse Ox 97.9 F 73 20 91/43 L 98 05/12/17 07:30 05/12/17 07:30 05/12/17 07:30 05/12/17 07:30 05/12/17 07:30 Intake and Output: 05/12/17 05/12/17 06:59 18:59 Intake Total 60 Output Total 100 Balance -40 - Medications Medications: Current Medications Acetaminophen (Tylenol 325mg Tab) 650 mg PO Q4H PRN PRN Reason: Pain, Mild (1-3) Last Admin: 05/11/17 15:40 Dose: 650 mg Albuterol/Ipratropium (Duoneb 3 Mg/0.5 Mg (3 Ml) Ud) 3 ml IH [id number] [facility] Last Admin: 05/12/17 07:27 Dose: 3 ml Apixaban (Eliquis) 2.5 mg PO BID [facility] PRN Reason: Protocol Last Admin: 05/12/17 09:48 Dose: 2.5 mg Arformoterol Tartrate (Brovana) 15 mcg IH [id number] [facility] Last Admin: 05/12/17 07:27 Dose: 15 mcg Budesonide (Pulmicort Respules) 1 mg IH [id number] [facility] Last Admin: 05/12/17 07:27 Dose: 1 mg Carbidopa/Levodopa (Sinemet Cr) 1 tab PO TID [facility] Last Admin: 05/11/17 18:09 Dose: 1 tab Digoxin (Lanoxin) 0.125 mg PO DAILY [facility] Last Admin: 05/12/17 09:42 Dose: 0.125 mg Divalproex Sodium (Depakote Sprinkles) 125 mg PO BID [facility] PRN Reason: Protocol Last Admin: 05/12/17 09:50 Dose: 125 mg Docusate Sodium (Colace) 100 mg PO BID [facility] Last Admin: 05/12/17 09:48 Dose: 100 mg Famotidine (Pepcid) 20 mg PO DAILY [facility] Last Admin: 05/12/17 09:48 Dose: 20 mg Loratadine (Claritin) 10 mg PO DAILY [facility] Last Admin: 05/12/17 09:47 Dose: 10 mg Methylprednisolone (Solu-Medrol) 40 mg IVP DAILY [facility] Last Admin: 05/12/17 09:51 Dose: 40 mg Montelukast Sodium (Singulair) 10 mg PO DAILY [facility] Last Admin: 05/12/17 09:42 Dose: 10 mg Polyethylene Glycol (Miralax) 17 gm PO DAILY [facility] Last Admin: 05/12/17 09:51 Dose: 17 gm Risperidone (Risperdal Tab) 0.25 mg PO BID [facility] PRN Reason: Protocol Last Admin: 05/12/17 09:49 Dose: 0.25 mg - Labs Labs: 05/12/17 06:30 05/12/17 06:30 PT 15.9 SECONDS (9.4-12.5) H 05/02/17 09:00 INR 1.37 (0.93-1.08) H 05/02/17 09:00 APTT 30.1 Seconds (25.1-36.5) 05/02/17 09:00 - Constitutional Appears: Chronically Ill - Head Exam Head Exam: ATRAUMATIC, NORMAL INSPECTION, NORMOCEPHALIC - Eye Exam Eye Exam: EOMI, Normal appearance, PERRL Pupil Exam: NORMAL ACCOMODATION, PERRL - ENT Exam ENT Exam: Mucous Membranes Moist, Normal Exam - Neck Exam Neck Exam: Full ROM, Normal Inspection. absent: Lymphadenopathy - Respiratory Exam Respiratory Exam: Decreased Breath Sounds, Clear to Ausculation Bilateral, NORMAL BREATHING PATTERN - Cardiovascular Exam Cardiovascular Exam: REGULAR RHYTHM, +S1, +S2. absent: Murmur - GI/Abdominal Exam GI & Abdominal Exam: Soft, Normal Bowel Sounds. absent: Tenderness - Exam Additional comments: Guaman catheter draining, clear yellow urine. - Extremities Exam Extremities Exam: Full ROM, Normal Capillary Refill, Normal Inspection. absent : Joint Swelling, Pedal Edema - Back Exam Back Exam: NORMAL INSPECTION - Neurological Exam Neurological Exam: Alert, Awake - Psychiatric Exam Psychiatric exam: Normal Affect, Normal Mood - Skin Skin Exam: Dry, Pallor, Warm Assessment and Plan (1) Acute electrocardiogram changes Status: Acute (2) Acute respiratory failure with hypoxia Status: Acute (3) Pneumonia Status: Acute (4) Anemia Status: Acute (5) COPD (chronic obstructive pulmonary disease) Status: Acute (6) Iron deficiency Status: Acute (7) Hypokalemia Status: Acute (8) Dysphagia Status: Acute (9) UTI (urinary tract infection) Status: Acute (10) Staph aureus infection Status: Acute (11) Infection due to Streptococcus gallolyticus Status: Acute - Assessment and Plan (Free Text) Plan: Aspiration precautions. IV solumedryl. VTE/GI prophlyaxis. s/p treatment for Sputum culture (+) staph aureus. Urine culture (+) str. gallolyticus ss pasteurian. Labs ordered. VTE/GI prophylaxis. PT, speech therapy on board. Pt refused possible G-tube placement per Dr. Reed recommendations. Consults: [facility] - Dr. Reed Palliative Care - [facility]. [place] ID - Dr. Elizabeth Hemo/Onc - Dr. Magana Reviewed: CXR = 05/09 s/p extubation, R lower lobe consildation & R pleural effusion. CT head = generalized atrophy, nonspecific white matter changes CXR = no significant chage in perihilar infiltarate and vascular congestion, ET and NG tubes unchanged ECG = Afib w/ RVR, ST abn, possible anteroseptal subandocardial injury, new since 04/24/17 ECG <Emily Vazquez - Last Filed: 05/12/17 20:43> Objective - Vital Signs/Intake and Output Vital Signs (last 24 hours): Temp Pulse Resp BP Pulse Ox 98.4 F 86 20 70/39 L 98 05/12/17 18:47 05/12/17 18:47 05/12/17 18:47 05/12/17 18:47 05/12/17 18:47 Intake and Output: 05/12/17 05/13/17 18:59 06:59 Intake Total 360 Output Total 300 Balance 60 - Medications Medications: Current Medications Acetaminophen (Tylenol 325mg Tab) 650 mg PO Q4H PRN PRN Reason: Pain, Mild (1-3) Last Admin: 05/11/17 15:40 Dose: 650 mg Albuterol/Ipratropium (Duoneb 3 Mg/0.5 Mg (3 Ml) Ud) 3 ml IH [id number] [facility] Last Admin: 05/12/17 13:44 Dose: 3 ml Apixaban (Eliquis) 2.5 mg PO BID [facility] PRN Reason: Protocol Last Admin: 05/12/17 18:28 Dose: 2.5 mg Arformoterol Tartrate (Brovana) 15 mcg IH [id number] [facility] Last Admin: 05/12/17 07:27 Dose: 15 mcg Budesonide (Pulmicort Respules) 1 mg IH [id number] [facility] Last Admin: 05/12/17 07:27 Dose: 1 mg Carbidopa/Levodopa (Sinemet Cr) 1 tab PO TID [facility] Last Admin: 05/12/17 18:28 Dose: 1 tab Digoxin (Lanoxin) 0.125 mg PO DAILY [facility] Last Admin: 05/12/17 09:42 Dose: 0.125 mg Divalproex Sodium (Depakote Sprinkles) 125 mg PO BID [facility] PRN Reason: Protocol Last Admin: 05/12/17 18:28 Dose: 125 mg Docusate Sodium (Colace) 100 mg PO BID [facility] Last Admin: 05/12/17 18:28 Dose: 100 mg Famotidine (Pepcid) 20 mg PO DAILY [facility] Last Admin: 05/12/17 09:48 Dose: 20 mg Loratadine (Claritin) 10 mg PO DAILY [facility] Last Admin: 05/12/17 09:47 Dose: 10 mg Methylprednisolone (Solu-Medrol) 40 mg IVP DAILY [facility] Last Admin: 05/12/17 09:51 Dose: 40 mg Montelukast Sodium (Singulair) 10 mg PO DAILY [facility] Last Admin: 05/12/17 09:42 Dose: 10 mg Polyethylene Glycol (Miralax) 17 gm PO DAILY [facility] Last Admin: 05/12/17 09:51 Dose: 17 gm Risperidone (Risperdal Tab) 0.25 mg PO BID [facility] PRN Reason: Protocol Last Admin: 05/12/17 18:28 Dose: 0.25 mg - Labs Labs: 05/12/17 06:30 05/12/17 06:30 PT 15.9 SECONDS (9.4-12.5) H 05/02/17 09:00 INR 1.37 (0.93-1.08) H 05/02/17 09:00 APTT 30.1 Seconds (25.1-36.5) 05/02/17 09:00 Assessment and Plan - Assessment and Plan (Free Text) Plan: 87 yr female from [facility] w/ history of influenza, severe anemia, hypertension, COPD, C.diff, colitis, atrial fibrillation, seizure disorder, advanced dementia, parkinsons, CVA, bipolar, schizophrenia and hypothyroidism. Alert, awake, able to appropriately answer questions and able to follow simple commands. Pt's son, Rayshawn, at bedside. Encouraged to keep HOB 45 and use thickener with all fluids. Pt recently made DNR/DNI; prognosis is guarded. Pt is able to eat solid foods. Denies headache, fever, chills, chest pain, constipation, diarrhea, or urinary changes. pt is seen and examined at bed side looking comfortable , d/d with [facility] , agreed all above , will f/u
--- NOTE | 2017-05-12 14:54 | CP.PCM.PN ---
Subjective - Date & Time of Evaluation Date of Evaluation: 05/12/17 Time of Evaluation: 14:15 - Subjective Subjective: Infectious Disease Follow Up: May 12, 2017 87 yo female found in the field in respiratory distress and required intubation in the field. She was desaturating to 70% on room air in the field. She remains poorly responsive and remains intubated and ventilated. Unable to gain more history other than information in the chart. She was recently discharged from [facility] after evaluation for anemia and gastric polyps. She remains in the MICU intubated and ventilated. She is awake and appears alert. She can follow simple commands to the extent she is able while ventilated. Vital chart does not show fever episodes however the nursing notes overnight show low grade fevers up to 100.6F. Chest X-ray showing bilateral opacities. Procalcitonin was 11.91 but has improved to 1 now. Extubated and slowly improving. Currently no leukocytosis. Trend procalcitonin levels. Patient improving. Seen by speech therapy who deemed the patient to be very high risk for aspiration. Last Chest X-ray showing right lober lobe pleural effusion and consolidation but unchanged from prior study. Supportive care. Dr. Reed suggested feeding tube or G-tube placement but the patient has been opposed to that decision. Objective - Vital Signs/Intake and Output Vital Signs (last 24 hours): Temp Pulse Resp BP Pulse Ox 97.9 F 73 20 91/43 L 98 05/12/17 07:30 05/12/17 07:30 05/12/17 07:30 05/12/17 07:30 05/12/17 07:30 Intake and Output: 05/12/17 05/12/17 06:59 18:59 Intake Total 60 Output Total 100 Balance -40 - Medications Medications: Current Medications Acetaminophen (Tylenol 325mg Tab) 650 mg PO Q4H PRN PRN Reason: Pain, Mild (1-3) Last Admin: 05/11/17 15:40 Dose: 650 mg Albuterol/Ipratropium (Duoneb 3 Mg/0.5 Mg (3 Ml) Ud) 3 ml IH [id number] [facility] Last Admin: 05/12/17 13:44 Dose: 3 ml Apixaban (Eliquis) 2.5 mg PO BID [facility] PRN Reason: Protocol Last Admin: 05/12/17 09:48 Dose: 2.5 mg Arformoterol Tartrate (Brovana) 15 mcg IH [id number] [facility] Last Admin: 05/12/17 07:27 Dose: 15 mcg Budesonide (Pulmicort Respules) 1 mg IH [id number] [facility] Last Admin: 05/12/17 07:27 Dose: 1 mg Carbidopa/Levodopa (Sinemet Cr) 1 tab PO TID [facility] Last Admin: 05/11/17 18:09 Dose: 1 tab Digoxin (Lanoxin) 0.125 mg PO DAILY [facility] Last Admin: 05/12/17 09:42 Dose: 0.125 mg Divalproex Sodium (Depakote Sprinkles) 125 mg PO BID [facility] PRN Reason: Protocol Last Admin: 05/12/17 09:50 Dose: 125 mg Docusate Sodium (Colace) 100 mg PO BID [facility] Last Admin: 05/12/17 09:48 Dose: 100 mg Famotidine (Pepcid) 20 mg PO DAILY [facility] Last Admin: 05/12/17 09:48 Dose: 20 mg Loratadine (Claritin) 10 mg PO DAILY [facility] Last Admin: 05/12/17 09:47 Dose: 10 mg Methylprednisolone (Solu-Medrol) 40 mg IVP DAILY [facility] Last Admin: 05/12/17 09:51 Dose: 40 mg Montelukast Sodium (Singulair) 10 mg PO DAILY [facility] Last Admin: 05/12/17 09:42 Dose: 10 mg Polyethylene Glycol (Miralax) 17 gm PO DAILY [facility] Last Admin: 05/12/17 09:51 Dose: 17 gm Risperidone (Risperdal Tab) 0.25 mg PO BID [facility] PRN Reason: Protocol Last Admin: 05/12/17 09:49 Dose: 0.25 mg - Labs Labs: 05/12/17 06:30 05/12/17 06:30 PT 15.9 SECONDS (9.4-12.5) H 05/02/17 09:00 INR 1.37 (0.93-1.08) H 05/02/17 09:00 APTT 30.1 Seconds (25.1-36.5) 05/02/17 09:00 - Constitutional Appears: Non-toxic, No Acute Distress, Chronically Ill - Head Exam Head Exam: ATRAUMATIC, NORMOCEPHALIC - Eye Exam Eye Exam: EOMI, PERRL Pupil Exam: NORMAL ACCOMODATION, PERRL - ENT Exam ENT Exam: Mucous Membranes Moist, Normal External Ear Exam, TM's Normal Bilaterally - Neck Exam Neck Exam: Full ROM, Normal Inspection - Respiratory Exam Respiratory Exam: Clear to Ausculation Bilateral, NORMAL BREATHING PATTERN. absent: Rhonchi, Wheezes, Respiratory Distress - Cardiovascular Exam Cardiovascular Exam: REGULAR RHYTHM, RRR, +S1, +S2 - GI/Abdominal Exam GI & Abdominal Exam: Soft, Normal Bowel Sounds. absent: Distended, Tenderness - Extremities Exam Extremities Exam: Joint Swelling, Pedal Edema Additional comments: multiple pressure ulcers on legs. - Neurological Exam Neurological Exam: Alert, Awake, CN II-XII Intact, Oriented x3 - Psychiatric Exam Psychiatric exam: Normal Affect, Normal Mood - Skin Additional comments: Pressure ulcers in lower extremities bilaterally. Assessment and Plan - Assessment and Plan (Free Text) Assessment: 87 yo female with multiple comorbidities presented with severe SOB requiring intubation in the field. The patient is arousable now even with propofol on board. The patient remains intubated and ventilated at this time. Started on Vancomycin IV, Cefepime, and Azithromycin. Obtain procalcitonin value. Negative Influenza. Negative drug screen. Chest X-ray showing multifocal patchy and nodular opacities bilaterally, right greater than left. These finding were not seen in an Chest X-ray done on 04/25/2017 on the last hospitalization. Brown cultures and sputum cultures sent. Procalcitonin was 11.91 and with the Chest X-ray findings and intubation, severe pneumonia is part of the patient's medical issues. Continue on IV Vancomycin, Cefepime, and Azithromycin. Extubated 05/05/2017. Patient improving. Passed swallow study but deemed high risk for aspiration. Last procalcitonin value was 1.0. Leukocytosis resolved and is 7.5 now. Supportive care. The patient has an extensive and exhaustive medical history. Questions on the patient ability to eat without aspiration. G-tube recommended by Dr. Reed but patient refused this recommendation. Thank you for allowing me to participate in the care of the patient, we will follow with you.
--- NOTE | 2017-05-12 20:28 | PN ---
DATE: PULMONARY PROGRESS NOTE REFERRING PHYSICIAN: Dr. Emily Vazquez SUBJECTIVE: She is lying in the bed, head at 45 degrees, getting nebulizer treatment, still having cough, unable to clear pulmonary secretions. No hemoptysis. No hematochezia. No hematuria. No diarrhea reported. OBJECTIVE: GENERAL: In no acute distress. VITAL SIGNS: Temperature is 98, heart rate is 77, respiratory rate is 20, blood pressure 91/43, and pulse ox 98% on 3 L nasal cannula. HEENT: Small oral cavity. Crowded airway. NECK: Supple. No JVD. LUNGS: Have scattered rhonchi. HEART: S1 and S2. ABDOMEN: Soft and nontender. No organomegaly. EXTREMITIES: No edema. NEUROLOGIC: Awake and alert and follows simple commands. MEDICATIONS: She is on Brovana inhaled twice day, Claritin 10 mg daily, Colace 100 mg twice a day, Depakote 125 mg twice a day, DuoNeb q.6 hours, Eliquis 2.5 mg twice a day, digoxin 0.125 mg daily, MiraLax 17 gm daily, Pepcid 20 mg daily, Pulmicort inhaled twice a day, Risperdal 0.25 mg twice a day, Sinemet one tablet three times a day, Singulair 10 mg daily, Solu-Medrol 40 mg IV daily, Tylenol p.r.n. basis. LABORATORY DATA: Shows hemoglobin 9.4, hematocrit 30.0, WBC 7.2, and platelet is 149. Sodium 140, potassium 3.5, chloride 109, bicarbonate 23, BUN 20, creatinine 0.6, glucose 87, calcium is 8.4, AST 15, ALT 23, alkaline phosphatase is 60, and albumin is 2.4. IMPRESSION AND PLAN: Status post respiratory failure probably secondary to aspiration, presently extubated, on supplement oxygen, chronic lung disease, atrial fibrillation, Parkinson's disease, seasonal allergies, coronary artery disease, schizophrenia, oropharyngeal dysphagia. Family refused G-tube. Patient [id number] and [id number], on supportive care. Understanding patient high risk for recurrent aspiration and respiratory failure. Thank you and we will follow with you. Erika Reed MD [facility] # [id number]
[2017-05-13 07:14] LABS: HEMOGLOBIN 8.3 g/dL (12.0-16.0); MEAN CELL VOLUME 91.4 fl (80.0-105.0); MEAN CORPUSCULAR HEMOGLOBIN 28.6 pg (25.0-35.0); MEAN CORPUSCULAR HGB CONC 31.3 g/dl (31.0-37.0); MEAN PLATELET VOLUME 10.3 fl (7.0-11.0); RBC 2.9 10^6/uL (3.5-6.1); RED CELL DISTRIBUTION WIDTH 15.5 % (11.5-14.5); WHITE BLOOD COUNT 5.4 10^3/ul (4.5-11.0)
[2017-05-13] MEDS: Arformoterol 15 mcg/2 ml Inh Sol IH SCH ×2 (07:33→20:03)
[2017-05-13] MEDS: Budesonide 0.5 mg/2 ml Inhal Susp UD IH SCH ×2 (07:33→20:03)
[2017-05-13] MEDS: Albuterol-Ipratrop 3 mg / 0.5 (3 ml) UD IH SCH ×3 (07:34→20:03)
[2017-05-13 08:24] LABS: ALB/GLOB RATIO 0.9 (1.1-1.8); ALBUMIN 2.2 g/dL (3.0-4.8); ALT/SGPT 20 U/L (7-56); AST/SGOT 15 U/L (14-36); BLOOD UREA NITROGEN 20 mg/dL (7-21); CALCIUM 8.1 mg/dL (8.4-10.5); GFR AFRICAN-AMERICAN > 60; GFR NON-AFRICAN AMERICAN > 60
[2017-05-13] MEDS: POLYETHYLENE GLYCOL 3350 17 GM/Dose PACKET PO SCH (10:22)
[2017-05-13] MEDS: MethylPREDNISolone 40 mg Vial IVP SCH (10:22)
[2017-05-13] MEDS: Divalproex 125 mg EC Sprinkle Cap PO SCH ×2 (10:23→18:04)
[2017-05-13] MEDS: Carbidopa/Levodopa 25/100 CR PO SCH ×3 (10:23→18:00)
[2017-05-13] MEDS: Digoxin 125 mcg (0.125 mg) Tab PO SCH (10:23)
--- NOTE | 2017-05-13 16:30 | PN ---
DATE: 05/13/2017 This is [facility] visit. For Dr. Magana. SUBJECTIVE: The patient is an 87-year-old female seen lying awake in bed with her son at the bedside, in no acute distress. Tolerating her diet. The patient is known to have been discharged from Intensive Care Unit for exacerbation of COPD with respiratory failure, intubated and extubated with the patient noted to have a low platelet count, which has continued to improve. She is otherwise in no acute distress. OBJECTIVE PHYSICAL EXAMINATION: VITAL SIGNS: Temperature 99.1, pulse 84, respirations 19, blood pressure 122/92, pulse ox 99%. GENERAL: She appears cachectic and lying in bed, contorted to certain degree. HEENT: Otherwise unremarkable. NECK: Supple. HEART: Regular rate with occasional ectopic beats. LUNGS: Rare rhonchi with decreased breath sounds in the right. ABDOMEN: Scaphoid, soft. EXTREMITIES: No edema with questionable continued possible early foot drop. She has no Multi Podus boots on at this point. We will recommend to start them. I would have the feet flat on the floor. NEUROLOGIC: Awake and alert with decreased strength of lower extremities with the patient answering in one-word sentences to any questions. LABORATORY DATA: The patient's labs were done. White blood cell count of 5.4, hemoglobin of 8.3, hematocrit 26.5, platelet count of 145,000. Yesterday's hemoglobin was 9.4, we will repeat it tomorrow. Monitor clinically as the patient has been followed for her labs with anemic indices now noted as the patient is now hydrated. Platelet count is now 145,000, up from a value of 87,000 on 05/07/2017. The patient's chem metabolic panel was within normal limits with a nonfasting glucose of 67, total protein of 4.7, albumin of 2.2, otherwise within normal range. Calcium of 8.1. ASSESSMENT: The assessment for this patient is that of thrombocytopenia, possibly reactive that is now improving with time; chronic obstructive pulmonary disease, status post respiratory failure with intubation and extubation; pneumonia, Parkinson disease; schizophrenia; atherosclerotic cardiovascular disease; gastroesophageal reflux disease; early foot drop. PLAN: The plan for this patient after conversation with Dr. Magana is to continue present medical regimen. We will ask for labs to repeat in the morning with consideration for transfusion versus other recommendations as per her labs in the morning. Also recommend the patient be out of bed to chair with feet flat on the floor or Multi Podus boots or a firm shoe to prevent foot drop. We will monitor clinically with labs. Primo Lopez MD
--- NOTE | 2017-05-13 17:58 | CP.PCM.PN ---
Subjective - Date & Time of Evaluation Date of Evaluation: 05/13/17 Time of Evaluation: 17:30 - Subjective Subjective: Infectious Disease Follow Up: May 13, 2017 87 yo female found in the field in respiratory distress and required intubation in the field. She was desaturating to 70% on room air in the field. She remains poorly responsive and remains intubated and ventilated. Unable to gain more history other than information in the chart. She was recently discharged from [facility] after evaluation for anemia and gastric polyps. She remains in the MICU intubated and ventilated. She is awake and appears alert. She can follow simple commands to the extent she is able while ventilated. Vital chart does not show fever episodes however the nursing notes overnight show low grade fevers up to 100.6F. Chest X-ray showing bilateral opacities. Procalcitonin was 11.91 but has improved to 1 now. Extubated and slowly improving. Currently no leukocytosis. Trend procalcitonin levels. Patient improving. Seen by speech therapy who deemed the patient to be very high risk for aspiration. Last Chest X-ray showing right lober lobe pleural effusion and consolidation but unchanged from prior study. Supportive care. Potassium replaced. Dr. Reed suggested feeding tube or G-tube placement but the patient has been opposed to that decision. Patient is DNI/DNR now. Objective - Vital Signs/Intake and Output Vital Signs (last 24 hours): Temp Pulse Resp BP Pulse Ox 99.1 F 84 19 100/44 L 99 05/13/17 07:30 05/13/17 07:30 05/13/17 07:30 05/13/17 16:30 05/13/17 07:30 Intake and Output: 05/13/17 05/13/17 06:59 18:59 Intake Total 360 160 Output Total 500 500 Balance -140 -340 - Medications Medications: Current Medications Acetaminophen (Tylenol 325mg Tab) 650 mg PO Q4H PRN PRN Reason: Pain, Mild (1-3) Last Admin: 05/11/17 15:40 Dose: 650 mg Albuterol/Ipratropium (Duoneb 3 Mg/0.5 Mg (3 Ml) Ud) 3 ml IH [id number] [facility] Last Admin: 05/13/17 13:30 Dose: 3 ml Apixaban (Eliquis) 2.5 mg PO BID [facility] PRN Reason: Protocol Last Admin: 05/13/17 10:23 Dose: 2.5 mg Arformoterol Tartrate (Brovana) 15 mcg IH [id number] [facility] Last Admin: 05/13/17 07:33 Dose: 15 mcg Budesonide (Pulmicort Respules) 1 mg IH [id number] [facility] Last Admin: 05/13/17 07:33 Dose: 1 mg Carbidopa/Levodopa (Sinemet Cr) 1 tab PO TID [facility] Last Admin: 05/13/17 13:18 Dose: 1 tab Digoxin (Lanoxin) 0.125 mg PO DAILY [facility] Last Admin: 05/13/17 10:23 Dose: 0.125 mg Divalproex Sodium (Depakote Sprinkles) 125 mg PO BID [facility] PRN Reason: Protocol Last Admin: 05/13/17 10:23 Dose: 125 mg Docusate Sodium (Colace) 100 mg PO BID [facility] Last Admin: 05/13/17 10:23 Dose: 100 mg Famotidine (Pepcid) 20 mg PO DAILY [facility] Last Admin: 05/13/17 10:23 Dose: 20 mg Loratadine (Claritin) 10 mg PO DAILY [facility] Last Admin: 05/13/17 10:22 Dose: 10 mg Methylprednisolone (Solu-Medrol) 40 mg IVP DAILY [facility] Last Admin: 05/13/17 10:22 Dose: 40 mg Montelukast Sodium (Singulair) 10 mg PO DAILY [facility] Last Admin: 05/13/17 10:23 Dose: 10 mg Polyethylene Glycol (Miralax) 17 gm PO DAILY [facility] Last Admin: 05/13/17 10:22 Dose: 17 gm Risperidone (Risperdal Tab) 0.25 mg PO BID [facility] PRN Reason: Protocol Last Admin: 05/13/17 10:22 Dose: 0.25 mg - Labs Labs: 05/13/17 06:30 05/13/17 06:30 PT 15.9 SECONDS (9.4-12.5) H 05/02/17 09:00 INR 1.37 (0.93-1.08) H 05/02/17 09:00 APTT 30.1 Seconds (25.1-36.5) 05/02/17 09:00
--- NOTE | 2017-05-14 00:48 | PN ---
PULMONARY PROGRESS NOTE REFERRING PHYSICIAN: Emily Vazquez MD. SUBJECTIVE: She is lying in the bed, head at 45 degrees. Nursing staff and bedside. Has some cough. Unable to clear pulmonary secretions. No nausea. No vomiting. No diarrhea. No leg pain. No leg swelling. OBJECTIVE: GENERAL: In no acute distress. VITAL SIGNS: Temperature is 99, heart rate is 84, respiratory rate is 20, blood pressure is 100/44, and pulse ox is 99% on 2 L nasal cannula. HEENT: Moist mucous membrane. Small oral cavity. Crowded airway. NECK: Supple. No JVD. LUNGS: Has scattered rhonchi and crackles. HEART: S1 and S2. ABDOMEN: Soft and nontender. No organomegaly. EXTREMITIES: No edema. NEUROLOGICAL: Awake, alert, and follows simple command. MEDICATIONS: She is on Brovana inhaled twice a day, Claritin 10 mg daily, Colace 100 mg twice a day, Depakote 125 mg twice a day, DuoNeb q. 6 hour, Eliquis 2.5 mg twice a day, digoxin 0.125 mg daily, MiraLax 17 g p.o. daily, Pepcid 20 mg daily, Pulmicort inhaled twice a day, Risperdal 0.25 mg twice a day, Sinemet one tab three times a day, Singulair 10 mg daily, Solu-Medrol 40 mg daily, Tylenol p.r.n. basis. LABORATORY DATA: Shows hemoglobin 8.3, hematocrit 26.5, WBC 5.4, platelet is 145. Sodium 143, potassium 3.6, chloride 108, bicarbonate 29, BUN 20, creatinine 0.7, glucose 67, calcium is 8.1. AST 15, ALT 20, alk phos is 54, albumin is 2.2 IMPRESSION AND PLAN: Status post respiratory failure, presently extubated on nasal cannula, recurrent aspiration with pneumonia, chronic lung disease, atrial fibrillation, Parkinson's disease, seasonal allergies, coronary artery disease, history of schizophrenia, oropharyngeal dysphagia. I spoke to nursing staff. Continue supportive care. Discontinue Solu-Medrol. Placed on prednisone 20 mg a day for next 4 to 5 days. Aspiration precaution. Gastric prophylaxis. Anticoagulation. Thank you and we will follow with you. Erika Reed MD
[2017-05-14] MEDS: Albuterol-Ipratrop 3 mg / 0.5 (3 ml) UD IH SCH ×3 (01:44→13:47)
[2017-05-14 07:19] LABS: EOS # 0.1 (0.0-0.7); LYMPH # 0.4 (1.2-3.4)
[2017-05-14 07:41] LABS: ALB/GLOB RATIO 0.8 (1.1-1.8); ALBUMIN 2.3 g/dL (3.0-4.8); ALT/SGPT 18 U/L (7-56); AST/SGOT 18 U/L (14-36); BLOOD UREA NITROGEN 18 mg/dL (7-21); GFR AFRICAN-AMERICAN > 60; GFR NON-AFRICAN AMERICAN > 60
[2017-05-14 08:04] VITALS: BP 95/57; PULSE 79; RESP 22; TEMP 98.7; O2SAT 98
[2017-05-14] MEDS: Arformoterol 15 mcg/2 ml Inh Sol IH SCH (08:08)
[2017-05-14] MEDS: Budesonide 0.5 mg/2 ml Inhal Susp UD IH SCH (08:10)
[2017-05-14 08:14] LABS: BASO # 0.01 K/mm3 (0.0-2.0); BASO % 0.2 % (0.0-3.0); EOS % 2.3 % (1.5-5.0); GRAN # 4.17 (1.4-6.5); GRAN % 80.8 % (50.0-68.0); LYMPH % 7.8 % (22.0-35.0); MEAN CELL VOLUME 91.1 fl (80.0-105.0); MEAN CORPUSCULAR HEMOGLOBIN 28.8 pg (25.0-35.0); MEAN CORPUSCULAR HGB CONC 31.6 g/dl (31.0-37.0); MEAN PLATELET VOLUME 9.7 fl (7.0-11.0); MONO # 0.5 (0.1-0.6); MONO % 8.9 % (1.0-6.0); RBC 3.13 10^6/uL (3.5-6.1); RED CELL DISTRIBUTION WIDTH 15.7 % (11.5-14.5); WHITE BLOOD COUNT 5.2 10^3/ul (4.5-11.0)
[2017-05-14] MEDS: POLYETHYLENE GLYCOL 3350 17 GM/Dose PACKET PO SCH (09:00)
[2017-05-14] MEDS: Digoxin 125 mcg (0.125 mg) Tab PO SCH (09:01)
[2017-05-14] MEDS: Divalproex 125 mg EC Sprinkle Cap PO SCH (09:01)
[2017-05-14] MEDS: Carbidopa/Levodopa 25/100 CR PO SCH (09:01)
--- NOTE | 2017-05-14 09:07 | PN ---
DATE: 05/13/2017 SUBJECTIVE: The patient is an 87-year-old female. The patient seen and examined on the bedside. Looking comfortable. Still coughing and shortness of breath. Son was sitting on the bedside and feeding the mother, does not look like in acute distress, tolerating her diet. No fever. No chills. No nausea, vomiting, or diarrhea. The patient has history of respiratory failure, but was extubated. Family refused the PEG tube. PHYSICAL EXAMINATION: VITAL SIGNS: Temperature 99.1, pulse 84, respiratory rate 19, blood pressure 122/92, pulse oximetry 99%. HEENT: Head normocephalic and atraumatic. Eyes PERRLA. Extraocular muscles intact. Conjunctivae clear. Nose patent. Mucous membranes moist. NECK: Supple. No carotid bruits or thyromegaly. CHEST: Bilaterally symmetrical. HEART: S1 and S2 positive. LUNGS: Clear to auscultation. ABDOMEN: Soft. Bowel sounds present. No organomegaly. EXTREMITIES: No edema and no cyanosis. NEUROLOGIC: The patient is awake and alert. Moving all four extremities. No focal deficits. LABORATORY DATA: White blood cell is 5.4, hemoglobin 8.3, hematocrit 26.5, platelets 145. Sodium 143, potassium 3.6, BUN 20, and creatinine 0.7, glucose 137, glucose is 67 today. Calcium 8.1. ASSESSMENT AND PLAN: Ms. Mary Beth Hu is an 87-year-old lady with anemia; hyperchloremia; hypocalcemia; proteinuria; ketonuria; hematuria; urinary tract infection; history of hyperchloremia; history of respiratory failure requiring intubation, now extubated; history of aspiration, seen by speech therapist, who deemed the patient to be very high risk of aspiration. Last chest x-ray showing right lower lobe pleural effusion and consolidation, but unchanged from prior study. Supportive care. Hypokalemia, potassium replaced. Dr. Reed suggested a feeding tube due to placement, but the patient has been opposed to that decision. The patient is Do Not Intubate and Do Not Resuscitate. Son was sitting on the bedside. Discussion done with the son. The patient has a history of chronic obstructive pulmonary disease, asthma, parkinsonism, atrial fibrillation, history of seasonal allergies, coronary artery disease, schizophrenia, oropharyngeal dysphagia. The patient was getting Solu-Medrol, now we changed it into p.o. prednisone. Gastrointestinal and deep vein thrombosis prophylaxis. Repeat labs. We will follow up. Emily Vazquez MD
[2017-05-14 09:13] VITALS: PULSE 76
--- NOTE | 2017-05-14 10:39 | CP.PCM.DIS ---
<ArabellaKasia Drea - Last Filed: 05/14/17 10:34> Provider - Provider Date of Admission: 05/02/17 11:32 Attending physician: Emily Vazquez MD Primary care physician: Emily Vazquez MD Consults: [employer] - Dr. Reed Palliative Care - [employer]. [place] ID - Dr. Eilzabeth Hemo/Onc - Dr. Magana Time Spent in preparation of Discharge (in minutes): 45 Diagnosis - Discharge Diagnosis (1) Acute electrocardiogram changes Status: Acute (2) Acute respiratory failure with hypoxia Status: Acute (3) Pneumonia Status: Acute (4) Anemia Status: Acute (5) COPD (chronic obstructive pulmonary disease) Status: Acute (6) Iron deficiency Status: Acute (7) Hypokalemia Status: Acute (8) Dysphagia Status: Acute (9) UTI (urinary tract infection) Status: Acute (10) Staph aureus infection Status: Acute (11) Infection due to Streptococcus gallolyticus Status: Acute Hospital Course - Lab Results Lab Results: Micro Results 05/02/17 17:30 Trachasp Gram Stain - Final 05/02/17 17:30 Trachasp Sputum Culture - Final Staphylococcus Aureus 05/02/17 14:30 Naris MRSA Culture (Admit) - Final MRSA NOT DETECTED Most Recent Lab Values WBC 5.2 10^3/ul (4.5-11.0) 05/14/17 06:45 RBC 3.13 10^6/uL (3.5-6.1) L 05/14/17 06:45 Hgb 9.0 g/dL (12.0-16.0) L 05/14/17 06:45 Hct 28.5 % (36.0-48.0) L 05/14/17 06:45 MCV 91.1 fl (80.0-105.0) 05/14/17 06:45 MCH 28.8 pg (25.0-35.0) 05/14/17 06:45 MCHC 31.6 g/dl (31.0-37.0) 05/14/17 06:45 RDW 15.7 % (11.5-14.5) H 05/14/17 06:45 Plt Count 129 10^3/uL (120.0-450.0) 05/14/17 06:45 MPV 9.7 fl (7.0-11.0) 05/14/17 06:45 Gran % 80.8 % (50.0-68.0) H 05/14/17 06:45 Lymph % (Auto) 7.8 % (22.0-35.0) L 05/14/17 06:45 [place] % (Auto) 8.9 % (1.0-6.0) H 05/14/17 06:45 Eos % (Auto) 2.3 % (1.5-5.0) 05/14/17 06:45 Baso % (Auto) 0.2 % (0.0-3.0) 05/14/17 06:45 Gran # 4.17 (1.4-6.5) 05/14/17 06:45 Lymph # (Auto) 0.4 (1.2-3.4) L 05/14/17 06:45 [place] # (Auto) 0.5 (0.1-0.6) 05/14/17 06:45 Eos # (Auto) 0.1 (0.0-0.7) 05/14/17 06:45 Baso # (Auto) 0.01 K/mm3 (0.0-2.0) 05/14/17 06:45 Neutrophils % (Manual) 56 % (50.0-70.0) 05/03/17 07:00 Band Neutrophils % 39 % (0-2) H* 05/03/17 07:00 Lymphocytes % (Manual) 4 % (22.0-35.0) L 05/03/17 07:00 Monocytes % (Manual) 1 % (1.0-6.0) 05/03/17 07:00 Platelet Evaluation Normal (NORMAL) 05/03/17 07:00 Hypochromasia 1+ 05/02/17 09:00 Anisocytosis (manual) 1+ 05/02/17 09:00 PT 15.9 SECONDS (9.4-12.5) H 05/02/17 09:00 INR 1.37 (0.93-1.08) H 05/02/17 09:00 APTT 30.1 Seconds (25.1-36.5) 05/02/17 09:00 Fibrinogen 295 mg/dl (200-393) 05/06/17 11:30 Fibrin Degrad Products >10 <40 ug/ml (< 10 ug/mL) 05/06/17 11:30 Hep-Violet Thrombocytopen Negative (Negative) 05/06/17 11:30 pCO2 22 mm/Hg (35-45) L 05/05/17 05:25 pO2 95.0 mm/Hg (80-100) 05/05/17 05:25 HCO3 15.3 mmol/L (21-28) L 05/05/17 05:25 ABG pH 7.45 (7.35-7.45) 05/05/17 05:25 ABG Total CO2 16.0 mmol.L (22-28) L 05/05/17 05:25 ABG O2 Saturation 99.3 % (95-98) H 05/05/17 05:25 ABG O2 Content 12.9 ML/dl (15-23) L 05/05/17 05:25 ABG Base Excess -7.3 mmol/L (-2.0-3.0) L 05/05/17 05:25 ABG Hemoglobin 9.4 g/dL (11.7-17.4) L 05/05/17 05:25 ABG Carboxyhemoglobin 1.7 % (0.5-1.5) H 05/05/17 05:25 POC ABG HHb (Measured) 0.7 % (0-5) 05/05/17 05:25 ABG Methemoglobin 0.9 % (0.0-3.0) 05/05/17 05:25 ABG O2 Capacity 13.0 mL/dl (16-24) L 05/05/17 05:25 ABG Potassium 2.5 mmol/L (3.6-5.2) L* 05/02/17 09:25 Hgb O2 Saturation 96.7 % (95.0-98.0) 05/05/17 05:25 Sodium 143.0 mmol/L (132-148) 05/02/17 09:25 Chloride 118.0 mmol/L (98-107) H 05/02/17 09:25 Glucose 116 mg/dl (65-105) H 05/02/17 09:25 Lactate 1.1 mmol/L (0.7-2.1) 05/02/17 09:25 Mechanical Rate 16 05/02/17 09:25 FiO2 40.0 % 05/05/17 05:25 Tidal Volume 400 05/02/17 09:25 Sodium 137 mmol/L (132-148) 05/14/17 06:45 Potassium 3.6 mmol/L (3.6-5.0) 05/14/17 06:45 Chloride 105 mmol/L (98-107) 05/14/17 06:45 Carbon Dioxide 30 mmol/L (21-33) 05/14/17 06:45 Anion Gap 6 (10-20) L 05/14/17 06:45 BUN 18 mg/dL (7-21) 05/14/17 06:45 Creatinine 0.6 mg/dl (0.7-1.2) L 05/14/17 06:45 Est GFR ( Amer) > 60 05/14/17 06:45 Est GFR (Non-Af Amer) > 60 05/14/17 06:45 POC Glucose (mg/dL) 137 mg/dL (65-110) H 05/09/17 16:35 Random Glucose 81 mg/dL (70-110) 05/14/17 06:45 Calcium 8.0 mg/dL (8.4-10.5) L 05/14/17 06:45 Magnesium 2.2 mg/dL (1.7-2.2) 05/11/17 08:00 Total Bilirubin 0.9 mg/dL (0.2-1.3) 05/14/17 06:45 AST 18 U/L (14-36) 05/14/17 06:45 ALT 18 U/L (7-56) 05/14/17 06:45 Alkaline Phosphatase 57 U/L (38-126) 05/14/17 06:45 Total Creatine Kinase < 20 U/L (35-230) L 05/02/17 09:00 Troponin I 0.09 ng/mL 05/02/17 09:00 NT-Pro-B Natriuret Pep 5280 pg/mL (0-450) H 05/02/17 09:00 Total Protein 5.0 g/dL (5.8-8.3) L 05/14/17 06:45 Albumin 2.3 g/dL (3.0-4.8) L 05/14/17 06:45 Globulin 2.7 gm/dL 05/14/17 06:45 Albumin/Globulin Ratio 0.8 (1.1-1.8) L 05/14/17 06:45 Lipase < 10 U/L (23-300) L 05/02/17 09:00 UF Heparin Interp Negative (Negative) 05/06/17 11:30 Procalcitonin 1.00 NG/ML (0.19-0.49) H 05/08/17 05:00 Arterial Blood Potassium 2.5 mmol/L (3.6-5.2) L* 05/02/17 09:25 Urine Color Yellow (YELLOW) 05/02/17 09:20 Urine Appearance Clear (CLEAR) 05/02/17 09:20 Urine pH 6.0 (4.7-8.0) 05/02/17 09:20 Ur Specific [place] 1.025 (1.005-1.035) 05/02/17 09:20 Urine Protein 100 mg/dL (<30 mg/dL) H 05/02/17 09:20 Urine Glucose (UA) Negative mg/dL (NEGATIVE) 05/02/17 09:20 Urine Ketones Trace mg/dL (NEGATIVE) H 05/02/17 09:20 Urine Blood Trace-lysed (NEGATIVE) H 05/02/17 09:20 Urine Nitrate Negative (NEGATIVE) 05/02/17 09:20 Urine Bilirubin Small (NEGATIVE) H 05/02/17 09:20 Urine Urobilinogen 4.0 E.U./dL (<1 E.U./dL) H 05/02/17 09:20 Ur Leukocyte Esterase Negative Donnie/uL (NEGATIVE) 05/02/17 09:20 Urine RBC 5 - 10 /hpf (0-2) 05/02/17 09:20 Urine WBC 1 - 3 /hpf (0-6) 05/02/17 09:20 Ur Epithelial Cells 4 - 5 /hpf (0-5) 05/02/17 09:20 Amorphous Sediment Moderate 05/02/17 09:20 Urine Bacteria Many (NEG) 05/02/17 09:20 Urine Other Uyeast 05/02/17 09:20 Urine Opiates Screen Negative (NEGATIVE) 05/02/17 10:55 Urine Methadone Screen Negative (NEGATIVE) 05/02/17 10:55 Ur Barbiturates Screen Negative (NEGATIVE) 05/02/17 10:55 Ur Phencyclidine Scrn Negative (NEGATIVE) 05/02/17 10:55 Ur Amphetamines Screen Negative (NEGATIVE) 05/02/17 10:55 U Benzodiazepines Scrn Negative (NEGATIVE) 05/02/17 10:55 U Oth Cocaine Metabols Negative (NEGATIVE) 05/02/17 10:55 U Cannabinoids Screen Negative (NEGATIVE) 05/02/17 10:55 CONSTANZA UFH Low Dose 0.1 0 % Release 05/06/17 11:30 CONSTANZA UFH Low Dose 0.5 0 % Release 05/06/17 11:30 CONSTANZA UFH High Dose 100 0 % Release 05/06/17 11:30 Influenza Typ A,B (EIA) Negative for flu a/b (NEGATIVE) 05/02/17 09:30 Ur L.pneumophila Ag Negative (NEGATIVE) 05/05/17 17:00 Ur Strep pneumoniae Ag Detected H 05/02/17 17:30 - Hospital Course Hospital Course: 87 yr female from [facility] w/ history of influenza, severe anemia, hypertension, COPD, C.diff, colitis, atrial fibrillation, seizure disorder, advanced dementia, parkinsons, CVA, bipolar, schizophrenia and hypothyroidism. Admitted to ICU in [facility] for respiratory failure, ECG changes, and pneumonia. Pegtube recommended by Dr. Reed refused by patient. Pt recently made DNR/DNI; prognosis is guarded. Pt is able to eat solid foods. Pt will continue predisone PO x 5 days in snf. Reviewed: CXR = 05/09 s/p extubation, R lower lobe consildation & R pleural effusion. CT head = generalized atrophy, nonspecific white matter changes CXR = no significant chage in perihilar infiltarate and vascular congestion, ET and NG tubes unchanged ECG = Afib w/ RVR, ST abn, possible anteroseptal subandocardial injury, new since 04/24/17 ECG - Date & Time of H&P Date of H&P: 05/14/17 Time of H&P: 09:30 Discharge Exam - Head Exam Head Exam: ATRAUMATIC, NORMOCEPHALIC - Eye Exam Eye Exam: EOMI, Normal appearance, PERRL Pupil Exam: NORMAL ACCOMODATION, PERRL - ENT Exam ENT Exam: Mucous Membranes Moist - Respiratory Exam Respiratory Exam: Decreased Breath Sounds, Rhonchi - Cardiovascular Exam Cardiovascular Exam: +S1, +S2 - GI/Abdominal Exam GI & Abdominal Exam: Normal Bowel Sounds - Exam Additional comments: Gu[place] catheter draining, clear yellow urine. - Extremities Exam Extremities exam: normal capillary refill, normal inspection - Neurological Exam Neurological exam: Alert - Psychiatric Exam Psychiatric exam: Normal Affect, Normal Mood - Skin Skin Exam: Dry, Pallor, Warm Discharge Plan - Follow Up Plan Condition: GUARDED Disposition: NURSING FACILITY MEDICAID CERT Instructions: Pneumonia (DC) Referrals: Emily Vazquez MD [Primary Care Provider] - <Emily Vazquez - Last Filed: 05/14/17 22:34> Provider - Provider Date of Admission: 05/02/17 11:32 Attending physician: Emily Vazquez MD Primary care physician: Emily Vazquez MD Hospital Course - Lab Results Lab Results: Micro Results 05/02/17 17:30 Trachasp Gram Stain - Final 05/02/17 17:30 Trachasp Sputum Culture - Final Staphylococcus Aureus 05/02/17 14:30 Naris MRSA Culture (Admit) - Final MRSA NOT DETECTED Most Recent Lab Values WBC 5.2 10^3/ul (4.5-11.0) 05/14/17 06:45 RBC 3.13 10^6/uL (3.5-6.1) L 05/14/17 06:45 Hgb 9.0 g/dL (12.0-16.0) L 05/14/17 06:45 Hct 28.5 % (36.0-48.0) L 05/14/17 06:45 MCV 91.1 fl (80.0-105.0) 05/14/17 06:45 MCH 28.8 pg (25.0-35.0) 05/14/17 06:45 MCHC 31.6 g/dl (31.0-37.0) 05/14/17 06:45 RDW 15.7 % (11.5-14.5) H 05/14/17 06:45 Plt Count 129 10^3/uL (120.0-450.0) 05/14/17 06:45 MPV 9.7 fl (7.0-11.0) 05/14/17 06:45 Gran % 80.8 % (50.0-68.0) H 05/14/17 06:45 Lymph % (Auto) 7.8 % (22.0-35.0) L 05/14/17 06:45 [place] % (Auto) 8.9 % (1.0-6.0) H 05/14/17 06:45 Eos % (Auto) 2.3 % (1.5-5.0) 05/14/17 06:45 Baso % (Auto) 0.2 % (0.0-3.0) 05/14/17 06:45 Gran # 4.17 (1.4-6.5) 05/14/17 06:45 Lymph # (Auto) 0.4 (1.2-3.4) L 05/14/17 06:45 [place] # (Auto) 0.5 (0.1-0.6) 05/14/17 06:45 Eos # (Auto) 0.1 (0.0-0.7) 05/14/17 06:45 Baso # (Auto) 0.01 K/mm3 (0.0-2.0) 05/14/17 06:45 Neutrophils % (Manual) 56 % (50.0-70.0) 05/03/17 07:00 Band Neutrophils % 39 % (0-2) H* 05/03/17 07:00 Lymphocytes % (Manual) 4 % (22.0-35.0) L 05/03/17 07:00 Monocytes % (Manual) 1 % (1.0-6.0) 05/03/17 07:00 Platelet Evaluation Normal (NORMAL) 05/03/17 07:00 Hypochromasia 1+ 05/02/17 09:00 Anisocytosis (manual) 1+ 05/02/17 09:00 PT 15.9 SECONDS (9.4-12.5) H 05/02/17 09:00 INR 1.37 (0.93-1.08) H 05/02/17 09:00 APTT 30.1 Seconds (25.1-36.5) 05/02/17 09:00 Fibrinogen 295 mg/dl (200-393) 05/06/17 11:30 Fibrin Degrad Products >10 <40 ug/ml (< 10 ug/mL) 05/06/17 11:30 Hep-Violet Thrombocytopen Negative (Negative) 05/06/17 11:30 pCO2 22 mm/Hg (35-45) L 05/05/17 05:25 pO2 95.0 mm/Hg (80-100) 05/05/17 05:25 HCO3 15.3 mmol/L (21-28) L 05/05/17 05:25 ABG pH 7.45 (7.35-7.45) 05/05/17 05:25 ABG Total CO2 16.0 mmol.L (22-28) L 05/05/17 05:25 ABG O2 Saturation 99.3 % (95-98) H 05/05/17 05:25 ABG O2 Content 12.9 ML/dl (15-23) L 05/05/17 05:25 ABG Base Excess -7.3 mmol/L (-2.0-3.0) L 05/05/17 05:25 ABG Hemoglobin 9.4 g/dL (11.7-17.4) L 05/05/17 05:25 ABG Carboxyhemoglobin 1.7 % (0.5-1.5) H 05/05/17 05:25 POC ABG HHb (Measured) 0.7 % (0-5) 05/05/17 05:25 ABG Methemoglobin 0.9 % (0.0-3.0) 05/05/17 05:25 ABG O2 Capacity 13.0 mL/dl (16-24) L 05/05/17 05:25 ABG Potassium 2.5 mmol/L (3.6-5.2) L* 05/02/17 09:25 Hgb O2 Saturation 96.7 % (95.0-98.0) 05/05/17 05:25 Sodium 143.0 mmol/L (132-148) 05/02/17 09:25 Chloride 118.0 mmol/L (98-107) H 05/02/17 09:25 Glucose 116 mg/dl (65-105) H 05/02/17 09:25 Lactate 1.1 mmol/L (0.7-2.1) 05/02/17 09:25 Mechanical Rate 16 05/02/17 09:25 FiO2 40.0 % 05/05/17 05:25 Tidal Volume 400 05/02/17 09:25 Sodium 137 mmol/L (132-148) 05/14/17 06:45 Potassium 3.6 mmol/L (3.6-5.0) 05/14/17 06:45 Chloride 105 mmol/L (98-107) 05/14/17 06:45 Carbon Dioxide 30 mmol/L (21-33) 05/14/17 06:45 Anion Gap 6 (10-20) L 05/14/17 06:45 BUN 18 mg/dL (7-21) 05/14/17 06:45 Creatinine 0.6 mg/dl (0.7-1.2) L 05/14/17 06:45 Est GFR ( Amer) > 60 05/14/17 06:45 Est GFR (Non-Af Amer) > 60 05/14/17 06:45 POC Glucose (mg/dL) 137 mg/dL (65-110) H 05/09/17 16:35 Random Glucose 81 mg/dL (70-110) 05/14/17 06:45 Calcium 8.0 mg/dL (8.4-10.5) L 05/14/17 06:45 Magnesium 2.2 mg/dL (1.7-2.2) 05/11/17 08:00 Total Bilirubin 0.9 mg/dL (0.2-1.3) 05/14/17 06:45 AST 18 U/L (14-36) 05/14/17 06:45 ALT 18 U/L (7-56) 05/14/17 06:45 Alkaline Phosphatase 57 U/L (38-126) 05/14/17 06:45 Total Creatine Kinase < 20 U/L (35-230) L 05/02/17 09:00 Troponin I 0.09 ng/mL 05/02/17 09:00 NT-Pro-B Natriuret Pep 5280 pg/mL (0-450) H 05/02/17 09:00 Total Protein 5.0 g/dL (5.8-8.3) L 05/14/17 06:45 Albumin 2.3 g/dL (3.0-4.8) L 05/14/17 06:45 Globulin 2.7 gm/dL 05/14/17 06:45 Albumin/Globulin Ratio 0.8 (1.1-1.8) L 05/14/17 06:45 Lipase < 10 U/L (23-300) L 05/02/17 09:00 UF Heparin Interp Negative (Negative) 05/06/17 11:30 Procalcitonin 1.00 NG/ML (0.19-0.49) H 05/08/17 05:00 Arterial Blood Potassium 2.5 mmol/L (3.6-5.2) L* 05/02/17 09:25 Urine Color Yellow (YELLOW) 05/02/17 09:20 Urine Appearance Clear (CLEAR) 05/02/17 09:20 Urine pH 6.0 (4.7-8.0) 05/02/17 09:20 Ur Specific [place] 1.025 (1.005-1.035) 05/02/17 09:20 Urine Protein 100 mg/dL (<30 mg/dL) H 05/02/17 09:20 Urine Glucose (UA) Negative mg/dL (NEGATIVE) 05/02/17 09:20 Urine Ketones Trace mg/dL (NEGATIVE) H 05/02/17 09:20 Urine Blood Trace-lysed (NEGATIVE) H 05/02/17 09:20 Urine Nitrate Negative (NEGATIVE) 05/02/17 09:20 Urine Bilirubin Small (NEGATIVE) H 05/02/17 09:20 Urine Urobilinogen 4.0 E.U./dL (<1 E.U./dL) H 05/02/17 09:20 Ur Leukocyte Esterase Negative Donnie/uL (NEGATIVE) 05/02/17 09:20 Urine RBC 5 - 10 /hpf (0-2) 05/02/17 09:20 Urine WBC 1 - 3 /hpf (0-6) 05/02/17 09:20 Ur Epithelial Cells 4 - 5 /hpf (0-5) 05/02/17 09:20 Amorphous Sediment Moderate 05/02/17 09:20 Urine Bacteria Many (NEG) 05/02/17 09:20 Urine Other Uyeast 05/02/17 09:20 Urine Opiates Screen Negative (NEGATIVE) 05/02/17 10:55 Urine Methadone Screen Negative (NEGATIVE) 05/02/17 10:55 Ur Barbiturates Screen Negative (NEGATIVE) 05/02/17 10:55 Ur Phencyclidine Scrn Negative (NEGATIVE) 05/02/17 10:55 Ur Amphetamines Screen Negative (NEGATIVE) 05/02/17 10:55 U Benzodiazepines Scrn Negative (NEGATIVE) 05/02/17 10:55 U Oth Cocaine Metabols Negative (NEGATIVE) 05/02/17 10:55 U Cannabinoids Screen Negative (NEGATIVE) 05/02/17 10:55 CONSTANZA UFH Low Dose 0.1 0 % Release 05/06/17 11:30 CONSTANZA UFH Low Dose 0.5 0 % Release 05/06/17 11:30 CONSTANZA UFH High Dose 100 0 % Release 05/06/17 11:30 Influenza Typ A,B (EIA) Negative for flu a/b (NEGATIVE) 05/02/17 09:30 Ur L.pneumophila Ag Negative (NEGATIVE) 05/05/17 17:00 Ur Strep pneumoniae Ag Detected H 05/02/17 17:30 - Hospital Course Hospital Course: pt is seen and examined at bed side looking comfortable , ready to [place] , agreed all above , should be on aspiration precaution . tapering doses of prednesone , will f/u
--- NOTE | 2017-05-14 11:46 | CP.PCM.PN ---
Subjective - Date & Time of Evaluation Date of Evaluation: 05/14/17 Time of Evaluation: 11:43 - Subjective Subjective: Patient seen and examined at bedside. Patient states she still has pain in her lower back. Patient will be washed and changed today. Patient will likely be discharged today. Denies chest pain, shortness of breath, nausea, vomiting, diarrhea, fever, chills. Objective - Vital Signs/Intake and Output Vital Signs (last 24 hours): Temp Pulse Resp BP Pulse Ox 98.7 F 79 22 95/57 L 98 05/14/17 08:03 05/14/17 08:03 05/14/17 08:03 05/14/17 08:03 05/14/17 08:03 Intake and Output: 05/14/17 05/14/17 06:59 18:59 Intake Total 360 60 Output Total 825 Balance -465 60 - Medications Medications: Current Medications Acetaminophen (Tylenol 325mg Tab) 650 mg PO Q4H PRN PRN Reason: Pain, Mild (1-3) Last Admin: 05/13/17 23:11 Dose: 650 mg Albuterol/Ipratropium (Duoneb 3 Mg/0.5 Mg (3 Ml) Ud) 3 ml IH [id number] [facility] Last Admin: 05/14/17 08:08 Dose: 3 ml Apixaban (Eliquis) 2.5 mg PO BID [facility] PRN Reason: Protocol Last Admin: 05/14/17 09:02 Dose: 2.5 mg Arformoterol Tartrate (Brovana) 15 mcg IH [id number] [facility] Last Admin: 05/14/17 08:08 Dose: 15 mcg Budesonide (Pulmicort Respules) 1 mg IH [id number] [facility] Last Admin: 05/14/17 08:10 Dose: 0.5 mg Carbidopa/Levodopa (Sinemet Cr) 1 tab PO TID [facility] Last Admin: 05/14/17 09:01 Dose: 1 tab Digoxin (Lanoxin) 0.125 mg PO DAILY [facility] Last Admin: 05/14/17 09:01 Dose: 0.125 mg Divalproex Sodium (Depakote Sprinkles) 125 mg PO BID [facility] PRN Reason: Protocol Last Admin: 05/14/17 09:01 Dose: 125 mg Docusate Sodium (Colace) 100 mg PO BID [facility] Last Admin: 05/14/17 09:01 Dose: 100 mg Famotidine (Pepcid) 20 mg PO DAILY [facility] Last Admin: 05/14/17 09:00 Dose: 20 mg Loratadine (Claritin) 10 mg PO DAILY [facility] Last Admin: 05/14/17 09:02 Dose: 10 mg Montelukast Sodium (Singulair) 10 mg PO DAILY [facility] Last Admin: 05/14/17 09:01 Dose: 10 mg Polyethylene Glycol (Miralax) 17 gm PO DAILY [facility] Last Admin: 05/14/17 09:00 Dose: 17 gm Prednisone (Prednisone Tab) 10 mg PO DAILY [facility] Last Admin: 05/14/17 09:01 Dose: 10 mg Risperidone (Risperdal Tab) 0.25 mg PO BID [facility] PRN Reason: Protocol Last Admin: 05/14/17 09:02 Dose: 0.25 mg - Labs Labs: 05/14/17 06:45 05/14/17 06:45 PT 15.9 SECONDS (9.4-12.5) H 05/02/17 09:00 INR 1.37 (0.93-1.08) H 05/02/17 09:00 APTT 30.1 Seconds (25.1-36.5) 05/02/17 09:00 - Constitutional Appears: Non-toxic, No Acute Distress - Head Exam Head Exam: ATRAUMATIC, NORMAL INSPECTION, NORMOCEPHALIC - ENT Exam ENT Exam: Mucous Membranes Dry - Respiratory Exam Respiratory Exam: Decreased Breath Sounds, NORMAL BREATHING PATTERN - Cardiovascular Exam Cardiovascular Exam: Tachycardia, REGULAR RHYTHM, +S1, +S2 - GI/Abdominal Exam GI & Abdominal Exam: Soft, Normal Bowel Sounds. absent: Tenderness - Extremities Exam Extremities Exam: absent: Calf Tenderness, Pedal Edema Additional comments: Wounds bandaged - Neurological Exam Neurological Exam: Alert, Awake, Oriented x3 - Psychiatric Exam Psychiatric exam: Normal Affect, Normal Mood - Skin Skin Exam: Dry, Intact, Normal Color Assessment and Plan - Assessment and Plan (Free Text) Plan: 87 y/o F with PMH of Hypertension, Gastric Polyps, Cholelithiasis, Atrial Fibrillation, Advanced Dementia, History of Pneumonia, Psychosis, Schizophrenia , Parkinson's, COPD presented with HCAP and thrombocytopenia secondary to sepsis , both which have now resolved. Platelet count within normali limits and hemoglobin is stable. Transfuse as necessary. Patient made DNR/DNI. Patient's prognosis is guarded. Continue current medical regimen. Plan discussed with Dr. Magana. Queenie, PGY-2
--- NOTE | 2017-05-14 17:29 | CP.PCM.PN ---
Subjective - Date & Time of Evaluation Date of Evaluation: 05/14/17 Time of Evaluation: 11:00 - Subjective Subjective: Infectious Disease Follow Up: May 14, 2017 87 yo female found in the field in respiratory distress and required intubation in the field. She was desaturating to 70% on room air in the field. She remains poorly responsive and remains intubated and ventilated. Unable to gain more history other than information in the chart. She was recently discharged from [facility] after evaluation for anemia and gastric polyps. She remains in the MICU intubated and ventilated. She is awake and appears alert. She can follow simple commands to the extent she is able while ventilated. Vital chart does not show fever episodes however the nursing notes overnight show low grade fevers up to 100.6F. Chest X-ray showing bilateral opacities. Procalcitonin was 11.91 but has improved to 1 now. Extubated and slowly improving. Currently no leukocytosis. Trend procalcitonin levels. Patient improving. Seen by speech therapy who deemed the patient to be very high risk for aspiration. Last Chest X-ray showing right lober lobe pleural effusion and consolidation but unchanged from prior study. Supportive care. Potassium replaced. Dr. Reed suggested feeding tube or G-tube placement but the patient has been opposed to that decision. Patient is DNI/DNR now. For discharge today. Objective - Vital Signs/Intake and Output Vital Signs (last 24 hours): Temp Pulse Resp BP Pulse Ox 98.7 F 79 22 95/57 L 98 05/14/17 08:03 05/14/17 08:03 05/14/17 08:03 05/14/17 08:03 05/14/17 08:03 Intake and Output: 05/14/17 05/14/17 06:59 18:59 Intake Total 360 180 Output Total 825 500 Balance -465 -320 - Labs Labs: 05/14/17 06:45 05/14/17 06:45 PT 15.9 SECONDS (9.4-12.5) H 05/02/17 09:00 INR 1.37 (0.93-1.08) H 05/02/17 09:00 APTT 30.1 Seconds (25.1-36.5) 05/02/17 09:00 - Constitutional Appears: Non-toxic, No Acute Distress, Chronically Ill - Head Exam Head Exam: ATRAUMATIC, NORMOCEPHALIC - Eye Exam Eye Exam: EOMI, PERRL Pupil Exam: NORMAL ACCOMODATION, PERRL - ENT Exam ENT Exam: Mucous Membranes Moist, Normal External Ear Exam, TM's Normal Bilaterally - Neck Exam Neck Exam: Full ROM, Normal Inspection - Respiratory Exam Respiratory Exam: Clear to Ausculation Bilateral, Wheezes, NORMAL BREATHING PATTERN. absent: Rales, Rhonchi - Cardiovascular Exam Cardiovascular Exam: REGULAR RHYTHM, RRR, +S1, +S2 - GI/Abdominal Exam GI & Abdominal Exam: Soft, Normal Bowel Sounds. absent: Distended, Tenderness - Extremities Exam Extremities Exam: Joint Swelling, Pedal Edema Additional comments: multiple pressure ulcers in the lower extremities. - Neurological Exam Neurological Exam: Alert, Awake, CN II-XII Intact, Oriented x3 - Psychiatric Exam Psychiatric exam: Normal Affect, Normal Mood - Skin Additional comments: pressure ulcer in lower extremities. Assessment and Plan - Assessment and Plan (Free Text) Assessment: 87 yo female with multiple comorbidities presented with severe SOB requiring intubation in the field. The patient is arousable now even with propofol on board. The patient remains intubated and ventilated at this time. Started on Vancomycin IV, Cefepime, and Azithromycin. Obtain procalcitonin value. Negative Influenza. Negative drug screen. Chest X-ray showing multifocal patchy and nodular opacities bilaterally, right greater than left. These finding were not seen in an Chest X-ray done on 04/25/2017 on the last hospitalization. Brown cultures and sputum cultures sent. Procalcitonin was 11.91 and with the Chest X-ray findings and intubation, severe pneumonia is part of the patient's medical issues. Continue on IV Vancomycin, Cefepime, and Azithromycin. Extubated 05/05/2017. Patient improving. Passed swallow study but deemed high risk for aspiration. Last procalcitonin value was 1.0. Leukocytosis resolved and is 5.2 now. Supportive care. The patient has an extensive and exhaustive medical history. Questions on the patient ability to eat without aspiration. G-tube recommended by Dr. Reed but patient refused this recommendation. Possible discharge today. Thank you for allowing me to participate in the care of the patient, we will follow with you.
== END 2017-05-14 14:32 | DRG 584 ==
LOC: ED 08:52 → ERH 11:32 → CCU 12:45 → 5RNO 05-09 19:39
PROVIDERS: ADMIT Internal Medicine; ATTEND Internal Medicine
PROC: 5A1945Z Respiratory Ventilation, 24-96 Consecutive Hours (ICD-10-PCS; principal; 2017-05-02)
PROC: 3E0F7GC Introduction of Other Therapeutic Substance into Respiratory Tract, Via Natural or Artificial Opening (ICD-10-PCS; 2017-05-11)
DX: A41.9 Sepsis, unspecified organism (principal); J96.01 Acute respiratory failure with hypoxia; J18.9 Pneumonia, unspecified organism; I11.0 Hypertensive heart disease with heart failure; D69.6 Thrombocytopenia, unspecified; G20 Parkinson's disease; J44.0 Chronic obstructive pulmonary disease with (acute) lower respiratory infection; I48.91 Unspecified atrial fibrillation; I50.9 Heart failure, unspecified; F20.9 Schizophrenia, unspecified; E83.51 Hypocalcemia; E87.6 Hypokalemia; F03.90 Unspecified dementia, unspecified severity, without behavioral disturbance, psychotic disturbance, mood disturbance, and anxiety; J44.1 Chronic obstructive pulmonary disease with (acute) exacerbation; N39.0 Urinary tract infection, site not specified; R13.12 Dysphagia, oropharyngeal phase; D64.9 Anemia, unspecified; I25.10 Atherosclerotic heart disease of native coronary artery without angina pectoris; M81.0 Age-related osteoporosis without current pathological fracture; E78.00 Pure hypercholesterolemia, unspecified; Z66 Do not resuscitate; E03.9 Hypothyroidism, unspecified; G40.909 Epilepsy, unspecified, not intractable, without status epilepticus; Y95 Nosocomial condition; R65.20 Severe sepsis without septic shock; J30.2 Other seasonal allergic rhinitis; K21.9 Gastro-esophageal reflux disease without esophagitis; M21.379 Foot drop, unspecified foot; Z74.01 Bed confinement status; B95.61 Methicillin susceptible Staphylococcus aureus infection as the cause of diseases classified elsewhere; R80.9 Proteinuria, unspecified; E61.1 Iron deficiency; Z86.73 Personal history of transient ischemic attack (TIA), and cerebral infarction without residual deficits; Z87.01 Personal history of pneumonia (recurrent); Z90.710 Acquired absence of both cervix and uterus; Z87.891 Personal history of nicotine dependence